=== PATIENT | male | born 1955 | race Caucasian/White ===

== ENCOUNTER 2016-12-24 10:43 | Observation (INO) | payer MEDICAID ==
[~2016-12-24] VITALS: Ht 180.3 cm; Wt 84.0 kg
[2016-12-24] VITALS (8 sets, daily range): BP systolic 132–186; BP diastolic 71–90; PULSE 84–110; RESP 18–20; TEMP 97.9; O2SAT 96–100
[~2016-12-24 10:43] MED LIST: BENZ1TAB PO; CLON.5 PO; CLON0.1T PO; DOXY1CAP91 PO; FURO1TAB62 PO; GLIP10TA6 PO; HYDR-3133 PO; HYDR-3516 PO; HYDR50TA94 PO; LANTUS2P SQ; LOSA50TA PO; PRED1SUS6 EACH EYE; PROT40TA PO; SITA50 PO; SUMA50TA2 PO; VARE1PAK5 PO; VENTAER INH; WARF-23 PO; WARF4TAB52 PO
--- NOTE | 2016-12-24 12:05 | PD ---
HPI Chief Complaint: Abdominal Pain Time Seen by Provider: 11:59 Travel History International Travel<30 days: No Contact w/Intl Traveler<30days: No Traveled to known affect area: No History of Present Illness HPI Patient is a 61-year-old male presenting to emergency for evaluation of abdominal pain. Patient states the pain is been ongoing for 4 days, it is localized in the left lower quadrant and suprapubic region. He states it's and aching all over and crampy. He denies any nausea or vomiting but reports diarrhea 3 days ago. He also reports a frontal headache which is ongoing for the same amount of time. Denies any fever, chills, nausea, vomiting. He states he's been tolerating oral intake. Patient denies any alcohol use, he does endorse tobacco use and occasional marijuana. His past medical history significant for type 2 diabetes, COPD, hypertension, coronary artery disease. PFSH Past Medical History Hx Anticoagulant Therapy: Yes (COUMADIN) Arthritis: Yes Asthma: No Autoimmune Disease: No Blood Disorders: No Bipolar Disorder: Yes Anxiety: Yes Depression: Yes Heart Rhythm Problems: No Cardiac Catheterization: Yes High Cholesterol: No Chemotherapy: No Chest Pain: Yes Congestive Heart Failure: No COPD: Yes Cerebrovascular Accident: Yes Coronary Artery Disease: Yes Diabetes: Yes Diminished Hearing: No Endocrine: Yes Gastrointestinal Disorders: Yes GERD: No Glaucoma: No Genitourinary: No Headaches: No Hepatitis: No Hiatal Hernia: No Hypertension: Yes Immune Disorder: No Implanted Vascular Access Dvce: Yes Kidney Stones: No Reproductive: No Immunizations Current: Yes Migraines: Yes Myocardial Infarction: No Pneumonia: Yes Radiation Therapy: No Renal Failure: No Schizophrenia: Yes Seizures: No Sickle Cell Disease: No Sleep Apnea: No Thyroid Disease: No Ulcer: Yes PNEUMOCCOCAL Vaccine (Year): 2 Past Surgical History Abdominal Surgery: Yes (UNKNOWN) AICD: No Appendectomy: No Arteriovenous Shunt: No Body Medical Devices: BULLET IN CHEST, AFUA IN NOSE Cardiac Surgery: Yes (femoral-popliteal bypass surgery) Cholecystectomy: No Coronary Artery Bypass Graft: No Ear Surgery: No Endocrine Surgery: No Eye Surgery: Yes (PT STATES "PERMANENT CONTACT LENSES") Genitourinary Surgery: No Gynecologic Surgery: No Hysterectomy: No Insulin Pump: No Joint Replacement: Yes (PINS IN RIGHT WRIST) Neurologic Surgery: No Oral Surgery: No Pacemaker: No Thoracic Surgery: No Social History Alcohol Use: No Tobacco Use: Yes (1 PPD) Substance Use: Yes (marijuana on a few occasions) Allergies-Medications (Allergen,Severity, Reaction): Coded Allergies: Aspirin (Verified Allergy, Severe, 09/27/16) Codeine (Verified Allergy, Severe, RASH, 09/27/16) Darvocet-N 100 (Verified Allergy, Severe, RASH, 09/27/16) Ibuprofen (Verified Allergy, Severe, RASH, 09/27/16) REACTION NOT GIVEN Penicillin (Verified Allergy, Severe, RASH, 09/27/16) REACTION NOT GIVEN *MDRO Multi-Drug Resistant Organism (Verified Allergy, Unknown, 09/27/16) MRSA 2011, 2013 MRSA PCR Screen negative 08/24/15 and 08/25/15. MRSA (toe-08/14/16) Reported Meds & Prescriptions Reported Meds & Active Scripts Active Reported Amlodipine (Amlodipine Besylate) 5 Mg Tab 5 Mg PO DAILY Hydroxyzine HCl 25 Mg Tab 25 Mg PO BID PRN Januvia (Sitagliptin Phosphate) 50 Mg Tab 50 Mg PO DAILY Clonidine (Clonidine HCl) 0.1 Mg Tab 0.1 Mg PO TID Glipizide 10 Mg Tab 10 Mg PO BIDAC Take 30 minutes before a meal Review of Systems Except as stated in HPI: all other systems reviewed are Neg General / Constitutional: No: Fever, Chills HENT: Positive: Headaches Cardiovascular: No: Chest Pain or Discomfort Respiratory: No: Shortness of Breath Gastrointestinal: Positive: Diarrhea, Abdominal Pain, Changes in Bowel Habits, No: Nausea, Vomiting Neurologic: No: Weakness, Dizziness, Focal Abnormalities Physical Exam Narrative GENERAL: Well-developed, well-nourished, alert male. Resting comfortably in no acute distress. SKIN: Warm and dry. HEAD: Atraumatic. Normocephalic. EYES: Pupils equal and round. No scleral icterus. No injection or drainage. ENT: No nasal bleeding or discharge. Mucous membranes pink and moist. NECK: Trachea midline. No JVD. CARDIOVASCULAR: Regular rate and rhythm. No murmur appreciated. RESPIRATORY: No accessory muscle use. Clear to auscultation. Breath sounds equal bilaterally. GASTROINTESTINAL: Abdomen soft, mildly tender in left lower quadrant, no rebound , no guarding, nondistended. Hepatic and splenic margins not palpable. Hyperactive bowel sounds noted. MUSCULOSKELETAL: No obvious deformities. No clubbing. No cyanosis. No edema. NEUROLOGICAL: Awake and alert. No obvious cranial nerve deficits. Motor grossly within normal limits. Normal speech. PSYCHIATRIC: Appropriate mood and affect; insight and judgment normal. Data Data Last Documented VS Vital Signs Date Time Temp Pulse Resp B/P Pulse Ox O2 Delivery O2 Flow Rate FiO2 12/24/16 14:00 94 18 186/88 97 12/24/16 10:46 97.9 Orders Complete Blood Count With Diff (12/24/16 11:58) Comprehensive Metabolic Panel (12/24/16 11:58) Lipase (12/24/16 11:58) Lactic Acid (12/24/16 11:58) Prothrombin Time / Inr (Pt) (12/24/16 11:58) Act Partial Throm Time (Ptt) (12/24/16 11:58) Urinalysis - C+S If Indicated (12/24/16 11:58) Abdomen, Kub Only (12/24/16 11:58) Ct Brain W/O Iv Contrast(Rout) (12/24/16 ) Troponin I (12/24/16 13:11) Chest, Single Ap (12/24/16 ) Lorazepam Inj (Ativan Inj) (12/24/16 13:32) Lorazepam Inj (Ativan Inj) (12/24/16 13:45) Sodium Chlor 0.9% 1000 Ml Inj (Ns 1000 M (12/24/16 13:45) Magnesium (Mg) (12/24/16 13:42) Resp Et Co2 Monitor (12/24/16 ) Ammonia (12/24/16 13:47) Thyroid Stimulating Hormone (12/24/16 13:47) Blood Culture (12/24/16 13:47) Admit Order (Ed Use Only) (12/24/16 14:54) Alcohol (Ethanol) (12/24/16 14:54) Labs Laboratory Tests Test 12/24/16 12/24/16 13:00 14:15 White Blood Count 9.1 TH/MM3 Red Blood Count 4.69 MIL/MM3 Hemoglobin 13.7 GM/DL Hematocrit 40.7 % Mean Corpuscular Volume 86.7 FL Mean Corpuscular Hemoglobin 29.2 PG Mean Corpuscular Hemoglobin 33.7 % Concent Red Cell Distribution Width 14.6 % Platelet Count 269 TH/MM3 Mean Platelet Volume 8.7 FL Neutrophils (%) (Auto) 76.7 % Lymphocytes (%) (Auto) 13.8 % Monocytes (%) (Auto) 6.2 % Eosinophils (%) (Auto) 2.1 % Basophils (%) (Auto) 1.2 % Neutrophils # (Auto) 7.0 TH/MM3 Lymphocytes # (Auto) 1.3 TH/MM3 Monocytes # (Auto) 0.6 TH/MM3 Eosinophils # (Auto) 0.2 TH/MM3 Basophils # (Auto) 0.1 TH/MM3 CBC Comment DIFF FINAL Differential Comment Prothrombin Time 14.8 SEC Prothromb Time International 1.3 RATIO Ratio Activated Partial 38.3 SEC Thromboplast Time Sodium Level 132 MEQ/L Potassium Level 4.5 MEQ/L Chloride Level 94 MEQ/L Carbon Dioxide Level 29.2 MEQ/L Anion Gap 9 MEQ/L Blood Urea Nitrogen 23 MG/DL Creatinine 1.64 MG/DL Estimat Glomerular Filtration 43 ML/MIN Rate Random Glucose 121 MG/DL Calcium Level 9.7 MG/DL Magnesium Level 2.2 MG/DL Total Bilirubin 0.6 MG/DL Aspartate Amino Transf 14 U/L (AST/SGOT) Alanine Aminotransferase 25 U/L (ALT/SGPT) Alkaline Phosphatase 122 U/L Troponin I LESS THAN 0.02 NG/ML Total Protein 9.0 GM/DL Albumin 4.2 GM/DL Lipase 252 U/L Thyroid Stimulating Hormone 0.453 uIU/ML 3rd Gen Lactic Acid Level 4.9 mmol/L Ammonia 32 MCMOL/L Ethyl Alcohol Level LESS THAN 3 MG/DL MDM Medical Decision Making Medical Screen Exam Complete: Yes Emergency Medical Condition: Yes Interpretation(s) Vital Signs Date Time Temp Pulse Resp B/P Pulse Ox O2 Delivery O2 Flow Rate FiO2 12/24/16 10:46 97.9 106 20 162/85 99 Differential Diagnosis Obstruction versus gastroenteritis versus diverticulitis versus urinary tract infection versus AAA Narrative Course Patient is a 61-year-old male presenting to emergency from for evaluation of abdominal pain medicine ongoing for 4 days. Additionally he reports a headache that is frontal in nature and pressure-like. Labs and imaging ordered and pending. Workup has been initiated in triage, care patient will be transferred to provider when a medical bed is available. Ksenia Ferguson Dec 24, 2016 12:05
--- NOTE | 2016-12-24 12:37 | RADRPT ---
EXAM DATE/TIME: 12/24/2016 12:32 [facility] COMPARISON: No previous studies available for comparison. INDICATIONS : Patient states he has had abdominal pain for four days. MEDICAL HISTORY : Cardiovascular disease. Deep venous thrombosis. Hypertension. Diabetes. SURGICAL HISTORY : None. ENCOUNTER: Initial ACUITY: 4 - 6 days PAIN SCORE: 10/10 LOCATION: Abdomen. FINDINGS: Supine view of the abdomen was performed. Copious amount of stool. The abdominal bowel gas pattern i s normal. No abnormal masses, calcifications, or organomegaly is seen. The osseous structures are u nremarkable. Stents are seen within the left common iliac and right external iliac. Scattered degener ative changes. CONCLUSION: Copious amount of stool. Caleb Patel MD on December 24, 2016 at 12:34 Board Certified Radiologist. This report was verified electronically.
[2016-12-24] MEDS ORDERED: AMLO5TAB2 PO (13:00)
[2016-12-24 13:15] LABS: BASOPHIL # 0.1 TH/MM3 (0-0.2); BASOPHIL % 1.2 % (0.0-2.0); EOSINOPHIL # 0.2 TH/MM3 (0-0.4); EOSINOPHIL % 2.1 % (0.0-4.0); HEMATOCRIT 40.7 % (39.0-51.0); HEMO FLAGS DIFF FINAL; LYMPH % 13.8 % (9.0-44.0); LYMPHOCYTE # 1.3 TH/MM3 (1.0-4.8); MEAN CELL VOLUME 86.7 FL (80.0-100.0); MEAN CORPUSCULAR HEMOGLOBIN 29.2 PG (27.0-34.0); MEAN CORPUSCULAR HGB CONC 33.7 % (32.0-36.0); MONO % 6.2 % (0.0-8.0); NEUT % 76.7 % (16.0-70.0); PLATELET COUNT 269 TH/MM3 (150-450); RED BLOOD COUNT 4.69 MIL/MM3 (4.50-5.90); RED CELL DISTRIBUTION WIDTH 14.6 % (11.6-17.2); WHITE BLOOD COUNT 9.1 TH/MM3 (4.0-11.0)
[2016-12-24 13:26] LABS: APTT (PATIENT) 38.3 SEC (24.3-30.1); INTERNATIONAL NORMALIZED RATIO 1.3 RATIO; PROTHROMBIN TIME - PATIENT 14.8 SEC (9.8-11.6)
[2016-12-24] MEDS ORDERED: LORazepam 2 MG/ML VIAL ONE (13:32)
[2016-12-24 13:37] LABS: ALT (GPT) 25 U/L (12-78); ANION GAP 9 MEQ/L (5-15); AST (GOT) 14 U/L (15-37); BICARBONATE 29.2 MEQ/L (21.0-32.0); BLOOD UREA NITROGEN 23 MG/DL (7-18); CHLORIDE 94 MEQ/L (98-107); GLOMERULAR FILTRATION RATE 43 ML/MIN (>89); POTASSIUM 4.5 MEQ/L (3.5-5.1); SODIUM (NA) 132 MEQ/L (136-145)
[2016-12-24 13:40] LABS: ALKALINE PHOSPHATASE 122 U/L (45-117); TOTAL BILIRUBIN ADULT 0.6 MG/DL (0.2-1.0)
[2016-12-24] MEDS ORDERED: LORazepam 2 MG/ML VIAL IV PUSH ONE (13:45)
[2016-12-24] MEDS ORDERED: SODIUM CHLOR 0.9% 1000 ML INJ 1,000 ML IV ONE (13:45)
--- NOTE | 2016-12-24 13:51 | RADRPT ---
EXAM DATE/TIME: 12/24/2016 13:20 [facility] COMPARISON: CHEST SINGLE AP, September 27, 2016, 20:11. INDICATIONS : Chest pain. MEDICAL HISTORY : Cardiovascular disease. Hypertension diabetes SURGICAL HISTORY : None. ENCOUNTER: Initial ACUITY: 1 day PAIN SCORE: Non-responsive. LOCATION: Bilateral chest FINDINGS: A single view of the chest demonstrates the lungs to be symmetrically aerated without evidence of mas s, infiltrate or effusion. Right costophrenic sulcus is excluded from the image. The cardiomediastin al contours are unremarkable. Osseous structures are intact. CONCLUSION: No acute disease. Cuauhtemoc Love MD on December 24, 2016 at 13:49 Board Certified Radiologist. This report was verified electronically.
--- NOTE | 2016-12-24 13:53 | PD ---
Physical Exam Narrative 61yo M with PMH of anxiety, depression, bipolar disorder, DM, HTN, PVD s/p bilateral fem-pop bypass, COPD presents to the ED with multiple complaints. Pt is complaining of left sided headache, left sided chest pain, and left sided abdominal pain for 4 days. Pt denies any fever, sob, n/v, or diarrhea. Pt is acting strange and following commands but keeps stating he feels confused. Pt noted to have lip smacking. GEN: 61yo M not in acute distress. CV: S1, S2. Lungs: CTA B/L, equal breath sounds. Abd: soft, mild epigastric and suprapubic ttp. No rebound tenderness or guarding. NEURO: No focal neurologic deficits. PSYCH: Preoccupied. Poor insight and judgment. After initial evaluation, pt was found to have a generalized tonic, clonic seizure and ativan 6mg IV was given. Lasted less than 1 minute. Continuous end tidal CO2 monitoring placed on patient. Pt given liter of NS IVF. I could not find any history of seizure for this patient. Pt has 4 medications on him although he has a large list in our medication reconciliation list. Pt had history of tobacco use. No signs of trauma on him. Differential diagnosis include ICH vs. benzodiazepine withdrawal vs. alcohol withdrawal vs. new onset seizure vs. electrolyte abnormality. Labs reviewed: No leukocytosis. Troponin negative. Magnesium 2.2. Ammonia 32. Lactic acid was drawn after the seizure so elevation is likely secondary to seizure. Pt was afebrile and did not have signs of infection. Xray abdomen showed copious amount of stool. CXR showed no acute disease. CT brain showed chronic ischemic changes. No acute intracranial abnormality. Pt reevaluated at bedside. Pt is arousable and will open eyes. Pt is still sleepy but moves extremities and mumbles. He is protecting his airway. Discussed with Dr. Sims and accepted to his service for new onset seizure. Pt was monitored throughout his stay in the ED with continuous end tidal CO2 and cardiac monitoring. Discussed case with neurologist Dr. Najera when he came to evaluate the patient. Data Data Last Documented VS Vital Signs Date Time Temp Pulse Resp B/P Pulse Ox O2 Delivery O2 Flow Rate FiO2 12/24/16 14:00 94 18 186/88 97 12/24/16 10:46 97.9 Orders Complete Blood Count With Diff (12/24/16 11:58) Comprehensive Metabolic Panel (12/24/16 11:58) Lipase (12/24/16 11:58) Lactic Acid (12/24/16 11:58) Prothrombin Time / Inr (Pt) (12/24/16 11:58) Act Partial Throm Time (Ptt) (12/24/16 11:58) Urinalysis - C+S If Indicated (12/24/16 11:58) Abdomen, Kub Only (12/24/16 11:58) Ct Brain W/O Iv Contrast(Rout) (12/24/16 ) Troponin I (12/24/16 13:11) Chest, Single Ap (12/24/16 ) Lorazepam Inj (Ativan Inj) (12/24/16 13:32) Lorazepam Inj (Ativan Inj) (12/24/16 13:45) Sodium Chlor 0.9% 1000 Ml Inj (Ns 1000 M (12/24/16 13:45) Magnesium (Mg) (12/24/16 13:42) Resp Et Co2 Monitor (12/24/16 ) Ammonia (12/24/16 13:47) Thyroid Stimulating Hormone (12/24/16 13:47) Blood Culture (12/24/16 13:47) Admit Order (Ed Use Only) (12/24/16 14:54) Alcohol (Ethanol) (12/24/16 14:54) Labs Laboratory Tests Test 12/24/16 12/24/16 13:00 14:15 White Blood Count 9.1 TH/MM3 Red Blood Count 4.69 MIL/MM3 Hemoglobin 13.7 GM/DL Hematocrit 40.7 % Mean Corpuscular Volume 86.7 FL Mean Corpuscular Hemoglobin 29.2 PG Mean Corpuscular Hemoglobin 33.7 % Concent Red Cell Distribution Width 14.6 % Platelet Count 269 TH/MM3 Mean Platelet Volume 8.7 FL Neutrophils (%) (Auto) 76.7 % Lymphocytes (%) (Auto) 13.8 % Monocytes (%) (Auto) 6.2 % Eosinophils (%) (Auto) 2.1 % Basophils (%) (Auto) 1.2 % Neutrophils # (Auto) 7.0 TH/MM3 Lymphocytes # (Auto) 1.3 TH/MM3 Monocytes # (Auto) 0.6 TH/MM3 Eosinophils # (Auto) 0.2 TH/MM3 Basophils # (Auto) 0.1 TH/MM3 CBC Comment DIFF FINAL Differential Comment Prothrombin Time 14.8 SEC Prothromb Time International 1.3 RATIO Ratio Activated Partial 38.3 SEC Thromboplast Time Sodium Level 132 MEQ/L Potassium Level 4.5 MEQ/L Chloride Level 94 MEQ/L Carbon Dioxide Level 29.2 MEQ/L Anion Gap 9 MEQ/L Blood Urea Nitrogen 23 MG/DL Creatinine 1.64 MG/DL Estimat Glomerular Filtration 43 ML/MIN Rate Random Glucose 121 MG/DL Calcium Level 9.7 MG/DL Magnesium Level 2.2 MG/DL Total Bilirubin 0.6 MG/DL Aspartate Amino Transf 14 U/L (AST/SGOT) Alanine Aminotransferase 25 U/L (ALT/SGPT) Alkaline Phosphatase 122 U/L Troponin I LESS THAN 0.02 NG/ML Total Protein 9.0 GM/DL Albumin 4.2 GM/DL Lipase 252 U/L Thyroid Stimulating Hormone 0.453 uIU/ML 3rd Gen Lactic Acid Level 4.9 mmol/L Ammonia 32 MCMOL/L Ethyl Alcohol Level LESS THAN 3 MG/DL MDM Supervised Visit with JUANA: Yes Critical Care Narrative Aggregate critical care was 40 minutes. Time to perform other separately billable procedures was note included in the critical care time. My time did not include minutes spent treating any other patients simultaneously or on activities that did not directly contribute to the patient's treatment. The services I provided to this patient were to treat and/or prevent clinically significant deterioration that could result in: cardiovascular collapse or . I provided critical care services requiring my management, as noted below: Chart data review, documentation time, medication orders and management, vital sign assessments/reviewing monitor data, ordering and reviewing lab tests, ordering and interpreting/reviewing x-rays and diagnostic studies, care o fhte patient and discussion of the the patient with the admitting physicians. Diagnosis Primary Impression: New onset seizure Admitting Information Admitting Physician Requests: Admit Holly Renner DO Dec 24, 2016 13:53
--- NOTE | 2016-12-24 14:38 | RADRPT ---
EXAM DATE/TIME: 12/24/2016 14:10 [facility] COMPARISON: CT BRAIN W/O CONTRAST, March 07, 2011, 12:17. EXTERNAL COMPARISON : INDICATIONS : Possible seizure RADIATION DOSE: 42.28 CTDIvol (mGy) MEDICAL HISTORY : Cerebrovascular disease. Cardiovascular disease Hypertension. SURGICAL HISTORY : None. ENCOUNTER: Initial ACUITY: 1 day PAIN SCALE: Non-responsive LOCATION: cranial TECHNIQUE: Multiple contiguous axial images were obtained of the head. Using automated exposure control and adj ustment of the mA and/or kV according to patient size, radiation dose was kept as low as reasonably a chievable to obtain optimal diagnostic quality images. FINDINGS: CEREBRUM: Scattered low attenuation throughout the white matter. Lacunar infarct right caudate head, old. The v entricles are normal for age. No evidence of midline shift, mass lesion, hemorrhage or acute infarct ion. No extra-axial fluid collections are seen. POSTERIOR FOSSA: The cerebellum and brainstem are intact. The 4th ventricle is midline. The cerebellopontine angle i s unremarkable. EXTRACRANIAL: The visualized portion of the orbits is intact. SKULL: The calvaria is intact. No evidence of skull fracture. CONCLUSION: Chronic ischemic changes. No acute intracranial abnormality. Caleb Patel MD on December 24, 2016 at 14:32 Board Certified Radiologist. This report was verified electronically.
[2016-12-24] MEDS ORDERED: GLUCAGON 1 MG/ML VIAL OTHER PRN (15:45)
[2016-12-24] MEDS ORDERED: DEXTROSE 50% IN WATER 50 ML VIAL(D50) IV PUSH PRN (15:45)
[2016-12-24] MEDS ORDERED: LORazepam 2 MG/ML VIAL IV PUSH PRN (15:45)
[2016-12-24] MEDS ORDERED: ENALAPRILAT 1.25 MG/ML VIAL IV PUSH PRN (15:45)
[2016-12-24] MEDS ORDERED: ONDANSETRON HCL 4 MG/2 ML VIAL IV PUSH PRN (15:45)
[2016-12-24] MEDS: INSULIN ASPART SUPPLEMENTAL SCALE SQ SCH ×2 (16:00→21:00)
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
[2016-12-24] MEDS: SODIUM CHLOR 0.9% 1000 ML INJ 1,000 ML IV SCH (16:20)
[2016-12-24 16:27] LABS: BLOOD, URINE NEG (NEG); GLUCOSE,URINE NEG (NEG); KETONE, URINE NEG (NEG); NITRITE,URINE NEG (NEG); SQUAMOUS EPITHELIAL CELL URINE 1 /hpf (0-5); URINE COLOR YELLOW (YELLW/STRAW)
[2016-12-24 16:28] LABS: COMMENT (UR) CULT NOT INDICATED; CULTURE IF INDICATED CULT NOT INDICATED
[2016-12-24 16:34] LABS: AMPHETAMINE, URINE NEG (NEG); BARBITURATES, URINE NEG (NEG); COCAINE, URINE POS (NEG)
[2016-12-24] MEDS: levETIRAcetam 500 MG TAB PO SCH (23:41)
[2016-12-25] VITALS (7 sets, daily range): BP systolic 130–161; BP diastolic 60–76; PULSE 78–97; RESP 16–21; TEMP 98.1–98.8; O2SAT 93–98
[2016-12-25] MEDS: SODIUM CHLOR 0.9% 1000 ML INJ 1,000 ML IV SCH ×2 (01:15→11:15)
[2016-12-25 05:51] LABS: BICARBONATE 29.7 MEQ/L (21.0-32.0); POTASSIUM 4.3 MEQ/L (3.5-5.1)
[2016-12-25] MEDS: INSULIN ASPART SUPPLEMENTAL SCALE SQ SCH ×4 (06:03→20:44)
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
[2016-12-25] MEDS: levETIRAcetam 500 MG TAB PO SCH ×2 (07:51→20:58)
--- NOTE | 2016-12-25 12:14 | HHI.PR ---
Subjective Remarks resting comfortably with no distress. awake and more alert today. denies pain. no nausea or vomiting. Objective Vitals Vital Signs Date Time Temp Pulse Resp B/P Pulse Ox O2 Delivery O2 Flow Rate FiO2 12/25/16 10:55 98.7 84 18 142/67 95 12/25/16 07:23 98.1 88 18 138/65 95 12/25/16 04:00 98.4 78 21 147/76 98 12/25/16 00:45 98.8 97 18 161/72 98 12/24/16 19:12 96 18 170/90 99 Room Air 12/24/16 16:00 94 18 144/71 96 12/24/16 15:00 94 18 132/71 96 12/24/16 14:00 94 18 186/88 97 12/24/16 13:40 100 12/24/16 13:00 110 18 148/71 97 I/O 12/24/16 12/24/16 12/24/16 12/25/16 12/25/16 12/25/16 07:00 15:00 23:00 07:00 15:00 23:00 Output Total 200 ml Balance -200 ml Output Urine Total 200 ml Result Diagram: 12/24/16 1300 12/25/16 0416 Imaging Last Impressions Abdomen X-Ray 12/24/16 1158 Signed Impressions: Service Date/Time: Saturday, December 24, 2016 12:32 - CONCLUSION: Copious amount of stool. Caleb Patel MD Head CT 12/24/16 0000 Signed Impressions: Service Date/Time: Saturday, December 24, 2016 14:10 - CONCLUSION: Chronic ischemic changes. No acute intracranial abnormality. Caleb Patel MD Chest X-Ray 12/24/16 0000 Signed Impressions: Service Date/Time: Saturday, December 24, 2016 13:20 - CONCLUSION: No acute disease. Cuauhtemoc Love MD Objective Remarks GENERAL: This is a well-nourished, well-developed patient, in no apparent distress. CARDIOVASCULAR: Regular rate and regular rhythm without murmurs, gallops, or rubs. RESPIRATORY: Clear to auscultation. Breath sounds equal bilaterally. No wheezes , rales, or rhonchi. GASTROINTESTINAL: Abdomen soft, non-tender, nondistended. Normal, active bowel sounds MUSCULOSKELETAL: Extremities without clubbing, cyanosis, or edema. NEURO: awake,alert, oriented to person, place. Procedures none Medications and IVs Current Medications Lorazepam (Ativan Inj) 6 mg STK-MED ONCE .ROUTE ; Start 12/24/16 at 13:32; Stop 12/24/16 at 13:33; Status DC Lorazepam 6 mg 6 mg ONCE ONCE IV PUSH Last administered on 12/24/16 14:35; Start 12/24/16 at 13:45; Stop 12/24/16 at 13:46; Status DC Sodium Chloride 1,000 ml @ 999 mls/hr BOLUS ONCE IV Last administered on 14:35; Start 12/24/16 at 13:45; Stop 12/24/16 at 14:45; Status DC Sodium Chloride (NS 1000 ml Inj) 1,000 ml @ 100 mls/hr Q10H IV Last administered on 12/24/16 16:20; Start 12/24/16 at 15:15 Ondansetron HCl (Zofran Inj) 4 mg Q8HR PRN IV PUSH NAUSEA; Start 12/24/16 at 15: 45 Enalaprilat (Vasotec Inj) 1.25 mg Q8H PRN IV PUSH SBP> OR = 180, DBP> OR = 100 ; Start 12/24/16 at 15:45 Lorazepam (Ativan Inj) 1 mg Q15M PRN IV PUSH SEIZURE; Start 12/24/16 at 15:45 Dextrose (D50w (Vial) Inj) 25 ml UNSCH PRN IV PUSH HYPOGLYCEMIA-SEE COMMENTS; Start 12/24/16 at 15:45 Glucagon (Glucagon Inj) 1 mg UNSCH PRN OTHER HYPOGLYCEMIA-SEE COMMENTS; Start 12/24/16 at 15:45 Insulin Aspart (NovoLOG SUPPLEMENTAL SCALE) 1 ACHS SLIDING SCALE SQ ; Start 12/24/16 at 16:00 Levetriacetam (Keppra) 500 mg Q12HR PO Last administered on 12/25/16 07:51; Start 12/24/16 at 23:15 A/P Assessment and Plan New-onset seizures -- Ativan when necessary - Neurochecks every 4 hours - Seizure precaution - Placed patient on Telemetry - CT of the head showed chronic ischemic changes. No acute intracranial abnormality. - EEG - Neurology consult input appreciated; started on Keppra -MRI brain pending. Hyponatremia -improved. CKD - Avoid nephrotoxins. - IVF NS 100ml/hr - Monitor BMP. Elevated lactic acid - resolved. Possible elevation secondary to seizure activity/ hypoxia. HTN HLD - resume home meds - Monitor BP trend COPD - no exacerbation noted. - DuoNeb's when necessary. - Chest x-ray showed no acute disease. DM 2 - start insulin sliding scale. Hold off on home meds for now. - Monitor Accu-Cheks. Monitor for hypoglycemia. - Last hemoglobin A1c 7.1 - 08/15/16 DVT prop SCDs Discharge Planning discharge in am if stable- pending MRI brain and EEG. Cullen Sims MD Dec 25, 2016 12:14
[2016-12-25] MEDS: cloNIDine HCL 0.1 MG TAB PO SCH ×2 (13:52→18:00)
--- NOTE | 2016-12-25 14:08 | RADRPT ---
EXAM DATE/TIME: 12/25/2016 13:15 [place] COMPARISON: CT BRAIN W/O CONTRAST, December 24, 2016, 14:10. INDICATIONS : Seizures. MEDICAL HISTORY : Seizures. Methicillin-resistant Staphylococcus aureus. SURGICAL HISTORY : Peripheral arterial bypass. ENCOUNTER: Initial ACUITY: 2 day PAIN SCORE: 0/10 LOCATION: head TECHNIQUE: Multiplanar, multisequence MRI of the brain was performed without contrast. FINDINGS: CEREBRUM: The ventricles are normal for age. No evidence of midline shift, mass lesion, hemorrhage or acute in farction. No extraaxial fluid collections are seen. The pituitary gland and suprasellar cistern are normal in configuration. WHITE MATTER: Moderately severe chronic flair signal abnormality seen in the white matter of both vertebral hemisph eres. POSTERIOR FOSSA: The cerebellum and brainstem are intact. The 4th ventricle is midline. The cerebellopontine angle is unremarkable. The cerebellar tonsils are normal in position. DIFFUSION IMAGING: No focal areas of restricted diffusion are seen. No evidence of acute infarction. EXTRACRANIAL: The visualized portions of the orbits and paranasal sinuses are unremarkable. CONCLUSION: Nonspecific chronic white matter changes. No acute intracranial abnormality demonstrated. Porfirio Harper MD on December 25, 2016 at 14:05 Board Certified Radiologist. This report was verified electronically.
[2016-12-25] MEDS ORDERED: SODIUM CHLOR 0.9% 1000 ML INJ 1,000 ML IV ONE (15:15)
--- NOTE | 2016-12-25 19:27 | MG ---
cc: APRIL THOMAS M.D. Sex: M DATE OF STUDY: 12/25/2016 REQUESTING PHYSICIAN: Dr. Sims DESCRIPTION: An EEG was obtained on this 61-year-old patient with history of depression, schizophrenia, migraines, being evaluated for possible seizures. The patient is awake and asleep. The EEG shows 10-12 per second low and mid amplitude alpha activity centrally and posteriorly. The background is reactive. There are low amplitude beta rhythms centrally and frontally. The patient drowses and there is some theta rhythms along with widespread beta activity. Eventually sleep spindles and K complexes evolve indicating sleep stage II. Photic stimulation showed some mild driving response bilaterally. INTERPRETATION Essentially normal awake and asleep EEG. April Thomas MD [facility] /6:48 PM /7:26 PM
[2016-12-26 03:47] VITALS: BP 132/71; PULSE 74; TEMP 97.7; O2SAT 91
[2016-12-26] MEDS: INSULIN ASPART SUPPLEMENTAL SCALE SQ SCH ×4 (05:31→21:20)
[2016-12-26 07:03] VITALS: BP 125/68; PULSE 80; RESP 16; TEMP 97.7; O2SAT 95
[2016-12-26] MEDS: levETIRAcetam 500 MG TAB PO SCH ×2 (08:19→21:20)
[2016-12-26] MEDS: cloNIDine HCL 0.1 MG TAB PO SCH ×3 (08:19→18:09)
[2016-12-26] MEDS: amLODIPine BESYLATE 5 MG TAB PO SCH (08:19)
--- NOTE | 2016-12-26 10:33 | HHI.PR ---
Subjective Remarks in no acute distress. sounds very confused. d/w the RN and other than confusion no other acute issues over night. Objective Vitals Vital Signs Date Time Temp Pulse Resp B/P Pulse Ox O2 Delivery O2 Flow Rate FiO2 12/26/16 07:03 97.7 80 16 125/68 95 12/26/16 03:47 97.7 74 132/71 91 12/25/16 22:56 80 20 144/62 93 12/25/16 19:07 87 146/60 95 12/25/16 15:00 98.8 85 16 130/70 98 12/25/16 10:55 98.7 84 18 142/67 95 I/O 12/25/16 12/25/16 12/25/16 12/26/16 12/26/16 12/26/16 07:00 15:00 23:00 07:00 15:00 23:00 Output Total 200 ml Balance -200 ml Output Urine Total 200 ml Result Diagram: 12/24/16 1300 12/25/16 0416 Imaging Last Impressions Brain MRI 12/25/16 0000 Signed Impressions: Service Date/Time: Sunday, December 25, 2016 13:15 - CONCLUSION: Nonspecific chronic white matter changes. No acute intracranial abnormality demonstrated. Porfirio Harper MD Abdomen X-Ray 12/24/16 1158 Signed Impressions: Service Date/Time: Saturday, December 24, 2016 12:32 - CONCLUSION: Copious amount of stool. Claeb Patel MD Head CT 12/24/16 0000 Signed Impressions: Service Date/Time: Saturday, December 24, 2016 14:10 - CONCLUSION: Chronic ischemic changes. No acute intracranial abnormality. Caleb Patel MD Chest X-Ray 12/24/16 0000 Signed Impressions: Service Date/Time: Saturday, December 24, 2016 13:20 - CONCLUSION: No acute disease. Cuauhtemoc Love MD Objective Remarks GENERAL: This is a well-nourished, well-developed patient, in no apparent distress. CARDIOVASCULAR: Regular rate and regular rhythm without murmurs, gallops, or rubs. RESPIRATORY: Clear to auscultation. Breath sounds equal bilaterally. No wheezes , rales, or rhonchi. GASTROINTESTINAL: Abdomen soft, non-tender, nondistended. Normal, active bowel sounds MUSCULOSKELETAL: Extremities without clubbing, cyanosis, or edema. NEURO: awake,alert, oriented to person, place. Procedures none Medications and IVs Current Medications Lorazepam (Ativan Inj) 6 mg STK-MED ONCE .ROUTE ; Start 12/24/16 at 13:32; Stop 12/24/16 at 13:33; Status DC Lorazepam 6 mg 6 mg ONCE ONCE IV PUSH Last administered on 12/24/16 14:35; Start 12/24/16 at 13:45; Stop 12/24/16 at 13:46; Status DC Sodium Chloride 1,000 ml @ 999 mls/hr BOLUS ONCE IV Last administered on 14:35; Start 12/24/16 at 13:45; Stop 12/24/16 at 14:45; Status DC Sodium Chloride (NS 1000 ml Inj) 1,000 ml @ 100 mls/hr Q10H IV Last administered on 12/25/16 11:15; Start 12/24/16 at 15:15; Stop 12/25/16 at 12:16; Status DC Ondansetron HCl (Zofran Inj) 4 mg Q8HR PRN IV PUSH NAUSEA; Start 12/24/16 at 15: 45 Enalaprilat (Vasotec Inj) 1.25 mg Q8H PRN IV PUSH SBP> OR = 180, DBP> OR = 100 ; Start 12/24/16 at 15:45 Lorazepam (Ativan Inj) 1 mg Q15M PRN IV PUSH SEIZURE Last administered on 08:19; Start 12/24/16 at 15:45 Dextrose (D50w (Vial) Inj) 25 ml UNSCH PRN IV PUSH HYPOGLYCEMIA-SEE COMMENTS; Start 12/24/16 at 15:45 Glucagon (Glucagon Inj) 1 mg UNSCH PRN OTHER HYPOGLYCEMIA-SEE COMMENTS; Start 12/24/16 at 15:45 Insulin Aspart (NovoLOG SUPPLEMENTAL SCALE) 1 ACHS SLIDING SCALE SQ Last administered on 12/25/16 16:44; Start 12/24/16 at 16:00 Levetriacetam (Keppra) 500 mg Q12HR PO Last administered on 12/26/16 08:19; Start 12/24/16 at 23:15 Amlodipine Besylate (Norvasc) 5 mg DAILY PO Last administered on 12/26/16 08:19 ; Start 12/26/16 at 09:00 Clonidine 0.1 mg 0.1 mg TID PO Last administered on 12/26/16 08:19; Start at 13:00 Sodium Chloride (NS 1000 ml Inj) 1,000 ml @ 60 mls/hr [id number] ONCE IV Last administered on 12/25/16 15:15; Start 12/25/16 at 15:15; Stop 12/26/16 at 07:54; Status DC A/P Assessment and Plan New-onset seizures - still confused -- Ativan when necessary - Neurochecks every 4 hours - Seizure precaution - CT of the head showed chronic ischemic changes. No acute intracranial abnormality. -MRI brain with no acute abnormality - EEG; normal - Neurology consult input appreciated; started on Kedemetriusra d/w ; will consult IR for LP. -will consult psych. Hyponatremia -improved. CKD - Avoid nephrotoxins. - Monitor BMP. Elevated lactic acid - resolved. Possible elevation secondary to seizure activity/ hypoxia- resolved. HTN HLD - resume home meds - Monitor BP trend COPD - no exacerbation noted. - DuoNeb's when necessary. - Chest x-ray showed no acute disease. DM 2 - start insulin sliding scale. Hold off on home meds for now. - Monitor Accu-Cheks. Monitor for hypoglycemia. - Last hemoglobin A1c 7.1 - 08/15/16 DVT prop SCDs Discharge Planning still confused- not safe for discharge. patient can not sign out. sister was called and given an update. case management will be consulted for dc planning. Cullen Sims MD Dec 26, 2016 10:33
[2016-12-26 11:10] VITALS: BP 140/76; PULSE 90; RESP 16; TEMP 97.4; O2SAT 96
--- NOTE | 2016-12-26 15:06 | PD.RAD ---
Post Procedure Progress Note Pre Procedure Diagnosis: (1) New onset seizure Post Procedure Diagnosis: (1) New onset seizure Procedure Date: Dec 26, 2016 Supervising Radiologist: Meño Chaudhry Proceduralist/Assist: RT Shilpi(R), RT Francesco(R) Anesthesia: Local Plan of Activity Patient to Unit: Nursing Unit Patient Condition: Fair See PACS Report for procedural detail/treatment Spinal Procedure Lumbar Puncture L2-L3 Fluid Removal (CCs): 10 Fluid Description: Meño Kingsley MD Dec 26, 2016 15:06
[2016-12-26 16:03] VITALS: BP 138/66; PULSE 79; RESP 16; TEMP 98.1; O2SAT 97
[2016-12-26 16:38] LABS: GROSS BLOOD TUBE #1 3+ (0); GROSS BLOOD TUBE #2 3+ (0); GROSS BLOOD TUBE #3 3+ (0); GROSS BLOOD TUBE #4 3+ (0); SUPERNATE COLOR TUBE #1 CLEAR (CLEAR); SUPERNATE COLOR TUBE #2 CLEAR (CLEAR); SUPERNATE COLOR TUBE #3 CLEAR (CLEAR); SUPERNATE COLOR TUBE #4 CLEAR (CLEAR); VOLUME TUBE # 1 2.2 ML; VOLUME TUBE # 3 2.2 ML; VOLUME TUBE # 4 3.5 ML
[2016-12-26 16:39] LABS: CSF EOSINOPHILS 2 %; CSF LYMPHOCYTES 29 %; CSF MONOCYTES 15 %; CSF NEUTROPHILS 53 %; WBC TUBE #4 8 /MM3 (0-10)
--- NOTE | 2016-12-26 17:36 | HHI.PR ---
Review/Management Diagnosis 1. Encephalopathy, resolving 2. New onset seizure. 3. Diabetes mellitus. 4. Hypertension. 5. Orofacial dyskinesia and limb dyskinesia/ chronic as per sister at the bed side during today's encounter. 6. Possible etiology of seizure is secondary to encephalitis/ encephalopathy, medication withdrawal or metabolic causes. MRI brain, EEG were unremarkable S/P LP, pending results Plan 1. Neuro checks q. 4 hours. 2. Keppra 500 mg twice daily. 3.seizure precautions. 4. Resume clonazepam at home dose. 5. DVT prophylaxis. 6. Seizure precautions. 7. If LP results are normal,may consider psychiatric consultation.anf follow up as outpatient Diagnosis/Plan: Subjective Subjective Comments Patient is seen with sister at bedside, she states that " he had these tics since he was a child", denies h/o of seizures, however, she states that she has had three seizures No reported seizure activity Patient is more awake, alert, was able to recognize another family member and speak coherently with s/p lumbar puncture to rule an encephalitic etiology/viral, despite no constitutional symptoms, or elevated WBC, but given the confusion, and seizure disorder, give patient benefit of the doubt of a possible viral encephalitis as an etiologic factor Active Medications Current Medications Medications (Trade) Dose Ordered Sig/Myrna Route Start Time Stop Time Status Last Admin (Zofran Inj) 4 mg Q8HR PRN IV PUSH 12/24/16 15:45 (Vasotec Inj) 1.25 mg Q8H PRN IV PUSH 12/24/16 15:45 (Ativan Inj) 1 mg Q15M PRN IV PUSH 12/24/16 15:45 12/26/16 08:19 (D50w (Vial) Inj) 25 ml UNSCH PRN IV PUSH 12/24/16 15:45 (Glucagon Inj) 1 mg UNSCH PRN OTHER 12/24/16 15:45 (Keppra) 500 mg Q12HR PO 12/24/16 23:15 12/26/16 08:19 (Norvasc) 5 mg DAILY PO 12/26/16 09:00 12/26/16 08:19 (Catapres) 0.1 mg TID PO 12/25/16 13:00 12/26/16 12:50 Allergies Allergies Coded Allergies Aspirin (Verified Allergy, Severe, 09/27/16) Codeine (Verified Allergy, Severe, RASH, 09/27/16) Darvocet-N 100 (Verified Allergy, Severe, RASH, 09/27/16) Ibuprofen (Verified Allergy, Severe, RASH, 09/27/16) Penicillin (Verified Allergy, Severe, RASH, 09/27/16) *MDRO Multi-Drug Resistant Organism (Verified Adverse Reaction, Unknown, ) Exam I&O / VS 12/25/16 12/25/16 12/26/16 15:00 23:00 07:00 Output Total 200 ml Balance -200 ml Output Urine Total 200 ml Vital Signs Date Time Temp Pulse Resp B/P Pulse Ox O2 Delivery O2 Flow Rate FiO2 12/26/16 16:03 98.1 79 16 138/66 97 12/26/16 11:10 97.4 90 16 140/76 96 12/26/16 07:03 97.7 80 16 125/68 95 12/26/16 03:47 97.7 74 132/71 91 12/25/16 22:56 80 20 144/62 93 12/25/16 19:07 87 146/60 95 Exam Comments GENERAL: The patient is awake, alert, more calm, during the encounter was speaking coherently with a family member abnormal movements throughout the body. Poor historian. HEENT: Atraumatic, normocephalic. Intact hearing and intact vision. NECK: Supple. No signs of meningeal irritation. No carotid bruit. CARDIOVASCULAR: Regular rate and rhythm. RESPIRATORY: Clear to auscultation. No wheezes. MUSCULOSKELETAL: Extremities without clubbing, cyanosis or edema. NEUROLOGICAL: Awake, alert, oriented to place, person, not time, stuttering of speech, No facial asymmetry. Intermittent orofacial dyskinetic movement and tongue involuntary movements as well as facial twitches. Dyskinetic movement of the upper and lower extremities bilateral. External ocular motility. Pupils are 2 mm, bilaterally reacting to light. No diplopia. No facial asymmetry. Upper and lower extremities unable to assess because he is physically restrained but he is moving all extremities without focal weakness but with dyskinetic/choreiform movements. Sensation is intact bilateral and symmetrical. Unable to assess accurately the cerebellar and reflexes. Objective Radiology Results Last 72 hours Impressions Lumbar Puncture Fluoroscopy 12/26/16 0000 Signed Impressions: Service Date/Time: December 14:42 - CONCLUSION: Uncomplicated fluoroscopically guided lumbar puncture. Meño Chaudhry MD Brain MRI 12/25/16 0000 Signed Impressions: Service Date/Time: Sunday, December 25, 2016 13:15 - CONCLUSION: Nonspecific chronic white matter changes. No acute intracranial abnormality demonstrated. Porfirio Harper MD Abdomen X-Ray 12/24/16 1158 Signed Impressions: Service Date/Time: Saturday, December 24, 2016 12:32 - CONCLUSION: Copious amount of stool. Caleb Patel MD Head CT 12/24/16 0000 Signed Impressions: Service Date/Time: Saturday, December 24, 2016 14:10 - CONCLUSION: Chronic ischemic changes. No acute intracranial abnormality. Caleb Patel MD Chest X-Ray 12/24/16 0000 Signed Impressions: Service Date/Time: Saturday, December 24, 2016 13:20 - CONCLUSION: No acute disease. Cuauhtemoc Love MD Micro and Labs Laboratory Tests Test 12/26/16 14:55 CSF Volume (Tube 1) 2.2 CSF Supernatant Color (tube 1) CLEAR CSF Gross Blood (Tube 1) 3+ CSF Volume (Tube 2) 2.0 CSF Supernatant Color (tube 2) CLEAR CSF Gross Blood (Tube 2) 3+ CSF Volume (Tube 3) 2.2 CSF Supernatant Color (tube 3) CLEAR CSF Gross Blood (Tube 3) 3+ CSF Volume (Tube 4) 3.5 CSF Supernatant Color (tube 4) CLEAR CSF Gross Blood (Tube 4) 3+ CSF WBC (Tube 4) 8 CSF RBC (Tube 4) 2169 CSF Neutrophils 53 CSF Lymphocytes 29 CSF Monocytes 15 CSF Eosinophils 2 CSF Histiocytes 1 CSF Glucose 101 CSF Total Protein 53.9 Date/Time Procedure Status Source Growth 12/26/16 14:55 Gram Stain - Final Resulted Cerebral Spinal Fluid Lumbar Puncture 12/26/16 14:55 CSF Culture Resulted Cerebral Spinal Fluid Lumbar Puncture Pending 12/24/16 14:05 Aerobic Blood Culture - Preliminary Resulted Blood Peripheral NO GROWTH IN 2 DAYS 12/24/16 14:05 Anaerobic Blood Culture - Preliminary Resulted Blood Peripheral NO GROWTH IN 2 DAYS Jamaal Najera MD Dec 26, 2016 17:36
--- NOTE | 2016-12-26 18:09 | RADRPT ---
EXAM DATE/TIME: 12/26/2016 14:42 [facility] COMPARISON: No previous studies available for comparison. INDICATIONS : Patient with altered mental status in need of lumbar puncture. MEDICAL HISTORY : COPD, Diabetes, HTN, CAD, PVD SURGICAL HISTORY : Right great toe and second toe amputation, Abdominal surgery ENCOUNTER: Initial ACUITY: 2 days PAIN SCORE: 0/10 LUMBAR PUNCTURE TIME: 1455 hours FLUORO TIME: 0.8 minutes IMAGE SERIES: 0 ACCESS LEVEL: L2-3 FLUID: 10 cc of clear, red CSF was collected and sent to the laboratory for analysis. PROCEDURE : 1. Fluoroscopic guided lumbar puncture. The risks, benefits and alternatives to the procedure were explained and verbal and written consent w as obtained. The site was prepped in sterile fashion. Full sterile technique was used, including ca p, mask, sterile gloves and gown and a large sterile sheet. Hand hygiene and 2% chlorhexidine and/or betadine/alcohol prep was utilized per protocol for cutaneous antisepsis. The skin and subcutaneous tissues were infiltrated with local anesthetic solution. With fluoroscopic guidance the lumbar thecal sac was punctured at the level above. The fluid describ ed above was removed without difficulty. The patient tolerated the procedure well and there were no complications. CONCLUSION: Uncomplicated fluoroscopically guided lumbar puncture. Meño Chaudhry MD on December 26, 2016 at 18:07 Board Certified Radiologist. This report was verified electronically.
[2016-12-26 19:54] VITALS: BP 158/70; PULSE 93; TEMP 97.9; O2SAT 95
[2016-12-26 23:23] VITALS: BP 128/83; PULSE 72; O2SAT 95
[2016-12-27 03:56] VITALS: BP 135/83; PULSE 70; TEMP 97.6; O2SAT 96
[2016-12-27] MEDS: INSULIN ASPART SUPPLEMENTAL SCALE SQ SCH ×4 (05:45→20:41)
--- NOTE | 2016-12-27 07:47 | HHI.PR ---
Subjective Remarks awake and much more alert today. no fever. denies pain. Objective Vitals Vital Signs Date Time Temp Pulse Resp B/P Pulse Ox O2 Delivery O2 Flow Rate FiO2 12/27/16 03:56 97.6 70 135/83 96 12/26/16 23:23 72 128/83 95 12/26/16 19:54 97.9 93 158/70 95 12/26/16 16:03 98.1 79 16 138/66 97 12/26/16 11:10 97.4 90 16 140/76 96 Result Diagram: 12/24/16 1300 12/25/16 0416 Imaging Last Impressions Lumbar Puncture Fluoroscopy 12/26/16 0000 Signed Impressions: Service Date/Time: December 14:42 - CONCLUSION: Uncomplicated fluoroscopically guided lumbar puncture. Meño Chaudhry MD Brain MRI 12/25/16 0000 Signed Impressions: Service Date/Time: Sunday, December 25, 2016 13:15 - CONCLUSION: Nonspecific chronic white matter changes. No acute intracranial abnormality demonstrated. Porfirio Harper MD Abdomen X-Ray 12/24/16 1158 Signed Impressions: Service Date/Time: Saturday, December 24, 2016 12:32 - CONCLUSION: Copious amount of stool. Caleb Patel MD Head CT 12/24/16 0000 Signed Impressions: Service Date/Time: Saturday, December 24, 2016 14:10 - CONCLUSION: Chronic ischemic changes. No acute intracranial abnormality. Caleb Patel MD Chest X-Ray 12/24/16 0000 Signed Impressions: Service Date/Time: Saturday, December 24, 2016 13:20 - CONCLUSION: No acute disease. Cuauhtemoc Love MD Objective Remarks GENERAL: This is a well-nourished, well-developed patient, in no apparent distress. CARDIOVASCULAR: Regular rate and regular rhythm without murmurs, gallops, or rubs. RESPIRATORY: Clear to auscultation. Breath sounds equal bilaterally. No wheezes , rales, or rhonchi. GASTROINTESTINAL: Abdomen soft, non-tender, nondistended. Normal, active bowel sounds MUSCULOSKELETAL: Extremities without clubbing, cyanosis, or edema. NEURO: awake,alert, oriented to person, place. Procedures LP Medications and IVs Current Medications Lorazepam (Ativan Inj) 6 mg STK-MED ONCE .ROUTE ; Start 12/24/16 at 13:32; Stop 12/24/16 at 13:33; Status DC Lorazepam 6 mg 6 mg ONCE ONCE IV PUSH Last administered on 12/24/16 14:35; Start 12/24/16 at 13:45; Stop 12/24/16 at 13:46; Status DC Sodium Chloride 1,000 ml @ 999 mls/hr BOLUS ONCE IV Last administered on 14:35; Start 12/24/16 at 13:45; Stop 12/24/16 at 14:45; Status DC Sodium Chloride (NS 1000 ml Inj) 1,000 ml @ 100 mls/hr Q10H IV Last administered on 12/25/16 11:15; Start 12/24/16 at 15:15; Stop 12/25/16 at 12:16; Status DC Ondansetron HCl (Zofran Inj) 4 mg Q8HR PRN IV PUSH NAUSEA; Start 12/24/16 at 15: 45 Enalaprilat (Vasotec Inj) 1.25 mg Q8H PRN IV PUSH SBP> OR = 180, DBP> OR = 100 ; Start 12/24/16 at 15:45 Lorazepam (Ativan Inj) 1 mg Q15M PRN IV PUSH SEIZURE Last administered on 08:19; Start 12/24/16 at 15:45 Dextrose (D50w (Vial) Inj) 25 ml UNSCH PRN IV PUSH HYPOGLYCEMIA-SEE COMMENTS; Start 12/24/16 at 15:45 Glucagon (Glucagon Inj) 1 mg UNSCH PRN OTHER HYPOGLYCEMIA-SEE COMMENTS; Start 12/24/16 at 15:45 Insulin Aspart (NovoLOG SUPPLEMENTAL SCALE) 1 ACHS SLIDING SCALE SQ Last administered on 12/26/16 21:20; Start 12/24/16 at 16:00 Levetriacetam (Keppra) 500 mg Q12HR PO Last administered on 12/26/16 21:20; Start 12/24/16 at 23:15 Amlodipine Besylate (Norvasc) 5 mg DAILY PO Last administered on 12/26/16 08:19 ; Start 12/26/16 at 09:00 Clonidine 0.1 mg 0.1 mg TID PO Last administered on 12/26/16 18:09; Start at 13:00 Sodium Chloride (NS 1000 ml Inj) 1,000 ml @ 60 mls/hr [id number] ONCE IV Last administered on 12/25/16 15:15; Start 12/25/16 at 15:15; Stop 12/26/16 at 07:54; Status DC A/P Assessment and Plan New-onset seizures - -- Ativan when necessary - Neurochecks every 4 hours - Seizure precaution - CT of the head showed chronic ischemic changes. No acute intracranial abnormality. -MRI brain with no acute abnormality - EEG; normal -LP done; will follow the fluid studies -neurology follow-up appreciated -consulted psych. Hyponatremia -improved. CKD - Avoid nephrotoxins. - Monitor BMP. Elevated lactic acid - resolved. Possible elevation secondary to seizure activity/ hypoxia- resolved. HTN HLD - resume home meds - Monitor BP trend COPD - no exacerbation noted. - DuoNeb's when necessary. - Chest x-ray showed no acute disease. DM 2 - start insulin sliding scale. Hold off on home meds for now. - Monitor Accu-Cheks. Monitor for hypoglycemia. - Last hemoglobin A1c 7.1 - 08/15/16 DVT prop SCDs Discharge Planning awaiting LP studies. pending psych evaluation. Cullen Sims MD Dec 27, 2016 07:47
[2016-12-27 08:00] VITALS: BP 147/79; PULSE 81; RESP 20; TEMP 97.7; O2SAT 95
[2016-12-27] MEDS: levETIRAcetam 500 MG TAB PO SCH ×2 (08:52→20:39)
[2016-12-27] MEDS: cloNIDine HCL 0.1 MG TAB PO SCH ×3 (08:52→16:38)
[2016-12-27] MEDS: amLODIPine BESYLATE 5 MG TAB PO SCH (08:52)
[2016-12-27 12:00] VITALS: BP 129/58; PULSE 67; RESP 20; TEMP 96.5; O2SAT 95
--- NOTE | 2016-12-27 12:52 | PD.CONS ---
Provisional Diagnosis Admission Date Dec 24, 2016 at 14:59 [place] I. Post ictal psychosis vs delirium due to underlying medical condition [place] II. Deferred [place] III. COPD, seizures [place] IV. History of substance use disorder [place] V. 55 History of Present Illness Service Psychiatry Consult Requested By Primary Care Physician YANIQUE Chun The patient is a 61-year-old man, domiciled alone in [place], single, unemployed, on disability, with self-reported psychiatric history of bipolar disorder, anxiety, previous hospitalizations, outpatient psychiatric care in [facility], on clonazepam 1 mg 3 times a day, no previous suicidal attempts, medical history of COPD, DM 2, HTN, CAD, PVD who initially came into the hospital with complaints of abdominal pain. As per report, patient pain is located in left lower quadrant, associated with nausea vomiting and diarrhea 3 days. Patient also reports frontal headache ongoing for the amount of time that he has to abdominal pain. He is evaluated in the ED, as per report the patient was confuse, acting strange but able to follow commands. Patient also was noted to have lip smacking. After he was initially evaluated , patient was found to have a generalized tonic clonic seizures lasted about 30- 40 seconds. He was given Ativan 6 mg IV. Placed on continuous end-tidal CO2 monitoring. after seizures were controlled, patient became confused, disoriented, was consulted to psychiatry. Patient was seen for psychiatric evaluation in the ER. Patient was found calm and cooperative, he says that he feels much better now, he was to be discharged "because I have a 24 years old girlfriend who is waiting for me". Patient denies depressive symptoms, denies anhedonia, he denies hopelessness, he denies helplessness, he denies suicidal or homicidal ideation, he denies visual and auditory hallucinations. Patient denies paranoia, delusions. No disorganized behavior, agitation or aggressive behavior present. Patient is fully oriented 3, no attention deficit observed, no fluctuation of consciousness, no gross cognitive impairment.. She reports daily use of cocaine and marijuana, denies alcohol. Review of Systems Constitutional: DENIES: Diaphoretic episodes, Fatigue, Fever, Weight gain, Weight loss, Chills, Dizziness, Change in appetite, Night Sweats Endocrine: DENIES: Heat/cold intolerance, Polydipsia, Polyuria, Polyphagia Ears, nose, mouth, throat: DENIES: Tinnitus, Hearing loss, Vertigo, Nasal discharge, Oral lesions, Throat pain, Hoarseness, Ear Pain, Running Nose, Epistaxis, Sinus Pain, Toothache, Odynophagia Respiratory: DENIES: Apneas, Cough, Snoring, Wheezing, Hemoptysis, Sputum production, Shortness of breath Cardiovascular: DENIES: Chest pain, Palpitations, Syncope, Dyspnea on Exertion , PND, Lower Extremity Edema, Orthopnea, Claudication Musculoskeletal: DENIES: Joint pain, Muscle aches, Stiffness, Joint Swelling, Back pain, Neck pain Integumentary: DENIES: Abnormal pigmentation, Nail changes, Pruritus, Rash Hematologic/lymphatic: DENIES: Bruising, Lymphadenopathy Immunologic/allergic: DENIES: Eczema, Urticaria Neurologic: DENIES: Abnormal gait, Headache, Localized weakness, Paresthesias, Seizures, Speech Problems, Tremor, Poor Balance Psychiatric: DENIES: Anxiety, Confusion, Mood changes, Depression, Hallucinations, Agitation, Suicidal Ideation, Homicidal Ideation, Delusions Past Family Social History Coded Allergies: Aspirin (Verified Allergy, Severe, 09/27/16) Codeine (Verified Allergy, Severe, RASH, 09/27/16) Darvocet-N 100 (Verified Allergy, Severe, RASH, 09/27/16) Ibuprofen (Verified Allergy, Severe, RASH, 09/27/16) REACTION NOT GIVEN Penicillin (Verified Allergy, Severe, RASH, 09/27/16) REACTION NOT GIVEN *MDRO Multi-Drug Resistant Organism (Verified Adverse Reaction, Unknown, ) MRSA - 2013; MRSA (toe) - 08/14/16 MRSA PCR Screens NEGATIVE 08/24/15, 08/25/15, 12/25/16 Reported Medications Amlodipine 5 Mg Tab5 Mg PO DAILY #30 TAB Ref 0 12/24/16 Hydroxyzine HCl 25 Mg Tab25 Mg PO BID PRN (SBP > OR = 100, HR > OR = 60) Ref 0 08/18/16 Sitagliptin (Januvia)50 Mg Tab50 Mg PO DAILY #30 TAB Ref 0 08/18/16 Clonidine 0.1 Mg Tab0.1 Mg PO TID #60 TAB Ref 0 08/18/16 Glipizide 10 Mg Tab10 Mg PO BIDAC #60 TAB Ref 0 Take 30 minutes before a meal 08/18/16 Discontinued Reported Medications Prednisolone Acetate Opth 1% Susp1 Drop EACH EYE Q2HR 08/18/16 Hydroxyzine HCl 50 Mg Tab50 Mg PO BID PRN (SBP > 160, DBP > 90) Ref 0 08/18/16 Warfarin 1 Mg Tab1 Mg PO DAILY #30 TAB Ref 0 08/18/16 Warfarin 5 Mg Tab5 Mg PO DAILY #30 TAB Ref 0 08/18/16 Insulin Glargine Inj (Lantus Inj)1,000 Unit/10 Ml Vial20 Units SQ HS Ref 0 08/18/16 Sumatriptan 50 Mg [id number] Mg PO DAILY PRN (HEADACHE) Ref 0 If a satisfactory response has not been obtained at 2 hours, a second dose may be administered 08/18/16 Losartan 50 Mg Tab50 Mg PO BID #30 TAB Ref 0 08/18/16 Benztropine 1 Mg Tab1 Mg PO BID #60 TAB Ref 0 08/18/16 Varenicline (Chantix Continuing Month Felipe)1 Mg Pak1 Mg PO BIDPC #1 PKT Ref 0 08/18/16 Furosemide (Lasix)20 Mg Tab20 Mg PO DAILY #30 TAB Ref 0 08/18/16 Albuterol 18 GM Inh (Ventolin Hfa 18 GM Inh)90 Mcg/Act Aer2 Puff INH Q6H #1 INHALER Ref 0 08/18/16 Pantoprazole (Protonix)40 Mg Tab40 Mg PO DAILY #30 TAB Ref 0 08/18/16 Clonazepam (Klonopin)0.5 Mg Tab0.5 Mg PO BID PRN (ANXIETY) #60 TAB Ref 0 08/18/16 Discontinued Scripts Hydrocodone-Acetaminophen 5-325 mg Tab1 Tab PO Q4H PRN (PAIN SCALE 3 TO 5) #20 TAB Prov:Mirta Cortes MD 08/18/16 Doxycycline (Monohydrate) (Doxycycline)100 Mg [id number] Mg PO BID #20 CAP Prov:Mirta Cortes MD 08/18/16 Current Medications Medications (Trade) Dose Ordered Sig/Myrna Route Start Time Stop Time Status Last Admin (Zofran Inj) 4 mg Q8HR PRN IV PUSH 12/24/16 15:45 (Vasotec Inj) 1.25 mg Q8H PRN IV PUSH 12/24/16 15:45 (Ativan Inj) 1 mg Q15M PRN IV PUSH 12/24/16 15:45 12/26/16 08:19 (D50w (Vial) Inj) 25 ml UNSCH PRN IV PUSH 12/24/16 15:45 (Glucagon Inj) 1 mg UNSCH PRN OTHER 12/24/16 15:45 (Keppra) 500 mg Q12HR PO 12/24/16 23:15 12/27/16 08:52 (Norvasc) 5 mg DAILY PO 12/26/16 09:00 12/27/16 08:52 (Catapres) 0.1 mg TID PO 12/25/16 13:00 12/27/16 08:52 Family History He denies Social History Patient was born and raised in [place], he is alone, he is unemployed, single, he has a girlfriend, he is supported by disability, his highest level of education is ninth grade Physical Exam Vital Signs Vital Signs Date Time Temp Pulse Resp B/P Pulse Ox O2 Delivery O2 Flow Rate FiO2 12/27/16 12:00 96.5 67 20 129/58 95 12/24/16 19:12 Room Air Mental Status Examination Appearance man, poor hygiene, street clothing, age appearing, he is calm and cooperative Speech: Unremarkable Orientation: x3 Memory: Unremarkable Thought Process: Logical Thought Content: Unremarkable Hallucination Type: None Suicidal Ideation: Yes Homicidal Ideation: No Previous Homicide Attempts: No Judgement: WNL Affect: Good Mood: Appropriate Motor Activity: Normal gait Assessment & Plan Problem List: (1) Delirium due to another medical condition Assessment & Plan: Today on psychiatric evaluation the patient does not present any acute symptomatology of depression, anxiety, yuki or perceptual disturbances. She denies suicidal and homicidal ideation, he denies visual and auditory hallucinations. No paranoia, delusions, agitation, aggressive behavior observed at this moment. Patient is fully oriented 3, no signs of confusion, attention deficit, fluctuation of consciousness up observed. Yesterday's confusion and psychotic behavior could be related to delirium or post ictal psychosis. There is not need of psychiatric intervention at this moment. He does not meet criteria for psychiatric admission. He can continue his outpatient psychiatric care in [facility]. No psychotropics recommended. Extensive support, motivation psycho education provided. Consult appreciated. ICD Code: F05 Assessment & Plan Estimated LOS: days Clinton Garcia MD Dec 27, 2016 12:52
[2016-12-27 16:00] VITALS: BP 123/72; PULSE 71; RESP 20; TEMP 97.9; O2SAT 94
[2016-12-27 20:00] VITALS: BP 118/65; PULSE 70; RESP 18; TEMP 96.8; O2SAT 95
[2016-12-27 23:35] VITALS: BP 147/65; PULSE 72; RESP 21; TEMP 98; O2SAT 98
[2016-12-28 04:15] VITALS: BP 146/86; PULSE 65; RESP 21; TEMP 97.7; O2SAT 98
[2016-12-28] MEDS: INSULIN ASPART SUPPLEMENTAL SCALE SQ SCH ×4 (06:24→20:14)
[2016-12-28 08:00] VITALS: BP 139/67; PULSE 76; RESP 20; TEMP 97.1; O2SAT 96
--- NOTE | 2016-12-28 08:53 | HHI.PR ---
Subjective Remarks resting comfortably with no distress. no fever. awake and alert and says that he's feeling better. Objective Vitals Vital Signs Date Time Temp Pulse Resp B/P Pulse Ox O2 Delivery O2 Flow Rate FiO2 12/28/16 08:00 97.1 76 20 139/67 96 12/28/16 04:15 97.7 65 21 146/86 98 12/27/16 23:35 98.0 72 21 147/65 98 12/27/16 20:00 96.8 70 18 118/65 95 12/27/16 16:00 97.9 71 20 123/72 94 12/27/16 12:00 96.5 67 20 129/58 95 I/O 12/27/16 12/27/16 12/27/16 12/28/16 12/28/16 12/28/16 07:00 15:00 23:00 07:00 15:00 23:00 Intake Total 320 ml 240 ml Output Total 650 ml Balance 320 ml -410 ml Intake Oral 320 ml 240 ml Output Urine Total 650 ml # Voids 3 # Bowel Movements 1 Result Diagram: 12/24/16 1300 12/25/16 0416 Imaging Last Impressions Lumbar Puncture Fluoroscopy 12/26/16 0000 Signed Impressions: Service Date/Time: December 14:42 - CONCLUSION: Uncomplicated fluoroscopically guided lumbar puncture. Meño Chaudhry MD Brain MRI 12/25/16 0000 Signed Impressions: Service Date/Time: Sunday, December 25, 2016 13:15 - CONCLUSION: Nonspecific chronic white matter changes. No acute intracranial abnormality demonstrated. Porfirio Harper MD Abdomen X-Ray 12/24/16 1158 Signed Impressions: Service Date/Time: Saturday, December 24, 2016 12:32 - CONCLUSION: Copious amount of stool. Caleb Patel MD Head CT 12/24/16 0000 Signed Impressions: Service Date/Time: Saturday, December 24, 2016 14:10 - CONCLUSION: Chronic ischemic changes. No acute intracranial abnormality. Caleb Patel MD Chest X-Ray 12/24/16 0000 Signed Impressions: Service Date/Time: Saturday, December 24, 2016 13:20 - CONCLUSION: No acute disease. Cuauhtemoc Love MD Objective Remarks GENERAL: This is a well-nourished, well-developed patient, in no apparent distress. CARDIOVASCULAR: Regular rate and regular rhythm without murmurs, gallops, or rubs. RESPIRATORY: Clear to auscultation. Breath sounds equal bilaterally. No wheezes , rales, or rhonchi. GASTROINTESTINAL: Abdomen soft, non-tender, nondistended. Normal, active bowel sounds MUSCULOSKELETAL: Extremities without clubbing, cyanosis, or edema. NEURO: awake,alert, oriented to person, place. Procedures LP Medications and IVs Current Medications Lorazepam (Ativan Inj) 6 mg STK-MED ONCE .ROUTE ; Start 12/24/16 at 13:32; Stop 12/24/16 at 13:33; Status DC Lorazepam 6 mg 6 mg ONCE ONCE IV PUSH Last administered on 12/24/16 14:35; Start 12/24/16 at 13:45; Stop 12/24/16 at 13:46; Status DC Sodium Chloride 1,000 ml @ 999 mls/hr BOLUS ONCE IV Last administered on 14:35; Start 12/24/16 at 13:45; Stop 12/24/16 at 14:45; Status DC Sodium Chloride (NS 1000 ml Inj) 1,000 ml @ 100 mls/hr Q10H IV Last administered on 12/25/16 11:15; Start 12/24/16 at 15:15; Stop 12/25/16 at 12:16; Status DC Ondansetron HCl (Zofran Inj) 4 mg Q8HR PRN IV PUSH NAUSEA; Start 12/24/16 at 15: 45 Enalaprilat (Vasotec Inj) 1.25 mg Q8H PRN IV PUSH SBP> OR = 180, DBP> OR = 100 ; Start 12/24/16 at 15:45 Lorazepam (Ativan Inj) 1 mg Q15M PRN IV PUSH SEIZURE Last administered on 08:19; Start 12/24/16 at 15:45 Dextrose (D50w (Vial) Inj) 25 ml UNSCH PRN IV PUSH HYPOGLYCEMIA-SEE COMMENTS; Start 12/24/16 at 15:45 Glucagon (Glucagon Inj) 1 mg UNSCH PRN OTHER HYPOGLYCEMIA-SEE COMMENTS; Start 12/24/16 at 15:45 Insulin Aspart (NovoLOG SUPPLEMENTAL SCALE) 1 ACHS SLIDING SCALE SQ Last administered on 12/27/16 20:41; Start 12/24/16 at 16:00 Levetriacetam (Keppra) 500 mg Q12HR PO Last administered on 12/27/16 20:39; Start 12/24/16 at 23:15 Amlodipine Besylate (Norvasc) 5 mg DAILY PO Last administered on 12/27/16 08: 52; Start 12/26/16 at 09:00 Clonidine 0.1 mg 0.1 mg TID PO Last administered on 12/27/16 16:38; Start 12/25 at 13:00 Sodium Chloride (NS 1000 ml Inj) 1,000 ml @ 60 mls/hr [id number] ONCE IV Last administered on 12/25/16 15:15; Start 12/25/16 at 15:15; Stop 12/26/16 at 07:54; Status DC Acetaminophen (Tylenol) 650 mg Q6H PRN PO headache; Start 12/28/16 at 00:45 A/P Assessment and Plan New-onset seizures - -- Ativan when necessary - Neurochecks every 4 hours - Seizure precaution - CT of the head showed chronic ischemic changes. No acute intracranial abnormality. -MRI brain with no acute abnormality - EEG; normal -LP done; will follow the fluid studies; culture negative- HSV PCR pending- -neurology follow-up appreciated -psych consult appreciated and cleared the patient for discharge. Hyponatremia -improved. CKD - Avoid nephrotoxins. - Monitor BMP. Elevated lactic acid - resolved. Possible elevation secondary to seizure activity/ hypoxia- resolved. HTN HLD - resumed home meds - Monitor BP trend COPD - no exacerbation noted. - DuoNeb's when necessary. - Chest x-ray showed no acute disease. DM 2 - start insulin sliding scale. Hold off on home meds for now. - Monitor Accu-Cheks. Monitor for hypoglycemia. - Last hemoglobin A1c 7.1 - 08/15/16 DVT prop SCDs Discharge Planning awaiting LP studies. Cullen Sims MD Dec 28, 2016 08:53
[2016-12-28] MEDS: levETIRAcetam 500 MG TAB PO SCH ×2 (09:12→20:12)
[2016-12-28] MEDS: amLODIPine BESYLATE 5 MG TAB PO SCH (09:12)
[2016-12-28] MEDS: cloNIDine HCL 0.1 MG TAB PO SCH ×3 (09:12→17:48)
[2016-12-28 10:36] LABS: HSV 1,PCR Negative (Negative)
[2016-12-28] MEDS: ACETAMINOPHEN 325 MG TAB PO PRN ×2 (11:26→17:48)
[2016-12-28 12:00] VITALS: BP 104/68; PULSE 78; RESP 18; TEMP 97; O2SAT 93
[2016-12-28 14:54] VITALS: BP 138/68
[2016-12-28 16:20] VITALS: BP 142/96; PULSE 72; RESP 20; TEMP 97.6; O2SAT 96
[2016-12-28 19:15] VITALS: BP 104/55; PULSE 87; RESP 21; TEMP 98.7; O2SAT 98
[2016-12-29] MEDS: ACETAMINOPHEN 325 MG TAB PO PRN ×4 (00:21→17:22)
[2016-12-29 00:30] VITALS: BP 129/69; PULSE 61; RESP 16; TEMP 96; O2SAT 96
[2016-12-29 04:30] VITALS: BP 117/65; PULSE 65; RESP 16; TEMP 98.2; O2SAT 96
[2016-12-29] MEDS: INSULIN ASPART SUPPLEMENTAL SCALE SQ SCH ×4 (06:01→21:00)
[2016-12-29] MEDS: amLODIPine BESYLATE 5 MG TAB PO SCH (07:49)
[2016-12-29] MEDS: levETIRAcetam 500 MG TAB PO SCH ×2 (07:49→21:31)
[2016-12-29] MEDS: cloNIDine HCL 0.1 MG TAB PO SCH ×3 (07:49→17:22)
[2016-12-29 08:00] VITALS: BP 145/68; PULSE 65; RESP 20; TEMP 97.2; O2SAT 95
--- NOTE | 2016-12-29 10:29 | HHI.PR ---
Subjective Remarks in no distress. denies pain. no fever. Objective Vitals Vital Signs Date Time Temp Pulse Resp B/P Pulse Ox O2 Delivery O2 Flow Rate FiO2 12/29/16 08:00 97.2 65 20 145/68 95 12/29/16 04:30 98.2 65 16 117/65 96 12/29/16 00:30 96.0 61 16 129/69 96 12/28/16 19:15 98.7 87 21 104/55 98 12/28/16 16:20 97.6 72 20 142/96 96 12/28/16 14:54 138/68 12/28/16 12:26 17 12/28/16 12:00 97.0 78 18 104/68 93 I/O 12/28/16 12/28/16 12/28/16 12/29/16 12/29/16 12/29/16 07:00 15:00 23:00 07:00 15:00 23:00 Intake Total 240 ml 960 ml 200 ml Output Total 650 ml 1200 ml Balance -410 ml -240 ml 200 ml Intake Oral 240 ml 960 ml 200 ml Output Urine Total 650 ml 1200 ml # Voids 1 Result Diagram: 12/25/16 0416 Imaging Last Impressions Lumbar Puncture Fluoroscopy 12/26/16 0000 Signed Impressions: Service Date/Time: December 14:42 - CONCLUSION: Uncomplicated fluoroscopically guided lumbar puncture. Meño Chaudhry MD Brain MRI 12/25/16 0000 Signed Impressions: Service Date/Time: Sunday, December 25, 2016 13:15 - CONCLUSION: Nonspecific chronic white matter changes. No acute intracranial abnormality demonstrated. Porfirio Harper MD Abdomen X-Ray 12/24/16 1158 Signed Impressions: Service Date/Time: Saturday, December 24, 2016 12:32 - CONCLUSION: Copious amount of stool. Caleb Patel MD Head CT 12/24/16 0000 Signed Impressions: Service Date/Time: Saturday, December 24, 2016 14:10 - CONCLUSION: Chronic ischemic changes. No acute intracranial abnormality. Caleb Patel MD Chest X-Ray 12/24/16 0000 Signed Impressions: Service Date/Time: Saturday, December 24, 2016 13:20 - CONCLUSION: No acute disease. Cuauhtemoc Love MD Objective Remarks GENERAL: This is a well-nourished, well-developed patient, in no apparent distress. CARDIOVASCULAR: Regular rate and regular rhythm without murmurs, gallops, or rubs. RESPIRATORY: Clear to auscultation. Breath sounds equal bilaterally. No wheezes , rales, or rhonchi. GASTROINTESTINAL: Abdomen soft, non-tender, nondistended. Normal, active bowel sounds MUSCULOSKELETAL: Extremities without clubbing, cyanosis, or edema. NEURO: awake,alert, oriented to person, place. Procedures LP Medications and IVs Current Medications Lorazepam (Ativan Inj) 6 mg STK-MED ONCE .ROUTE ; Start 12/24/16 at 13:32; Stop 12/24/16 at 13:33; Status DC Lorazepam 6 mg 6 mg ONCE ONCE IV PUSH Last administered on 12/24/16 14:35; Start 12/24/16 at 13:45; Stop 12/24/16 at 13:46; Status DC Sodium Chloride 1,000 ml @ 999 mls/hr BOLUS ONCE IV Last administered on 14:35; Start 12/24/16 at 13:45; Stop 12/24/16 at 14:45; Status DC Sodium Chloride (NS 1000 ml Inj) 1,000 ml @ 100 mls/hr Q10H IV Last administered on 12/25/16 11:15; Start 12/24/16 at 15:15; Stop 12/25/16 at 12:16; Status DC Ondansetron HCl (Zofran Inj) 4 mg Q8HR PRN IV PUSH NAUSEA; Start 12/24/16 at 15: 45 Enalaprilat (Vasotec Inj) 1.25 mg Q8H PRN IV PUSH SBP> OR = 180, DBP> OR = 100 ; Start 12/24/16 at 15:45 Lorazepam (Ativan Inj) 1 mg Q15M PRN IV PUSH SEIZURE Last administered on 08:19; Start 12/24/16 at 15:45 Dextrose (D50w (Vial) Inj) 25 ml UNSCH PRN IV PUSH HYPOGLYCEMIA-SEE COMMENTS; Start 12/24/16 at 15:45 Glucagon (Glucagon Inj) 1 mg UNSCH PRN OTHER HYPOGLYCEMIA-SEE COMMENTS; Start 12/24/16 at 15:45 Insulin Aspart (NovoLOG SUPPLEMENTAL SCALE) 1 ACHS SLIDING SCALE SQ Last administered on 12/29/16 06:01; Start 12/24/16 at 16:00 Levetriacetam (Keppra) 500 mg Q12HR PO Last administered on 12/29/16 07:49; Start 12/24/16 at 23:15 Amlodipine Besylate (Norvasc) 5 mg DAILY PO Last administered on 12/29/16 07: 49; Start 12/26/16 at 09:00 Clonidine 0.1 mg 0.1 mg TID PO Last administered on 12/29/16 07:49; Start 12/25 at 13:00 Sodium Chloride (NS 1000 ml Inj) 1,000 ml @ 60 mls/hr [id number] ONCE IV Last administered on 12/25/16 15:15; Start 12/25/16 at 15:15; Stop 12/26/16 at 07:54; Status DC Acetaminophen (Tylenol) 650 mg Q6H PRN PO headache Last administered on 06:00; Start 12/28/16 at 00:45 A/P Assessment and Plan New-onset seizures - -- Ativan when necessary - Neurochecks every 4 hours - Seizure precaution - CT of the head showed chronic ischemic changes. No acute intracranial abnormality. -MRI brain with no acute abnormality - EEG; normal -LP done; will follow the fluid studies; culture negative- HSV PCR negative. -neurology follow-up appreciated -psych consult appreciated and cleared the patient for discharge. Hyponatremia -improved. CKD - Avoid nephrotoxins. - Monitor BMP. Elevated lactic acid - resolved. Possible elevation secondary to seizure activity/ hypoxia- resolved. HTN HLD - resumed home meds - Monitor BP trend COPD - no exacerbation noted. - DuoNeb's when necessary. - Chest x-ray showed no acute disease. DM 2 - start insulin sliding scale. Hold off on home meds for now. - Monitor Accu-Cheks. Monitor for hypoglycemia. - Last hemoglobin A1c 7.1 - 08/15/16 DVT prop SCDs Discharge Planning dc home in am if stable- and cleared by neurology. Cullen Sims MD Dec 29, 2016 10:29
[2016-12-29] MEDS ORDERED: LEVE500 PO (10:30)
--- NOTE | 2016-12-29 10:31 | HHI.DCPOC ---
Discharge Care Plan Diagnosis: (1) New onset seizure Additional Problems altered mental status. Goals to Promote Your Health * To prevent worsening of your condition and complications * To maintain your health at the optimal level Directions to Meet Your Goals Take your medications as prescribed Follow your dietary instruction Follow activity as directed Keep your appointments as scheduled Take your immunizations and boosters as scheduled If your symptoms worsen call your PCP, if no PCP go to Urgent Care Center or Emergency Room Smoking is Dangerous to Your Health. Avoid second hand smoke Call the 24-hour hour crisis hotline for domestic abuse at Cullen Sims MD Dec 29, 2016 10:31
[2016-12-29 12:01] VITALS: BP 122/56; PULSE 60; RESP 20; TEMP 97.1; O2SAT 98
[2016-12-29 16:00] VITALS: BP 116/57; PULSE 65; RESP 20; TEMP 97.8; O2SAT 94
[2016-12-29 20:00] VITALS: BP 115/66; PULSE 65; RESP 18; TEMP 97.7; O2SAT 96
[2016-12-30 00:30] VITALS: BP 130/50; PULSE 68; RESP 17; TEMP 98.1; O2SAT 97
[2016-12-30 04:00] VITALS: BP 113/68; PULSE 69; RESP 18; TEMP 96.9; O2SAT 98
[2016-12-30] MEDS: INSULIN ASPART SUPPLEMENTAL SCALE SQ SCH ×2 (06:11→12:14)
[2016-12-30 08:27] VITALS: BP 134/73; PULSE 74; RESP 18; TEMP 97.4; O2SAT 98
[2016-12-30] MEDS: cloNIDine HCL 0.1 MG TAB PO SCH ×2 (10:01→13:00)
[2016-12-30] MEDS: levETIRAcetam 500 MG TAB PO SCH (10:01)
[2016-12-30] MEDS: amLODIPine BESYLATE 5 MG TAB PO SCH (10:01)
[2016-12-30] MEDS: ACETAMINOPHEN 325 MG TAB PO PRN (10:06)
[2016-12-30 12:05] VITALS: BP 122/60; PULSE 80; RESP 18; TEMP 97.6; O2SAT 99
--- NOTE | 2016-12-30 12:15 | HHI.PR ---
Subjective Remarks resting comfortably with no distress. no new complaints. Objective Vitals Vital Signs Date Time Temp Pulse Resp B/P Pulse Ox O2 Delivery O2 Flow Rate FiO2 12/30/16 12:05 97.6 80 18 122/60 99 12/30/16 08:27 97.4 74 18 134/73 98 12/30/16 04:00 96.9 69 18 113/68 98 12/30/16 00:30 98.1 68 17 130/50 97 12/29/16 20:00 97.7 65 18 115/66 96 12/29/16 18:22 15 12/29/16 16:00 97.8 65 20 116/57 94 I/O 12/29/16 12/29/16 12/29/16 12/30/16 12/30/16 12/30/16 07:00 15:00 23:00 07:00 15:00 23:00 Intake Total 200 ml 720 ml 600 ml 600 ml Output Total 750 ml Balance 200 ml -30 ml 600 ml 600 ml Intake Oral 200 ml 720 ml 600 ml 600 ml IV Total 0 ml Output Urine Total 750 ml # Voids 1 2 1 # Bowel Movements 0 Imaging Last Impressions Lumbar Puncture Fluoroscopy 12/26/16 0000 Signed Impressions: Service Date/Time: December 14:42 - CONCLUSION: Uncomplicated fluoroscopically guided lumbar puncture. Meño Chaudhry MD Brain MRI 12/25/16 0000 Signed Impressions: Service Date/Time: Sunday, December 25, 2016 13:15 - CONCLUSION: Nonspecific chronic white matter changes. No acute intracranial abnormality demonstrated. Porfirio Harper MD Abdomen X-Ray 12/24/16 1158 Signed Impressions: Service Date/Time: Saturday, December 24, 2016 12:32 - CONCLUSION: Copious amount of stool. Caleb Patel MD Head CT 12/24/16 0000 Signed Impressions: Service Date/Time: Saturday, December 24, 2016 14:10 - CONCLUSION: Chronic ischemic changes. No acute intracranial abnormality. Caleb Patel MD Chest X-Ray 12/24/16 0000 Signed Impressions: Service Date/Time: Saturday, December 24, 2016 13:20 - CONCLUSION: No acute disease. Cuauhtemoc Love MD Objective Remarks GENERAL: This is a well-nourished, well-developed patient, in no apparent distress. CARDIOVASCULAR: Regular rate and regular rhythm without murmurs, gallops, or rubs. RESPIRATORY: Clear to auscultation. Breath sounds equal bilaterally. No wheezes , rales, or rhonchi. GASTROINTESTINAL: Abdomen soft, non-tender, nondistended. Normal, active bowel sounds MUSCULOSKELETAL: Extremities without clubbing, cyanosis, or edema. NEURO: awake,alert, oriented to person, place. Procedures LP Medications and IVs Current Medications Lorazepam (Ativan Inj) 6 mg STK-MED ONCE .ROUTE ; Start 12/24/16 at 13:32; Stop 12/24/16 at 13:33; Status DC Lorazepam 6 mg 6 mg ONCE ONCE IV PUSH Last administered on 12/24/16 14:35; Start 12/24/16 at 13:45; Stop 12/24/16 at 13:46; Status DC Sodium Chloride 1,000 ml @ 999 mls/hr BOLUS ONCE IV Last administered on 14:35; Start 12/24/16 at 13:45; Stop 12/24/16 at 14:45; Status DC Sodium Chloride (NS 1000 ml Inj) 1,000 ml @ 100 mls/hr Q10H IV Last administered on 12/25/16 11:15; Start 12/24/16 at 15:15; Stop 12/25/16 at 12:16; Status DC Ondansetron HCl (Zofran Inj) 4 mg Q8HR PRN IV PUSH NAUSEA; Start 12/24/16 at 15: 45 Enalaprilat (Vasotec Inj) 1.25 mg Q8H PRN IV PUSH SBP> OR = 180, DBP> OR = 100 ; Start 12/24/16 at 15:45 Lorazepam (Ativan Inj) 1 mg Q15M PRN IV PUSH SEIZURE Last administered on 08:19; Start 12/24/16 at 15:45 Dextrose (D50w (Vial) Inj) 25 ml UNSCH PRN IV PUSH HYPOGLYCEMIA-SEE COMMENTS; Start 12/24/16 at 15:45 Glucagon (Glucagon Inj) 1 mg UNSCH PRN OTHER HYPOGLYCEMIA-SEE COMMENTS; Start 12/24/16 at 15:45 Insulin Aspart (NovoLOG SUPPLEMENTAL SCALE) 1 ACHS SLIDING SCALE SQ Last administered on 12/30/16 06:11; Start 12/24/16 at 16:00 Levetriacetam (Keppra) 500 mg Q12HR PO Last administered on 12/30/16 10:01; Start 12/24/16 at 23:15 Amlodipine Besylate (Norvasc) 5 mg DAILY PO Last administered on 12/30/16 10: 01; Start 12/26/16 at 09:00 Clonidine 0.1 mg 0.1 mg TID PO Last administered on 12/30/16 10:01; Start 12/25 at 13:00 Sodium Chloride (NS 1000 ml Inj) 1,000 ml @ 60 mls/hr [id number] ONCE IV Last administered on 12/25/16 15:15; Start 12/25/16 at 15:15; Stop 12/26/16 at 07:54; Status DC Acetaminophen (Tylenol) 650 mg Q6H PRN PO headache Last administered on 10:06; Start 12/28/16 at 00:45 A/P Assessment and Plan New-onset seizures - -started on Keppra - CT of the head showed chronic ischemic changes. No acute intracranial abnormality. -MRI brain with no acute abnormality - EEG; normal -LP done; culture negative- HSV PCR negative. -neurology follow-up appreciated -psych consult appreciated and cleared the patient for discharge. Hyponatremia -improved. CKD - Avoid nephrotoxins. - Monitor BMP. Elevated lactic acid - resolved. Possible elevation secondary to seizure activity/ hypoxia- resolved. HTN HLD - resumed home meds - Monitor BP trend COPD - no exacerbation noted. - DuoNeb's when necessary. - Chest x-ray showed no acute disease. DM 2 - start insulin sliding scale. Hold off on home meds for now. - Monitor Accu-Cheks. Monitor for hypoglycemia. - Last hemoglobin A1c 7.1 - 08/15/16 DVT prop SCDs Discharge Planning d/w today; cleared for discharge. dc home with f/u by pcp and neurology. see med list. no driving . d/w the patient. Cullen Sims MD Dec 30, 2016 12:15
--- NOTE | 2016-12-30 12:16 | HHI.DS ---
Discharge Summary Admission Date Dec 24, 2016 at 14:59 Discharge Date: Dec 30, 2016 Admitting Diagnosis New onset seizure (1) HTN (hypertension) ICD Code: I10 Diagnosis: Secondary (2) DM (diabetes mellitus) ICD Code: E11.9 Diagnosis: Secondary (3) New onset seizure ICD Code: R56.9 Diagnosis: Principal (4) COPD (chronic obstructive pulmonary disease) ICD Code: J44.9 Diagnosis: Secondary (5) Tobacco abuse ICD Code: Z72.0 Diagnosis: Secondary Procedures LP Brief History - From Admission Patient is a 61 year old male with primary medical history of COPD, DM 2, HTN, CAD, PVD who initially came into the hospital with complaints of abdominal pain. As per report, patient pain is located in left lower quadrant, associated with nausea vomiting and diarrhea 3 days. Patient also reports frontal headache ongoing for the amount of time that he has to abdominal pain. He is evaluated in the ED, as per report the patient was confuse, acting strange but able to follow commands. Patient also was noted to have lip smacking. After he was initially evaluated, patient was found to have a generalized tonic clonic seizures lasted about 30-40 seconds. He was given Ativan 6 mg IV. Placed on continuous end-tidal CO2 monitoring. On exam, patient is drowsy/lethargic secondary to Ativan. Arousable to tactile stimulus. Patient was drooling and coughing. Eyes opening but unable to follow command. Patient got stimulated and woke up confuse, speech is slightly slurred barely understandable. He was attempting to get out of the stretcher trying to stand up and pulling all the blankets out. Patient is unable to answer any questions or follow any commands. Labs reviewed: No leukocytosis. CMP showed low sodium 132, elevated BUN 23, creatinine 1.64, EGFR 43, random glucose 121, AST 14, alkaline phosphatase 122. Troponin negative. Magnesium 2.2. Ammonia 32. Lactic acid 4.9. Xray abdomen showed copious amount of stool. CXR showed no acute disease. CT brain showed chronic ischemic changes. No acute intracranial abnormality. Imaging Last Impressions Lumbar Puncture Fluoroscopy 12/26/16 0000 Signed Impressions: Service Date/Time: December 14:42 - CONCLUSION: Uncomplicated fluoroscopically guided lumbar puncture. Meño Chaudhry MD Brain MRI 12/25/16 0000 Signed Impressions: Service Date/Time: Sunday, December 25, 2016 13:15 - CONCLUSION: Nonspecific chronic white matter changes. No acute intracranial abnormality demonstrated. Porfirio Harper MD Abdomen X-Ray 12/24/16 1158 Signed Impressions: Service Date/Time: Saturday, December 24, 2016 12:32 - CONCLUSION: Copious amount of stool. Caleb Patel MD Head CT 12/24/16 0000 Signed Impressions: Service Date/Time: Saturday, December 24, 2016 14:10 - CONCLUSION: Chronic ischemic changes. No acute intracranial abnormality. Caleb Patel MD Chest X-Ray 12/24/16 0000 Signed Impressions: Service Date/Time: Saturday, December 24, 2016 13:20 - CONCLUSION: No acute disease. Cuauhtemoc Love MD PE at Discharge GENERAL: This is a well-nourished, well-developed patient, in no apparent distress. CARDIOVASCULAR: Regular rate and regular rhythm without murmurs, gallops, or rubs. RESPIRATORY: Clear to auscultation. Breath sounds equal bilaterally. No wheezes , rales, or rhonchi. GASTROINTESTINAL: Abdomen soft, non-tender, nondistended. Normal, active bowel sounds MUSCULOSKELETAL: Extremities without clubbing, cyanosis, or edema. NEURO: awake,alert, oriented to person, place. Hospital Course New-onset seizures - -started on Keppra - CT of the head showed chronic ischemic changes. No acute intracranial abnormality. -MRI brain with no acute abnormality - EEG; normal -LP done; culture negative- HSV PCR negative. -neurology follow-up appreciated -psych consult appreciated and cleared the patient for discharge. Hyponatremia -improved. CKD - Avoid nephrotoxins. - Monitor BMP. Elevated lactic acid - resolved. Possible elevation secondary to seizure activity/ hypoxia- resolved. HTN HLD - resumed home meds - Monitor BP trend COPD - no exacerbation noted. - DuoNeb's when necessary. - Chest x-ray showed no acute disease. DM 2 - start insulin sliding scale. Hold off on home meds for now. - Monitor Accu-Cheks. Monitor for hypoglycemia. - Last hemoglobin A1c 7.1 - 08/15/16 DVT prop SCDs Pt Condition on Discharge: Good Discharge Disposition: Discharge Home Discharge Time: <= 30 minutes Discharge Instructions DIET: Follow Instructions for: Heart Healthy Diet Activities you can perform: Regular-No Restrictions Activities to Avoid: Driving Follow up Referrals: Neurology PCP Follow-up Psychiatry Adult New Medications: Levetiracetam (Keppra) 500 Mg Tab 500 MG PO Q12HR seizure Days 30 Ref 0 TAB Continued Medications: Amlodipine (Amlodipine) 5 Mg Tab 5 MG PO DAILY Blood Pressure Management #30 Ref 0 TAB Clonidine (Clonidine) 0.1 Mg Tab 0.1 MG PO TID Blood Pressure Management #60 Ref 0 TAB Glipizide (Glipizide) 10 Mg Tab 10 MG PO BIDAC Take 30 minutes before a meal Blood Sugar Management #60 Ref 0 TAB Hydroxyzine HCl (Hydroxyzine HCl) 25 Mg Tab 25 MG PO BID PRN SBP > OR = 100, HR > OR = 60 Ref 0 TAB Sitagliptin (Januvia) 50 Mg Tab 50 MG PO DAILY Blood Sugar Management #30 Ref 0 TAB Cullen Sims MD Dec 30, 2016 12:16
== END 2016-12-30 14:42 | disposition home or self-care (01) ==
LOC: NEPE 10:43 → INTOOBSV 14:59 → NEDA 14:59 → NEDH 20:01 → NEPFCDU 22:44 → N05B 12-28 23:53
PROVIDERS: ADMIT Internal Medicine; ATTEND Internal Medicine
DX: R56.9 Unspecified convulsions (principal); J44.9 Chronic obstructive pulmonary disease, unspecified; E78.5 Hyperlipidemia, unspecified; I12.9 Hypertensive chronic kidney disease with stage 1 through stage 4 chronic kidney disease, or unspecified chronic kidney disease; N18.9 Chronic kidney disease, unspecified; N17.9 Acute kidney failure, unspecified; R74.0 Nonspecific elevation of levels of transaminase and lactic acid dehydrogenase [LDH]; I25.10 Atherosclerotic heart disease of native coronary artery without angina pectoris; E11.22 Type 2 diabetes mellitus with diabetic chronic kidney disease; E11.51 Type 2 diabetes mellitus with diabetic peripheral angiopathy without gangrene; F17.200 Nicotine dependence, unspecified, uncomplicated; E87.1 Hypo-osmolality and hyponatremia; M19.90 Unspecified osteoarthritis, unspecified site; F31.9 Bipolar disorder, unspecified; F41.9 Anxiety disorder, unspecified; Z86.73 Personal history of transient ischemic attack (TIA), and cerebral infarction without residual deficits; F20.9 Schizophrenia, unspecified; G43.909 Migraine, unspecified, not intractable, without status migrainosus; Z89.421 Acquired absence of other right toe(s); Z79.01 Long term (current) use of anticoagulants; Z79.4 Long term (current) use of insulin; Z88.6 Allergy status to analgesic agent; Z88.5 Allergy status to narcotic agent; Z88.8 Allergy status to other drugs, medicaments and biological substances
CPT/HCPCS: 62270; 70450; 70551; 71010; 74000; 77003; 80048; 80053; 80307; 81001; 82140; 82945; 82948; 83605; 83690; 83735; 84157; 84443; 84484; 85025; 85610; 85730; 87040; 87070; 87205; 87529; 87641; 89051; 95819; 96374; 99285; G0378; J1815; J2060; J7030

== ENCOUNTER 2017-03-23 01:00 | Emergency (ER) | payer MEDICAID ==
[~2017-03-23 01:00] MED LIST changes: +AMLO5TAB2 PO; -BENZ1TAB PO; -CLON.5 PO; -DOXY1CAP91 PO; -FURO1TAB62 PO; -HYDR-3516 PO; -HYDR50TA94 PO; -LANTUS2P SQ; +LEVE500 PO; -LOSA50TA PO; -PRED1SUS6 EACH EYE; -PROT40TA PO; -SUMA50TA2 PO; -VARE1PAK5 PO; -VENTAER INH; -WARF-23 PO; -WARF4TAB52 PO
[2017-03-23 01:05] VITALS: BP 186/78; PULSE 66; RESP 16; TEMP 98.5; O2SAT 99
--- NOTE | 2017-03-23 01:37 | RADRPT ---
EXAM DATE/TIME: 03/23/2017 01:29 [facility] COMPARISON: ABDOMEN KUB ONLY, December 24, 2016, 12:32. INDICATIONS : Abdominal pain, no BM x 1 week. MEDICAL HISTORY : Diabetes mellitus type II. Hypertension Seizures SURGICAL HISTORY : None. ENCOUNTER: Initial ACUITY: 4 - 6 days PAIN SCORE: 7/10 LOCATION: Bilateral Abdomen FINDINGS: The bowel gas is nonspecific. There are no signs of obstruction or free air for technique. No defini te calcified stones are identified for technique. Bilateral iliac stents are in place. CONCLUSION: Nonspecific abdomen. Herbie Wilks MD on March 23, 2017 at 1:35 Board Certified Radiologist. This report was verified electronically.
--- NOTE | 2017-03-23 02:07 | PD ---
HPI . Abdominal pain Chief Complaint: GI Complaint Time Seen by Provider: 01:03 Travel History International Travel<30 days: No Contact w/Intl Traveler<30days: No Traveled to known affect area: No History of Present Illness HPI Patient presents complaining with generalized abdominal pain. Onset was tonight. It is associated with lack of bowel movement for 6-7 days. He denies any associated nausea or vomiting. He denies any fever. He denies any urinary tract symptoms. He reports no relieving or exacerbating factors. PFSH Past Medical History Hx Anticoagulant Therapy: Yes (COUMADIN) Arthritis: Yes Asthma: No Autoimmune Disease: No Blood Disorders: No Bipolar Disorder: Yes Anxiety: Yes Depression: Yes Heart Rhythm Problems: No Cancer: Yes (skin cancer-face) Cardiac Catheterization: Yes Cardiovascular Problems: Yes High Cholesterol: No Chemotherapy: No Chest Pain: Yes Congestive Heart Failure: No COPD: Yes Cerebrovascular Accident: Yes Coronary Artery Disease: Yes Diabetes: Yes Patient Takes Glucophage: Yes (JANUVIA) Diminished Hearing: No Endocrine: Yes Gastrointestinal Disorders: Yes GERD: No Glaucoma: No Genitourinary: No Headaches: No Hepatitis: No Hiatal Hernia: No Hypertension: Yes Immune Disorder: No Implanted Vascular Access Dvce: Yes Kidney Stones: No Musculoskeletal: Yes Neurologic: Yes Psychiatric: Yes Reproductive: No Respiratory: Yes Integumentary: Yes Immunizations Current: Yes Migraines: Yes Myocardial Infarction: No Pneumonia: Yes Radiation Therapy: No Renal Failure: No Schizophrenia: Yes Seizures: No Sickle Cell Disease: No Sleep Apnea: No Thyroid Disease: No Ulcer: Yes PNEUMOCCOCAL Vaccine (Year): 2 Past Surgical History Abdominal Surgery: Yes (UNKNOWN) AICD: No Appendectomy: No Arteriovenous Shunt: No Body Medical Devices: BULLET IN CHEST, AFUA IN NOSE Cardiac Surgery: Yes (femoral-popliteal bypass surgery) Cholecystectomy: No Coronary Artery Bypass Graft: No Ear Surgery: No Endocrine Surgery: No Eye Surgery: Yes (PT STATES "PERMANENT CONTACT LENSES") Genitourinary Surgery: No Gynecologic Surgery: No Hysterectomy: No Insulin Pump: No Joint Replacement: Yes (PINS IN RIGHT WRIST) Neurologic Surgery: No Oral Surgery: No Pacemaker: No Thoracic Surgery: No Other Surgery: Yes (BLOOD VESSEL BYPASS BOTH LEGS) Family History Family Myocardial Infarction: Yes Social History Alcohol Use: No Tobacco Use: Yes (1 PPD) Substance Use: Yes Allergies-Medications (Allergen,Severity, Reaction): Coded Allergies: Aspirin (Verified Allergy, Severe, 03/23/17) Codeine (Verified Allergy, Severe, RASH, 03/23/17) Darvocet-N 100 (Verified Allergy, Severe, RASH, 03/23/17) Ibuprofen (Verified Allergy, Severe, RASH, 03/23/17) REACTION NOT GIVEN Penicillin (Verified Allergy, Severe, RASH, 03/23/17) REACTION NOT GIVEN *MDRO Multi-Drug Resistant Organism (Verified Adverse Reaction, Unknown, ) MRSA - 2013; MRSA (toe) - 08/14/16 MRSA PCR Screens NEGATIVE 08/24/15, 08/25/15, 12/25/16, 12/27/16 CLEARED PER INFECTION CONTROL PROTOCOL Reported Meds & Prescriptions Reported Meds & Active Scripts Active Keppra (Levetiracetam) 500 Mg Tab 500 Mg PO Q12HR 30 Days Reported Amlodipine (Amlodipine Besylate) 5 Mg Tab 5 Mg PO DAILY Hydroxyzine HCl 25 Mg Tab 25 Mg PO BID PRN Januvia (Sitagliptin Phosphate) 50 Mg Tab 50 Mg PO DAILY Clonidine (Clonidine HCl) 0.1 Mg Tab 0.1 Mg PO TID Glipizide 10 Mg Tab 10 Mg PO BIDAC Take 30 minutes before a meal Review of Systems Except as stated in HPI: all other systems reviewed are Neg General / Constitutional: No: Fever, Chills Gastrointestinal: Positive: Abdominal Pain, Constipation, No: Nausea, Vomiting , Diarrhea, Loss of Appetite Genitourinary: No: Urgency, Frequency, Dysuria Physical Exam Narrative GENERAL: The patient was actually sound sleep. He is in no acute distress. SKIN: Warm and dry. HEAD: Atraumatic. Normocephalic. EYES: Pupils equal and round. Extraocular movements are intact. ENT: No nasal bleeding or discharge. Mucous membranes pink and moist. NECK: Trachea midline. Neck is supple. CARDIOVASCULAR: Regular rate and rhythm. RESPIRATORY: No accessory muscle use. GASTROINTESTINAL: Abdomen soft, non-tender, nondistended. MUSCULOSKELETAL: No obvious deformities. No edema. NEUROLOGICAL: Easily awakened. No obvious cranial nerve deficits. Motor grossly within normal limits. Normal speech. PSYCHIATRIC: Appropriate mood and affect; insight and judgment normal. Data Data Last Documented VS Vital Signs Date Time Temp Pulse Resp B/P Pulse Ox O2 Delivery O2 Flow Rate FiO2 03/23/17 01:05 98.5 66 16 186/78 99 Orders Abdomen, Flat & Upright (03/23/17 01:03) MDM Medical Decision Making Medical Screen Exam Complete: Yes Emergency Medical Condition: Yes Differential Diagnosis Differential diagnosis of abdominal pain includes but is not limited to gastritis, pancreatitis, hepatitis, gastroenteritis, gallbladder disease, constipation, urinary retention, UTI, peptic ulcer disease, diverticulitis or appendicitis Narrative Course This patient presents complaining with abdominal pain associated with constipation. He is very comfortable. He has a benign abdominal exam. Flat and upright abdominal x-ray to my interpretation is full of stool. He will be treated with a bottle of magnesium citrate. Diagnosis Primary Impression: Abdominal pain Qualified Code: R10.84 - Generalized abdominal pain Additional Impression: Constipation Qualified Code: K59.00 - Constipation, unspecified constipation type Patient Instructions: Abdominal Pain (ED), Constipation (DC), General Instructions Disposition: 01 DISCHARGE HOME Condition: Stable Hayley Lora MD Mar 23, 2017 02:07
[2017-03-23] MEDS ORDERED: MAGNESIUM CITRATE SOLN 300 ML BTL PO ONE (02:15)
== END 2017-03-23 02:59 | disposition home or self-care (01) ==
LOC: NEPC 01:00
DX: R10.84 Generalized abdominal pain (principal); K59.00 Constipation, unspecified; J44.9 Chronic obstructive pulmonary disease, unspecified; E11.9 Type 2 diabetes mellitus without complications; I10 Essential (primary) hypertension; F17.210 Nicotine dependence, cigarettes, uncomplicated
CPT/HCPCS: 74020; 99283

== ENCOUNTER 2017-06-06 10:26 | Emergency (ER) | payer OTHER, MEDICAID ==
[~2017-06-06] VITALS: Ht 177.8 cm; Wt 83.5 kg
[2017-06-06 10:28] VITALS: BP 114/57; PULSE 80; RESP 15; TEMP 98.2; O2SAT 99
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
[2017-06-06] MEDS ORDERED: LANTUS2P (11:47)
[2017-06-06] MEDS ORDERED: SELE2.5%T TOPICAL (11:47)
[2017-06-06] MEDS ORDERED: CARA1TAB6 PO (11:47)
[2017-06-06] MEDS ORDERED: SOMA350T PO (11:47)
[2017-06-06] MEDS ORDERED: LISI40TA PO (11:47)
[2017-06-06] MEDS ORDERED: HYDR-3583 PO (11:47)
[2017-06-06] MEDS ORDERED: XARE20TA PO (11:47)
[2017-06-06] MEDS ORDERED: PANT40TA3 PO (11:47)
[2017-06-06] MEDS ORDERED: ALBUAER3 INH (11:47)
[2017-06-06] MEDS ORDERED: MELA1TAB18 PO (11:47)
[2017-06-06] MEDS ORDERED: TIZA4 PO (11:47)
[2017-06-06] MEDS ORDERED: VARE1 PO (11:47)
[2017-06-06] MEDS ORDERED: CLON1TAB PO (11:47)
[2017-06-06] MEDS ORDERED: SYMB160A INH (11:47)
[2017-06-06] MEDS ORDERED: HYDR-3133 PO (11:47)
[2017-06-06] MEDS ORDERED: SUMA100T2 PO (11:47)
[2017-06-06] MEDS ORDERED: FURO1TAB62 PO (11:47)
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
== END 2017-06-06 13:26 | disposition home or self-care (01) ==
LOC: NEPD 10:26
DX: M25.551 Pain in right hip (principal); R51 Headache; V43.52XA Car driver injured in collision with other type car in traffic accident, initial encounter; Y92.481 Parking lot as the place of occurrence of the external cause; I10 Essential (primary) hypertension; J44.9 Chronic obstructive pulmonary disease, unspecified; F17.290 Nicotine dependence, other tobacco product, uncomplicated; M19.90 Unspecified osteoarthritis, unspecified site
CPT/HCPCS: 70450; 72125; 73502; 99285

== ENCOUNTER 2017-07-05 18:00 | Observation (INO) | payer MEDICAID ==
[~2017-07-05 18:00] MED LIST changes: +ALBUAER3 INH; +CARA1TAB6 PO; +CLON1TAB PO; +FURO1TAB62 PO; +HYDR-3583 PO; +LANTUS2P; +LISI40TA PO; +MELA1TAB18 PO; +PANT40TA3 PO; +SELE2.5%T TOPICAL; +SOMA350T PO; +SUMA100T2 PO; +SYMB160A INH; +TIZA4 PO; +VARE1 PO; +XARE20TA PO
[2017-07-05] MEDS ORDERED: CLON1TAB PO (18:38)
[2017-07-05] MEDS ORDERED: ACET1TAB17 PO (18:38)
[2017-07-05] MEDS ORDERED: TOPA50TA7 PO (18:38)
[2017-07-05] MEDS ORDERED: SODIUM CHLOR 0.9% 1000 ML INJ 1,000 ML IV SCH (18:44)
[2017-07-05] MEDS ORDERED: ONDANSETRON HCL 4 MG/2 ML VIAL IVP ONE (18:45)
[2017-07-05] MEDS ORDERED: SODIUM CHLORIDE 0.9% FLUSH 10 ML FLUSH IV FLUSH PRN ×2 (18:45→22:15)
[2017-07-05 19:00] VITALS: BP 110/59; PULSE 86; RESP 22; O2SAT 97
--- NOTE | 2017-07-05 19:01 | PD ---
HPI Chief Complaint: GI Complaint Time Seen by Provider: 18:44 Travel History International Travel<30 days: No Contact w/Intl Traveler<30days: No Traveled to known affect area: No History of Present Illness HPI This is a 62-year-old gentleman with a history of peripheral vascular disease, who presents today with complaints of rectal bleeding since yesterday. States he's had diarrhea for the last 6 days. He reports that it is been watery in nature. He states that over the last 24 hours she's noted bright red blood from his rectum. He states it could've been from an irritated area from all the wiping that he is doing. He does report though that it was bright red. He states that he went to the bathroom around in the waiting room and noted there was no blood at this time. He denies any fevers, chills. He does report generalized abdominal pain. He reports it as constant. He denies any crampy discomfort. There are no other complaints at the time my examination. PFSH Past Medical History Hx Anticoagulant Therapy: Yes (COUMADIN) Arthritis: Yes Asthma: No Autoimmune Disease: No Blood Disorders: No Bipolar Disorder: Yes Anxiety: Yes Depression: Yes Heart Rhythm Problems: No Cancer: Yes (skin cancer-face) Cardiac Catheterization: Yes Cardiovascular Problems: Yes High Cholesterol: No Chemotherapy: No Chest Pain: Yes Congestive Heart Failure: No COPD: Yes Cerebrovascular Accident: Yes Coronary Artery Disease: Yes Diabetes: Yes Patient Takes Glucophage: No Diminished Hearing: No Endocrine: Yes Gastrointestinal Disorders: Yes GERD: No Glaucoma: No Genitourinary: No Headaches: No Hepatitis: No Hiatal Hernia: No Hypertension: Yes Immune Disorder: No Implanted Vascular Access Dvce: Yes Kidney Stones: No Musculoskeletal: Yes Neurologic: Yes Psychiatric: Yes Reproductive: No Respiratory: Yes (copd) Integumentary: Yes Immunizations Current: Yes Migraines: Yes Myocardial Infarction: No Pneumonia: Yes Radiation Therapy: No Renal Failure: No Schizophrenia: Yes Seizures: No Sickle Cell Disease: No Sleep Apnea: No Thyroid Disease: No Ulcer: Yes Tetanus Vaccination: > 5 Years Influenza Vaccination: Yes PNEUMOCCOCAL Vaccine (Year): 2 Past Surgical History Abdominal Surgery: Yes ( ) AICD: No Appendectomy: No Arteriovenous Shunt: No Body Medical Devices: BULLET IN CHEST, BE-BE IN NOSE Cardiac Surgery: Yes (femoral-popliteal bypass surgery) Cholecystectomy: No Coronary Artery Bypass Graft: No Ear Surgery: No Endocrine Surgery: No Eye Surgery: Yes (PT STATES "PERMANENT CONTACT LENSES") Genitourinary Surgery: No Gynecologic Surgery: No Hysterectomy: No Insulin Pump: No Joint Replacement: Yes (PINS IN RIGHT WRIST) Neurologic Surgery: No Oral Surgery: No Pacemaker: No Thoracic Surgery: No Other Surgery: Yes (BLOOD VESSEL BYPASS BOTH LEGS) Family History Family Myocardial Infarction: Yes Social History Alcohol Use: No Tobacco Use: Yes (1 PPD) Substance Use: Yes (marijuana) Allergies-Medications (Allergen,Severity, Reaction): Coded Allergies: acetaminophen (Unverified Allergy, Severe, RASH, 07/05/17) aspirin (Unverified Allergy, Severe, 07/05/17) codeine (Unverified Allergy, Severe, RASH, 07/05/17) ibuprofen (Unverified Allergy, Severe, RASH, 07/05/17) REACTION NOT GIVEN penicillin G (Unverified Allergy, Severe, RASH, 07/05/17) REACTION NOT GIVEN propoxyphene (Unverified Allergy, Severe, RASH, 07/05/17) *MDRO Multi-Drug Resistant Organism (Verified Adverse Reaction, Unknown, ) MRSA - 2013; MRSA (toe) - 08/14/16 MRSA PCR Screens NEGATIVE 08/24/15, 08/25/15, 12/25/16, 12/27/16 CLEARED PER INFECTION CONTROL PROTOCOL Reported Meds & Prescriptions Reported Meds & Active Scripts Active Reported Topamax (Topiramate) 50 Mg Tab 50 Mg PO DAILY Clonazepam 1 Mg Tab 1 Mg PO BID Prodrin (Ejyojgbhmtilf-Uojzbknh-Hlrdnnopmpekv) 65-20-325 Mg Tab 1 Tab PO DIRECTED PRN Soma (Carisoprodol) 350 Mg Tab 350 Mg PO QID PRN Lisinopril 40 Mg Tab 40 Mg PO DAILY Zanaflex (Tizanidine HCl) 4 Mg Tab 4 Mg PO Q12HR Melatonin 10 Mg Tab 10 Mg PO HS PRN Pantoprazole (Pantoprazole Sodium) 40 Mg Tab 40 Mg PO DAILY Carafate (Sucralfate) 1 Gm Tab 1 Gm PO TID On empty stomach Xarelto (Rivaroxaban) 20 Mg Tab 20 Mg PO DAILY Hydroxyzine HCl 25 Mg Tab 25 Mg PO BID Lantus Inj (Insulin Glargine) 100 Unit/Ml Inj 25 HS Chantix (Varenicline) 1 Mg Tab 1 Mg PO DAILY Proair Hfa 8.5 GM Inh (Albuterol Sulfate) 90 Mcg/Act Aer 2 Puff INH Q4-6H PRN 108 mcg/actuation Sumatriptan (Sumatriptan Succinate) 100 Mg Tab 100 Mg PO ONCE PRN If a satisfactory response has not been obtained at 2 hours, a second dose may be administered Selenium Sulfide Topical 2.5% (Selenium Sulfide) 2.5 % Lotn 1 Applic TOPICAL BID Symbicort Inh (Budesonide/Formoterol Fumarate) 160-4.5 Mcg/Act Aero 1 Puff INH Q12HR Hydrocodone-Acetaminophen 10-325 mg Tab 1 Tab PO Q4H PRN Lasix (Furosemide) 20 Mg Tab 20 Mg PO DAILY Amlodipine (Amlodipine Besylate) 5 Mg Tab 5 Mg PO DAILY Januvia (Sitagliptin Phosphate) 50 Mg Tab 50 Mg PO DAILY Clonidine (Clonidine HCl) 0.1 Mg Tab 0.1 Mg PO TID Glipizide 10 Mg Tab 10 Mg PO BIDAC Take 30 minutes before a meal Review of Systems Except as stated in HPI: all other systems reviewed are Neg General / Constitutional: No: Fever, Chills HENT: No: Headaches, Neck Stiffness, Neck Pain Cardiovascular: No: Chest Pain or Discomfort, Palpitations Respiratory: No: Cough, Shortness of Breath Gastrointestinal: Positive: Diarrhea, Abdominal Pain, Other (bright red blood per rectum earlier today.), No: Nausea, Vomiting Genitourinary: No: Frequency, Dysuria Musculoskeletal: Positive: Weakness (generalized lower extremity weakness from previous vascular injuries.), No: Pain Neurologic: Positive: Weakness (bilateral lower extremity weakness from previous vascular), No: Headache, Sensory Disturbance Physical Exam Narrative GENERAL: Developed well-nourished gentleman in no acute respiratory distress. SKIN: Focused skin assessment warm/dry. HEAD: Atraumatic. Normocephalic. EYES: No scleral icterus. No injection or drainage. ENT: No nasal bleeding or discharge. Mucous membranes pink and moist. NECK: Trachea midline. Supple. CARDIOVASCULAR: Regular rate and rhythm. No murmur appreciated. RESPIRATORY: No accessory muscle use. Clear to auscultation. Breath sounds equal bilaterally. GASTROINTESTINAL: Abdomen soft, non-tender, nondistended. Periumbilical tenderness to palpation. No rebound or guarding. MUSCULOSKELETAL: No clubbing. No cyanosis. No edema. NEUROLOGICAL: Awake and alert. No obvious cranial nerve deficits. Normal speech. RECTAL EXAM: No masses or tenderness, no obvious bleeding hemorrhoids. No stool in the vault. He did have mucus that tested heme positive. Data Data Orders Orders Complete Blood Count With Diff (07/05/17 18:44) Comprehensive Metabolic Panel (07/05/17 18:44) Lipase (07/05/17 18:44) Prothrombin Time / Inr (Pt) (07/05/17 18:44) Act Partial Throm Time (Ptt) (07/05/17 18:44) Urinalysis - C+S If Indicated (07/05/17 18:44) Ct Abd/Pel W Iv Contrast(Rout) (07/05/17 18:44) Iv Access Insert/Monitor (07/05/17 18:44) Ecg Monitoring (07/05/17 18:44) Oximetry (07/05/17 18:44) Ondansetron Inj (Zofran Inj) (07/05/17 18:45) Sodium Chlor 0.9% 1000 Ml Inj (Ns 1000 M (07/05/17 18:44) Sodium Chloride 0.9% Flush (Ns Flush) (07/05/17 18:45) Oral Contrast - Adult (07/05/17 18:59) MDM Medical Decision Making Medical Screen Exam Complete: Yes Emergency Medical Condition: Yes Differential Diagnosis Lower gastrointestinal hemorrhage versus ischemic bowel versus hemorrhoidal hemorrhage. Narrative Course This is a 62-year-old male with history of peripheral vascular disease and what sounds like vessel disease for his and intestinal area, and presents here with complaints of rectal bleeding. The patient also complains of abdominal pain. The patient is heme positive on digital rectal examination. He is on Xarelto. Labs and CT are pending at this time. He'll be signed out to Dr. Tamar Mancera , will follow up on the results and make appropriate disposition. There is likely that he'll probably need to be admitted to the hospital. Diagnosis Primary Impression: Rectal bleeding Additional Impression: History of vascular disease Cruzito Pimentel MD Jul 05, 2017 19:01
[2017-07-05] MEDS ORDERED: DIATRIZOATE MEGLUM/DIATRIZOATE SOD 9 ML CUP ONE (19:27)
[2017-07-05 19:35] LABS: AUTOMATED NEUTROPHIL # 8.3 TH/MM3 (1.8-7.7); BASOPHIL # 0.1 TH/MM3 (0-0.2); BASOPHIL % 0.6 % (0.0-2.0); EOSINOPHIL # 0.3 TH/MM3 (0-0.4); EOSINOPHIL % 2.3 % (0.0-4.0); HEMATOCRIT 39.3 % (39.0-51.0); HEMO FLAGS DIFF FINAL; LYMPH % 17.1 % (9.0-44.0); MEAN CORPUSCULAR HEMOGLOBIN 28.9 PG (27.0-34.0); MEAN CORPUSCULAR HGB CONC 32.8 % (32.0-36.0); MONO % 7.3 % (0.0-8.0); NEUT % 72.7 % (16.0-70.0); PLATELET COUNT 172 TH/MM3 (150-450); RED BLOOD COUNT 4.47 MIL/MM3 (4.50-5.90); RED CELL DISTRIBUTION WIDTH 15.4 % (11.6-17.2); WHITE BLOOD COUNT 11.4 TH/MM3 (4.0-11.0)
[2017-07-05 19:42] LABS: APTT (PATIENT) 36.6 SEC (24.3-30.1); INTERNATIONAL NORMALIZED RATIO 1.3 RATIO
[2017-07-05 19:59] LABS: ALT (GPT) 20 U/L (12-78)
[2017-07-05 20:02] LABS: ALKALINE PHOSPHATASE 141 U/L (45-117); TOTAL BILIRUBIN ADULT 0.4 MG/DL (0.2-1.0)
[2017-07-05 20:06] LABS: ANION GAP 10 MEQ/L (5-15); AST (GOT) 25 U/L (15-37); BICARBONATE 21.6 MEQ/L (21.0-32.0); BLOOD UREA NITROGEN 16 MG/DL (7-18); CHLORIDE 97 MEQ/L (98-107); GLOMERULAR FILTRATION RATE 31 ML/MIN (>89); SODIUM (NA) 129 MEQ/L (136-145)
[2017-07-05 20:14] LABS: POTASSIUM 4.4 MEQ/L (3.5-5.1)
--- NOTE | 2017-07-05 21:12 | RADRPT ---
EXAM DATE/TIME: 07/05/2017 20:56 [facility] COMPARISON: CT ABDOMEN & PELVIS W/O CONTRAST, November 19, 2014, 19:58. INDICATIONS : Abdominal pain and rectal bleeding. ORAL CONTRAST: Prescribed oral contrast ingested. RADIATION DOSE: 11.25 CTDIvol (mGy) MEDICAL HISTORY : Cardiovascular disease. Cerebrovascular disease. Chronic obstructive pulmonary disease.Diabetes, chelly izophrenia SURGICAL HISTORY : bypass in both legs ENCOUNTER: Initial ACUITY: 1 day PAIN SCALE: 5/10 LOCATION: abdomen TECHNIQUE: Volumetric scanning of the abdomen and pelvis was performed. Using automated exposure control and ad justment of the mA and/or kV according to patient size, radiation dose was kept as low as reasonably achievable to obtain optimal diagnostic quality images. DICOM format image data is available electro nically for review and comparison. FINDINGS: LOWER LUNGS: The visualized lower lungs are clear. LIVER: Homogeneous density without lesion. There is no dilation of the biliary tree. A 25 mm gallstone agai n noted. No inflammatory changes. No duct stone or ductal dilatation.. SPLEEN: Normal size without lesion. PANCREAS: Within normal limits. KIDNEYS: Normal in size and shape. There is no mass, stone, or hydronephrosis. ADRENAL GLANDS: Within normal limits. VASCULAR: No acute abnormality seen. Vascular stents with fem-fem and right aortofemoral bypasses are again not ed. BOWEL/MESENTERY: The stomach, small bowel, and colon demonstrate no acute abnormality. There is no free intraperitone al air or fluid. The appendix is well-visualized, normal. ABDOMINAL WALL: Within normal limits. RETROPERITONEUM: There is no lymphadenopathy. BLADDER: No wall thickening or mass. REPRODUCTIVE: Enlarged prostate. INGUINAL: There is no lymphadenopathy or hernia. MUSCULOSKELETAL: No acute bony abnormality demonstrated. CONCLUSION: No acute abnormality demonstrated. Cholelithiasis and vascular surgical changes are again noted. Porfirio Harper MD on July 05, 2017 at 21:06 Board Certified Radiologist. This report was verified electronically.
--- NOTE | 2017-07-05 22:08 | PD ---
Data Data Last Documented VS Vital Signs Date Time Temp Pulse Resp B/P (MAP) Pulse Ox O2 Delivery O2 Flow Rate FiO2 07/05/17 19:00 86 22 110/59 (76) 97 Room Air Orders Orders Complete Blood Count With Diff (07/05/17 18:44) Comprehensive Metabolic Panel (07/05/17 18:44) Lipase (07/05/17 18:44) Prothrombin Time / Inr (Pt) (07/05/17 18:44) Act Partial Throm Time (Ptt) (07/05/17 18:44) Urinalysis - C+S If Indicated (07/05/17 18:44) Iv Access Insert/Monitor (07/05/17 18:44) Ecg Monitoring (07/05/17 18:44) Oximetry (07/05/17 18:44) Ondansetron Inj (Zofran Inj) (07/05/17 18:45) Sodium Chlor 0.9% 1000 Ml Inj (Ns 1000 M (07/05/17 18:44) Sodium Chloride 0.9% Flush (Ns Flush) (07/05/17 18:45) Oral Contrast - Adult (07/05/17 18:59) Diatrizoate Liq ( Gastroview Liq) (07/05/17 19:27) Ct Abd/Pel W/O Iv Contrast (07/05/17 18:44) Admit Order (Ed Use Only) (07/05/17 22:02) Labs Laboratory Tests Test 07/05/17 18:50 White Blood Count 11.4 TH/MM3 Red Blood Count 4.47 MIL/MM3 Hemoglobin 12.9 GM/DL Hematocrit 39.3 % Mean Corpuscular Volume 88.0 FL Mean Corpuscular Hemoglobin 28.9 PG Mean Corpuscular Hemoglobin Concent 32.8 % Red Cell Distribution Width 15.4 % Platelet Count 172 TH/MM3 Mean Platelet Volume 9.7 FL Neutrophils (%) (Auto) 72.7 % Lymphocytes (%) (Auto) 17.1 % Monocytes (%) (Auto) 7.3 % Eosinophils (%) (Auto) 2.3 % Basophils (%) (Auto) 0.6 % Neutrophils # (Auto) 8.3 TH/MM3 Lymphocytes # (Auto) 2.0 TH/MM3 Monocytes # (Auto) 0.8 TH/MM3 Eosinophils # (Auto) 0.3 TH/MM3 Basophils # (Auto) 0.1 TH/MM3 CBC Comment DIFF FINAL Differential Comment Prothrombin Time 14.0 SEC Prothromb Time International Ratio 1.3 RATIO Activated Partial Thromboplast Time 36.6 SEC Blood Urea Nitrogen 16 MG/DL Creatinine 2.21 MG/DL Random Glucose 99 MG/DL Total Protein 7.7 GM/DL Albumin 4.0 GM/DL Calcium Level 9.8 MG/DL Alkaline Phosphatase 141 U/L Aspartate Amino Transf (AST/SGOT) 25 U/L Alanine Aminotransferase (ALT/SGPT) 20 U/L Total Bilirubin 0.4 MG/DL Sodium Level 129 MEQ/L Potassium Level 4.4 MEQ/L Chloride Level 97 MEQ/L Carbon Dioxide Level 21.6 MEQ/L Anion Gap 10 MEQ/L Estimat Glomerular Filtration Rate 31 ML/MIN Lipase 360 U/L MDM Supervised Visit with JUANA: No Narrative Course I took over the care of this patient from Dr. Pimentel. This is a patient who is on Xarelto who presents with rectal bleeding. He has mild anemia which is chronic for him. He has some mild renal insufficiency worse than prior. CT imaging is unremarkable. Patient will be placed in observation to see GI as he was Hemoccult positive and had no obvious external source of bleeding. Diagnosis Primary Impression: Rectal bleeding Additional Impression: History of vascular disease Tamar Fleming MD Jul 05, 2017 22:08
[2017-07-05] MEDS ORDERED: MAGNESIUM HYDROXIDE SUSP 30 ML CUP PO PRN (22:15)
[2017-07-05] MEDS ORDERED: BISACODYL 10 MG SUPP RECTAL PRN (22:15)
[2017-07-05] MEDS ORDERED: SENNOSIDES 8.6 MG TAB PO PRN (22:15)
[2017-07-05] MEDS ORDERED: ONDANSETRON HCL 4 MG/2 ML VIAL IVP PRN (22:15)
[2017-07-05] MEDS ORDERED: MORPHINE SULFATE 4 MG/ML INJ IV PUSH PRN (22:15)
[2017-07-05] MEDS ORDERED: ACETAMINOPHEN 325 MG TAB PO PRN (22:15)
[2017-07-05] MEDS ORDERED: LACTULOSE SYRUP 20 GM/30 ML CUP PO PRN (22:15)
[2017-07-05] MEDS ORDERED: CARISOPRODOL 350 MG TAB PO PRN (22:15)
[2017-07-05] MEDS ORDERED: traMADol HCL 50 MG TAB PO PRN (22:15)
--- NOTE | 2017-07-05 22:17 | HHI.HP ---
[facility] Service [facility] Primary Care Physician YANIQUE Chun Admission Diagnosis gi bleed Diagnoses: (1) Rectal bleed Diagnosis: Principal (2) COPD (chronic obstructive pulmonary disease) Diagnosis: Principal (3) HTN (hypertension) Diagnosis: Principal (4) OTTO (acute kidney injury) Diagnosis: Principal (5) DM (diabetes mellitus) Diagnosis: Principal (6) Tobacco abuse Diagnosis: Principal Travel History International Travel<30 Days: No Contact w/Intl Traveler <30 Da: No Traveled to Known Affected Are: No History of Present Illness This is a 62-year-old male with a PMH of Anxiety, Depression, Bipolar Disorder, HTN, COPD, CAD, h/o CVA, h/o DVT on Xarelto and Tobacco Abuse who presented to the ER w/ complaints of BRBPR starting this afternoon. Pt reports non-bloody diarrhea x6 days, no associated nausea/vomiting. Today noted bright red blood after wiping. Reports h/o similar symptoms in the past while on Coumadin and states he was switched to Xarelto. No further bleeding since his arrival in ER. BP 110/59, HR 86, O2 sat 97% on RA, Afebrile. WBC 11.4. Hemoglobin 12.9, previously 13.7 on 12/24/16. Creatinine 2.21, previously 1.51 12/25/16. INR 1.3. CT Abd/Pelvis w/ no acute abnormality. Review of Systems Except as stated in HPI: all other systems reviewed are Neg ROS: 14 point review of systems otherwise negative. Past Family Social History Past Medical History PMH: Anxiety, Depression, Bipolar Disorder, HTN, COPD, CAD, h/o CVA, h/o DVT on Xarelto and Tobacco Abuse Past Surgical History PAST SURGICAL HISTORY: Femoropopliteal Bypass, Eye Surgery, Abdominal Surgery Allergies: Coded Allergies: acetaminophen (Unverified Allergy, Severe, RASH, 07/05/17) aspirin (Unverified Allergy, Severe, 07/05/17) codeine (Unverified Allergy, Severe, RASH, 07/05/17) ibuprofen (Unverified Allergy, Severe, RASH, 07/05/17) REACTION NOT GIVEN penicillin G (Unverified Allergy, Severe, RASH, 07/05/17) REACTION NOT GIVEN propoxyphene (Unverified Allergy, Severe, RASH, 07/05/17) *MDRO Multi-Drug Resistant Organism (Verified Adverse Reaction, Unknown, ) MRSA - 2013; MRSA (toe) - 08/14/16 MRSA PCR Screens NEGATIVE 08/24/15, 08/25/15, 12/25/16, 12/27/16 CLEARED PER INFECTION CONTROL PROTOCOL Family History PAST FAMILY HISTORY: Reviewed. No h/o DM or CAD Social History PAST SOCIAL HISTORY: Negative for alcohol. Smokes 1ppd. +Marijuana. Physical Exam Vital Signs Vital Signs Date Time Temp Pulse Resp B/P (MAP) Pulse Ox O2 Delivery O2 Flow Rate FiO2 07/05/17 19:00 86 22 110/59 (76) 97 Room Air Physical Exam PE: GENERAL: Middle-aged male in no acute distress. HEENT: PERRLA, EOMI. No scleral icterus or conjunctival pallor. No lid lag or facial droop. CARDIOVASCULAR: Regular rate and rhythm. No obvious murmurs to auscultation. No chest tenderness to palpation. RESPIRATORY: No obvious rhonchi or wheezing. Clear to auscultation. Breath sounds equal bilaterally. GASTROINTESTINAL: Abdomen soft, non-tender, nondistended. BS normal. MUSCULOSKELETAL: Extremities without clubbing, cyanosis, or edema. No obvious deformities. NEUROLOGICAL: Awake, alert and oriented x4. No focal neurologic deficits. Moving both upper and lower extremities spontaneously. Laboratory Laboratory Tests Test 07/05/17 18:50 White Blood Count 11.4 Red Blood Count 4.47 Hemoglobin 12.9 Hematocrit 39.3 Mean Corpuscular Volume 88.0 Mean Corpuscular Hemoglobin 28.9 Mean Corpuscular Hemoglobin Concent 32.8 Red Cell Distribution Width 15.4 Platelet Count 172 Mean Platelet Volume 9.7 Neutrophils (%) (Auto) 72.7 Lymphocytes (%) (Auto) 17.1 Monocytes (%) (Auto) 7.3 Eosinophils (%) (Auto) 2.3 Basophils (%) (Auto) 0.6 Neutrophils # (Auto) 8.3 Lymphocytes # (Auto) 2.0 Monocytes # (Auto) 0.8 Eosinophils # (Auto) 0.3 Basophils # (Auto) 0.1 CBC Comment DIFF FINAL Differential Comment Prothrombin Time 14.0 Prothromb Time International Ratio 1.3 Activated Partial Thromboplast Time 36.6 Blood Urea Nitrogen 16 Creatinine 2.21 Random Glucose 99 Total Protein 7.7 Albumin 4.0 Calcium Level 9.8 Alkaline Phosphatase 141 Aspartate Amino Transf (AST/SGOT) 25 Alanine Aminotransferase (ALT/SGPT) 20 Total Bilirubin 0.4 Sodium Level 129 Potassium Level 4.4 Chloride Level 97 Carbon Dioxide Level 21.6 Anion Gap 10 Estimat Glomerular Filtration Rate 31 Lipase 360 Result Diagram: 07/05/17184907/05/171849 Caprini VTE Risk Assessment Caprini VTE Risk Assessment: Mod/High Risk (score >= 2) Caprini Risk Assessment Model Point Value = 1 Point Value = 2 Point Value = 3 Point Value = 5 Age 41-60 Minor surgery BMI > 25 kg/m2 Swollen legs Varicose veins or History of unexplained or recurrent spontaneous Oral contraceptives or hormone replacement Sepsis (< 1 month) Serious lung disease, including pneumonia (< 1 month) Abnormal pulmonary function Acute myocardial infarction Congestive heart failure (< 1 month) History of inflammatory bowel disease Medical patient at bed rest Age 61-74 Arthroscopic surgery Major open surgery (> 45 min) Laparoscopic surgery (> 45 min) Malignancy Confined to bed (> 72 hours) Immobilizing plaster cast Central venous access Age >= 75 History of VTE Family history of VTE Factor V Leiden Prothrombin [id number] Lupus anticoagulant Anticardiolipin antibodies Elevated serum homocysteine Heparin-induced thrombocytopenia Other congenital or acquired thrombophilia Stroke (< 1 month) Elective arthroplasty Hip, pelvis, or leg fracture Acute spinal cord injury (< 1 month) Prophylaxis Regimen Total Risk Factor Score Risk Level Prophylaxis Regimen 0-1 Low Early ambulation 2 Moderate Order ONE of the following: *Sequential Compression Device (SCD) *Heparin 5000 units SQ BID 3-4 Higher Order ONE of the following medications: *Heparin 5000 units SQ TID *Enoxaparin/Lovenox 40 mg SQ daily (WT < 150 kg, CrCl > 30 mL/min) *Enoxaparin/Lovenox 30 mg SQ daily (WT < 150 kg, CrCl > 10-29 mL/min) *Enoxaparin/Lovenox 30 mg SQ BID (WT < 150 kg, CrCl > 30 mL/min) AND/OR *Sequential Compression Device (SCD) 5 or more Highest Order ONE of the following medications: *Heparin 5000 units SQ TID (Preferred with Epidurals) *Enoxaparin/Lovenox 40 mg SQ daily (WT < 150 kg, CrCl > 30 mL/min) *Enoxaparin/Lovenox 30 mg SQ daily (WT < 150 kg, CrCl > 10-29 mL/min) *Enoxaparin/Lovenox 30 mg SQ BID (WT < 150 kg, CrCl > 30 mL/min) AND *Sequential Compression Device (SCD) Assessment and Plan Problem List: (1) Rectal bleeding ICD Code: K62.5 - Hemorrhage of anus and rectum Status: Acute (2) HTN (hypertension) ICD Code: I10 - Essential (primary) hypertension Status: Chronic (3) OTTO (acute kidney injury) ICD Code: N17.9 - Acute kidney failure, unspecified Status: Resolved (4) COPD (chronic obstructive pulmonary disease) ICD Code: J44.9 - Chronic obstructive pulmonary disease, unspecified Status: Chronic (5) DM (diabetes mellitus) ICD Code: E11.9 - Type 2 diabetes mellitus without complications Status: Chronic (6) Tobacco abuse ICD Code: Z72.0 - Tobacco use Status: Chronic Assessment and Plan A/P: 1. Rectal Bleeding: c/o acute onset of rectal bleeding starting today, currently on Xarelto for h/o DVT, similar symptoms while on Coumadin. Vitals stable. Hgb 12.9, previously 13.7 on 12/24/16. No further bleeding since arrival to ER. Will admit for Observation, monitor Hgb/Hct. GI Consult as needed if persistent rectal bleeding. 2. HTN: BP 110's while in ER, caution w/ antihypertensives in light of rectal bleeding. Monitor BP, resume home medications w/ parameters. 3. OTTO: Acute on Chronic. Creatinine 2.21, previously 1.54 on 12/25/16. IVF for hydration, repeat labs in a.m. 4. COPD: Chronic Respiratory Failure. Stable. Resume home MDI, DuoNeb prn 5. DM: Sliding scale w/ Accu-Cheks. Resume home medications 6. DVT Prophylaxis: On Xarelto, caution w/ rectal bleeding. 7. Social work for d/c planning as needed. 8. Case discussed w/ ER physician at length. Yue Gaffney MD Jul 05, 2017 22:17
[2017-07-05] MEDS ORDERED: MELATONIN 5 MG TAB PO PRN (22:30)
[2017-07-05 22:46] VITALS: BP 109/70; PULSE 66; RESP 22; O2SAT 96
[2017-07-06 00:17] VITALS: BP 97/56; PULSE 76; RESP 18; TEMP 98.7; O2SAT 98
[2017-07-06 08:04] VITALS: BP 119/57; PULSE 48; RESP 16; TEMP 98.5; O2SAT 93
[2017-07-06] MEDS: TOPIRAMATE 25 MG TAB PO SCH (08:47)
[2017-07-06] MEDS: BUDESONIDE-FORMOTEROL 160/4.5 MCG INHALER INH SCH ×2 (08:47→22:18)
[2017-07-06] MEDS: cloNIDine HCL 0.1 MG TAB PO SCH ×3 (08:47→17:55)
[2017-07-06] MEDS: clonazePAM 1 MG TAB PO SCH ×2 (08:47→22:19)
[2017-07-06] MEDS: DOCUSATE SODIUM 50 MG/SENNA 8.6 MG TAB PO SCH ×2 (08:47→22:19)
[2017-07-06] MEDS: SODIUM CHLORIDE 0.9% FLUSH 10 ML FLUSH IV FLUSH SCH ×2 (08:47→22:19)
[2017-07-06 09:25] LABS: BLOOD, URINE NEG (NEG); COMMENT (UR) CULT NOT INDICATED; CULTURE IF INDICATED CULT NOT INDICATED; GLUCOSE,URINE NEG (NEG); KETONE, URINE NEG (NEG); NITRITE,URINE NEG (NEG)
[2017-07-06 09:34] LABS: URINE COLOR LIGHT-YELLOW (YELLW/STRAW)
[2017-07-06] MEDS ORDERED: DEXTROSE 50% IN WATER 50 ML VIAL(D50) IV PRN (11:00)
[2017-07-06] MEDS ORDERED: ALBUTEROL SULFATE 90 MCG/ACT HFA 18 GM INHALER INH PRN (11:00)
[2017-07-06] MEDS ORDERED: GLUCAGON 1 MG/ML VIAL OTHER PRN (11:00)
[2017-07-06] MEDS: PANTOPRAZOLE SOD 40 MG DELAYED RELEASE TAB PO SCH (11:09)
--- NOTE | 2017-07-06 11:11 | HHI.PR ---
Subjective Remarks Follow-up for rectal bleeding. The patient states that he had been having GI symptoms for the past 3 days. He had been having lower abdominal discomfort and diarrhea after eating potato salad that was left out. This is improved and he has had no further diarrhea or abdominal pain since admission. After all the diarrhea, the patient started having bright red rectal bleeding yesterday, none overnight. His previous on Coumadin, but refused to take that anymore after bleeding on it, and has been on Xarelto for the past year. Agreeable for colonoscopy if needed. Objective Vitals Vital Signs Date Time Temp Pulse Resp B/P (MAP) Pulse Ox O2 Delivery O2 Flow Rate FiO2 07/06/17 08:04 98.5 48 16 119/57 (77) 93 07/06/17 00:17 98.7 76 18 97/56 (70) 98 07/05/17 23:14 07/05/17 22:46 66 22 109/70 (83) 96 Room Air 07/05/17 19:00 86 22 110/59 (76) 97 Room Air I/O 07/05/17 07/05/17 07/05/17 07/06/17 07/06/17 07/06/17 07:00 15:00 23:00 07:00 15:00 23:00 Intake Total 1000 ml 1080 ml 500 ml Output Total 600 ml 1000 ml Balance 1000 ml 480 ml -500 ml Intake Oral 230 ml 500 ml IV Total 1000 ml 850 ml Output Urine Total 600 ml 1000 ml # Voids 2 Result Diagram: 07/05/17184907/05/171849 Imaging Last Impressions Abdomen/Pelvis CT 07/05/17 184 Signed Impressions: Service Date/Time: Wednesday, July 05, 2017 20:56 - CONCLUSION: No acute abnormality demonstrated. Cholelithiasis and vascular surgical changes are again noted. Porfirio Harper MD Objective Remarks GENERAL: Well-developed well-nourished. In no acute distress. SKIN: Warm and dry. No lesions noted. HEENT: Normocephalic. Pupils equal and round. Mucous membranes pink and moist. CARDIOVASCULAR: Regular rate and rhythm. No murmur appreciated. RESPIRATORY: No accessory muscle use. Clear to auscultation. Breath sounds equal bilaterally. GASTROINTESTINAL: Abdomen soft, non-tender, nondistended. Bowel sounds x4. MUSCULOSKELETAL: No obvious deformities. No clubbing or cyanosis. Trace edema. NEUROLOGICAL: Awake and alert. No focal neurological deficits. Moves upper and lower extremities spontaneously. Normal speech. PSYCHIATRIC: Appropriate mood and affect; insight and judgment normal. A/P Problem List: (1) Rectal bleeding ICD Code: K62.5 - Hemorrhage of anus and rectum Status: Acute (2) HTN (hypertension) ICD Code: I10 - Essential (primary) hypertension Status: Chronic (3) OTTO (acute kidney injury) ICD Code: N17.9 - Acute kidney failure, unspecified Status: Acute (4) COPD (chronic obstructive pulmonary disease) ICD Code: J44.9 - Chronic obstructive pulmonary disease, unspecified Status: Chronic (5) DM (diabetes mellitus) ICD Code: E11.9 - Type 2 diabetes mellitus without complications Status: Chronic (6) Tobacco abuse ICD Code: Z72.0 - Tobacco use Status: Chronic Assessment and Plan 62-year-old male with a PMH of Anxiety, Depression, Bipolar Disorder, HTN, COPD , CAD, h/o CVA, h/o DVT on Xarelto and Tobacco Abuse who presented w/ complaints of BRBPR Rectal Bleeding/gastroenteritis: Symptoms of abdominal pain and diarrhea 3 days after eating potato salad. Rectal bleeding 1 prior to admission. Currently on Xarelto for h/o DVT, similar symptoms while on Coumadin. Reviewed: Hgb 12.9, previously 13.7 on 12/24/16. Colonoscopy 04/18/16 showed sigmoid ulcers and pathology showed ischemic colitis. -Hold Xarelto -Monitor H&H -Monitor for any further bleeding -Consult GI -Check stool studies if further diarrhea, although seems to have resolved -Clear liquids pending GI eval HTN: BP has been softer overnight. Continue clonidine. Hold lisinopril and amlodipine. Monitor. OTTO: Acute on Chronic. Creatinine 2.21, previously 1.54 on 12/25/16. IVF for hydration, repeat labs pending GERD: Continue PPI and Carafate DM: Sliding scale w/ Accu-Cheks. Continue home basal insulin at half dose for now. DVT Prophylaxis: Xarelto on hold with rectal bleeding. SCDs. Discharge Planning Follow up GI recommendations. Problem Qualifiers (1) HTN (hypertension): Qualified Codes: I10 - Essential (primary) hypertension Magdiel Lopez Jul 06, 2017 11:11
[2017-07-06 11:32] LABS: AUTOMATED NEUTROPHIL # 3.2 TH/MM3 (1.8-7.7); BASOPHIL # 0.1 TH/MM3 (0-0.2); BASOPHIL % 1.1 % (0.0-2.0); EOSINOPHIL # 0.3 TH/MM3 (0-0.4); EOSINOPHIL % 5.5 % (0.0-4.0); HEMATOCRIT 37.4 % (39.0-51.0); HEMO FLAGS DIFF FINAL; LYMPH % 25.8 % (9.0-44.0); LYMPHOCYTE # 1.4 TH/MM3 (1.0-4.8); MEAN CELL VOLUME 88.4 FL (80.0-100.0); MEAN CORPUSCULAR HEMOGLOBIN 28.6 PG (27.0-34.0); MEAN CORPUSCULAR HGB CONC 32.3 % (32.0-36.0); MONO % 9.7 % (0.0-8.0); NEUT % 57.9 % (16.0-70.0); PLATELET COUNT 108 TH/MM3 (150-450); RED BLOOD COUNT 4.23 MIL/MM3 (4.50-5.90); RED CELL DISTRIBUTION WIDTH 15.6 % (11.6-17.2); WHITE BLOOD COUNT 5.5 TH/MM3 (4.0-11.0)
[2017-07-06 11:52] VITALS: BP 120/78; PULSE 70; RESP 17; TEMP 98.8; O2SAT 95
[2017-07-06] MEDS ORDERED: PEG (High)/E-LYTE SOLN 4000 ML BTL PO ONE (12:00)
[2017-07-06] MEDS: INSULIN ASPART SUPPLEMENTAL SCALE SQ SCH ×3 (12:00→21:00)
[2017-07-06 12:05] LABS: ALKALINE PHOSPHATASE 123 U/L (45-117); ALT (GPT) 16 U/L (12-78); ANION GAP 7 MEQ/L (5-15); AST (GOT) 9 U/L (15-37); BLOOD UREA NITROGEN 13 MG/DL (7-18); CHLORIDE 104 MEQ/L (98-107); GLOMERULAR FILTRATION RATE 41 ML/MIN (>89); POTASSIUM 3.8 MEQ/L (3.5-5.1); SODIUM (NA) 139 MEQ/L (136-145); TOTAL BILIRUBIN ADULT 0.4 MG/DL (0.2-1.0)
[2017-07-06] MEDS: SUCRALFATE 1 GM TAB PO SCH ×2 (12:33→17:55)
--- NOTE | 2017-07-06 13:23 | PD.CONS ---
HPI History of Present Illness This is a 62 year old male who presented to the hospital with c/o of bright red blood from rectum x 1 day. Has not had any further episodes of this since arrival to the hospital. Patient reports diarrhea and intermittent lower abdominal discomfort for past few days, ever since he ate a potato salad that was left out of the refrigerator for an extended period of time. Currently he denies abdominal pain. No nausea and vomiting. Patient states he has had EGD and Colonoscopy in the past while at the hospital, but is unsure of the results. (Gena Sandy) PFSH Past Medical History Anxiety Depression Bipolar Disorder HTN COPD CAD CVA DVT on Xarelto Tobacco Abuse Past Surgical History Femoropopliteal Bypass Eye Surgery Abdominal Surgery (Gena Sandy) Coded Allergies: acetaminophen (Unverified Allergy, Severe, RASH, 07/05/17) aspirin (Unverified Allergy, Severe, 07/05/17) codeine (Unverified Allergy, Severe, RASH, 07/05/17) ibuprofen (Unverified Allergy, Severe, RASH, 07/05/17) REACTION NOT GIVEN penicillin G (Unverified Allergy, Severe, RASH, 07/05/17) REACTION NOT GIVEN propoxyphene (Unverified Allergy, Severe, RASH, 07/05/17) *MDRO Multi-Drug Resistant Organism (Verified Adverse Reaction, Unknown, ) MRSA - 2011, 2013; MRSA (toe) - 08/14/16 MRSA PCR Screens NEGATIVE 08/24/15, 08/25/15, 12/25/16, 12/27/16 CLEARED PER INFECTION CONTROL PROTOCOL Medications Current Medications Medications (Trade) Dose Ordered Sig/Myrna Route PRN Reason Start Time Stop Time Status Last Admin Dose Admin Sodium Chloride (NS Flush) 2 ml UNSCH PRN IV FLUSH FLUSH AFTER USING IV ACCESS 07/05/17 18:45 Sodium Chloride (NS Flush) 2 ml UNSCH PRN IV FLUSH FLUSH AFTER USING IV ACCESS 07/05/17 22:15 Sodium Chloride (NS Flush) 2 ml BID IV FLUSH 07/06/17 09:00 07/06/17 08:47 Ondansetron HCl (Zofran Inj) 4 mg Q6H PRN IVP NAUSEA OR VOMITING 07/05/17 22:15 Acetaminophen (Tylenol) 650 mg Q6H PRN PO FEVER/PAIN SCALE 1 TO 2 07/05/17 22:15 Morphine Sulfate (Morphine Inj) 2 mg Q3H PRN IV PUSH Pain 6-10 07/05/17 22:15 Tramadol HCl (Ultram) 50 mg Q4H PRN PO PAIN SCALE 3 TO 5 07/05/17 22:15 Senna/Docusate Sodium (Pippa-Colace) 1 tab BID PO 07/06/17 09:00 Magnesium Hydroxide (Milk Of Magnesia Liq) 30 ml Q12H PRN PO MILD - MODERATE CONSTIPATION 07/05/17 22:15 Sennosides (Senokot) 17.2 mg Q12H PRN PO MODERATE - SEVERE CONSTIPATION 07/05/17 22:15 Bisacodyl (Dulcolax Supp) 10 mg DAILY PRN RECTAL SEVERE CONSITIPATION 07/05/17 22:15 Lactulose (Lactulose Liq) 30 ml DAILY PRN PO SEVERE CONSITIPATION 07/05/17 22:15 Budesonide/ Formoterol Fumarate (Symbicort 160-4.5 Inh) 1 puff Q12HR INH 07/06/17 09:00 Carisoprodol (Soma) 350 mg QID PRN PO PAIN 07/05/17 22:15 Clonazepam (KlonoPIN) 1 mg BID PO 07/06/17 09:00 07/06/17 08:47 Clonidine (Catapres) 0.1 mg TID PO 07/06/17 09:00 07/06/17 12:33 Tizanidine HCl (Zanaflex) 4 mg Q12HR PO 07/06/17 09:00 07/06/17 08:46 Topiramate (Topamax) 50 mg DAILY PO 07/06/17 09:00 07/06/17 08:47 Melatonin (Melatonin) 10 mg HS PRN PO SLEEP 07/05/17 22:30 Dextrose (D50w (Vial) Inj) 50 ml UNSCH PRN IV HYPOGLYCEMIA-SEE COMMENTS 07/06/17 11:00 Glucagon (Glucagon Inj) 1 mg UNSCH PRN OTHER HYPOGLYCEMIA-SEE COMMENTS 07/06/17 11:00 Insulin Aspart (NovoLOG SUPPLEMENTAL SCALE) 1 ACHS SLIDING SCALE SQ 07/06/17 12:00 Albuterol Sulfate (Ventolin Hfa Inh) 2 puff Q4HR PRN INH SHORTNESS OF BREATH 07/06/17 11:00 Hydroxyzine HCl (Atarax) 25 mg BID PO 07/06/17 21:00 Pantoprazole Sodium (Protonix) 40 mg DAILY PO 07/06/17 11:00 07/06/17 11:09 Sucralfate (Carafate) 1 gm TID PO 07/06/17 13:00 07/06/17 12:33 Insulin Detemir (Levemir Inj) 10 units HS SQ 07/06/17 21:00 Family History Noncontributory Social History Tobacco, 1 PPD ETOH, denies Illicit Drugs, + Marijuana (Gena Sandy) Review of Systems Constitutional: DENIES: Diaphoretic episodes, Fatigue, Fever, Weight gain, Weight loss, Chills, Dizziness, Change in appetite, Night Sweats Endocrine: DENIES: Polydipsia, Polyuria Eyes: DENIES: Blurred vision, Photosensitivity, Double Vision Ears, nose, mouth, throat: DENIES: Hearing loss, Vertigo, Oral lesions, Throat pain, Hoarseness Respiratory: DENIES: Cough, Wheezing, Hemoptysis, Sputum production, Shortness of breath Cardiovascular: DENIES: Chest pain, Palpitations, Syncope, Lower Extremity Edema, Orthopnea, Claudication Gastrointestinal: COMPLAINS OF: Bloody stools, DENIES: Abdominal pain, Black stools, Constipation, Diarrhea, Nausea, Vomiting, Difficulty Swallowing, Anorexia, Odynophagia, Swelling of Abdomen, Heartburn, Hematemesis Genitourinary: DENIES: Urinary frequency, Urinary incontinence, Urgency, Hematuria, Dysuria, Nocturia Musculoskeletal: DENIES: Joint pain, Muscle aches, Stiffness, Joint Swelling, Back pain, Neck pain Integumentary: DENIES: Abnormal pigmentation, Nail changes, Pruritus, Rash, Jaundice Hematologic/lymphatic: DENIES: Bruising, Lymphadenopathy Immunologic/allergic: DENIES: Eczema, Urticaria Neurologic: DENIES: Abnormal gait, Headache, Localized weakness, Paresthesias Psychiatric: DENIES: Anxiety, Confusion, Mood changes, Depression, Agitation, Suicidal Ideation (Gena Sandy) GI Exam Vitals I&O Vital Signs Date Time Temp Pulse Resp B/P (MAP) Pulse Ox O2 Delivery O2 Flow Rate FiO2 07/06/17 11:52 98.8 70 17 120/78 (92) 95 07/06/17 08:04 98.5 48 16 119/57 (77) 93 07/06/17 00:17 98.7 76 18 97/56 (70) 98 07/05/17 23:14 07/05/17 22:46 66 22 109/70 (83) 96 Room Air 07/05/17 19:00 86 22 110/59 (76) 97 Room Air I/O 07/05/17 07/05/17 07/05/17 07/06/17 07/06/17 07/06/17 07:00 15:00 23:00 07:00 15:00 23:00 Intake Total 1000 ml 1080 ml 500 ml Output Total 600 ml 1000 ml Balance 1000 ml 480 ml -500 ml Intake Oral 230 ml 500 ml IV Total 1000 ml 850 ml Output Urine Total 600 ml 1000 ml # Voids 2 Imaging Last Impressions Abdomen/Pelvis CT 07/05/17 8564 Signed Impressions: Service Date/Time: Wednesday, July 05, 2017 20:56 - CONCLUSION: No acute abnormality demonstrated. Cholelithiasis and vascular surgical changes are again noted. Porfirio Harper MD Laboratory Test 07/05/17 18:50 07/06/17 08:51 07/06/17 09:34 White Blood Count 11.4 TH/MM3 5.5 TH/MM3 Red Blood Count 4.47 MIL/MM3 4.23 MIL/MM3 Hemoglobin 12.9 GM/DL 12.1 GM/DL Hematocrit 39.3 % 37.4 % Mean Corpuscular Volume 88.0 FL 88.4 FL Mean Corpuscular Hemoglobin 28.9 PG 28.6 PG Mean Corpuscular Hemoglobin Concent 32.8 % 32.3 % Red Cell Distribution Width 15.4 % 15.6 % Platelet Count 172 TH/MM3 108 TH/MM3 Mean Platelet Volume 9.7 FL 9.6 FL Neutrophils (%) (Auto) 72.7 % 57.9 % Lymphocytes (%) (Auto) 17.1 % 25.8 % Monocytes (%) (Auto) 7.3 % 9.7 % Eosinophils (%) (Auto) 2.3 % 5.5 % Basophils (%) (Auto) 0.6 % 1.1 % Neutrophils # (Auto) 8.3 TH/MM3 3.2 TH/MM3 Lymphocytes # (Auto) 2.0 TH/MM3 1.4 TH/MM3 Monocytes # (Auto) 0.8 TH/MM3 0.5 TH/MM3 Eosinophils # (Auto) 0.3 TH/MM3 0.3 TH/MM3 Basophils # (Auto) 0.1 TH/MM3 0.1 TH/MM3 CBC Comment DIFF FINAL DIFF FINAL Differential Comment Prothrombin Time 14.0 SEC Prothromb Time International Ratio 1.3 RATIO Activated Partial Thromboplast Time 36.6 SEC Blood Urea Nitrogen 16 MG/DL 13 MG/DL Creatinine 2.21 MG/DL 1.71 MG/DL Random Glucose 99 MG/DL 59 MG/DL Total Protein 7.7 GM/DL 6.3 GM/DL Albumin 4.0 GM/DL 3.3 GM/DL Calcium Level 9.8 MG/DL 9.1 MG/DL Alkaline Phosphatase 141 U/L 123 U/L Aspartate Amino Transf (AST/SGOT) 25 U/L 9 U/L Alanine Aminotransferase (ALT/SGPT) 20 U/L 16 U/L Total Bilirubin 0.4 MG/DL 0.4 MG/DL Sodium Level 129 MEQ/L 139 MEQ/L Potassium Level 4.4 MEQ/L 3.8 MEQ/L Chloride Level 97 MEQ/L 104 MEQ/L Carbon Dioxide Level 21.6 MEQ/L 28.0 MEQ/L Anion Gap 10 MEQ/L 7 MEQ/L Estimat Glomerular Filtration Rate 31 ML/MIN 41 ML/MIN Lipase 360 U/L Urine Color LIGHT-YELLOW Urine Turbidity CLEAR Urine pH 6.0 Urine Specific [place] 1.002 Urine Protein NEG mg/dL Urine Glucose (UA) NEG mg/dL Urine Ketones NEG mg/dL Urine Occult Blood NEG Urine Nitrite NEG Urine Bilirubin NEG Urine Urobilinogen LESS THAN 2.0 MG/DL Urine Leukocyte Esterase NEG Urine RBC LESS THAN 1 /hpf Urine WBC LESS THAN 1 /hpf Microscopic Urinalysis Comment CULT NOT INDICATED Physical Examination HEENT: PERRLA; normocephalic; atraumatic; no jaundice. NECK: Neck is supple CHEST: CTA CARDIAC: RRR with no murmur gallop or rubs. ABDOMEN: Soft, nondistended, nontender; no hepatosplenomegaly; bowel sounds are present EXTREMITIES: No clubbing, cyanosis, or edema. SKIN: Normal; no rash; no jaundice. WIRE COMMUNICATIONS ENGINEER: No focal deficits; alert and oriented x 3 (Gena Sandy) Assessment and Plan Plan ASSESSMENT: GIB, bright red blood per rectum x 1. Had abdominal pain and diarrhea x 3 days, improved. Last colonoscopy 03/2016--sigmoid ulcers with pathology showing ischemic colitis. HH 12.1/37.4. CT Abdomen/Pelvis 07/05/17--No acute abnormality noted. PLAN: - EGD/Colonoscopy Friday - Obtain consents - Bowel prep today - Clear liquids today - NPO after MN tonight - Hold Xarelto - Check stool studies if further diarrhea - Monitor labs - Supportive care - Further recommendations to follow based on results of above. Patient seen and examined by Dr. Bazan and myself and this note is written on his behalf. (Gena Sandy) Physician Comments Seen and examined with NUT GRADER< egd/colonoscopy tomorrow. (Michael Bazan MD) Gena Sandy Jul 06, 2017 13:23 Michael Bazan MD Jul 06, 2017 14:53
[2017-07-06 18:06] VITALS: BP 150/68; PULSE 58; RESP 20; TEMP 98; O2SAT 96
[2017-07-06 19:17] VITALS: BP 149/67; PULSE 53; RESP 18; TEMP 98.1; O2SAT 95
[2017-07-06 20:03] LABS: C. DIFF EPI 027 PRESUMPTIVE NEGATIVE (NEGATIVE)
[2017-07-06] MEDS ORDERED: INSULIN DETEMIR 100 UNITS/ML VIAL SQ SCH (21:00)
[2017-07-06] MEDS: hydrOXYzine HCL 25 MG TAB PO SCH (22:19)
[2017-07-06 23:16] VITALS: BP 137/74; PULSE 74; RESP 18; TEMP 98.4; O2SAT 97
[2017-07-07] MEDS: INSULIN ASPART SUPPLEMENTAL SCALE SQ SCH ×2 (08:00→12:00)
[2017-07-07 08:21] VITALS: BP 155/69; PULSE 50; RESP 19; TEMP 97.6; O2SAT 95
[2017-07-07] MEDS: DOCUSATE SODIUM 50 MG/SENNA 8.6 MG TAB PO SCH (08:32)
[2017-07-07] MEDS: BUDESONIDE-FORMOTEROL 160/4.5 MCG INHALER INH SCH (08:32)
[2017-07-07] MEDS: cloNIDine HCL 0.1 MG TAB PO SCH ×2 (08:33→13:32)
[2017-07-07] MEDS: SUCRALFATE 1 GM TAB PO SCH ×2 (08:33→13:32)
[2017-07-07] MEDS: TOPIRAMATE 25 MG TAB PO SCH (08:34)
[2017-07-07] MEDS: clonazePAM 1 MG TAB PO SCH (08:34)
[2017-07-07] MEDS: hydrOXYzine HCL 25 MG TAB PO SCH (08:34)
[2017-07-07] MEDS: PANTOPRAZOLE SOD 40 MG DELAYED RELEASE TAB PO SCH (08:35)
[2017-07-07] MEDS: SODIUM CHLORIDE 0.9% FLUSH 10 ML FLUSH IV FLUSH SCH (08:36)
[2017-07-07 09:05] LABS: AUTOMATED NEUTROPHIL # 2.7 TH/MM3 (1.8-7.7); BASOPHIL # 0.1 TH/MM3 (0-0.2); BASOPHIL % 1.2 % (0.0-2.0); EOSINOPHIL # 0.2 TH/MM3 (0-0.4); EOSINOPHIL % 4.7 % (0.0-4.0); HEMATOCRIT 39.3 % (39.0-51.0); HEMO FLAGS DIFF FINAL; LYMPH % 31.7 % (9.0-44.0); LYMPHOCYTE # 1.6 TH/MM3 (1.0-4.8); MEAN CORPUSCULAR HEMOGLOBIN 28.7 PG (27.0-34.0); MEAN CORPUSCULAR HGB CONC 32.6 % (32.0-36.0); MONO % 7.9 % (0.0-8.0); NEUT % 54.5 % (16.0-70.0); PLATELET COUNT 121 TH/MM3 (150-450); RED BLOOD COUNT 4.47 MIL/MM3 (4.50-5.90); RED CELL DISTRIBUTION WIDTH 15.6 % (11.6-17.2); WHITE BLOOD COUNT 4.9 TH/MM3 (4.0-11.0)
[2017-07-07] MEDS ORDERED: PROPOFOL 200 MG/20 ML AMP IV ONE (11:20)
--- NOTE | 2017-07-07 12:12 | PD.PROCEDR ---
GI Procedure REFERRING PHYSICIAN ALEX PROCEDURE PERFORMED EGD with biopsy followed by colonoscopy INDICATION FOR PROCEDURE GI bleed PROCEDURE: The procedure, risks and benefits were discussed with Mr. Gan and informed consent was obtained. Anesthesia sedated him with Diprivan. He was placed in the left lateral decubitus position. EGD: The Pentax videoscope was introduced through the oropharynx and advanced to the second portion of the duodenum under direct visualization. Retroflexion was performed in the stomach. FINDINGS: Esophagus this was unremarkable except for an irregular Z line and this was biopsied Stomach this appeared to be unremarkable with normal limits Duodenum there was some patchy erythema in the duodenal bulb of unclear significance this was biopsied otherwise the duodenum was unremarkable Colonoscopy: The Pentax videoscope was introduced through the rectum and advanced to cecum where the ileocecal valve and appendiceal orifice were identified. Retroflexion was performed in the rectum. Colonic prep was fair FINDINGS: Colonic withdrawal time greater than 6 minutes as the scope was slowly withdrawn colonic mucosa was carefully inspected this was noted to be unremarkable and within normal limits although way through so was retroflexion and rectal examination ESTIMATED BLOOD LOSS: None SPECIMENS REMOVED: Esophageal and duodenal COMPLICATIONS: None IMPRESSION: Irregular Z line Duodenal erythema/duodenitis Unremarkable colon PLAN: Await biopsies Advance diet Supportive care Boone Miguel MD Jul 07, 2017 11:53
--- NOTE | 2017-07-07 12:52 | HHI.PR ---
Subjective Remarks Follow-up for rectal bleeding. Patient is seen after colonoscopy today. The patient denies any further bleeding, diarrhea, or abdominal pain. He feels well and would like to go home. Objective Vitals Vital Signs Date Time Temp Pulse Resp B/P (MAP) Pulse Ox O2 Delivery O2 Flow Rate FiO2 07/07/17 11:45 98.0 54 18 136/53 (80) 97 07/07/17 08:21 97.6 50 19 155/69 (97) 95 07/06/17 23:16 98.4 74 18 137/74 (95) 97 07/06/17 19:17 98.1 53 18 149/67 (94) 95 07/06/17 18:06 98.0 58 20 150/68 (95) 96 I/O 07/06/17 07/06/17 07/06/17 07/07/17 07/07/17 07/07/17 07:00 15:00 23:00 07:00 15:00 23:00 Intake Total 1080 ml 500 ml Output Total 600 ml 1000 ml Balance 480 ml -500 ml Intake Oral 230 ml 500 ml IV Total 850 ml Output Urine Total 600 ml 1000 ml # Voids 2 Result Diagram: 07/07/17 0748 07/07/17 0748 Imaging Last Impressions Abdomen/Pelvis CT 07/05/17 1844 Signed Impressions: Service Date/Time: Wednesday, July 05, 2017 20:56 - CONCLUSION: No acute abnormality demonstrated. Cholelithiasis and vascular surgical changes are again noted. Porfirio Harper MD Objective Remarks GENERAL: Well-developed well-nourished. In no acute distress. SKIN: Warm and dry. No lesions noted. HEENT: Normocephalic. Pupils equal and round. Mucous membranes pink and moist. CARDIOVASCULAR: Regular rate and rhythm. No murmur appreciated. RESPIRATORY: No accessory muscle use. Clear to auscultation. Breath sounds equal bilaterally. GASTROINTESTINAL: Abdomen soft, non-tender, nondistended. Bowel sounds x4. MUSCULOSKELETAL: No obvious deformities. No clubbing or cyanosis. Trace edema. NEUROLOGICAL: Awake and alert. No focal neurological deficits. Moves upper and lower extremities spontaneously. Normal speech. PSYCHIATRIC: Appropriate mood and affect; insight and judgment normal. A/P Problem List: (1) Rectal bleeding ICD Code: K62.5 - Hemorrhage of anus and rectum Status: Resolved (2) HTN (hypertension) ICD Code: I10 - Essential (primary) hypertension Status: Chronic (3) OTTO (acute kidney injury) ICD Code: N17.9 - Acute kidney failure, unspecified Status: Resolved (4) COPD (chronic obstructive pulmonary disease) ICD Code: J44.9 - Chronic obstructive pulmonary disease, unspecified Status: Chronic (5) DM (diabetes mellitus) ICD Code: E11.9 - Type 2 diabetes mellitus without complications Status: Chronic (6) Tobacco abuse ICD Code: Z72.0 - Tobacco use Status: Chronic Assessment and Plan 62-year-old male with a PMH of Anxiety, Depression, Bipolar Disorder, HTN, COPD , CAD, h/o CVA, h/o DVT on Xarelto and Tobacco Abuse who presented w/ complaints of BRBPR Rectal Bleeding/gastroenteritis: Symptoms of abdominal pain and diarrhea 3 days after eating potato salad, resolved prior to admission. Rectal bleeding 1 prior to admission. Currently on Xarelto for h/o DVT. No further bleeding while admitted. Reviewed: Hgb 12.9, previously 13.7 on 12/24/16. EGD and colonoscopy 07/07/17 were essentially unremarkable. C. difficile negative. Hemoglobin 12.9 at admission, 12.8 today, stable. -Consulted GI, performed EGD and colonoscopy -Discussed with GI, okay to resume Xarelto -Advance diet as tolerated -Stool studies pending, follow-up with PCP and GI for further results HTN: BP was soft from dehydration, lisinopril and amlodipine held. Continue home BP meds as tolerated. OTTO: Acute on Chronic. Secondary to dehydration from diarrhea. Creatinine 2.21, previously 1.54 on 12/25/16. Given IVF and creatinine trended down to 1.55. GERD: Continue PPI and Carafate DM: Sliding scale w/ Accu-Cheks. Resume home basal insulin. DVT Prophylaxis: Xarelto on hold with rectal bleeding. SCDs. Discharge Planning Discharge planning after lunch if patient tolerating diet for outpatient follow- up with PCP and GI. Problem Qualifiers (1) HTN (hypertension): Qualified Codes: I10 - Essential (primary) hypertension Magdiel Lopez Jul 07, 2017 12:52
[2017-07-07] MEDS ORDERED: amLODIPine BESYLATE 5 MG TAB PO SCH (14:00)
[2017-07-07 14:05] VITALS: BP 208/86; PULSE 48; RESP 20; TEMP 98.1; O2SAT 98
[2017-07-07 14:11] VITALS: BP 170/64
[2017-07-07 15:05] VITALS: BP 152/64
== END 2017-07-07 16:57 | disposition home or self-care (01) ==
LOC: NEPC 18:00 → NEDA 22:03 → NEPFCDU 23:48
PROVIDERS: ADMIT Internal Medicine; ATTEND Internal Medicine
DX: K62.5 Hemorrhage of anus and rectum (principal); K29.80 Duodenitis without bleeding; R19.7 Diarrhea, unspecified; R10.84 Generalized abdominal pain; I73.9 Peripheral vascular disease, unspecified; I25.10 Atherosclerotic heart disease of native coronary artery without angina pectoris; E11.9 Type 2 diabetes mellitus without complications; J44.9 Chronic obstructive pulmonary disease, unspecified; I10 Essential (primary) hypertension; I82.509 Chronic embolism and thrombosis of unspecified deep veins of unspecified lower extremity; Z79.01 Long term (current) use of anticoagulants; D64.9 Anemia, unspecified; N28.9 Disorder of kidney and ureter, unspecified; Z86.73 Personal history of transient ischemic attack (TIA), and cerebral infarction without residual deficits; F17.200 Nicotine dependence, unspecified, uncomplicated
CPT/HCPCS: 00740; 43239; 45378; 74176; 80048; 80053; 81001; 82948; 83605; 83690; 85025; 85610; 85730; 87493; 87506; 88305; 96361; 96374; 99285; G0378; J2405; J7030; Q9963

== ENCOUNTER 2017-08-05 18:29 | Emergency (ER) | payer MEDICAID ==
[~2017-08-05] VITALS: Ht 177.8 cm; Wt 78.0 kg
[~2017-08-05 18:29] MED LIST changes: +ACET1TAB17 PO; -LEVE500 PO; +TOPA50TA7 PO
[2017-08-05 18:37] VITALS: BP 169/72; PULSE 85; RESP 22; TEMP 98.5
[2017-08-05 18:39] VITALS: RESP 28; O2SAT 93
--- NOTE | 2017-08-05 19:29 | RADRPT ---
EXAM DATE/TIME: 08/05/2017 19:13 [facility] COMPARISON: CHEST SINGLE AP, December 24, 2016, 13:20. INDICATIONS : Chest pain with abnormal bloodwork.. MEDICAL HISTORY : Cardiovascular disease. Cerebrovascular disease. Chronic obstructive pulmonary SURGICAL HISTORY : bypass in both legs ENCOUNTER: Initial ACUITY: 1 week PAIN SCORE: 0/10 LOCATION: Bilateral chest FINDINGS: The lungs are clear without infiltrate, nodule, or mass. There is no appreciable pleural effusion fo r technique. Heart and mediastinum are unremarkable. Degenerative changes and hypertrophic changes a re seen within the disc space and facets of the thoracic spine. CONCLUSION: No acute cardiopulmonary disease. Herbie Wilks MD on August 05, 2017 at 19:27 Board Certified Radiologist. This report was verified electronically.
[2017-08-05 20:51] VITALS: BP 150/68; PULSE 67; RESP 18; O2SAT 98
[2017-08-05 21:31] LABS: AUTOMATED NEUTROPHIL # 5.8 TH/MM3 (1.8-7.7); BASOPHIL # 0.1 TH/MM3 (0-0.2); EOSINOPHIL # 0.5 TH/MM3 (0-0.4); EOSINOPHIL % 5.6 % (0.0-4.0); HEMATOCRIT 37.4 % (39.0-51.0); HEMO FLAGS DIFF FINAL; LYMPH % 22.8 % (9.0-44.0); MEAN CELL VOLUME 86.4 FL (80.0-100.0); MEAN CORPUSCULAR HEMOGLOBIN 27.9 PG (27.0-34.0); MEAN CORPUSCULAR HGB CONC 32.2 % (32.0-36.0); MONO % 5.6 % (0.0-8.0); PLATELET COUNT 338 TH/MM3 (150-450); RED BLOOD COUNT 4.33 MIL/MM3 (4.50-5.90); RED CELL DISTRIBUTION WIDTH 15.2 % (11.6-17.2)
--- NOTE | 2017-08-05 21:49 | PD ---
HPI Chief Complaint: Medical Clearance Time Seen by Provider: 21:35 Travel History International Travel<30 days: No Contact w/Intl Traveler<30days: No Traveled to known affect area: No History of Present Illness HPI PATIENT COMPLAINTS OF CHEST PAIN TO LEFT CHEST, SHARP, WORSE WITH TOUCHING IT AND MOVING, ONGOING FOR 2 DAYS STRAIGHT, NONRAD, DENIES ANY ALLEVIATING FACTORS...DENIES ANY FEVER, COUGH, N/V/D/ABD PAIN WAS AT [facility] AND APPARENTLY LEFT AMA FROM THERE AND A LETTER WAS SENT HOME STATING TO RETURN. NIECE IS THE ONE PROVIDING MOST OF HISTORY AND IS THE ONE THAT IS CONCERNED FOR HIS SAFETY BECAUSE HE HAS VOICED TO HER HIS INTENT ON "BLOWING MY BRAINS" OR "WALKING IN FRONT A CAR" PFS Past Medical History Hx Anticoagulant Therapy: Yes Arthritis: Yes Asthma: No Autoimmune Disease: No Blood Disorders: No Bipolar Disorder: Yes Anxiety: Yes Depression: Yes Heart Rhythm Problems: No Cancer: Yes (skin cancer-face) Cardiac Catheterization: Yes Cardiovascular Problems: Yes High Cholesterol: No Chemotherapy: No Chest Pain: Yes Congestive Heart Failure: No COPD: Yes Cerebrovascular Accident: Yes Coronary Artery Disease: Yes Diabetes: Yes Patient Takes Glucophage: No Diminished Hearing: No Endocrine: Yes Gastrointestinal Disorders: Yes GERD: No Glaucoma: No Genitourinary: No Headaches: No Hepatitis: No Hiatal Hernia: No Hypertension: Yes Immune Disorder: No Implanted Vascular Access Dvce: Yes Kidney Stones: No Musculoskeletal: Yes Neurologic: Yes Psychiatric: Yes Reproductive: No Respiratory: Yes Integumentary: Yes Immunizations Current: Yes Migraines: Yes Myocardial Infarction: No Pneumonia: Yes Radiation Therapy: No Renal Failure: No Schizophrenia: Yes Seizures: No Sickle Cell Disease: No Sleep Apnea: No Thyroid Disease: No Ulcer: Yes Tetanus Vaccination: > 5 Years Influenza Vaccination: Yes PNEUMOCCOCAL Vaccine (Year): 2 Past Surgical History Abdominal Surgery: Yes ( ) AICD: No Appendectomy: No Arteriovenous Shunt: No Body Medical Devices: BULLET IN CHEST, BE-BE IN NOSE Cardiac Surgery: Yes (femoral-popliteal bypass surgery) Cholecystectomy: No Coronary Artery Bypass Graft: No Ear Surgery: No Endocrine Surgery: No Eye Surgery: Yes (PT STATES "PERMANENT CONTACT LENSES") Genitourinary Surgery: No Gynecologic Surgery: No Hysterectomy: No Insulin Pump: No Joint Replacement: Yes (PINS IN RIGHT WRIST) Neurologic Surgery: No Oral Surgery: No Pacemaker: No Thoracic Surgery: No Other Surgery: Yes (BLOOD VESSEL BYPASS BOTH LEGS) Family History Family Myocardial Infarction: Yes Social History Alcohol Use: No Tobacco Use: Yes (1 PPD) Substance Use: Yes (marijuana) Allergies-Medications (Allergen,Severity, Reaction): Coded Allergies: acetaminophen (Unverified Allergy, Severe, RASH, 07/05/17) aspirin (Unverified Allergy, Severe, 07/05/17) codeine (Unverified Allergy, Severe, RASH, 07/05/17) ibuprofen (Unverified Allergy, Severe, RASH, 07/05/17) REACTION NOT GIVEN penicillin G (Unverified Allergy, Severe, RASH, 07/05/17) REACTION NOT GIVEN propoxyphene (Unverified Allergy, Severe, RASH, 07/05/17) Reported Meds & Prescriptions Reported Meds & Active Scripts Active Reported Topamax (Topiramate) 50 Mg Tab 50 Mg PO DAILY Clonazepam 1 Mg Tab 1 Mg PO BID Prodrin (Vgpaowxvscxcc-Ijdgalli-Twylazpkftzhg) 65-20-325 Mg Tab 1 Tab PO DIRECTED PRN Soma (Carisoprodol) 350 Mg Tab 350 Mg PO QID PRN Lisinopril 40 Mg Tab 40 Mg PO DAILY Zanaflex (Tizanidine HCl) 4 Mg Tab 4 Mg PO Q12HR Melatonin 10 Mg Tab 10 Mg PO HS PRN Pantoprazole (Pantoprazole Sodium) 40 Mg Tab 40 Mg PO DAILY Carafate (Sucralfate) 1 Gm Tab 1 Gm PO TID On empty stomach Xarelto (Rivaroxaban) 20 Mg Tab 20 Mg PO DAILY Hydroxyzine HCl 25 Mg Tab 25 Mg PO BID Lantus Inj (Insulin Glargine) 100 Unit/Ml Inj 25 HS Chantix (Varenicline) 1 Mg Tab 1 Mg PO DAILY Proair Hfa 8.5 GM Inh (Albuterol Sulfate) 90 Mcg/Act Aer 2 Puff INH Q4-6H PRN 108 mcg/actuation Sumatriptan (Sumatriptan Succinate) 100 Mg Tab 100 Mg PO ONCE PRN If a satisfactory response has not been obtained at 2 hours, a second dose may be administered Selenium Sulfide Topical 2.5% (Selenium Sulfide) 2.5 % Lotn 1 Applic TOPICAL BID Symbicort Inh (Budesonide/Formoterol Fumarate) 160-4.5 Mcg/Act Aero 1 Puff INH Q12HR Hydrocodone-Acetaminophen 10-325 mg Tab 1 Tab PO Q4H PRN Lasix (Furosemide) 20 Mg Tab 20 Mg PO DAILY Amlodipine (Amlodipine Besylate) 5 Mg Tab 5 Mg PO DAILY Januvia (Sitagliptin Phosphate) 50 Mg Tab 50 Mg PO DAILY Clonidine (Clonidine HCl) 0.1 Mg Tab 0.1 Mg PO TID Glipizide 10 Mg Tab 10 Mg PO BIDAC Take 30 minutes before a meal Review of Systems Except as stated in HPI: all other systems reviewed are Neg General / Constitutional: No: Fever Eyes: No: Visual changes HENT: No: Headaches Cardiovascular: Positive: Chest Pain or Discomfort Respiratory: No: Shortness of Breath Gastrointestinal: No: Abdominal Pain Genitourinary: No: Dysuria Musculoskeletal: No: Pain Skin: No Rash Neurologic: No: Weakness Psychiatric: Positive: Suicidal Ideations Endocrine: No: Polydipsia Hematologic/Lymphatic: No: Easy Bruising Physical Exam Narrative GENERAL: SKIN: Warm and dry. HEAD: Atraumatic. Normocephalic. EYES: Pupils equal and round. No scleral icterus. No injection or drainage. ENT: No nasal bleeding or discharge. Mucous membranes pink and moist. NECK: Trachea midline. No JVD. CARDIOVASCULAR: Regular rate and rhythm. RESPIRATORY: No accessory muscle use. Clear to auscultation. Breath sounds equal bilaterally. REPRODUCIBLE CW PAIN ON PALPATION, NO CREPITUS, SMALL 2.5CM HEALING WOUND OVER NEAR MIDDLE THIRD OF LEFT CLAVICLE, RESOLVING CELLULITIS TO RLE (VERY MINIMAL RT ANKLE USED TO BE A LOT MORE EXTENSIVE PRIOR TO IV ABX FOR SEVERAL DAYS AT [facility]) GASTROINTESTINAL: Abdomen soft, non-tender, nondistended. MUSCULOSKELETAL: Extremities without clubbing, cyanosis, or edema. No obvious deformities. NEUROLOGICAL: Awake and alert. No obvious cranial nerve deficits. Motor grossly within normal limits. Five out of 5 muscle strength in the arms and legs. Normal speech. PSYCHIATRIC: Appropriate mood and affect; insight and judgment normal. Data Data Last Documented VS Vital Signs Date Time Temp Pulse Resp B/P (MAP) Pulse Ox O2 Delivery O2 Flow Rate FiO2 08/06/17 11:59 98.5 60 19 103/52 (69) 98 08/06/17 07:31 Room Air Orders Orders Electrocardiogram (08/05/17 18:43) Complete Blood Count With Diff (08/05/17 18:43) Basic Metabolic Panel (Bmp) (08/05/17 18:43) Ckmb (Isoenzyme) Profile (08/05/17 18:43) Troponin I (08/05/17 18:43) Iv Access Insert/Monitor (08/05/17 18:43) Ecg Monitoring (08/05/17 18:43) Oxygen Administration (08/05/17 18:43) Oximetry (08/05/17 18:43) Chest, Pa & Lat (08/05/17 18:43) CKMB (08/05/17 20:40) CKMB% (08/05/17 20:40) Psych Screen (08/05/17 23:27) Diet Regular Basic (08/06/17 Breakfast) Restraints Violent (08/06/17 09:01) Ed Discharge Order (08/06/17 11:11) Labs Laboratory Tests Test 08/05/17 20:40 White Blood Count 9.0 TH/MM3 Red Blood Count 4.33 MIL/MM3 Hemoglobin 12.1 GM/DL Hematocrit 37.4 % Mean Corpuscular Volume 86.4 FL Mean Corpuscular Hemoglobin 27.9 PG Mean Corpuscular Hemoglobin Concent 32.2 % Red Cell Distribution Width 15.2 % Platelet Count 338 TH/MM3 Mean Platelet Volume 9.7 FL Neutrophils (%) (Auto) 65.0 % Lymphocytes (%) (Auto) 22.8 % Monocytes (%) (Auto) 5.6 % Eosinophils (%) (Auto) 5.6 % Basophils (%) (Auto) 1.0 % Neutrophils # (Auto) 5.8 TH/MM3 Lymphocytes # (Auto) 2.0 TH/MM3 Monocytes # (Auto) 0.5 TH/MM3 Eosinophils # (Auto) 0.5 TH/MM3 Basophils # (Auto) 0.1 TH/MM3 CBC Comment DIFF FINAL Differential Comment Blood Urea Nitrogen 13 MG/DL Creatinine 1.78 MG/DL Random Glucose 197 MG/DL Calcium Level 9.3 MG/DL Sodium Level 135 MEQ/L Potassium Level 4.6 MEQ/L Chloride Level 102 MEQ/L Carbon Dioxide Level 28.0 MEQ/L Anion Gap 5 MEQ/L Estimat Glomerular Filtration Rate 39 ML/MIN Total Creatine Kinase 218 U/L Creatine Kinase MB 3.1 NG/ML Troponin I LESS THAN 0.02 NG/ML MDM Medical Decision Making Medical Screen Exam Complete: Yes Emergency Medical Condition: Yes Medical Record Reviewed: Yes Interpretation(s) NSR 66, NL INTERVALS, NO STEMI PATTERN Differential Diagnosis PTX V RIB V PNA V CHEST WALL CONTUSION V STEMI Narrative Course PATIENT HAD REPRODUCIBLE CHEST WALL PAIN ON PALPATION AND WITH INITIAL NEGATIVE TROPONIN AFTER 48HRS OF CONTINUOUS CHEST WALL PAIN, PATIENT IS ESSENTIALLY RULED OUT FOR NONSTEMI. CXR DID NOT SHOW ANY PNA/PTX/OR RIB INJURY EITHER. cp is consistent with resolving chest wall cellulitis with healing chronic wound. Diagnosis Primary Impression: SAINI ACT-MEDICALLY CLEARED Additional Impression: CHEST WALL PAIN Russell Garcia MD Aug 05, 2017 21:49
[2017-08-05 21:53] LABS: ANION GAP 5 MEQ/L (5-15); BLOOD UREA NITROGEN 13 MG/DL (7-18); CHLORIDE 102 MEQ/L (98-107); CREATINE KINASE 218 U/L (39-308); GLOMERULAR FILTRATION RATE 39 ML/MIN (>89); POTASSIUM 4.6 MEQ/L (3.5-5.1); SODIUM (NA) 135 MEQ/L (136-145)
[2017-08-05 22:06] LABS: CKMB 3.1 NG/ML (0.5-3.6)
[2017-08-06 07:31] VITALS: BP 103/52; PULSE 60; RESP 19; O2SAT 93
--- NOTE | 2017-08-06 11:10 | PD ---
Physical Exam Time Seen by Provider: 11:[address] Rodriguez has evaluated this patient, but Teran act, and cleared the patient for discharge. Data Data Last Documented VS Vital Signs Date Time Temp Pulse Resp B/P (MAP) Pulse Ox O2 Delivery O2 Flow Rate FiO2 08/06/17 07:31 60 19 103/52 (69) 93 Room Air 08/05/17 20:51 2.00 08/05/17 18:37 98.5 Orders Orders Electrocardiogram (08/05/17 18:43) Complete Blood Count With Diff (08/05/17 18:43) Basic Metabolic Panel (Bmp) (08/05/17 18:43) Ckmb (Isoenzyme) Profile (08/05/17 18:43) Troponin I (08/05/17 18:43) Iv Access Insert/Monitor (08/05/17 18:43) Ecg Monitoring (08/05/17 18:43) Oxygen Administration (08/05/17 18:43) Oximetry (08/05/17 18:43) Chest, Pa & Lat (08/05/17 18:43) CKMB (08/05/17 20:40) CKMB% (08/05/17 20:40) Psych Screen (08/05/17 23:27) Drug Screen, Random Urine (08/05/17 23:27) Diet Regular Basic (08/06/17 Breakfast) Restraints Violent (08/06/17 09:01) Labs Laboratory Tests Test 08/05/17 20:40 White Blood Count 9.0 TH/MM3 Red Blood Count 4.33 MIL/MM3 Hemoglobin 12.1 GM/DL Hematocrit 37.4 % Mean Corpuscular Volume 86.4 FL Mean Corpuscular Hemoglobin 27.9 PG Mean Corpuscular Hemoglobin Concent 32.2 % Red Cell Distribution Width 15.2 % Platelet Count 338 TH/MM3 Mean Platelet Volume 9.7 FL Neutrophils (%) (Auto) 65.0 % Lymphocytes (%) (Auto) 22.8 % Monocytes (%) (Auto) 5.6 % Eosinophils (%) (Auto) 5.6 % Basophils (%) (Auto) 1.0 % Neutrophils # (Auto) 5.8 TH/MM3 Lymphocytes # (Auto) 2.0 TH/MM3 Monocytes # (Auto) 0.5 TH/MM3 Eosinophils # (Auto) 0.5 TH/MM3 Basophils # (Auto) 0.1 TH/MM3 CBC Comment DIFF FINAL Differential Comment Blood Urea Nitrogen 13 MG/DL Creatinine 1.78 MG/DL Random Glucose 197 MG/DL Calcium Level 9.3 MG/DL Sodium Level 135 MEQ/L Potassium Level 4.6 MEQ/L Chloride Level 102 MEQ/L Carbon Dioxide Level 28.0 MEQ/L Anion Gap 5 MEQ/L Estimat Glomerular Filtration Rate 39 ML/MIN Total Creatine Kinase 218 U/L Creatine Kinase MB 3.1 NG/ML Troponin I LESS THAN 0.02 NG/ML MDM Supervised Visit with JUANA: No Narrative Course Dr. Rodriguez has evaluated this patient, but Jeffry pierce, and cleared the patient for discharge. Patient contracts safety. Denies suicidal or homicidal ideations. Patient will be provided community resource packet to [facility] for follow-up. Has friends and family for support. Patient is medically cleared for discharge. Diagnosis Primary Impression: JEFFRY PIERCE-MEDICALLY CLEARED Additional Impression: CHEST WALL PAIN Referrals: [facility] (Out patient) [facility] Primary Care Physician Psychiatrist Fariba PIERCE Behavioral Patient Instructions: Chest Wall Pain (ED), General Instructions Additional Instruction: Contract safety to your self and others Follow-up with psychiatry Follow-up with primary care provider Follow-up with Jesus Heredia Return to the emergency department immediately with worsening of symptoms Med/Other Pt SpecificInfo: No Meds Exist/No RX given Disposition: 01 DISCHARGE HOME Condition: Stable Beverley Peña Aug 06, 2017 11:10
[2017-08-06 11:59] VITALS: BP 103/52; TEMP 98.5
--- NOTE | 2017-08-06 12:18 | PD ---
History of Present Illness Chief Complaint: Medical Clearance Time Seen by Provider: 10:00 Travel History International Travel<30 Days: No Contact w/Intl Traveler<30days: No Known affected area: No Legal Status Legal Status: Teran Act History of Present Illness: Patient interviewed at bedside. He is calm, pleasant and cooperative. He retracts his earlier suicidal statements and admits he is the one who called the police on himself. He is now stating he has no suicidal or homicidal ideation, plan or intent. He has no psychotic symptoms and his cognition is intact. He is verbalizing a contract for safety and he is competent to do so. This physician read his history of schizoaffective disorder but the patient appears to be in remission from these symptoms. PFSH Past Medical History Hx Anticoagulant Therapy: Yes Arthritis: Yes Asthma: No Autoimmune Disease: No Blood Disorders: No Bipolar Disorder: Yes Anxiety: Yes Depression: Yes Heart Rhythm Problems: No Cancer: Yes (skin cancer-face) Cardiac Catheterization: Yes Cardiovascular Problems: Yes High Cholesterol: No Chemotherapy: No Chest Pain: Yes Congestive Heart Failure: No COPD: Yes Cerebrovascular Accident: Yes Coronary Artery Disease: Yes Diabetes: Yes Patient Takes Glucophage: No Diminished Hearing: No Endocrine: Yes Gastrointestinal Disorders: Yes GERD: No Glaucoma: No Genitourinary: No Headaches: No Hepatitis: No Hiatal Hernia: No Hypertension: Yes Immune Disorder: No Implanted Vascular Access Dvce: Yes Kidney Stones: No Musculoskeletal: Yes Neurologic: Yes Psychiatric: Yes Reproductive: No Respiratory: Yes Integumentary: Yes Immunizations Current: Yes Migraines: Yes Myocardial Infarction: No Pneumonia: Yes Radiation Therapy: No Renal Failure: No Schizophrenia: Yes Seizures: No Sickle Cell Disease: No Sleep Apnea: No Thyroid Disease: No Ulcer: Yes Tetanus Vaccination: > 5 Years Influenza Vaccination: Yes PNEUMOCCOCAL Vaccine (Year): 2 Past Surgical History Abdominal Surgery: Yes ( ) AICD: No Appendectomy: No Arteriovenous Shunt: No Body Medical Devices: BULLET IN CHEST, BE-BE IN NOSE Cardiac Surgery: Yes (femoral-popliteal bypass surgery) Cholecystectomy: No Coronary Artery Bypass Graft: No Ear Surgery: No Endocrine Surgery: No Eye Surgery: Yes (PT STATES "PERMANENT CONTACT LENSES") Genitourinary Surgery: No Gynecologic Surgery: No Hysterectomy: No Insulin Pump: No Joint Replacement: Yes (PINS IN RIGHT WRIST) Neurologic Surgery: No Oral Surgery: No Pacemaker: No Thoracic Surgery: No Other Surgery: Yes (BLOOD VESSEL BYPASS BOTH LEGS) Psychiatric History Psychiatric History Hx Psychiatric Treatment: SHIZOPHRENIA AND BIPOLAR. Patient is noted to have a history of schizoaffective disorder. History of Inpatient Treatment: Yes Guns or firearms in home: No Social History Hx Alcohol Use: No Hx Tobacco Use: Yes (1 PPD) Hx Substance Use: No (DENIES) Allergies-Medications (Allergen,Severity, Reaction): Coded Allergies: acetaminophen (Unverified Allergy, Severe, RASH, 07/05/17) aspirin (Unverified Allergy, Severe, 07/05/17) codeine (Unverified Allergy, Severe, RASH, 07/05/17) ibuprofen (Unverified Allergy, Severe, RASH, 07/05/17) REACTION NOT GIVEN penicillin G (Unverified Allergy, Severe, RASH, 07/05/17) REACTION NOT GIVEN propoxyphene (Unverified Allergy, Severe, RASH, 07/05/17) Reported Meds & Prescriptions Reported Meds & Active Scripts Active Reported Topamax (Topiramate) 50 Mg Tab 50 Mg PO DAILY Clonazepam 1 Mg Tab 1 Mg PO BID Prodrin (Qlqqdzaqkxlpc-Uxugeakl-Djktfphwzoqqe) 65-20-325 Mg Tab 1 Tab PO DIRECTED PRN Soma (Carisoprodol) 350 Mg Tab 350 Mg PO QID PRN Lisinopril 40 Mg Tab 40 Mg PO DAILY Zanaflex (Tizanidine HCl) 4 Mg Tab 4 Mg PO Q12HR Melatonin 10 Mg Tab 10 Mg PO HS PRN Pantoprazole (Pantoprazole Sodium) 40 Mg Tab 40 Mg PO DAILY Carafate (Sucralfate) 1 Gm Tab 1 Gm PO TID On empty stomach Xarelto (Rivaroxaban) 20 Mg Tab 20 Mg PO DAILY Hydroxyzine HCl 25 Mg Tab 25 Mg PO BID Lantus Inj (Insulin Glargine) 100 Unit/Ml Inj 25 HS Chantix (Varenicline) 1 Mg Tab 1 Mg PO DAILY Proair Hfa 8.5 GM Inh (Albuterol Sulfate) 90 Mcg/Act Aer 2 Puff INH Q4-6H PRN 108 mcg/actuation Sumatriptan (Sumatriptan Succinate) 100 Mg Tab 100 Mg PO ONCE PRN If a satisfactory response has not been obtained at 2 hours, a second dose may be administered Selenium Sulfide Topical 2.5% (Selenium Sulfide) 2.5 % Lotn 1 Applic TOPICAL BID Symbicort Inh (Budesonide/Formoterol Fumarate) 160-4.5 Mcg/Act Aero 1 Puff INH Q12HR Hydrocodone-Acetaminophen 10-325 mg Tab 1 Tab PO Q4H PRN Lasix (Furosemide) 20 Mg Tab 20 Mg PO DAILY Amlodipine (Amlodipine Besylate) 5 Mg Tab 5 Mg PO DAILY Januvia (Sitagliptin Phosphate) 50 Mg Tab 50 Mg PO DAILY Clonidine (Clonidine HCl) 0.1 Mg Tab 0.1 Mg PO TID Glipizide 10 Mg Tab 10 Mg PO BIDAC Take 30 minutes before a meal Review of Systems Except as stated in HPI: all other systems reviewed are Neg Mental Status Examination Appearance: Appropriate Consciousness: Alert Orientation: x4 Motor Activity: Normal gait Speech: Unremarkable Language: Adequate Fund of Knowledge: Adequate Attention and Concentration: Adequate Memory: Unremarkable Mood: Appropriate Affect: Blunt Thought Process & Associations: Intact Thought Content: Appropriate Hallucination Type: None Delusion Type: None Suicidal Ideation: No Suicidal Plan: No Suicidal Intention: No Homicidal Ideation: No Homicidal Plan: No Homicidal Intention: No Insight: Adequate Judgment: Adequate MDM Medical Decision Making Medical Record Reviewed: Yes Assessment/Plan Patient interviewed at bedside, medical record reviewed and case discussed with nurse Bird. Patient is no longer presenting as a danger to himself or others and he does not meet Teran act criteria or criteria for involuntary psychiatric hospitalization. He is verbally [place] for safety and would like to return home. He is willing to seek treatment on an outpatient basis. Orders Orders Electrocardiogram (08/05/17 18:43) Complete Blood Count With Diff (08/05/17 18:43) Basic Metabolic Panel (Bmp) (08/05/17 18:43) Ckmb (Isoenzyme) Profile (08/05/17 18:43) Troponin I (08/05/17 18:43) Iv Access Insert/Monitor (08/05/17 18:43) Ecg Monitoring (08/05/17 18:43) Oxygen Administration (08/05/17 18:43) Oximetry (08/05/17 18:43) Chest, Pa & Lat (08/05/17 18:43) CKMB (08/05/17 20:40) CKMB% (08/05/17 20:40) Psych Screen (08/05/17 23:27) Drug Screen, Random Urine (08/05/17 23:27) Diet Regular Basic (08/06/17 Breakfast) Restraints Violent (08/06/17 09:01) Ed Discharge Order (08/06/17 11:11) Results Vital Signs Date Time Temp Pulse Resp B/P (MAP) Pulse Ox O2 Delivery O2 Flow Rate FiO2 08/06/17 11:59 98.5 60 19 103/52 (69) 98 08/06/17 07:31 60 19 103/52 (69) 93 Room Air 08/05/17 20:51 67 18 150/68 (95) 98 Nasal Cannula 2.00 08/05/17 20:51 98 Nasal Cannula 2.00 08/05/17 20:51 67 19 08/05/17 20:51 18 98 Nasal Cannula 2.00 08/05/17 18:39 28 93 08/05/17 18:37 98.5 85 22 169/72 (104) Room Air Laboratory Tests Test 08/05/17 20:40 White Blood Count 9.0 Red Blood Count 4.33 Hemoglobin 12.1 Hematocrit 37.4 Mean Corpuscular Volume 86.4 Mean Corpuscular Hemoglobin 27.9 Mean Corpuscular Hemoglobin Concent 32.2 Red Cell Distribution Width 15.2 Platelet Count 338 Mean Platelet Volume 9.7 Neutrophils (%) (Auto) 65.0 Lymphocytes (%) (Auto) 22.8 Monocytes (%) (Auto) 5.6 Eosinophils (%) (Auto) 5.6 Basophils (%) (Auto) 1.0 Neutrophils # (Auto) 5.8 Lymphocytes # (Auto) 2.0 Monocytes # (Auto) 0.5 Eosinophils # (Auto) 0.5 Basophils # (Auto) 0.1 CBC Comment DIFF FINAL Differential Comment Blood Urea Nitrogen 13 Creatinine 1.78 Random Glucose 197 Calcium Level 9.3 Sodium Level 135 Potassium Level 4.6 Chloride Level 102 Carbon Dioxide Level 28.0 Anion Gap 5 Estimat Glomerular Filtration Rate 39 Total Creatine Kinase 218 Creatine Kinase MB 3.1 Troponin I LESS THAN 0.02 Diagnosis Primary Impression: Schizoaffective disorder, depressive type Referrals: [facility] (Out patient) [facility] Primary Care Physician Psychiatrist Fariba ROYAL Behavioral Departure Forms: Tests/Procedures Patient Instructions: General Instructions, Chest Wall Pain (ED) Additional Instructions: Contract safety to your self and others Follow-up with psychiatry Follow-up with primary care provider Follow-up with Jesus Guillermo/[facility] Return to the emergency department immediately with worsening of symptoms Disposition: 01 DISCHARGE HOME Condition: Stable Luis Alberto Rodriguez MD Aug 06, 2017 12:18
--- NOTE | 2017-08-06 14:04 | EKG ---
Date Performed: 08/05/2017 Time Performed: 18:47:31 PTAGE: 62 years EKG: Sinus rhythm NORMAL ECG PREVIOUS TRACING : 08/14/2016 22.10 DOCTOR: Pradeep Robles Interpretating Date/Time 08/06/2017 13:57:08
== END 2017-08-06 11:30 | disposition home or self-care (01) ==
LOC: NEPC 18:29 → NEPJ 08-06 11:30
DX: F25.1 Schizoaffective disorder, depressive type (principal); F17.200 Nicotine dependence, unspecified, uncomplicated; I10 Essential (primary) hypertension; I25.10 Atherosclerotic heart disease of native coronary artery without angina pectoris; E11.9 Type 2 diabetes mellitus without complications; Z79.4 Long term (current) use of insulin
CPT/HCPCS: 71020; 80048; 82550; 82552; 84484; 85025; 93005; 99285

== ENCOUNTER 2017-11-10 01:25 | Inpatient (IN) | payer MEDICAID ==
[2017-11-10 02:06] LABS: AUTOMATED NEUTROPHIL # 16.2 TH/MM3 (1.8-7.7); BASOPHIL # 0.1 TH/MM3 (0-0.2); BASOPHIL % 0.5 % (0.0-2.0); EOSINOPHIL # 0.3 TH/MM3 (0-0.4); EOSINOPHIL % 1.5 % (0.0-4.0); HEMATOCRIT 42.3 % (39.0-51.0); HEMO FLAGS DIFF FINAL; HEMOGLOBIN 13.6 GM/DL (13.0-17.0); LYMPH % 11.4 % (9.0-44.0); LYMPHOCYTE # 2.4 TH/MM3 (1.0-4.8); MEAN CORPUSCULAR HEMOGLOBIN 28.7 PG (27.0-34.0); MEAN CORPUSCULAR HGB CONC 32.2 % (32.0-36.0); MEAN PLATELET VOLUME 8.9 FL (7.0-11.0); MONO % 8.3 % (0.0-8.0); MONOCYTE # 1.7 TH/MM3 (0-0.9); NEUT % 78.3 % (16.0-70.0); PLATELET COUNT 238 TH/MM3 (150-450); RED BLOOD COUNT 4.75 MIL/MM3 (4.50-5.90); RED CELL DISTRIBUTION WIDTH 16.3 % (11.6-17.2); WHITE BLOOD COUNT 20.7 TH/MM3 (4.0-11.0)
[2017-11-10] MEDS: SODIUM CHLOR 0.9% 1000 ML INJ 1,000 ML IV ×4 (02:06→14:09)
[2017-11-10 02:13] LABS: AMPHETAMINE, URINE NEG (NEG); BARBITURATES, URINE NEG (NEG); BENZODIAZEPINE,URINE NEG (NEG); CANNABINOIDS, URINE NEG (NEG); COCAINE, URINE NEG (NEG)
[2017-11-10 02:19] LABS: APTT (PATIENT) 39.9 SEC (24.3-30.1); INTERNATIONAL NORMALIZED RATIO 1.4 RATIO; PROTHROMBIN TIME - PATIENT 14.3 SEC (9.8-11.6)
[2017-11-10 02:20] LABS: SALICYLATES LESS THAN 1.7 MG/DL (2.8-20.0)
[2017-11-10] MEDS: DEXT 5%-NACL 0.9% 500 ML INJ 500 ML IV (02:25)
[2017-11-10 02:26] LABS: LACTIC ACID SEPSIS PROTOCOL 3.1 mmol/L (0.4-2.0)
[2017-11-10 02:32] LABS: B-TYPE NATRIURETIC PEPTIDE 19 PG/ML (0-100)
[2017-11-10 02:33] LABS: ALBUMIN 3.8 GM/DL (3.4-5.0); ALT (GPT) 18 U/L (12-78); ANION GAP 11 MEQ/L (5-15); AST (GOT) 16 U/L (15-37); BICARBONATE 20.2 MEQ/L (21.0-32.0); BLOOD UREA NITROGEN 22 MG/DL (7-18); C-REACTIVE PROTEIN 0.45 MG/DL (0.00-0.30); CALCIUM 9.1 MG/DL (8.5-10.1); CHLORIDE 105 MEQ/L (98-107); CREATININE 2.65 MG/DL (0.60-1.30); GLOMERULAR FILTRATION RATE 25 ML/MIN (>89); GLUCOSE,RANDOM 74 MG/DL (74-106); LIPASE 224 U/L (73-393); MAGNESIUM 2.2 MG/DL (1.5-2.5); POTASSIUM 3.7 MEQ/L (3.5-5.1); SODIUM (NA) 136 MEQ/L (136-145)
[2017-11-10 02:35] LABS: ACETAMINOPHEN LESS THAN 2.0 MCG/ML (10.0-30.0); ALCOHOL LESS THAN 3 MG/DL (0-5); ALKALINE PHOSPHATASE 157 U/L (45-117); CREATINE KINASE 148 U/L (39-308); TOTAL BILIRUBIN ADULT 0.4 MG/DL (0.2-1.0); TOTAL PROTEIN 7.9 GM/DL (6.4-8.2); TROPONIN I LESS THAN 0.02 NG/ML (0.02-0.05)
[2017-11-10 02:47] LABS: CKMB 4.3 NG/ML (0.5-3.6)
[2017-11-10] MEDS: DIPHTH/TETANUS/ACEL PERTUSSIS (BOOSTER) 0.5 ML VIAL/PFS IM (03:01)
[2017-11-10] MEDS: LIDOCAINE 1%/EPINEPHrine 1:100,000 SOLN 20 ML VIAL INFIL (03:02)
[2017-11-10] MEDS: AZTREONAM INJ 2,000 MG in SODIUM CHLORIDE 0.9% INJ 100 ML IV (03:43)
[2017-11-10 03:58] LABS: LACTIC ACID GHOST NOT REPORTABLE
[2017-11-10] MEDS: VANCOMYCIN INJ 1,000 MG in SODIUM CHLOR 0.9% 250 ML INJ 250 ML IV (04:15)
[2017-11-10] MEDS ORDERED: SODIUM CHLORIDE 0.9% FLUSH 10 ML FLUSH IV FLUSH (04:30)
[2017-11-10] MEDS ORDERED: ONDANSETRON HCL 4 MG/2 ML VIAL IVP (04:30)
[2017-11-10] MEDS ORDERED: NALOXONE HCL 0.4 MG/ML AMP IV PUSH (04:30)
[2017-11-10] MEDS ORDERED: Vancomycin Consult Pharmacy 1 EA OTHER (04:30)
[2017-11-10] MEDS ORDERED: MAGNESIUM HYDROXIDE SUSP 30 ML CUP PO (04:30)
[2017-11-10] MEDS ORDERED: LACTULOSE SYRUP 20 GM/30 ML CUP PO (04:30)
[2017-11-10] MEDS ORDERED: SENNOSIDES 8.6 MG TAB PO (04:30)
[2017-11-10] MEDS ORDERED: BISACODYL 10 MG SUPP RECTAL (04:30)
[2017-11-10 04:49] LABS: LACTIC ACID SEPSIS REPEAT 0.8 mmol/L (0.4-2.0)
[2017-11-10] MEDS ORDERED: RESP: ALBUTEROL 2.5 MG/IPRATROPIUM 0.5 MG NEB (PRN) NEB (05:15)
[2017-11-10] MEDS ORDERED: GLUCAGON 1 MG/ML VIAL OTHER (05:15)
[2017-11-10] MEDS ORDERED: DEXTROSE 50% IN WATER 50 ML VIAL(D50) IV PUSH (05:15)
[2017-11-10] MEDS: metroNIDAZOLE 500 MG INJ 100 ML IV ×3 (05:16→20:27)
[2017-11-10 05:53] LABS: BACTERIA, URINE RARE /hpf; BILIRUBIN, URINE NEG (NEG); BLOOD, URINE NEG (NEG); COMMENT (UR) CULT NOT INDICATED; CULTURE IF INDICATED CULT NOT INDICATED; GLUCOSE,URINE TRACE mg/dL (NEG); HYALINE CAST, URINE 7 /lpf (RARE); KETONE, URINE NEG (NEG); MUCUS URINE FEW /lpf (OCC); NITRITE,URINE NEG (NEG); SQUAMOUS EPITHELIAL CELL URINE <1 /hpf (0-5); URINE COLOR LIGHT-YELLOW (YELLW/STRAW); URINE LEUKOCYTE ESTERASE NEG (NEG); WAXY CAST, URINE 4 /lpf
[2017-11-10 06:26] LABS: C. DIFF EPI 027 PRESUMPTIVE NEGATIVE (NEGATIVE); C. DIFF TOXIN PCR NEGATIVE (NEGATIVE)
[2017-11-10] MEDS: INSULIN ASPART SUPPLEMENTAL SCALE SQ ×4 (08:00→21:00)
[2017-11-10] MEDS: BUDESONIDE-FORMOTEROL 160/4.5 MCG INHALER INH ×2 (08:28→20:29)
[2017-11-10] MEDS: RIVAROXABAN 20 MG TAB PO (08:30)
[2017-11-10] MEDS: TOPIRAMATE 25 MG TAB PO (08:30)
[2017-11-10] MEDS: PANTOPRAZOLE SOD 40 MG DELAYED RELEASE TAB PO (08:30)
[2017-11-10] MEDS: SODIUM CHLORIDE 0.9% FLUSH 10 ML FLUSH IV FLUSH ×2 (08:31→20:28)
[2017-11-10] MEDS: AZTREONAM INJ 1,000 MG in SODIUM CHLORIDE 0.9% INJ 100 ML IV ×2 (12:05→21:31)
[2017-11-10] MEDS: VANCOMYCIN 1,500 MG/NS 500 ML IV (16:48)
[2017-11-11] MEDS: metroNIDAZOLE 500 MG INJ 100 ML IV ×3 (02:41→18:19)
[2017-11-11] MEDS: AZTREONAM INJ 1,000 MG in SODIUM CHLORIDE 0.9% INJ 100 ML IV ×3 (04:23→22:12)
[2017-11-11] MEDS: SODIUM CHLOR 0.9% 1000 ML INJ 1,000 ML IV ×3 (06:03→22:13)
[2017-11-11] MEDS: INSULIN ASPART SUPPLEMENTAL SCALE SQ ×4 (07:57→22:30)
[2017-11-11] MEDS: SODIUM CHLORIDE 0.9% FLUSH 10 ML FLUSH IV FLUSH ×2 (07:58→22:18)
[2017-11-11] MEDS: PANTOPRAZOLE SOD 40 MG DELAYED RELEASE TAB PO (08:08)
[2017-11-11] MEDS: TOPIRAMATE 25 MG TAB PO (08:08)
[2017-11-11] MEDS: BUDESONIDE-FORMOTEROL 160/4.5 MCG INHALER INH ×2 (08:08→22:13)
[2017-11-11] MEDS: RIVAROXABAN 20 MG TAB PO (08:09)
[2017-11-11 08:31] LABS: BASOPHIL # 0.1 TH/MM3 (0-0.2); BASOPHIL % 0.8 % (0.0-2.0); EOSINOPHIL # 0.1 TH/MM3 (0-0.4); EOSINOPHIL % 1.1 % (0.0-4.0); HEMATOCRIT 37.8 % (39.0-51.0); HEMO FLAGS DIFF FINAL; HEMOGLOBIN 12.7 GM/DL (13.0-17.0); LYMPH % 12.3 % (9.0-44.0); LYMPHOCYTE # 1.1 TH/MM3 (1.0-4.8); MEAN CELL VOLUME 88.5 FL (80.0-100.0); MEAN CORPUSCULAR HEMOGLOBIN 29.6 PG (27.0-34.0); MEAN CORPUSCULAR HGB CONC 33.5 % (32.0-36.0); MEAN PLATELET VOLUME 9.6 FL (7.0-11.0); MONO % 9.2 % (0.0-8.0); MONOCYTE # 0.8 TH/MM3 (0-0.9); NEUT % 76.6 % (16.0-70.0); PLATELET COUNT 144 TH/MM3 (150-450); RED BLOOD COUNT 4.28 MIL/MM3 (4.50-5.90); RED CELL DISTRIBUTION WIDTH 15.7 % (11.6-17.2); WHITE BLOOD COUNT 9.2 TH/MM3 (4.0-11.0)
[2017-11-11 08:58] LABS: ALBUMIN 2.8 GM/DL (3.4-5.0); ALKALINE PHOSPHATASE 127 U/L (45-117); ALT (GPT) 12 U/L (12-78); ANION GAP 7 MEQ/L (5-15); AST (GOT) 10 U/L (15-37); BICARBONATE 21.7 MEQ/L (21.0-32.0); BLOOD UREA NITROGEN 12 MG/DL (7-18); CALCIUM 8.5 MG/DL (8.5-10.1); CHLORIDE 111 MEQ/L (98-107); CREATININE 1.39 MG/DL (0.60-1.30); GLOMERULAR FILTRATION RATE 52 ML/MIN (>89); GLUCOSE,RANDOM 86 MG/DL (74-106); POTASSIUM 3.5 MEQ/L (3.5-5.1); SODIUM (NA) 140 MEQ/L (136-145); TOTAL BILIRUBIN ADULT 0.3 MG/DL (0.2-1.0); TOTAL PROTEIN 6.2 GM/DL (6.4-8.2)
[2017-11-11] MEDS: VANCOMYCIN INJ 1,500 MG in SODIUM CHLORID 0.9% 500 ML INJ 500 ML IV (14:22)
[2017-11-12] MEDS: metroNIDAZOLE 500 MG INJ 100 ML IV ×2 (04:00→13:03)
[2017-11-12] MEDS: AZTREONAM INJ 1,000 MG in SODIUM CHLORIDE 0.9% INJ 100 ML IV ×2 (06:14→14:46)
[2017-11-12] MEDS: SODIUM CHLOR 0.9% 1000 ML INJ 1,000 ML IV (06:15)
[2017-11-12] MEDS: INSULIN ASPART SUPPLEMENTAL SCALE SQ ×2 (08:00→12:00)
[2017-11-12] MEDS: BUDESONIDE-FORMOTEROL 160/4.5 MCG INHALER INH (09:00)
[2017-11-12] MEDS: SODIUM CHLORIDE 0.9% FLUSH 10 ML FLUSH IV FLUSH (09:00)
[2017-11-12 09:33] LABS: CREATININE 1.19 MG/DL (0.60-1.30); GLOMERULAR FILTRATION RATE 62 ML/MIN (>89)
[2017-11-12] MEDS: TOPIRAMATE 25 MG TAB PO (09:36)
[2017-11-12] MEDS: PANTOPRAZOLE SOD 40 MG DELAYED RELEASE TAB PO (09:36)
[2017-11-12] MEDS: RIVAROXABAN 20 MG TAB PO (09:36)
[2017-11-12] MEDS ORDERED: ENALAPRILAT 1.25 MG/ML VIAL IV PUSH (11:30)
[2017-11-12] MEDS ORDERED: cloNIDine HCL 0.1 MG TAB PO (13:00)
[2017-11-12] MEDS: cloNIDine HCL 0.1 MG TAB PO ×2 (13:00→13:07)
[2017-11-12] MEDS: amLODIPine BESYLATE 5 MG TAB PO (13:07)
[2017-11-12] MEDS: LISINOPRIL 20 MG TAB PO (13:07)
[2017-11-13] MEDS ORDERED: LISINOPRIL 20 MG TAB PO (09:00)
[2017-11-13] MEDS ORDERED: amLODIPine BESYLATE 5 MG TAB PO (09:00)
[2017-11-13] MEDS ORDERED: PHARMACY ORDERED LAB (13:45)
== END 2017-11-12 16:02 | disposition home or self-care (01) | DRG 872 ==
LOC: NEPC 01:25 → NEDA 04:13 → N07A 05:51
PROC: 0HQ1XZZ Repair Face Skin, External Approach (ICD-10-PCS; principal; 2017-11-10)
DX: A41.9 Sepsis, unspecified organism (principal); N17.9 Acute kidney failure, unspecified; S01.81XA Laceration without foreign body of other part of head, initial encounter; E86.1 Hypovolemia; K52.9 Noninfective gastroenteritis and colitis, unspecified; E86.0 Dehydration; E11.9 Type 2 diabetes mellitus without complications; Z79.4 Long term (current) use of insulin; J44.9 Chronic obstructive pulmonary disease, unspecified; F31.9 Bipolar disorder, unspecified; F20.9 Schizophrenia, unspecified; Z86.718 Personal history of other venous thrombosis and embolism; G43.909 Migraine, unspecified, not intractable, without status migrainosus; I10 Essential (primary) hypertension; R55 Syncope and collapse; Z86.73 Personal history of transient ischemic attack (TIA), and cerebral infarction without residual deficits; I25.10 Atherosclerotic heart disease of native coronary artery without angina pectoris; Z85.828 Personal history of other malignant neoplasm of skin; F17.210 Nicotine dependence, cigarettes, uncomplicated
CPT/HCPCS: 12013; 70450; 71045; 72125; 74176; 80053; 80202; 80307; 81001; 82550; 82552; 82565; 82948; 83605; 83690; 83735; 83880; 84484; 85025; 85610; 85730; 86140; 87040; 87102; 87106; 87205; 87328; 87329; 87493; 87506; 90471; 90715; 93005; 96365; 96366; 96368; 96375; 97162-GP; 99291-25

== ENCOUNTER 2017-12-09 07:52 | Emergency (ER) | payer MEDICAID ==
[~2017-12-09] VITALS: Ht 177.8 cm; Wt 70.5 kg
[~2017-12-09 07:52] MED LIST changes: -FURO1TAB62 PO; -HYDR-3133 PO; +LACTTAB8 PO; -MELA1TAB18 PO; +METR1TAB76 PO; -SOMA350T PO; -VARE1 PO
[2017-12-09 07:54] VITALS: BP 179/79; PULSE 104; RESP 20; TEMP 98.2; O2SAT 100
--- NOTE | 2017-12-09 08:48 | PD ---
HPI Chief Complaint: Fall Time Seen by Provider: 08:38 Travel History International Travel<30 days: No Contact w/Intl Traveler<30days: No Traveled to known affect area: No History of Present Illness HPI 62-year-old male presents emergency Department with complaint of right shoulder pain since November 10, 2017 after falling from his wheelchair. Denies paresthesias, loss of sensation, decreased strength to the affected shoulder. Reports being unable to lift his hand completely above his head. Denies fever, vomiting. Pain radiates from the shoulder down to the biceps area. Has been taking hydrocodone for symptom management. Rates pain 10/10. Described as throbbing. Worse with movement. Better at rest. He has primary care provider. Allergies to Tylenol, aspirin, codeine, ibuprofen, penicillin, propoxyphene. Has no medical complaints. No other modifying factors or associated signs and symptoms. PFSH Past Medical History Hx Anticoagulant Therapy: Yes Arthritis: Yes Asthma: No Autoimmune Disease: No Blood Disorders: No Bipolar Disorder: Yes Anxiety: Yes Depression: Yes Heart Rhythm Problems: No Cancer: Yes (skin cancer-face) Cardiac Catheterization: Yes Cardiovascular Problems: Yes High Cholesterol: No Chemotherapy: No Chest Pain: Yes Congestive Heart Failure: No COPD: Yes Cerebrovascular Accident: Yes Coronary Artery Disease: Yes Diabetes: Yes Diminished Hearing: No Endocrine: Yes Gastrointestinal Disorders: Yes GERD: No Glaucoma: No Genitourinary: No Headaches: No Hepatitis: No Hiatal Hernia: No Hypertension: Yes Immune Disorder: No Implanted Vascular Access Dvce: Yes Kidney Stones: No Musculoskeletal: Yes Neurologic: Yes Psychiatric: Yes Reproductive: No Respiratory: Yes Integumentary: Yes Immunizations Current: Yes Migraines: Yes Myocardial Infarction: No Pneumonia: Yes Radiation Therapy: No Renal Failure: No Schizophrenia: Yes Seizures: No Sickle Cell Disease: No Sleep Apnea: No Thyroid Disease: No Ulcer: Yes PNEUMOCCOCAL Vaccine (Year): 2 Past Surgical History Abdominal Surgery: Yes ( ) AICD: No Appendectomy: No Arteriovenous Shunt: No Body Medical Devices: BULLET IN CHEST, BE-BE IN NOSE Cardiac Surgery: Yes (femoral-popliteal bypass surgery) Cholecystectomy: No Coronary Artery Bypass Graft: No Ear Surgery: No Endocrine Surgery: No Eye Surgery: Yes (PT STATES "PERMANENT CONTACT LENSES") Genitourinary Surgery: No Gynecologic Surgery: No Hysterectomy: No Insulin Pump: No Joint Replacement: Yes (PINS IN RIGHT WRIST) Neurologic Surgery: No Oral Surgery: No Pacemaker: No Thoracic Surgery: No Other Surgery: Yes (BLOOD VESSEL BYPASS BOTH LEGS) Social History Alcohol Use: No Tobacco Use: Yes (1 PPD) Substance Use: Yes (MARIJUANA) Allergies-Medications (Allergen,Severity, Reaction): Coded Allergies: acetaminophen (Unverified Allergy, Severe, RASH, 12/09/17) aspirin (Unverified Allergy, Severe, 12/09/17) codeine (Unverified Allergy, Severe, RASH, 12/09/17) ibuprofen (Unverified Allergy, Severe, RASH, 12/09/17) REACTION NOT GIVEN penicillin G (Unverified Allergy, Severe, RASH, 12/09/17) REACTION NOT GIVEN propoxyphene (Unverified Allergy, Severe, RASH, 12/09/17) Reported Meds & Prescriptions Reported Meds & Active Scripts Active Lactobacillus Acidophilus 1 Billion Cell Tab 1 Tab PO TIDAC Metronidazole 500 Mg Tab 500 Mg PO TID Reported Topamax (Topiramate) 50 Mg Tab 50 Mg PO DAILY Clonazepam 1 Mg Tab 1 Mg PO BID Prodrin (Jcsmtlkapyxgd-Kbxcjzqc-Rzvmlogyxhulp) 65-20-325 Mg Tab 1 Tab PO DIRECTED PRN Lisinopril 40 Mg Tab 40 Mg PO DAILY Zanaflex (Tizanidine HCl) 4 Mg Tab 4 Mg PO Q12HR Pantoprazole (Pantoprazole Sodium) 40 Mg Tab 40 Mg PO DAILY Carafate (Sucralfate) 1 Gm Tab 1 Gm PO TID On empty stomach Xarelto (Rivaroxaban) 20 Mg Tab 20 Mg PO DAILY Lantus Inj (Insulin Glargine) 100 Unit/Ml Inj 25 HS Proair Hfa 8.5 GM Inh (Albuterol Sulfate) 90 Mcg/Act Aer 2 Puff INH Q4-6H PRN 108 mcg/actuation Sumatriptan (Sumatriptan Succinate) 100 Mg Tab 100 Mg PO ONCE PRN If a satisfactory response has not been obtained at 2 hours, a second dose may be administered Selenium Sulfide Topical 2.5% (Selenium Sulfide) 2.5 % Lotn 1 Applic TOPICAL BID Symbicort Inh (Budesonide/Formoterol Fumarate) 160-4.5 Mcg/Act Aero 1 Puff INH Q12HR Hydrocodone-Acetaminophen 10-325 mg Tab 1 Tab PO Q4H PRN Amlodipine (Amlodipine Besylate) 5 Mg Tab 5 Mg PO DAILY Januvia (Sitagliptin Phosphate) 50 Mg Tab 50 Mg PO DAILY Clonidine (Clonidine HCl) 0.1 Mg Tab 0.1 Mg PO TID Glipizide 10 Mg Tab 10 Mg PO BIDAC Take 30 minutes before a meal Review of Systems Except as stated in HPI: all other systems reviewed are Neg Physical Exam Narrative GENERAL: Well-nourished, well-developed male patient, in no acute distress SKIN: Warm and dry. HEAD: Atraumatic. Normocephalic. EYES: Pupils equal and round. No scleral icterus. No injection or drainage. ENT: Mucosa pink and moist. Airway patent. NECK: Supple. Trachea midline. CARDIOVASCULAR: Regular rate. RESPIRATORY: No accessory muscle use. MUSCULOSKELETAL: No obvious deformities. No clubbing. No cyanosis. No edema. Right shoulder with full range of motion; greater than 45 abduction; able to abduct greater than 90 degrees; right shoulder with no obvious deformities; shoulders equal; joint stable; without erythema, edema, ecchymosis. 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 Right upper extremity supple and non- tense. 2+ radial pulse and sensory intact. NEUROLOGICAL: Awake and alert. Oriented 3. No obvious cranial nerve deficits. Motor grossly within normal limits. Normal speech. PSYCHIATRIC: Appropriate mood and affect; insight and judgment normal. Data Data Last Documented VS Vital Signs Date Time Temp Pulse Resp B/P (MAP) Pulse Ox O2 Delivery O2 Flow Rate FiO2 12/09/17 07:54 98.2 104 20 179/79 (112) 100 Room Air Orders Orders Shoulder, Complete (>2vws) (12/09/17 08:41) [facility] Medical Decision Making Medical Screen Exam Complete: Yes Emergency Medical Condition: Yes Medical Record Reviewed: Yes Differential Diagnosis Shoulder strain, shoulder injury, less likely fracture, dislocation, joint separation Narrative Course 62-year-old male with right shoulder injury from November 10, 2017 after falling from his wheelchair. Right shoulder x-ray ordered. 0941: Right shoulder x-ray concludes: Last 24 hours Impressions Shoulder X-Ray 12/09/17 0841 Signed Impressions: Service Date/Time: Saturday, December 09, 2017 08:57 - CONCLUSION: 1. No evidence of acute fracture or dislocation. 2. There are healed right rib fractures. 3. Metallic radiopaque density seen on the frontal views, but not seen on the lateral view, of uncertain position and location. Adonis Billy MD Patient provided a copy of the x-ray report. Instructed the patient to follow up with orthopedics. Instructed patient to follow up with primary care provider. Patient verbalizes understanding and agreement with treatment plan. Patient is medically cleared and stable for discharge. Discussed reasons to return to the emergency department. Patient agrees with treatment plan. The patients vital signs are stable and the patient is stable for outpatient follow- up and treatment. Patient discharged home, stable and in no acute distress. Diagnosis Primary Impression: Right shoulder injury Qualified Codes: S49.91XA - Unspecified injury of right shoulder and upper arm , initial encounter Referrals: Orthopaedic Surgeon Primary Care Physician Patient Instructions: General Instructions, Shoulder Pain (ED) Additional Instructions: Tylenol or ibuprofen as needed and as directed to reduce pain and inflammation Rest, ice, and compress extremity to decrease pain and inflammation Avoid aggravating activity; increase activity as tolerated Follow-up with primary care provider Follow-up with orthopedics as needed Return to the emergency department immediately with worsening symptoms Med/Other Pt SpecificInfo: No Change to Meds, No Meds Exist/No RX given Disposition: 01 DISCHARGE HOME Condition: Stable Beverley Peña Dec 09, 2017 08:48
--- NOTE | 2017-12-09 09:30 | RADRPT ---
EXAM DATE/TIME: 12/09/2017 08:57 [facility] COMPARISON: No previous studies available for comparison. INDICATIONS : Right shoulder pain from fall from 1 month ago. MEDICAL HISTORY : None. SURGICAL HISTORY : None. ENCOUNTER: Initial ACUITY: 1 month PAIN SCORE: 6/10 LOCATION: Right shoulder. FINDINGS: There is normal range of motion between internal and external rotation. The proximal humerus and gle noid are intact. Mild degenerative changes in the a.c. joint. Healed fractures of the posterior rig ht 3rd through 5th ribs. No evidence of dislocation. On the 3 frontal views, there is a metallic op acity projected lateral to the body of the scapula which cannot be identified on the transscapular Y- view and is of uncertain location. CONCLUSION: 1. No evidence of acute fracture or dislocation. 2. There are healed right rib fractures. 3. Metallic radiopaque density seen on the frontal views, but not seen on the lateral view, of uncert ain position and location. Adonis Billy MD on December 09, 2017 at 9:25 Board Certified Radiologist. This report was verified electronically.
== END 2017-12-09 09:56 | disposition home or self-care (01) ==
LOC: NEPD 07:52
DX: S49.91XA Unspecified injury of right shoulder and upper arm, initial encounter (principal); F17.200 Nicotine dependence, unspecified, uncomplicated; F12.90 Cannabis use, unspecified, uncomplicated; E11.9 Type 2 diabetes mellitus without complications; I10 Essential (primary) hypertension; I25.10 Atherosclerotic heart disease of native coronary artery without angina pectoris; J44.9 Chronic obstructive pulmonary disease, unspecified; W05.0XXA Fall from non-moving wheelchair, initial encounter; Z79.4 Long term (current) use of insulin
CPT/HCPCS: 73030; 99283

== ENCOUNTER 2018-01-03 23:46 | Emergency (ER) | payer MEDICAID ==
[~2018-01-03] VITALS: Ht 165.1 cm; Wt 75.0 kg
[2018-01-04 00:36] VITALS: BP 114/54; PULSE 77; RESP 16; TEMP 98; O2SAT 96
== END 2018-01-04 02:36 | disposition left against medical advice (07) ==
LOC: NETRI 23:46
DX: S59.919A Unspecified injury of unspecified forearm, initial encounter (principal); S09.90XA Unspecified injury of head, initial encounter; W19.XXXA Unspecified fall, initial encounter; Z53.21 Procedure and treatment not carried out due to patient leaving prior to being seen by health care provider
CPT/HCPCS: 99281

== ENCOUNTER 2018-01-12 04:21 | Emergency (ER) | payer MEDICAID ==
[2018-01-12 04:26] VITALS: BP 119/69; PULSE 67; RESP 18; TEMP 98.1; O2SAT 100
[2018-01-12] MEDS ORDERED: FURO20TA PO (05:11)
[2018-01-12] MEDS ORDERED: HYDR-3133 PO (05:11)
[2018-01-12] MEDS ORDERED: LIPI80TA PO (05:11)
[2018-01-12] MEDS ORDERED: TRAM50 PO (05:11)
[2018-01-12 05:12] VITALS: BP 159/67; PULSE 70; RESP 20; O2SAT 99
--- NOTE | 2018-01-12 05:26 | PD ---
HPI Chief Complaint: Injury Time Seen by Provider: 05:06 Travel History International Travel<30 days: No Contact w/Intl Traveler<30days: No Traveled to known affect area: No History of Present Illness HPI 62-year-old white male presents to emergency Department with complaints of congestion, cough, difficulty breathing through his nose, and problems urinating. He states that he is had these problems now for nearly 2 months. He also goes on the states that he's been having pain in his right shoulder. He was seen in the ER several times for similar type complaint. PFSH Past Medical History Hx Anticoagulant Therapy: Yes Arthritis: Yes Asthma: No Autoimmune Disease: No Blood Disorders: No Bipolar Disorder: Yes Anxiety: Yes Depression: Yes Heart Rhythm Problems: No Cancer: Yes (skin cancer-face) Cardiac Catheterization: Yes Cardiovascular Problems: Yes High Cholesterol: No Chemotherapy: No Chest Pain: Yes Congestive Heart Failure: No COPD: Yes Cerebrovascular Accident: Yes Coronary Artery Disease: Yes Diabetes: Yes Patient Takes Glucophage: No Diminished Hearing: No Endocrine: Yes Gastrointestinal Disorders: Yes GERD: No Glaucoma: No Genitourinary: No Headaches: No Hepatitis: No Hiatal Hernia: No Heparin Induced Thrombocytopen: No Hypertension: Yes Immune Disorder: No Implanted Vascular Access Dvce: Yes Kidney Stones: No Musculoskeletal: Yes Neurologic: Yes Psychiatric: Yes Reproductive: No Respiratory: Yes Integumentary: Yes Immunizations Current: Yes Migraines: Yes Myocardial Infarction: No Pneumonia: Yes Radiation Therapy: No Renal Failure: No Schizophrenia: Yes Seizures: No Sickle Cell Disease: No Sleep Apnea: No Thyroid Disease: No Ulcer: Yes PNEUMOCCOCAL Vaccine (Year): 2 Past Surgical History Abdominal Surgery: Yes ( ) AICD: No Appendectomy: No Arteriovenous Shunt: No Body Medical Devices: BULLET IN CHEST, BE-BE IN NOSE Cardiac Surgery: Yes (femoral-popliteal bypass surgery) Cholecystectomy: No Coronary Artery Bypass Graft: No Ear Surgery: No Endocrine Surgery: No Eye Surgery: Yes (PT STATES "PERMANENT CONTACT LENSES") Genitourinary Surgery: No Gynecologic Surgery: No Hysterectomy: No Insulin Pump: No Joint Replacement: Yes (PINS IN RIGHT WRIST) Neurologic Surgery: No Oral Surgery: No Pacemaker: No Thoracic Surgery: No Other Surgery: Yes (BLOOD VESSEL BYPASS BOTH LEGS) Family History Family Myocardial Infarction: Yes Social History Alcohol Use: Yes (OCC) Tobacco Use: Yes (1 PPD) Substance Use: Yes (MARIJUANA) Allergies-Medications (Allergen,Severity, Reaction): Coded Allergies: acetaminophen (Unverified Allergy, Severe, RASH, 01/04/18) aspirin (Unverified Allergy, Severe, 01/04/18) codeine (Unverified Allergy, Severe, RASH, 01/04/18) ibuprofen (Unverified Allergy, Severe, RASH, 01/04/18) REACTION NOT GIVEN penicillin G (Unverified Allergy, Severe, RASH, 01/04/18) REACTION NOT GIVEN propoxyphene (Unverified Allergy, Severe, RASH, 01/04/18) Reported Meds & Prescriptions Reported Meds & Active Scripts Active Lactobacillus Acidophilus 1 Billion Cell Tab 1 Tab PO TIDAC Reported Ultram (Tramadol HCl) 50 Mg Tab 50 Mg PO Q4H PRN Hydroxyzine HCl 25 Mg Tab 25 Mg PO TID Furosemide 20 Mg Tab 20 Mg PO DAILY Lipitor (Atorvastatin Calcium) 80 Mg Tab 80 Mg PO HS Topamax (Topiramate) 50 Mg Tab 50 Mg PO DAILY Clonazepam 1 Mg Tab 1 Mg PO BID Prodrin (Fjumgjcmsfezn-Wmqohqpr-Mjsluvuksnrym) 65-20-325 Mg Tab 1 Tab PO DIRECTED PRN Lisinopril 40 Mg Tab 40 Mg PO DAILY Zanaflex (Tizanidine HCl) 4 Mg Tab 4 Mg PO Q12HR Pantoprazole (Pantoprazole Sodium) 40 Mg Tab 40 Mg PO DAILY Carafate (Sucralfate) 1 Gm Tab 1 Gm PO TID On empty stomach Xarelto (Rivaroxaban) 20 Mg Tab 20 Mg PO DAILY Lantus Inj (Insulin Glargine) 100 Unit/Ml Inj 25 HS Proair Hfa 8.5 GM Inh (Albuterol Sulfate) 90 Mcg/Act Aer 2 Puff INH Q4-6H PRN 108 mcg/actuation Sumatriptan (Sumatriptan Succinate) 100 Mg Tab 100 Mg PO ONCE PRN If a satisfactory response has not been obtained at 2 hours, a second dose may be administered Symbicort Inh (Budesonide/Formoterol Fumarate) 160-4.5 Mcg/Act Aero 1 Puff INH Q12HR Hydrocodone-Acetaminophen 10-325 mg Tab 1 Tab PO Q4H PRN Amlodipine (Amlodipine Besylate) 5 Mg Tab 5 Mg PO DAILY Januvia (Sitagliptin Phosphate) 50 Mg Tab 50 Mg PO DAILY Clonidine (Clonidine HCl) 0.1 Mg Tab 0.1 Mg PO TID Glipizide 10 Mg Tab 10 Mg PO BIDAC Take 30 minutes before a meal Review of Systems General / Constitutional: No: Fever Eyes: No: Blurred Vision, Photophobia HENT: Positive: Congestion, No: Sore Throat Cardiovascular: No: Chest Pain or Discomfort, Palpitations Respiratory: Positive: Cough, Shortness of Breath Gastrointestinal: No: Nausea, Vomiting Genitourinary: Positive: Hesitancy, Dribbling, No: Frequency, Dysuria Musculoskeletal: Positive: Arthralgias, Limited ROM Physical Exam Narrative GENERAL: Well-developed, well-nourished in no acute distress. Nontoxic appearing. HEAD: Normocephalic, atraumatic. EYES: Pupils equal round and reactive. Extraocular motions intact. No scleral icterus. No injection or drainage. ENT: TMs clear without erythema. The external auditory canals clear. Nose: clear . Posterior pharynx is pink and moist. No tonsillar edema or exudate. Uvula midline. Airway patent. NECK: Trachea midline.Supple, nontender, moves head freely. No central bony tenderness or spasm. CARDIOVASCULAR: Regular rate and rhythm without murmurs, gallops, or rubs. RESPIRATORY: Clear to auscultation. Breath sounds equal bilaterally. Few fine expiratory wheeze. GASTROINTESTINAL: Abdomen soft, non-tender, nondistended. No hepato-splenomegaly , or palpable masses. No guarding. EXTREMITIES: No clubbing, cyanosis, or edema . Complaints of pain in the right glenohumeral joint and right acromioclavicular joint. He has slight decreased range of motion. There is no erythema or warmth. Neurovascular intact. BACK: Nontender without deformity or crepitance. No flank tenderness. Data Data Last Documented VS Vital Signs Date Time Temp Pulse Resp B/P (MAP) Pulse Ox O2 Delivery O2 Flow Rate FiO2 01/12/18 05:12 70 20 159/67 (97) 99 Room Air 01/12/18 04:26 98.1 [facility] Medical Decision Making Medical Screen Exam Complete: Yes Emergency Medical Condition: No Medical Record Reviewed: Yes Differential Diagnosis MDM: High Differential diagnoses: Pneumonia, bronchitis, URI, asthma, RAD, sprain, strain , shoulder contusion Narrative Course A medical screening exam was performed: At the time of evaluation the presenting medical condition was determined not to be of an emergent nature. The patient was given the option of receiving additional care, but declined. Patient was given options for additional community resources from which to obtain care. The Patient Has Been advised to seek medical attention for their presenting complaint. The patient has been advised to return to the ER at any time if an emergent condition develops. Diagnosis Primary Impression: Encounter for medical screening examination Condition: Stable Kristopher Garcia Jan 12, 2018 05:26
== END 2018-01-12 06:15 | disposition left against medical advice (07) ==
LOC: NEPD 04:21
DX: R05 Cough (principal)
CPT/HCPCS: 99281

== ENCOUNTER 2018-04-11 05:16 | Inpatient (IN) | payer MEDICAID ==
[2018-04-11] VITALS (8 sets, daily range): BP systolic 107–143; BP diastolic 57–80; PULSE 63–115; RESP 17–24; TEMP 97.9–98.4; O2SAT 90–100
[~2018-04-11] VITALS: Ht 177.8 cm; Wt 78.3 kg
[~2018-04-11 05:16] MED LIST changes: +FURO20TA PO; +HYDR-3133 PO; +LIPI80TA PO; -METR1TAB76 PO; -SELE2.5%T TOPICAL; +TRAM50 PO
[2018-04-11] MEDS ORDERED: SODIUM CHLORIDE 0.9% FLUSH 10 ML FLUSH IVF PRN (05:30)
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
[2018-04-11 06:10] LABS: AUTOMATED NEUTROPHIL # 9.9 TH/MM3 (1.8-7.7); BASOPHIL # 0.1 TH/MM3 (0-0.2); BASOPHIL % 0.7 % (0.0-2.0); EOSINOPHIL # 0.1 TH/MM3 (0-0.4); HEMATOCRIT 31.6 % (39.0-51.0); HEMOGLOBIN 10.3 GM/DL (13.0-17.0); LYMPHOCYTE # 0.7 TH/MM3 (1.0-4.8); MEAN CELL VOLUME 86.6 FL (80.0-100.0); MEAN CORPUSCULAR HEMOGLOBIN 28.4 PG (27.0-34.0); MEAN CORPUSCULAR HGB CONC 32.7 % (32.0-36.0); MEAN PLATELET VOLUME 9.8 FL (7.0-11.0); MONO % 6.4 % (0.0-8.0); MONOCYTE # 0.7 TH/MM3 (0-0.9); NEUT % 85.9 % (16.0-70.0); PLATELET COUNT 159 TH/MM3 (150-450); RED BLOOD COUNT 3.64 MIL/MM3 (4.50-5.90); RED CELL DISTRIBUTION WIDTH 15.9 % (11.6-17.2); WHITE BLOOD COUNT 11.5 TH/MM3 (4.0-11.0)
[2018-04-11 06:16] LABS: INTERNATIONAL NORMALIZED RATIO 1.2 RATIO; PROTHROMBIN TIME - PATIENT 12.6 SEC (9.8-11.6)
--- NOTE | 2018-04-11 06:24 | RADRPT ---
EXAM DATE: 04/11/2018 6:04 AM EDT AGE/SEX: 63 years / Male INDICATIONS: Shortness of breath. CLINICAL DATA: This is the patient's initial encounter. Patient reports that signs and symptoms have been present for 1 day and indicates a pain score of 0/10. MEDICAL/SURGICAL HISTORY: Diabetes. Emphysema. Chronic obstructive pulmonary disease. Hypert ension. . Abdominal surgery COMPARISON: [facility] [place], CHEST SINGLE AP, 11/10/2017. . FINDINGS: A single AP view of the chest demonstrates cardiomegaly with slight interstitial prominence. No evide nce of mass, infiltrate or effusion. The cardiomediastinal contours are unremarkable. Osseous struc tures are intact. CONCLUSION: Cardiomegaly and slight interstitial prominence. Electronically signed by: Caleb Patel MD 04/11/2018 6:22 AM EDT
[2018-04-11 06:26] LABS: ALT (GPT) 26 U/L (12-78)
[2018-04-11 06:30] LABS: ALKALINE PHOSPHATASE 133 U/L (45-117); TOTAL BILIRUBIN ADULT 0.5 MG/DL (0.2-1.0); TOTAL PROTEIN 7.4 GM/DL (6.4-8.2); TROPONIN I LESS THAN 0.02 NG/ML (0.02-0.05)
[2018-04-11] MEDS ORDERED: FUROSEMIDE 40 MG/4 ML VIAL IV PUSH ONE ×2 (06:30→18:00)
[2018-04-11 06:41] LABS: ALBUMIN 3.2 GM/DL (3.4-5.0); AST (GOT) 20 U/L (15-37); BICARBONATE 25.8 MEQ/L (21.0-32.0); BLOOD UREA NITROGEN 7 MG/DL (7-18); CALCIUM 8.4 MG/DL (8.5-10.1); CHLORIDE 97 MEQ/L (98-107); CREATININE 1.23 MG/DL (0.60-1.30); GLOMERULAR FILTRATION RATE 60 ML/MIN (>89); GLUCOSE,RANDOM 129 MG/DL (74-106); MAGNESIUM 1.7 MG/DL (1.5-2.5); SODIUM (NA) 135 MEQ/L (136-145)
[2018-04-11] MEDS ORDERED: IOHEXOL 350 MG/ML 10 ML VIAL (for RAD DIAG) IVCONTRAST ONE (07:10)
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
--- NOTE | 2018-04-11 08:23 | PD ---
Data Data Last Documented VS Vital Signs Date Time Temp Pulse Resp B/P (MAP) Pulse Ox O2 Delivery O2 Flow Rate FiO2 04/11/18 07:05 94 18 143/80 (101) 97 Room Air 04/11/18 05:40 97.9 2.00 Orders Orders Electrocardiogram (04/11/18 05:20) B-Type Natriuretic Peptide (04/11/18 05:20) Ckmb (Isoenzyme) Profile (04/11/18 05:20) Complete Blood Count With Diff (04/11/18 05:20) Comprehensive Metabolic Panel (04/11/18 05:20) Magnesium (Mg) (04/11/18 05:20) Prothrombin Time / Inr (Pt) (04/11/18 05:20) Act Partial Throm Time (Ptt) (04/11/18 05:20) Troponin I (04/11/18 05:20) Lipase (04/11/18 05:20) Chest, Single Ap (04/11/18 05:20) Ecg Monitoring (04/11/18 05:20) Bilateral Bp Monitoring (04/11/18 05:20) Iv Access Insert/Monitor (04/11/18 05:20) Oximetry (04/11/18 05:20) Sodium Chloride 0.9% Flush (Ns Flush) (04/11/18 05:30) D-Dimer (04/11/18 05:21) Drug Screen, Random Urine (04/11/18 05:31) CKMB (04/11/18 05:30) CKMB% (04/11/18 05:30) Furosemide Inj (Lasix Inj) (04/11/18 06:30) Ct Pulmonary Angiogram (04/11/18 ) Iohexol 350 Inj (Omnipaque 350 Inj) (04/11/18 07:10) Labs Laboratory Tests Test 04/11/18 05:30 04/11/18 06:50 White Blood Count 11.5 TH/MM3 Red Blood Count 3.64 MIL/MM3 Hemoglobin 10.3 GM/DL Hematocrit 31.6 % Mean Corpuscular Volume 86.6 FL Mean Corpuscular Hemoglobin 28.4 PG Mean Corpuscular Hemoglobin Concent 32.7 % Red Cell Distribution Width 15.9 % Platelet Count 159 TH/MM3 Mean Platelet Volume 9.8 FL Neutrophils (%) (Auto) 85.9 % Lymphocytes (%) (Auto) 6.0 % Monocytes (%) (Auto) 6.4 % Eosinophils (%) (Auto) 1.0 % Basophils (%) (Auto) 0.7 % Neutrophils # (Auto) 9.9 TH/MM3 Lymphocytes # (Auto) 0.7 TH/MM3 Monocytes # (Auto) 0.7 TH/MM3 Eosinophils # (Auto) 0.1 TH/MM3 Basophils # (Auto) 0.1 TH/MM3 CBC Comment DIFF FINAL Differential Comment Prothrombin Time 12.6 SEC Prothromb Time International Ratio 1.2 RATIO Activated Partial Thromboplast Time 35.3 SEC D-Dimer Quantitative (PE/DVT) 1.61 MG/L FEU Blood Urea Nitrogen 7 MG/DL Creatinine 1.23 MG/DL Random Glucose 129 MG/DL Total Protein 7.4 GM/DL Albumin 3.2 GM/DL Calcium Level 8.4 MG/DL Magnesium Level 1.7 MG/DL Alkaline Phosphatase 133 U/L Aspartate Amino Transf (AST/SGOT) 20 U/L Alanine Aminotransferase (ALT/SGPT) 26 U/L Total Bilirubin 0.5 MG/DL Sodium Level 135 MEQ/L Potassium Level 3.8 MEQ/L Chloride Level 97 MEQ/L Carbon Dioxide Level 25.8 MEQ/L Anion Gap 12 MEQ/L Estimat Glomerular Filtration Rate 60 ML/MIN Total Creatine Kinase 167 U/L Creatine Kinase MB 4.0 NG/ML Troponin I LESS THAN 0.02 NG/ML B-Type Natriuretic Peptide 407 PG/ML Lipase 125 U/L Urine Opiates Screen NEG Urine Barbiturates Screen NEG Urine Amphetamines Screen NEG Urine Benzodiazepines Screen NEG Urine Cocaine Screen POS Urine Cannabinoids Screen NEG [facility] Supervised Visit with JUANA: No Narrative Course Patient care assumed from Dr. Pack at 0700. Patient chief complaint to me at this time is right leg pain and swelling. He states he is on xarelto started by Dr. Jerez for blood clot prevention of the RLE. He states he was never told he had clot of his RLE. No history of Afib. He initially presented with SOB and chest pain. States SOB is near gone. But CP still present. Initial EKG shows new onset Afib with rate fairly well controlled to 108. Patient troponin negative. CT PE negative. I agree that he will need further workup of his symptoms under obs status given new onset afib. Will discuss with [facility]. I have also added on DVT study of RLE. Diagnosis Primary Impression: New onset atrial fibrillation Additional Impression: Chest pain Qualified Codes: R07.9 - Chest pain, unspecified Rickie Ji MD Apr 11, 2018 08:23
--- NOTE | 2018-04-11 09:54 | HHI.HP ---
[facility] Service [facility] Primary Care Physician YANIQUE Chun Admission Diagnosis New onset afib, Chest pain Diagnoses: Travel History International Travel<30 Days: No Contact w/Intl Traveler <30 Da: No Traveled to Known Affected Are: No History of Present Illness 63 year old male with history of IDDM, HTN, HLD, PAD, and ?DVT presenting with six weeks of RLE pain. He is somewhat of a poor historian. Patient endorses pain in his RLE with exertion and at a rest as well. Pain is worse with ambulation and eases when he rests but is always present. He is unsure if he has had a blood clot but states "they took two veins out of my right leg and put it into my left." He cannot tell me why he is on Xarelto but states he is compliant. He also endorses intermittent chest tightness associated with exertion for the past six days. Pain radiates into his jaw and is relieved with rest. He apparently has some cardiac stents. 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 He also endorses exertional dyspnea for the past several months but states recently he has had increased cough, SOB, chills, wheezing, and yellow sputum production. He denies any swelling in his legs. He is a diabetic and states he takes his insulin regularly. He cannot tell me his last A1c. In the ER he was found to be in atrial fibrillation with RVR with no prior diagnosis of this and the patient is unaware of a past history of this. He denies dizziness, palpitations, or syncope. He admits to smoking crack when it's "given to him" and reports his last use was two days ago. Review of Systems Constitutional: COMPLAINS OF: Chills, DENIES: Fatigue, Fever, Weight gain, Dizziness Eyes: DENIES: Blurred vision, Diplopia Ears, nose, mouth, throat: DENIES: Running Nose Respiratory: COMPLAINS OF: Cough, Wheezing, Sputum production, Shortness of breath, DENIES: Hemoptysis Cardiovascular: COMPLAINS OF: Chest pain, Dyspnea on Exertion, Claudication, DENIES: Palpitations, Syncope, Lower Extremity Edema Gastrointestinal: COMPLAINS OF: Abdominal pain, DENIES: Black stools, Bloody stools, Constipation, Diarrhea, Nausea, Vomiting Musculoskeletal: DENIES: Joint pain Integumentary: DENIES: Rash Neurologic: COMPLAINS OF: Headache Psychiatric: DENIES: Confusion Past Family Social History Past Medical History Hypertension Insulin-dependent diabetes Peripheral arterial disease COPD CAD Depression Anxiety Tobacco abuse GERD ?History of DVT Past Surgical History Femoral popliteal bypass Exploratory laparotomy L toes amputation Reported Medications Lactobacillus Acidophilus 1 Billion Cell Tab 1 Tab PO TIDAC Ultram (Tramadol HCl) 50 Mg Tab 50 Mg PO Q4H PRN Hydroxyzine HCl 25 Mg Tab 25 Mg PO TID Furosemide 20 Mg Tab 20 Mg PO DAILY Lipitor (Atorvastatin Calcium) 80 Mg Tab 80 Mg PO HS Topamax (Topiramate) 50 Mg Tab 50 Mg PO DAILY Clonazepam 1 Mg Tab 1 Mg PO BID Prodrin (Obldfnmfiscgd-Fkxeqxsl-Ywncbubhmupwx) 65-20-325 Mg Tab 1 Tab PO DIRECTED PRN Lisinopril 40 Mg Tab 40 Mg PO DAILY Zanaflex (Tizanidine HCl) 4 Mg Tab 4 Mg PO Q12HR Pantoprazole (Pantoprazole Sodium) 40 Mg Tab 40 Mg PO DAILY Carafate (Sucralfate) 1 Gm Tab 1 Gm PO TID Xarelto (Rivaroxaban) 20 Mg Tab 20 Mg PO DAILY Lantus Inj (Insulin Glargine) 100 Unit/Ml Inj 25 HS Proair Hfa 8.5 GM Inh (Albuterol Sulfate) 90 Mcg/Act Aer 2 Puff INH Q4-6H PRN Sumatriptan (Sumatriptan Succinate) 100 Mg Tab 100 Mg PO ONCE PRN Symbicort Inh (Budesonide/Formoterol Fumarate) 160-4.5 Mcg/Act Aero 1 Puff INH Q12HR Hydrocodone-Acetaminophen 10-325 mg Tab 1 Tab PO Q4H PRN Amlodipine (Amlodipine Besylate) 5 Mg Tab 5 Mg PO DAILY Januvia (Sitagliptin Phosphate) 50 Mg Tab 50 Mg PO DAILY Clonidine (Clonidine HCl) 0.1 Mg Tab 0.1 Mg PO TID Glipizide 10 Mg Tab 10 Mg PO BIDAC Allergies: Coded Allergies: acetaminophen (Unverified Allergy, Severe, RASH, 01/04/18) aspirin (Unverified Allergy, Severe, 01/04/18) codeine (Unverified Allergy, Severe, RASH, 01/04/18) ibuprofen (Unverified Allergy, Severe, RASH, 01/04/18) REACTION NOT GIVEN penicillin G (Unverified Allergy, Severe, RASH, 01/04/18) REACTION NOT GIVEN propoxyphene (Unverified Allergy, Severe, RASH, 01/04/18) Family History Father from emphysema Mother from "old age" Social History Lives with his niece Denies EtOH Tobacco: 2 PPD x >20 years Illicit drugs: Smokes crack cocaine, occasional marijuana, denies history of IVDU Physical Exam Vital Signs Vital Signs Date Time Temp Pulse Resp B/P (MAP) Pulse Ox O2 Delivery O2 Flow Rate FiO2 04/11/18 07:05 94 18 143/80 (101) 97 Room Air 04/11/18 05:40 97.9 110 24 112/57 (75) 96 Nasal Cannula 2.00 111/64 (80) Physical Exam GENERAL: Slightly disheveled elderly male laying in bed in no acute distress. SKIN: Warm and dry. No rashes, ecchymoses or lesions. HEENT: Atraumatic. Normocephalic. No temporal or scalp tenderness. Pupils equal round and reactive. Extraocular motions intact. No scleral icterus. No injection or drainage. Nose without bleeding, purulent drainage or septal hematoma. Throat without erythema, tonsillar hypertrophy or exudate. Uvula midline. Airway patent. NECK: Trachea midline. No JVD or lymphadenopathy. Supple, nontender, no meningeal signs. No appreciable bruits. CARDIOVASCULAR: Irregular rate and rhythm. No appreciable murmurs. RESPIRATORY: Diffuse crackles, worse at the bases with scattered wheezing. Able to speak in complete sentences and does not appear to be in respiratory distress. Nasal cannula in place. GASTROINTESTINAL: Ex-lap scar. Abdomen soft, non-tender, nondistended. No hepatosplenomegaly or palpable masses. No guarding. MUSCULOSKELETAL: Calves are supple without tenderness, palpable cords, warmth, or erythema. No significant edema. There are scars from prior bypass procedure. Partial left foot amputation. Right foot is significantly cooler and paler than left. Not able to palpate distal pulses. NEUROLOGICAL: Awake and alert. Motor and sensory grossly within normal limits. Mumbled speech. PSYCHIATRIC: Not responding to internal stimuli. Laboratory Laboratory Tests Test 04/11/18 05:30 04/11/18 06:50 White Blood Count 11.5 Red Blood Count 3.64 Hemoglobin 10.3 Hematocrit 31.6 Mean Corpuscular Volume 86.6 Mean Corpuscular Hemoglobin 28.4 Mean Corpuscular Hemoglobin Concent 32.7 Red Cell Distribution Width 15.9 Platelet Count 159 Mean Platelet Volume 9.8 Neutrophils (%) (Auto) 85.9 Lymphocytes (%) (Auto) 6.0 Monocytes (%) (Auto) 6.4 Eosinophils (%) (Auto) 1.0 Basophils (%) (Auto) 0.7 Neutrophils # (Auto) 9.9 Lymphocytes # (Auto) 0.7 Monocytes # (Auto) 0.7 Eosinophils # (Auto) 0.1 Basophils # (Auto) 0.1 CBC Comment DIFF FINAL Differential Comment Prothrombin Time 12.6 Prothromb Time International Ratio 1.2 Activated Partial Thromboplast Time 35.3 D-Dimer Quantitative (PE/DVT) 1.61 Blood Urea Nitrogen 7 Creatinine 1.23 Random Glucose 129 Total Protein 7.4 Albumin 3.2 Calcium Level 8.4 Magnesium Level 1.7 Alkaline Phosphatase 133 Aspartate Amino Transf (AST/SGOT) 20 Alanine Aminotransferase (ALT/SGPT) 26 Total Bilirubin 0.5 Sodium Level 135 Potassium Level 3.8 Chloride Level 97 Carbon Dioxide Level 25.8 Anion Gap 12 Estimat Glomerular Filtration Rate 60 Total Creatine Kinase 167 Creatine Kinase MB 4.0 Troponin I LESS THAN 0.02 B-Type Natriuretic Peptide 407 Lipase 125 Urine Opiates Screen NEG Urine Barbiturates Screen NEG Urine Amphetamines Screen NEG Urine Benzodiazepines Screen NEG Urine Cocaine Screen POS Urine Cannabinoids Screen NEG Result Diagram: 04/11/18 0530 04/11/18 0530 Imaging Lower Extremity Ultrasound 04/11/18 0823 Signed Impressions: CONCLUSION: 1. The study is negative for lower extremity deep venous thrombosis. Chest X-Ray 04/11/18 0520 Signed Impressions: CONCLUSION: Cardiomegaly and slight interstitial prominence. CT Angiography 04/11/18 0000 Signed Impressions: CONCLUSION: 1. No evidence for pulmonary motion. 2. Bibasilar atelectasis. 3. Subcentimeter pulmonary nodules. Caprini VTE Risk Assessment Caprini VTE Risk Assessment: Mod/High Risk (score >= 2) Caprini Risk Assessment Model Point Value = 1 Point Value = 2 Point Value = 3 Point Value = 5 Age 41-60 Minor surgery BMI > 25 kg/m2 Swollen legs Varicose veins or History of unexplained or recurrent spontaneous Oral contraceptives or hormone replacement Sepsis (< 1 month) Serious lung disease, including pneumonia (< 1 month) Abnormal pulmonary function Acute myocardial infarction Congestive heart failure (< 1 month) History of inflammatory bowel disease Medical patient at bed rest Age 61-74 Arthroscopic surgery Major open surgery (> 45 min) Laparoscopic surgery (> 45 min) Malignancy Confined to bed (> 72 hours) Immobilizing plaster cast Central venous access Age >= 75 History of VTE Family history of VTE Factor V Leiden Prothrombin [id number] Lupus anticoagulant Anticardiolipin antibodies Elevated serum homocysteine Heparin-induced thrombocytopenia Other congenital or acquired thrombophilia Stroke (< 1 month) Elective arthroplasty Hip, pelvis, or leg fracture Acute spinal cord injury (< 1 month) Prophylaxis Regimen Total Risk Factor Score Risk Level Prophylaxis Regimen 0-1 Low Early ambulation 2 Moderate Order ONE of the following: *Sequential Compression Device (SCD) *Heparin 5000 units SQ BID 3-4 Higher Order ONE of the following medications: *Heparin 5000 units SQ TID *Enoxaparin/Lovenox 40 mg SQ daily (WT < 150 kg, CrCl > 30 mL/min) *Enoxaparin/Lovenox 30 mg SQ daily (WT < 150 kg, CrCl > 10-29 mL/min) *Enoxaparin/Lovenox 30 mg SQ BID (WT < 150 kg, CrCl > 30 mL/min) AND/OR *Sequential Compression Device (SCD) 5 or more Highest Order ONE of the following medications: *Heparin 5000 units SQ TID (Preferred with Epidurals) *Enoxaparin/Lovenox 40 mg SQ daily (WT < 150 kg, CrCl > 30 mL/min) *Enoxaparin/Lovenox 30 mg SQ daily (WT < 150 kg, CrCl > 10-29 mL/min) *Enoxaparin/Lovenox 30 mg SQ BID (WT < 150 kg, CrCl > 30 mL/min) AND *Sequential Compression Device (SCD) Assessment and Plan Problem List: (1) Chest pain ICD Code: R07.9 - Chest pain, unspecified Status: Acute (2) New onset atrial fibrillation ICD Code: I48.91 - Unspecified atrial fibrillation Status: Acute (3) CHF exacerbation ICD Code: I50.9 - Heart failure, unspecified Status: Acute (4) COPD exacerbation ICD Code: J44.1 - Chronic obstructive pulmonary disease with (acute) exacerbation Status: Acute (5) Claudication ICD Code: I73.9 - Peripheral vascular disease, unspecified Status: Chronic (6) Hypertension ICD Code: I10 - Essential (primary) hypertension Status: Chronic (7) DM (diabetes mellitus) ICD Code: E11.9 - Type 2 diabetes mellitus without complications Status: Chronic (8) Peripheral vascular disease ICD Code: I73.9 - Peripheral vascular disease, unspecified Status: Chronic Assessment and Plan 63 year old male with history of IDDM, HTN, HLD, PAD, CAD, and ?DVT presenting with six weeks of RLE pain and chest pain. In the ER, he was found to be in atrial fibrillation with RVR, signs of congestive heart failure on imaging, and a COPD exacerbation. 1. New onset atrial fibrillation with RVR - EKG read and reviewed by me personally demonstrating AFIB with RVR - CHADSVASc2 score of 6 - Resume home Xarelto - Check 2D echo - Cardiology consulted - Telemetry - Rate has been in 90s, will defer to cardiology for rate-control given hesitation of a beta trey in the setting of possible cocaine-induced chest pain as well as CCBs in the setting of acute CHF exacerbation 2. CHF exacerbation - CXR with cardiology and interstitial prominence, BNP elevated at 407 - Received a dose of IV Lasix in the ER - Continue Lasix IV 20 mg BID with potassium supplementation - Check 2D echo 3. COPD exacerbation - Patient with increased sputum production, cough, and dyspnea and mildly elevated white count - Solumedrol 60 mg IV x 1 - Prednisone 40 mg daily starting tomorrow - Levaquin PO - Bronchodilators - Supplemental O2 to maintain sats 90-92% 4. Chest pain - Could be multifactorial given atrial fibrillation, CHF exacerbation, and COPD exacerbation - First troponin negative in the ED - Continue with ACS rule out - D-Dimer elevated, CTA negative for PE - CXR with evidence of CHF - Cardiology consulted 5. Claudication/peripheral arterial disease - Patient with symptoms of both claudication and rest pain of RLE - RLE U/S negative for DVT - Obtain CTA run-off - Consider vascular consult based on results - Supposedly allergic to ASA - Continue statin - Pt absolutely needs to stop smoking 6. Diabetes mellitus - SSI per protocol - Convert home Lantus to Levemir and lower dose since appetite down - Monitor accuchecks - Check A1c 7. Hypertension - Resume home meds - Hydralazine PRN 8. Tobacco abuse - Counseled on cessation DVT prophylaxis: On home Xarelto Code Status FULL Discussed Condition With Patient and Dr. Ji Problem Qualifiers (1) Chest pain: Qualified Codes: R07.9 - Chest pain, unspecified Brandy Elkins MD Apr 11, 2018 09:54
[2018-04-11] MEDS ORDERED: BISACODYL 10 MG SUPP RECTAL PRN (10:30)
[2018-04-11] MEDS ORDERED: NALOXONE HCL 0.4 MG/ML AMP IV PUSH PRN (10:30)
[2018-04-11] MEDS ORDERED: SODIUM CHLORIDE 0.9% FLUSH 10 ML FLUSH IV FLUSH PRN (10:30)
[2018-04-11] MEDS ORDERED: SENNOSIDES 8.6 MG TAB PO PRN (10:30)
[2018-04-11] MEDS ORDERED: ACETAMINOPHEN 325 MG TAB PO PRN (10:30)
[2018-04-11] MEDS ORDERED: MAGNESIUM HYDROXIDE SUSP 30 ML CUP PO PRN (10:30)
[2018-04-11] MEDS ORDERED: LACTULOSE SYRUP 20 GM/30 ML CUP PO PRN (10:30)
--- NOTE | 2018-04-11 10:45 | RADRPT ---
EXAM DATE: 04/11/2018 10:40 AM EDT AGE/SEX: 63 years / Male INDICATIONS: Right lower extremity pain. CLINICAL DATA: This is the patient's initial encounter. Patient reports that signs and symptoms have been present for 3 weeks and indicates a pain score of 10/10. MEDICAL/SURGICAL HISTORY: . Hypertension. Hyperlipidemia. Type II diabetes. Smoker. COPD. Emphysema. Atrial fibrillation. . Bilateral femoral-popliteal bypass surgery. Toe amputation. COMPARISON: No prior exams available for comparison. No external comparison. TECHNIQUE: Venous ultrasound of both lower extremities was performed from the inguinal ligament to t he proximal calf. Real-time, color Doppler and spectral tracing, compression and augmentation techni ques were used. FINDINGS: Views of the right lower extremity deep veins demonstrates no thrombus. Right common femor al vein, superficial femoral vein, popliteal vein, peroneal vein and posterior tibial veins are paten t. Greater saphenous vein not seen due to removal from previous bypass. CONCLUSION: 1. The study is negative for lower extremity deep venous thrombosis. Electronically signed by: Caleb Patel MD 04/11/2018 10:44 AM EDT
[2018-04-11] MEDS ORDERED: SODIUM CHLOR 0.9% 1000 ML INJ 1,000 ML IV SCH (11:00)
[2018-04-11] MEDS ORDERED: GLUCAGON 1 MG/ML VIAL OTHER PRN (11:15)
[2018-04-11] MEDS ORDERED: RESP: ALBUTEROL 2.5 MG/3 ML NEB (PRN) INH (11:15)
[2018-04-11] MEDS ORDERED: DEXTROSE 50% IN WATER 50 ML VIAL(D50) IV PUSH PRN (11:15)
[2018-04-11] MEDS ORDERED: methylPREDNISolone SOD SUCC 125 MG/2 ML VIAL IV PUSH SCH (11:30)
[2018-04-11] MEDS ORDERED: hydrALAZINE HCL 25 MG TAB PO PRN (11:45)
[2018-04-11] MEDS ORDERED: ONDANSETRON ODT 4 MG TAB PO PRN (11:45)
[2018-04-11] MEDS: INSULIN ASPART SUPPLEMENTAL SCALE SQ SCH ×3 (12:00→21:00)
[2018-04-11] MEDS: RESP: ALBUTEROL 2.5 MG/IPRATROPIUM 0.5 MG NEB (SCH) INH ×4 (12:21→23:25)
[2018-04-11] MEDS ORDERED: hydrOXYzine HCL 25 MG TAB PO SCH (13:00)
[2018-04-11] MEDS: cloNIDine HCL 0.1 MG TAB PO SCH ×2 (13:00→16:43)
[2018-04-11] MEDS: SUCRALFATE 1 GM TAB PO SCH ×2 (13:39→16:43)
[2018-04-11] MEDS: LEVOFLOXACIN 750 MG TAB PO SCH (13:39)
--- NOTE | 2018-04-11 15:43 | MB ---
cc: Rogelio Young MD DATE: 04/11/2018 REASON FOR CONSULTATION: Newly discovered atrial fibrillation. HISTORY OF PRESENT ILLNESS: The patient is a pleasant 63-year-old gentleman who presented with bilateral leg pain. As part of the initial workup, he was found to have a tox screen positive for cocaine and was found to be in a mildly rapid atrial fibrillation. He denied any knowledge about this, but he was on Xarelto. The patient notes chronic shortness of breath, though he does smoke cigarettes and, again, also smoked cocaine yesterday. He denies chest pain, palpitations, lightheadedness, dizziness. PAST MEDICAL HISTORY: Diabetes, PAD, hypertension, hyperlipidemia, tobacco abuse (counseled at length to quit), cocaine abuse. CURRENT MEDICATIONS: Amlodipine 5 mg daily, Xarelto 20 mg daily, lisinopril 40 mg daily, Topamax. ALLERGIES: MULTIPLE. PLEASE SEE THE CHART. PHYSICAL EXAMINATION: VITAL SIGNS: Afebrile, pulse , respiratory rate 18, BP 122/60, saturating 100 on room air. GENERAL: A pleasant gentleman who appears older than his stated age, in no distress. NECK: No JVD. LUNGS: Wheezes in all colvin. CARDIOVASCULAR: Hard to appreciate heart sounds due to his wheezing and COPD. ABDOMEN: Benign. EXTREMITIES: Partial foot amputation. No edema. LABORATORY AND DIAGNOSTIC DATA: Sodium 135, potassium 3.8, chloride 97, bicarbonate 25.8, BUN 7, creatinine 1.23, glucose 129. Cardiac enzymes are negative x 2. BNP is mildly elevated at 407. White count 11.5, hematocrit 31.6, platelets 159. Chest x-ray showed slight interstitial prominence. Lower extremity ultrasound was negative for DVT. EKG showed atrial fibrillation at a rate about [address] changes. IMPRESSION: 1. Atrial fibrillation. The patient is reasonably rate controlled currently. I will change his amlodipine to diltiazem for additional rate control. His Xarelto will be continued. An echocardiogram is pending. 2. Congestive heart failure. The patient may have had mild CHF, but appears fairly well compensated now. He was written for both saline and Lasix. At this point, I will stop both after 1 more dose of Lasix this evening. 3. Chest pain. The patient denied any chest pain to me, but his H and P shows he initially did endorse some chest pain. We will have him undergo a nuclear stress test tomorrow. Thank you, again, for the opportunity to participate in this patient's care. MD ELIZABETH Rader/RONAK , 03:25 PM , 03:40 PM
[2018-04-11] MEDS: DILTIAZEM HCL 60 MG TAB PO SCH (16:43)
[2018-04-11] MEDS: ACETAMINOPHEN/HYDROcodone 325 MG/5 MG TAB PO PRN (16:44)
[2018-04-11] MEDS ORDERED: FUROSEMIDE 20 MG/2 ML VIAL IV PUSH SCH (18:00)
[2018-04-11 18:57] LABS: MAGNESIUM 1.4 MG/DL (1.5-2.5)
[2018-04-11 19:07] LABS: TROPONIN I LESS THAN 0.02 NG/ML (0.02-0.05)
[2018-04-11] MEDS: DOCUSATE SODIUM 50 MG/SENNA 8.6 MG TAB PO SCH (21:00)
[2018-04-11] MEDS: BUDESONIDE-FORMOTEROL 160/4.5 MCG INHALER INH SCH (21:00)
[2018-04-11] MEDS: clonazePAM 1 MG TAB PO SCH (21:57)
[2018-04-11] MEDS: POTASSIUM CHLORIDE 20 MEQ CONTROLLED RELEASE TAB PO SCH (21:57)
[2018-04-11] MEDS: ATORVASTATIN 80 MG TAB PO SCH (21:58)
[2018-04-11] MEDS: SODIUM CHLORIDE 0.9% FLUSH 10 ML FLUSH IV FLUSH SCH (21:58)
[2018-04-11] MEDS: INSULIN DETEMIR 100 UNITS/ML VIAL SQ SCH (21:59)
[2018-04-12] VITALS (12 sets, daily range): BP systolic 90–137; BP diastolic 50–87; PULSE 60–111; RESP 17–19; TEMP 97.2–98.7; O2SAT 90–97
[2018-04-12] MEDS: DILTIAZEM HCL 60 MG TAB PO SCH ×4 (00:06→18:00)
[2018-04-12] MEDS: ACETAMINOPHEN/HYDROcodone 325 MG/5 MG TAB PO PRN ×3 (00:11→19:10)
[2018-04-12] MEDS: RESP: ALBUTEROL 2.5 MG/IPRATROPIUM 0.5 MG NEB (SCH) INH ×6 (04:24→23:43)
[2018-04-12] MEDS: INSULIN ASPART SUPPLEMENTAL SCALE SQ SCH ×4 (08:00→20:55)
[2018-04-12] MEDS: TOPIRAMATE 25 MG TAB PO SCH (08:12)
[2018-04-12] MEDS: clonazePAM 1 MG TAB PO SCH ×2 (08:12→20:54)
[2018-04-12] MEDS: predniSONE 20 MG TAB PO SCH (08:13)
[2018-04-12] MEDS: PANTOPRAZOLE SOD 40 MG DELAYED RELEASE TAB PO SCH (08:13)
[2018-04-12] MEDS ORDERED: DEXTROSE 50% IN WATER 50 ML SYRINGE ONE (08:31)
[2018-04-12 08:33] LABS: BASOPHIL % 0.8 % (0.0-2.0); EOSINOPHIL # 0.2 TH/MM3 (0-0.4); EOSINOPHIL % 3.1 % (0.0-4.0); HEMOGLOBIN 8.4 GM/DL (13.0-17.0); LYMPH % 23.5 % (9.0-44.0); LYMPHOCYTE # 1.5 TH/MM3 (1.0-4.8); MEAN CELL VOLUME 86.8 FL (80.0-100.0); MEAN CORPUSCULAR HEMOGLOBIN 28.1 PG (27.0-34.0); MEAN CORPUSCULAR HGB CONC 32.4 % (32.0-36.0); MEAN PLATELET VOLUME 8.1 FL (7.0-11.0); MONO % 10.6 % (0.0-8.0); MONOCYTE # 0.7 TH/MM3 (0-0.9); PLATELET COUNT 107 TH/MM3 (150-450); RED CELL DISTRIBUTION WIDTH 15.5 % (11.6-17.2); WHITE BLOOD COUNT 6.5 TH/MM3 (4.0-11.0)
[2018-04-12] MEDS: BUDESONIDE-FORMOTEROL 160/4.5 MCG INHALER INH SCH ×2 (08:44→20:53)
[2018-04-12] MEDS: SODIUM CHLORIDE 0.9% FLUSH 10 ML FLUSH IV FLUSH SCH ×2 (08:44→20:56)
[2018-04-12] MEDS: cloNIDine HCL 0.1 MG TAB PO SCH ×3 (09:00→18:00)
[2018-04-12] MEDS ORDERED: amLODIPine BESYLATE 5 MG TAB PO SCH (09:00)
[2018-04-12] MEDS: POTASSIUM CHLORIDE 20 MEQ CONTROLLED RELEASE TAB PO SCH ×2 (09:00→20:54)
[2018-04-12] MEDS: DOCUSATE SODIUM 50 MG/SENNA 8.6 MG TAB PO SCH ×2 (09:00→20:54)
[2018-04-12] MEDS ORDERED: FUROSEMIDE 40 MG/4 ML VIAL IV PUSH SCH (09:00)
[2018-04-12] MEDS ORDERED: LISINOPRIL 20 MG TAB PO SCH (09:00)
[2018-04-12] MEDS: SUCRALFATE 1 GM TAB PO SCH ×3 (09:00→18:00)
[2018-04-12 09:03] LABS: CALCIUM 8.4 MG/DL (8.5-10.1); CREATININE 1.23 MG/DL (0.60-1.30)
--- NOTE | 2018-04-12 09:26 | HHI.PR ---
Subjective Remarks In nad. Says she feels better. No chest pain overnight. No cough fever or chills. Some sob but improved. Satting well on room air. No n/v/d/c. Objective Vitals Vital Signs Date Time Temp Pulse Resp B/P (MAP) Pulse Ox O2 Delivery O2 Flow Rate FiO2 04/12/18 09:09 90 Nasal Cannula 2.00 04/12/18 04:00 98.7 60 17 92/50 (64) 95 04/12/18 03:55 60 04/12/18 02:28 19 04/12/18 00:04 77 04/12/18 00:00 98.5 77 19 137/65 (89) 96 04/12/18 00:00 Nasal Cannula 2.00 04/11/18 23:25 90 21 04/11/18 21:00 Nasal Cannula 2.00 04/11/18 20:00 98.4 84 17 107/66 (80) 95 04/11/18 20:00 79 04/11/18 19:45 Nasal Cannula 2.00 04/11/18 16:00 98.0 98 20 139/71 (93) 92 04/11/18 15:00 115 04/11/18 13:40 63 18 122/60 (80) 100 Room Air 04/11/18 12:15 95 Nasal Cannula 2.00 I/O 04/11/18 04/11/18 04/11/18 04/12/18 04/12/18 04/12/18 07:00 15:00 23:00 07:00 15:00 23:00 Intake Total 240 ml Balance 240 ml Intake Oral 240 ml # Voids 1 Result Diagram: 04/12/18 0757 04/12/18 0707 Imaging Last Impressions Lower Extremity Ultrasound 04/11/18 0823 Signed Impressions: CONCLUSION: 1. The study is negative for lower extremity deep venous thrombosis. Chest X-Ray 04/11/18 0520 Signed Impressions: CONCLUSION: Cardiomegaly and slight interstitial prominence. CT Angiography 04/11/18 0000 Signed Impressions: CONCLUSION: 1. No evidence for pulmonary motion. 2. Bibasilar atelectasis. 3. Subcentimeter pulmonary nodules. Objective Remarks GENERAL: Slightly disheveled elderly male laying in bed in no acute distress. CARDIOVASCULAR: Irregular rate and rhythm. No appreciable murmurs. RESPIRATORY: Diffuse bibasilar crackles, mild scattered wheezing. Nasal cannula in place. GASTROINTESTINAL: Ex-lap scar. Abdomen soft, non-tender, nondistended. No guarding. MUSCULOSKELETAL: Scars from prior bypass. Partial left foot amputation. Right foot is significantly cooler and paler than left. Not able to palpate distal pulses. No significant edema. NEUROLOGICAL: Awake and alert. Motor and sensory grossly within normal limits. Mumbled speech. PSYCHIATRIC: Not responding to internal stimuli. A/P Problem List: (1) Chest pain ICD Code: R07.9 - Chest pain, unspecified Status: Acute (2) New onset atrial fibrillation ICD Code: I48.91 - Unspecified atrial fibrillation Status: Acute (3) CHF exacerbation ICD Code: I50.9 - Heart failure, unspecified Status: Acute (4) COPD exacerbation ICD Code: J44.1 - Chronic obstructive pulmonary disease with (acute) exacerbation Status: Acute (5) Claudication ICD Code: I73.9 - Peripheral vascular disease, unspecified Status: Chronic (6) Hypertension ICD Code: I10 - Essential (primary) hypertension Status: Chronic (7) DM (diabetes mellitus) ICD Code: E11.9 - Type 2 diabetes mellitus without complications Status: Chronic (8) Peripheral vascular disease ICD Code: I73.9 - Peripheral vascular disease, unspecified Status: Chronic Assessment and Plan 63 year old male with history of IDDM, HTN, HLD, PAD, CAD, and ?DVT presenting with six weeks of RLE pain and chest pain. In the ER, he was found to be in atrial fibrillation with RVR, signs of congestive heart failure on imaging, and a COPD exacerbation. New onset atrial fibrillation with RVR EKG read and reviewed by me personally demonstrating AFIB with RVR CHADSVASc2 score of 6 Resume home Xarelto 2D echo pending Cardiology consulted Telemetry Rate has been in 90s, will defer to cardiology for rate-control given hesitation of a beta trey in the setting of possible cocaine-induced chest pain as well as CCBs in the setting of acute CHF exacerbation DC amlodipine start cardizem CHF exacerbation CXR with cardiology and interstitial prominence, BNP elevated at 407 Received a dose of IV Lasix in the ER DC Lasix IV 20 mg BID with potassium supplementation 2D echo pending COPD exacerbation Patient with increased sputum production, cough, and dyspnea and mildly elevated white count Solumedrol 60 mg IV x 1 Prednisone 40 mg daily Levaquin PO Duonebs Supplemental O2 to maintain sats 90-92% Chest pain Could be multifactorial given atrial fibrillation, CHF exacerbation, and COPD exacerbation First troponin negative in the ED Continue with ACS rule out D-Dimer elevated, CTA negative for PE CXR with evidence of CHF Cardiology consulted Plan for stress test today Claudication/peripheral arterial disease Patient with symptoms of both claudication and rest pain of RLE RLE U/S negative for DVT Obtain CTA run-off Consider vascular consult based on results Supposedly allergic to ASA Continue statin Smoking cessation, counselled. Diabetes mellitus 2 SSI per protocol Convert home Lantus to Levemir and lower dose since appetite down Monitor accuchecks Check A1c Hypertension Resume home meds Hydralazine PRN Tobacco abuse - Counseled on cessation DVT prophylaxis: On home Xarelto Code Status FULL Discussed Condition With Patient, nurse Problem Qualifiers (1) Chest pain: Qualified Codes: R07.9 - Chest pain, unspecified Kylie Bower MD Apr 12, 2018 09:26
[2018-04-12] MEDS ORDERED: IOHEXOL 350 MG/ML 10 ML VIAL (for RAD DIAG) IVCONTRAST ONE (09:46)
--- NOTE | 2018-04-12 10:27 | PD.CARD.PN ---
Subjective Subjective Remarks No complaints, he says he feels much better, rate controlled afib on tele. Objective Medications Current Medications Medications (Trade) Dose Ordered Sig/Myrna Route Start Time Stop Time Status Last Admin Sodium Chloride 1,000 ml @ 100 mls/hr Q10H IV 04/11/18 11:00 (NS Flush) 2 ml UNSCH PRN IV FLUSH 04/11/18 10:30 (NS Flush) 2 ml BID IV FLUSH 04/11/18 21:00 04/12/18 08:44 (Tylenol) 650 mg Q4H PRN PO 04/11/18 10:30 (Zofran Odt) 4 mg Q6H PRN PO 04/11/18 11:45 (Narcan Inj) 0.4 mg UNSCH PRN IV PUSH 04/11/18 10:30 (Pippa-Colace) 1 tab BID PO 04/11/18 21:00 (Milk Of Magnesia Liq) 30 ml Q12H PRN PO 04/11/18 10:30 (Senokot) 17.2 mg Q12H PRN PO 04/11/18 10:30 (Dulcolax Supp) 10 mg DAILY PRN RECTAL 04/11/18 10:30 (Lactulose Liq) 30 ml DAILY PRN PO 04/11/18 10:30 (Duoneb Neb) 1 ampule Q4HR NEB INH 04/11/18 12:00 04/12/18 09:07 (Albuterol Neb) 2.5 mg Q2HR NEB PRN INH 04/11/18 11:15 (Deltasone) 40 mg DAILY PO 04/12/18 09:00 04/12/18 08:13 (Levaquin) 750 mg Q24H PO 04/11/18 12:00 04/11/18 13:39 (Lipitor) 80 mg HS PO 04/11/18 21:00 04/11/18 21:58 (Symbicort 160-4.5 Mcg Inh) 1 puff Q12HR INH 04/11/18 21:00 04/12/18 08:44 (KlonoPIN) 1 mg BID PO 04/11/18 21:00 04/12/18 08:12 (Catapres) 0.1 mg TID PO 04/11/18 13:00 04/11/18 16:43 (Protonix) 40 mg DAILY PO 04/12/18 09:00 04/12/18 08:13 (Xarelto) 20 mg DAILY PO 04/12/18 09:00 (Carafate) 1 gm TID PO 04/11/18 13:00 04/11/18 16:43 (Zanaflex) 4 mg Q12HR PO 04/11/18 21:00 04/11/18 21:57 (Topamax) 50 mg DAILY PO 04/12/18 09:00 04/12/18 08:12 (Prinivil) 40 mg DAILY PO 04/12/18 09:00 ([place] 5-325 Mg) 1 tab Q6H PRN PO 04/11/18 11:15 04/11/18 16:44 ([place] 5-325 Mg) 2 tab Q6H PRN PO 04/11/18 11:15 04/12/18 06:03 (KCl) 20 meq Q12HR PO 04/11/18 21:00 04/11/18 21:57 (D50w (Vial) Inj) 50 ml UNSCH PRN IV PUSH 04/11/18 11:15 (Glucagon Inj) 1 mg UNSCH PRN OTHER 04/11/18 11:15 (NovoLOG SUPPLEMENTAL SCALE) 1 ACHS SLIDING SCALE SQ 04/11/18 12:00 04/11/18 21:00 (Levemir Inj) 10 units HS SQ 04/11/18 21:00 04/11/18 21:59 (Apresoline) 25 mg Q8HR PRN PO 04/11/18 11:45 (Cardizem) 60 mg Q6HR PO 04/11/18 18:00 04/12/18 00:06 Vital Signs / I&O Vital Signs Date Time Temp Pulse Resp B/P (MAP) Pulse Ox O2 Delivery O2 Flow Rate FiO2 04/12/18 09:09 90 Nasal Cannula 2.00 04/12/18 08:00 97.8 80 18 90/54 (66) 95 04/12/18 04:00 98.7 60 17 92/50 (64) 95 04/12/18 03:55 60 04/12/18 02:28 19 04/12/18 00:04 77 04/12/18 00:00 98.5 77 19 137/65 (89) 96 04/12/18 00:00 Nasal Cannula 2.00 04/11/18 23:25 90 21 04/11/18 21:00 Nasal Cannula 2.00 04/11/18 20:00 98.4 84 17 107/66 (80) 95 04/11/18 20:00 79 04/11/18 19:45 Nasal Cannula 2.00 04/11/18 16:00 98.0 98 20 139/71 (93) 92 04/11/18 15:00 115 04/11/18 13:40 63 18 122/60 (80) 100 Room Air 04/11/18 12:15 95 Nasal Cannula 2.00 I/O 04/11/18 04/11/18 04/11/18 04/12/18 04/12/18 04/12/18 07:00 15:00 23:00 07:00 15:00 23:00 Intake Total 240 ml Balance 240 ml Intake Oral 240 ml # Voids 1 Physical Exam GENERAL: This is a well-nourished, well-developed patient, in no apparent distress. CARDIOVASCULAR: Regular rate and irregular rhythm without murmurs, gallops, or rubs. RESPIRATORY: Clear to auscultation. Breath sounds equal bilaterally. No wheezes , rales, or rhonchi. GASTROINTESTINAL: Abdomen soft, non-tender, nondistended. Normal, active bowel sounds MUSCULOSKELETAL: Extremities without clubbing, cyanosis, or edema. NEURO: Alert & Oriented x4 to person, place, time, situation. Moves all ext x4 Laboratory Laboratory Tests Test 04/11/18 12:05 04/11/18 18:17 04/12/18 07:07 04/12/18 07:57 Troponin I LESS THAN 0.02 NG/ML LESS THAN 0.02 NG/ML Magnesium Level 1.4 MG/DL Free Thyroxine 1.10 NG/DL Thyroid Stimulating Hormone 3rd Gen 0.347 uIU/ML Blood Urea Nitrogen 12 MG/DL Creatinine 1.23 MG/DL Random Glucose 44 MG/DL Calcium Level 8.4 MG/DL Sodium Level 137 MEQ/L Potassium Level 4.2 MEQ/L Chloride Level 98 MEQ/L Carbon Dioxide Level 32.0 MEQ/L Anion Gap 7 MEQ/L Estimat Glomerular Filtration Rate 60 ML/MIN White Blood Count 6.5 TH/MM3 Red Blood Count 3.00 MIL/MM3 Hemoglobin 8.4 GM/DL Hematocrit 26.0 % Mean Corpuscular Volume 86.8 FL Mean Corpuscular Hemoglobin 28.1 PG Mean Corpuscular Hemoglobin Concent 32.4 % Red Cell Distribution Width 15.5 % Platelet Count 107 TH/MM3 Mean Platelet Volume 8.1 FL Neutrophils (%) (Auto) 62.0 % Lymphocytes (%) (Auto) 23.5 % Monocytes (%) (Auto) 10.6 % Eosinophils (%) (Auto) 3.1 % Basophils (%) (Auto) 0.8 % Neutrophils # (Auto) 4.0 TH/MM3 Lymphocytes # (Auto) 1.5 TH/MM3 Monocytes # (Auto) 0.7 TH/MM3 Eosinophils # (Auto) 0.2 TH/MM3 Basophils # (Auto) 0.0 TH/MM3 CBC Comment DIFF FINAL Differential Comment Imaging Last Impressions Lower Extremity Ultrasound 04/11/18 0823 Signed Impressions: CONCLUSION: 1. The study is negative for lower extremity deep venous thrombosis. Chest X-Ray 04/11/18 0520 Signed Impressions: CONCLUSION: Cardiomegaly and slight interstitial prominence. CT Angiography 04/11/18 0000 Signed Impressions: CONCLUSION: 1. No evidence for pulmonary motion. 2. Bibasilar atelectasis. 3. Subcentimeter pulmonary nodules. Assessment and Plan Problem List: (1) Atypical chest pain ICD Codes: R07.89 - Other chest pain Plan: for nuc stress today, none further (2) New onset atrial fibrillation ICD Codes: I48.91 - Unspecified atrial fibrillation Status: Acute Plan: on xarelto, good rates w/ diltiazem; stopped lisinopril due to low bp's so he has room for rate control meds.; Could change to long acting dilt prior to d/c (3) CHF exacerbation ICD Codes: I50.9 - Heart failure, unspecified Status: Acute Plan: compensated, echo today. Assessment and Plan If no major findings on echo or nuc stress could likely d/c home today Rogelio Young MD Apr 12, 2018 10:27
[2018-04-12] MEDS ORDERED: REGADENOSON INJ 0.4 MG/5 ML SYR ONE (12:42)
--- NOTE | 2018-04-12 13:01 | RADRPT ---
EXAM DATE: 04/12/2018 10:30 AM EDT AGE/SEX: 63 years / Male INDICATIONS: Bilateral leg pain and swelling. CLINICAL DATA: This is the patient's initial encounter. Patient reports that signs and symptoms have been present for 2 days and indicates a pain score of 4/10. MEDICAL/SURGICAL HISTORY: Diabetes. Stroke. Hypertension. . femoral/popliteal bypass surgery, mul tiple left foot toe amputations RADIATION DOSE: 2.14 CTDI (mGy) COMPARISON: [facility], CTA RUNOFF W 3D RECON, 08/14/2016. . TECHNIQUE: Volumetric scanning was performed using a multi-row detector CT scanner during bolus infu priyanka of 99 ml Omnipaque 350 (iohexol) nonionic water-soluble contrast as a single exam dose. The d humera was post processed with a variety of visualization algorithms including full volume maximum inten sity projection, multi-planar sliding thin slab reformation, curved planar reformation, and surface r endering techniques. Using automated exposure control and adjustment of the mA and/or kV according t o patient size, radiation dose was kept as low as reasonably achievable to obtain optimal diagnostic quality images. DICOM format image data is available electronically for review and comparison. FINDINGS: Abdominal aorta: The celiac and SMA origins are widely patent. There are single renal arteries bilate rally. The renal arteries are widely patent the infrarenal aorta is diseased. Pelvic circulation: The patient is post aortofemoral bypass on the right. The bypass is widely patent . There is complete occlusion of the iliac circulation on the left. Within the groin the examination demonstrates a widely patent right femoral to left femoral bypass graft. Right leg: The anastomosis of the bypass graft and the common femoral is widely patent. There is at l east moderate stenosis in the origin of the profunda. The profunda femoral is patent. The superficial femoral is diminutive in size and occludes in its mid aspect. There is eventual reconstitution of th e popliteal. Distally, all the origin of the anterior tibial is heavily diseased with short segment o cclusion. The posterior tibial peroneal are patent but diminutive in caliber. Left leg: The left common femoral is patent. The profunda femoral is patent. The superficial femoral is occluded. There is a patent femoral to popliteal bypass graft. Distally, there is two-vessel runof f via the posterior tibial and the peroneal. The distal runoff in the left leg is not visible on the reconstructed images. It is visible on the delayed axial source images which were obtained. CT source data: There are small bilateral effusions. There are advanced COPD changes within the pulmo nary parenchyma. The heart is enlarged. The solid organs of the abdomen are grossly intact. There is no retroperitoneal lymphadenopathy. There is a large gallstone present within the gallbladder. Presen t within the CONCLUSION: 1. The patient is post right aorto femoral bypass and right-left femoral-femoral bypass. These graft s are widely patent. 2. Right leg: The origin of the profunda femoral demonstrates at least moderate stenosis. The superf icial femoral is severely diseased and occludes in its mid segment. Distally, the popliteal is patent . The origin of the anterior tibial is heavily diseased. The posterior tibial and peroneal are small in caliber but patent.. The occlusion within the SFA is new compared to the previous study of 016. 3. Left leg: The femoral to popliteal bypass graft is patent. Distally, there is two-vessel runoff o n the delayed images. Electronically signed by: Aung Guardado MD 04/12/2018 12:59 PM EDT
--- NOTE | 2018-04-12 13:34 | EKG ---
Date Performed: 04/11/2018 Time Performed: 19:31:15 PTAGE: 63 years EKG: ATRIAL FIBRILLATION NONSPECIFIC T-WAVE ABNORMALITY ABNORMAL RHYTHM ECG Since PREVIOUS TRACING , no significant change noted PREVIOUS TRACIN04/11/2018 14.38 DOCTOR: Eb Chase Interpretating Date/Time 04/12/2018 13:34:25
--- NOTE | 2018-04-12 13:35 | EKG ---
Date Performed: 04/11/2018 Time Performed: 14:38:57 PTAGE: 63 years EKG: ATRIAL FIBRILLATION NONSPECIFIC T-WAVE ABNORMALITY ABNORMAL ECG Since PREVIOUS TRACING , no significant change noted PREVIOUS TRACIN04/11/2018 05.26 DOCTOR: Eb Chase Interpretating Date/Time 04/12/2018 13:34:35
--- NOTE | 2018-04-12 13:51 | RADRPT ---
EXAM DATE: 04/12/2018 1:45 PM EDT AGE/SEX: 63 years / Male INDICATIONS:Atrial Fibrillation. . Chest pressure. CLINICAL DATA: This is the patient's initial encounter. Patient reports that signs and symptoms have been present for 1 day and indicates a pain score of 0/10. MEDICAL/SURGICAL HISTORY: Hypertension. Carcinoma, squamous cell. Coronary artery stent. COMPARISON: No prior exams available for comparison. DOSE: 8.1 mCi Tc 99m Myoview at rest 26.4 mCi [id number] at stress 0.4 mg Lexiscan STRESS SYMPTOMS: None. EJECTION FRACTION: 63 % TECHNIQUE: The patient underwent pharmacologic stress with infusion of prescribed dose. Continuous ECG tracing was monitored during stress. Gated SPECT imaging was performed after stress and conventi onal SPECT imaging was performed at rest. The examination was performed on a SPECT/CT scanner, both attenuation and non-corrected datasets were reviewed. FINDINGS: Distribution: The maximum perfused segment at stress is in the lateral wall. Perfusion Study: The pattern of perfusion at stress is within normal limits. Gated Study: There are intact wall motion and wall thickening without hypokinetic or dyskinetic segm ents. The ejection fraction is calculated at 63%. RISK CATEGORY: Low (<1% Annual Motality Rate) CONCLUSION: 1. No reversible perfusion defects to suggest ischemia. 2. Normal ejection fraction 63%. Electronically signed by: Caleb Patel MD 04/12/2018 1:50 PM EDT
--- NOTE | 2018-04-12 14:45 | EKG ---
Date Performed: 04/11/2018 Time Performed: 05:26:58 PTAGE: 63 years EKG: ATRIAL FIBRILLATION WITH RAPID VENTRICULAR RESPONSE NONSPECIFIC T-WAVE ABNORMALITY ABNORMAL RHYTHM ECG Compared to PREVIOUS TRACING , atrial fibrillation has replaced Sinus rhythm . PREVIOUS TRACIN11/10/2017 01.46 DOCTOR: Eb Chase Interpretating Date/Time 04/12/2018 14:45:00
[2018-04-12] MEDS: LEVOFLOXACIN 750 MG TAB PO SCH (15:04)
[2018-04-12] MEDS: RIVAROXABAN 20 MG TAB PO SCH (15:05)
[2018-04-12] MEDS: ATORVASTATIN 80 MG TAB PO SCH (20:54)
[2018-04-12] MEDS: INSULIN DETEMIR 100 UNITS/ML VIAL SQ SCH (20:55)
[2018-04-13] VITALS (14 sets, daily range): BP systolic 98–134; BP diastolic 49–82; PULSE 51–108; RESP 16–22; TEMP 97.5–98.8; O2SAT 90–98
[2018-04-13] MEDS: DILTIAZEM HCL 60 MG TAB PO SCH ×2 (00:14→05:31)
[2018-04-13] MEDS: ACETAMINOPHEN/HYDROcodone 325 MG/5 MG TAB PO PRN ×2 (03:38→12:34)
[2018-04-13] MEDS: RESP: ALBUTEROL 2.5 MG/IPRATROPIUM 0.5 MG NEB (SCH) INH ×5 (04:01→20:17)
[2018-04-13] MEDS: INSULIN ASPART SUPPLEMENTAL SCALE SQ SCH ×4 (08:00→21:00)
[2018-04-13] MEDS: TOPIRAMATE 25 MG TAB PO SCH (08:34)
[2018-04-13] MEDS: SUCRALFATE 1 GM TAB PO SCH ×3 (08:35→17:45)
[2018-04-13] MEDS: predniSONE 20 MG TAB PO SCH (08:35)
[2018-04-13] MEDS: DOCUSATE SODIUM 50 MG/SENNA 8.6 MG TAB PO SCH ×2 (08:36→22:25)
[2018-04-13] MEDS: PANTOPRAZOLE SOD 40 MG DELAYED RELEASE TAB PO SCH (08:36)
[2018-04-13] MEDS: clonazePAM 1 MG TAB PO SCH ×2 (08:36→22:25)
[2018-04-13] MEDS: cloNIDine HCL 0.1 MG TAB PO SCH ×3 (08:36→17:45)
[2018-04-13] MEDS: POTASSIUM CHLORIDE 20 MEQ CONTROLLED RELEASE TAB PO SCH ×2 (08:36→22:25)
[2018-04-13] MEDS: RIVAROXABAN 20 MG TAB PO SCH (08:37)
[2018-04-13] MEDS: BUDESONIDE-FORMOTEROL 160/4.5 MCG INHALER INH SCH ×2 (08:38→22:26)
[2018-04-13] MEDS: SODIUM CHLORIDE 0.9% FLUSH 10 ML FLUSH IV FLUSH SCH ×2 (08:39→22:26)
--- NOTE | 2018-04-13 09:38 | PD.CARD.PN ---
Subjective Subjective Remarks No complaints, he says he feels much better, rate controlled afib on tele. Objective Medications Current Medications Medications (Trade) Dose Ordered Sig/Myrna Route Start Time Stop Time Status Last Admin (NS Flush) 2 ml UNSCH PRN IV FLUSH 04/11/18 10:30 (NS Flush) 2 ml BID IV FLUSH 04/11/18 21:00 04/13/18 08:39 (Tylenol) 650 mg Q4H PRN PO 04/11/18 10:30 (Zofran Odt) 4 mg Q6H PRN PO 04/11/18 11:45 (Narcan Inj) 0.4 mg UNSCH PRN IV PUSH 04/11/18 10:30 (Pippa-Colace) 1 tab BID PO 04/11/18 21:00 04/13/18 08:36 (Milk Of Magnesia Liq) 30 ml Q12H PRN PO 04/11/18 10:30 (Senokot) 17.2 mg Q12H PRN PO 04/11/18 10:30 (Dulcolax Supp) 10 mg DAILY PRN RECTAL 04/11/18 10:30 (Lactulose Liq) 30 ml DAILY PRN PO 04/11/18 10:30 (Duoneb Neb) 1 ampule Q4HR NEB INH 04/11/18 12:00 04/13/18 09:07 (Albuterol Neb) 2.5 mg Q2HR NEB PRN INH 04/11/18 11:15 (Deltasone) 40 mg DAILY PO 04/12/18 09:00 04/13/18 08:35 (Levaquin) 750 mg Q24H PO 04/11/18 12:00 04/12/18 15:04 (Lipitor) 80 mg HS PO 04/11/18 21:00 04/12/18 20:54 (Symbicort 160-4.5 Mcg Inh) 1 puff Q12HR INH 04/11/18 21:00 04/13/18 08:38 (KlonoPIN) 1 mg BID PO 04/11/18 21:00 04/13/18 08:36 (Catapres) 0.1 mg TID PO 04/11/18 13:00 04/13/18 08:36 (Protonix) 40 mg DAILY PO 04/12/18 09:00 04/13/18 08:36 (Xarelto) 20 mg DAILY PO 04/12/18 09:00 04/13/18 08:37 (Carafate) 1 gm TID PO 04/11/18 13:00 04/13/18 08:35 (Zanaflex) 4 mg Q12HR PO 04/11/18 21:00 04/13/18 08:34 (Topamax) 50 mg DAILY PO 04/12/18 09:00 04/13/18 08:34 ([place] 5-325 Mg) 1 tab Q6H PRN PO 04/11/18 11:15 04/11/18 16:44 ([place] 5-325 Mg) 2 tab Q6H PRN PO 04/11/18 11:15 04/13/18 03:38 (KCl) 20 meq Q12HR PO 04/11/18 21:00 04/13/18 08:36 (D50w (Vial) Inj) 50 ml UNSCH PRN IV PUSH 04/11/18 11:15 04/12/18 08:44 (Glucagon Inj) 1 mg UNSCH PRN OTHER 04/11/18 11:15 (NovoLOG SUPPLEMENTAL SCALE) 1 ACHS SLIDING SCALE SQ 04/11/18 12:00 04/13/18 08:00 (Apresoline) 25 mg Q8HR PRN PO 04/11/18 11:45 (Cardizem) 60 mg Q6HR PO 04/11/18 18:00 04/13/18 05:31 (Levemir Inj) 25 units HS SQ 04/13/18 21:00 Vital Signs / I&O Vital Signs Date Time Temp Pulse Resp B/P (MAP) Pulse Ox O2 Delivery O2 Flow Rate FiO2 04/13/18 09:09 90 21 04/13/18 08:01 97.9 82 18 134/69 (90) 97 04/13/18 05:29 98 130/56 (80) 04/13/18 04:53 18 04/13/18 04:03 62 04/13/18 04:00 Room Air 04/13/18 04:00 98.8 108 16 98/82 (87) 95 04/13/18 00:00 Room Air 04/13/18 00:00 97.7 105 19 126/55 (78) 93 04/12/18 23:54 111 04/12/18 21:55 Room Air 04/12/18 20:00 98.2 94 18 96/75 (82) 95 04/12/18 19:47 105 04/12/18 19:43 93 21 04/12/18 16:00 97.2 108 18 108/87 (94) 97 04/12/18 12:00 97.2 102 18 105/71 (82) 96 I/O 04/12/18 04/12/18 04/12/18 04/13/18 04/13/18 04/13/18 07:00 15:00 23:00 07:00 15:00 23:00 Intake Total 480 ml 240 ml Output Total 1220 ml 500 ml 1950 ml Balance -1220 ml -20 ml -1710 ml Intake Oral 480 ml 240 ml Output Urine Total 1220 ml 500 ml 1950 ml # Bowel Movements 1 0 Physical Exam GENERAL: This is a well-nourished, well-developed patient, in no apparent distress. CARDIOVASCULAR: Regular rate and irregular rhythm without murmurs, gallops, or rubs. RESPIRATORY: Clear to auscultation. Breath sounds equal bilaterally. No wheezes , rales, or rhonchi. GASTROINTESTINAL: Abdomen soft, non-tender, nondistended. Normal, active bowel sounds MUSCULOSKELETAL: Extremities without clubbing, cyanosis, or edema. NEURO: Alert & Oriented x4 to person, place, time, situation. Moves all ext x4 Laboratory Laboratory Tests Test 04/12/18 20:03 Random Glucose 404 MG/DL Imaging Last Impressions Aorta w/Runoff CTA 04/12/18 0700 Signed Impressions: CONCLUSION: 1. The patient is post right aorto femoral bypass and right-left femoral-femor al bypass. These grafts are widely patent. 2. Right leg: The origin of the profunda femoral demonstrates at least moderat e stenosis. The superficial femoral is severely diseased and occludes in its mi d segment. Distally, the popliteal is patent. The origin of the anterior tibial is heavily diseased. The posterior tibial and peroneal are small in caliber bu t patent.. The occlusion within the SFA is new compared to the previous study o f 08/14/2016. 3. Left leg: The femoral to popliteal bypass graft is patent. Distally, there is two-vessel runoff on the delayed images. Myocardial Perfusion Scan Nuc Med 04/12/18 0000 Signed Impressions: CONCLUSION: 1. No reversible perfusion defects to suggest ischemia. 2. Normal ejection fraction 63%. Lower Extremity Ultrasound 04/11/18 0823 Signed Impressions: CONCLUSION: 1. The study is negative for lower extremity deep venous thrombosis. Chest X-Ray 04/11/18 0520 Signed Impressions: CONCLUSION: Cardiomegaly and slight interstitial prominence. CT Angiography 04/11/18 0000 Signed Impressions: CONCLUSION: 1. No evidence for pulmonary motion. 2. Bibasilar atelectasis. 3. Subcentimeter pulmonary nodules. Assessment and Plan Problem List: (1) Atypical chest pain ICD Codes: R07.89 - Other chest pain Plan: s/p nonischemic nuc stress (2) New onset atrial fibrillation ICD Codes: I48.91 - Unspecified atrial fibrillation Status: Acute Plan: on xarelto, good rates w/ diltiazem; stopped lisinopril due to low bp's so he has room for rate control meds.; Could change to long acting dilt prior to d/c (3) CHF exacerbation ICD Codes: I50.9 - Heart failure, unspecified Status: Acute Plan: compensated Assessment and Plan Stable from cardiac standpoint; will sign off, please call with questions. Rogelio Young MD Apr 13, 2018 09:38
--- NOTE | 2018-04-13 10:49 | HHI.PR ---
Subjective Remarks Follow-up A. fib and claudication. States he is okay. Patient has limited ambulation and develops right lower extremity claudication. Uses wheelchair. Vascular surgeon is Dr. Jerez. Objective Vitals Vital Signs Date Time Temp Pulse Resp B/P (MAP) Pulse Ox O2 Delivery O2 Flow Rate FiO2 04/13/18 09:09 90 21 04/13/18 08:01 97.9 82 18 134/69 (90) 97 04/13/18 05:29 98 130/56 (80) 04/13/18 04:53 18 04/13/18 04:03 62 04/13/18 04:00 Room Air 04/13/18 04:00 98.8 108 16 98/82 (87) 95 04/13/18 00:00 Room Air 04/13/18 00:00 97.7 105 19 126/55 (78) 93 04/12/18 23:54 111 04/12/18 21:55 Room Air 04/12/18 20:00 98.2 94 18 96/75 (82) 95 04/12/18 19:47 105 04/12/18 19:43 93 21 04/12/18 16:00 97.2 108 18 108/87 (94) 97 04/12/18 12:00 97.2 102 18 105/71 (82) 96 I/O 04/12/18 04/12/18 04/12/18 04/13/18 04/13/18 04/13/18 07:00 15:00 23:00 07:00 15:00 23:00 Intake Total 480 ml 240 ml Output Total 1220 ml 500 ml 1950 ml Balance -1220 ml -20 ml -1710 ml Intake Oral 480 ml 240 ml Output Urine Total 1220 ml 500 ml 1950 ml # Bowel Movements 1 0 Result Diagram: 04/12/18 0757 04/12/182002 Imaging Last Impressions Aorta w/Runoff CTA 04/12/18 07 Signed Impressions: CONCLUSION: 1. The patient is post right aorto femoral bypass and right-left femoral-femor al bypass. These grafts are widely patent. 2. Right leg: The origin of the profunda femoral demonstrates at least moderat e stenosis. The superficial femoral is severely diseased and occludes in its mi d segment. Distally, the popliteal is patent. The origin of the anterior tibial is heavily diseased. The posterior tibial and peroneal are small in caliber bu t patent.. The occlusion within the SFA is new compared to the previous study o f 08/14/2016. 3. Left leg: The femoral to popliteal bypass graft is patent. Distally, there is two-vessel runoff on the delayed images. Myocardial Perfusion Scan Nuc Med 04/12/18 0000 Signed Impressions: CONCLUSION: 1. No reversible perfusion defects to suggest ischemia. 2. Normal ejection fraction 63%. Lower Extremity Ultrasound 04/11/18 0823 Signed Impressions: CONCLUSION: 1. The study is negative for lower extremity deep venous thrombosis. Chest X-Ray 04/11/18 0520 Signed Impressions: CONCLUSION: Cardiomegaly and slight interstitial prominence. CT Angiography 04/11/18 0000 Signed Impressions: CONCLUSION: 1. No evidence for pulmonary motion. 2. Bibasilar atelectasis. 3. Subcentimeter pulmonary nodules. Objective Remarks GENERAL: Slightly disheveled elderly male laying in bed in no acute distress. CARDIOVASCULAR: Irregular rate and rhythm. No appreciable murmurs. RESPIRATORY: Decreased breath sounds nasal cannula in place. GASTROINTESTINAL: Ex-lap scar. Abdomen soft, non-tender, nondistended. No guarding. MUSCULOSKELETAL: Scars from prior bypass. Partial left foot amputation. Palpable distal pulses. No significant edema. NEUROLOGICAL: Awake and alert. Motor and sensory grossly within normal limits. Mumbled speech. Procedures none A/P Problem List: (1) Chest pain ICD Code: R07.9 - Chest pain, unspecified Status: Acute (2) New onset atrial fibrillation ICD Code: I48.91 - Unspecified atrial fibrillation Status: Acute (3) CHF exacerbation ICD Code: I50.9 - Heart failure, unspecified Status: Acute (4) COPD exacerbation ICD Code: J44.1 - Chronic obstructive pulmonary disease with (acute) exacerbation Status: Acute (5) Claudication ICD Code: I73.9 - Peripheral vascular disease, unspecified Status: Chronic (6) Hypertension ICD Code: I10 - Essential (primary) hypertension Status: Chronic (7) DM (diabetes mellitus) ICD Code: E11.9 - Type 2 diabetes mellitus without complications Status: Chronic (8) Peripheral vascular disease ICD Code: I73.9 - Peripheral vascular disease, unspecified Status: Chronic Assessment and Plan 63 year old male with history of IDDM, HTN, HLD, PAD, CAD, and ?DVT presenting with six weeks of RLE pain and chest pain. In the ER, he was found to be in atrial fibrillation with RVR, signs of congestive heart failure on imaging, and a COPD exacerbation. New onset atrial fibrillation with RVR EKG read and reviewed by me personally demonstrating AFIB with RVR CHADSVASc2 score of 6 Resume home Xarelto 2D echo pending Cardiology consulted Telemetry Controlled ventricular response will switch to long-acting Cardizem CHF exacerbation CXR with cardiology and interstitial prominence, BNP elevated at 407 Received a dose of IV Lasix in the ER DC Lasix IV 20 mg BID with potassium supplementation, patient compensated at this time 2D echo pending COPD exacerbation Patient with increased sputum production, cough, and dyspnea and mildly elevated white count Solumedrol 60 mg IV x 1 Improving decrease prednisone Levaquin PO Duonebs Supplemental O2 to maintain sats 90-92% Chest pain Could be multifactorial given atrial fibrillation, CHF exacerbation, and COPD exacerbation First troponin negative in the ED Continue with ACS rule out D-Dimer elevated, CTA negative for PE CXR with evidence of CHF Cardiology consulted Negative nuclear stress test Claudication/peripheral arterial disease Patient with symptoms of both claudication and rest pain of RLE RLE U/S negative for DVT CTA run-off with new right SFA occlusion occlusion consult patient's vascular surgeon Dr. Jerez Supposedly allergic to ASA Continue statin Smoking cessation, counselled. Diabetes mellitus 2 SSI per protocol Convert home Lantus to Levemir, continue to hold p.o. medications Monitor accuchecks A1c 7. Hyperglycemia secondary to steroids. Hypertension Resume home meds Hydralazine PRN Tobacco abuse - Counseled on cessation DVT prophylaxis: On home Xarelto Discharge Planning Discharge when cleared by vascular surgery pending labs, walk test and echocardiogram Problem Qualifiers (1) Chest pain: Qualified Codes: R07.9 - Chest pain, unspecified Cecilio Myers MD Apr 13, 2018 10:49
--- NOTE | 2018-04-13 11:32 | ECHRPT ---
Indication: CHF/AT FIB CONCLUSIONS Normal left ventricular size. Mild concentric left ventricular hypertrophy. The left ventricular systolic function is normal with an estimated ejection fraction of 55%. The left atrial size is upper limits of normal. The right atrial size is mildly dilated. A patent foramen ovale is present with a [id number] shunt demonstrated by color flow Doppler interrogation. Mild mitral valve regurgitation. There is mild to moderate tricuspid valve regurgitation. The estimated pulmonary arterial pressure is 39 mmHg. Trace pericardial effusion. BP: / HR: Rhythm: Sinus, PVCs MEASUREMENTS (Male / Female) Normal Values Technical Quality:Fair 2D ECHO LV Diastolic Diameter PLAX 5.1 cm 4.2 - 5.9 / 3.9 - 5.3 cm LV Systolic Diameter PLAX 3.9 cm IVS Diastolic Thickness 1.0 cm 0.6 - 1.0 / 0.6 - 0.9 cm LVPW Diastolic Thickness 1.0 cm 0.6 - 1.0 / 0.6 - 0.9 cm LV Relative Wall Thickness 0.4 RV Internal Dim ED PLAX 2.8 cm LVOT Diameter 2.0 cm Aortic Root Diameter 3.5 cm LA Systolic Diameter LX 4.0 cm 3.0 - 4.0 / 2.7 - 3.8 cm M-MODE AV Cusp Separation MM 1.8 cm DOPPLER AV Peak Velocity 148.0 cm/s AV Peak Gradient 8.8 mmHg AV Mean Gradient 4.0 mmHg AV Velocity Time Integral 31.5 cm LVOT Peak Velocity 110.0 cm/s LVOT Peak Gradient 4.8 mmHg LVOT Velocity Time Integral 22.3 cm AV Area Cont Eq vti 2.2 cm AV Area Cont Eq pk 2.3 cm Mitral E Point Velocity 121.0 cm/s Mitral A Point Velocity 95.0 cm/s Mitral E to A Ratio 1.3 LV E' Lateral Velocity 9.8 cm/s Mitral E to LV E' Lateral Ratio 12.4 LV E' Septal Velocity 9.9 cm/s Mitral E to LV E' Septal Ratio 12.2 TR Peak Velocity 267.0 cm/s TR Peak Gradient 28.5 mmHg Right Atrial Pressure 10.0 mmHg Pulmonary Artery Systolic Pressu 38.5 mmHg Right Ventricular Systolic Press 38.5 mmHg PV Peak Velocity 87.2 cm/s PV Peak Gradient 3.0 mmHg FINDINGS LEFT VENTRICLE Normal left ventricular size. Mild concentric left ventricular hypertrophy. The left ventricular systolic function is normal with an estimated ejection fraction of 55%. RIGHT VENTRICLE Normal right ventricular size and systolic function. LEFT ATRIUM The left atrial size is upper limits of normal. RIGHT ATRIUM The right atrial size is mildly dilated. ATRIAL SEPTUM A patent foramen ovale is present with a [id number]-mp-[id number] shunt demonstrated by color flow Doppler interrogation. AORTA The aortic root and proximal ascending aorta are normal in size on limited imaging. MITRAL VALVE Mild mitral valve regurgitation. AORTIC VALVE Trileaflet aortic valve. No aortic valve stenosis or regurgitation. TRICUSPID VALVE There is mild to moderate tricuspid valve regurgitation. The estimated pulmonary arterial pressure is 38.5 mmHg. PULMONARY VALVE No pulmonary valve regurgitation or stenosis. VESSELS The inferior vena cava is normal in size. PERICARDIUM Trace pericardial effusion. Marcos Sevilla MD, FACC (Electronically Signed) Final Date:13 April 2018 11:29
[2018-04-13] MEDS: LEVOFLOXACIN 750 MG TAB PO SCH (12:30)
[2018-04-13] MEDS: DILTIAZEM-CD 240 MG CAP ER PO SCH (12:30)
[2018-04-13 14:01] LABS: AUTOMATED NEUTROPHIL # 5.7 TH/MM3 (1.8-7.7); BASOPHIL % 0.1 % (0.0-2.0); EOSINOPHIL % 0.3 % (0.0-4.0); HEMATOCRIT 29.5 % (39.0-51.0); HEMOGLOBIN 9.6 GM/DL (13.0-17.0); LYMPH % 5.2 % (9.0-44.0); LYMPHOCYTE # 0.3 TH/MM3 (1.0-4.8); MEAN CELL VOLUME 88.2 FL (80.0-100.0); MEAN CORPUSCULAR HEMOGLOBIN 28.7 PG (27.0-34.0); MEAN CORPUSCULAR HGB CONC 32.5 % (32.0-36.0); MEAN PLATELET VOLUME 8.7 FL (7.0-11.0); MONO % 1.7 % (0.0-8.0); MONOCYTE # 0.1 TH/MM3 (0-0.9); NEUT % 92.7 % (16.0-70.0); PLATELET COUNT 202 TH/MM3 (150-450); RED BLOOD COUNT 3.35 MIL/MM3 (4.50-5.90); RED CELL DISTRIBUTION WIDTH 15.6 % (11.6-17.2); WHITE BLOOD COUNT 6.1 TH/MM3 (4.0-11.0)
[2018-04-13 15:24] LABS: BICARBONATE 26.3 MEQ/L (21.0-32.0); CALCIUM 9.6 MG/DL (8.5-10.1); CREATININE 1.5 MG/DL (0.60-1.30); MAGNESIUM 2.2 MG/DL (1.5-2.5)
[2018-04-13] MEDS: SODIUM CHLOR 0.9% 1000 ML INJ 1,000 ML IV SCH (17:45)
[2018-04-13] MEDS ORDERED: INSULIN DETEMIR 100 UNITS/ML VIAL SQ SCH (21:00)
[2018-04-13] MEDS: ATORVASTATIN 80 MG TAB PO SCH (22:25)
[2018-04-14] VITALS (7 sets, daily range): BP systolic 109–119; BP diastolic 52–63; PULSE 62–80; RESP 18–22; TEMP 97.6–98.3; O2SAT 93–98
[2018-04-14] MEDS: RESP: ALBUTEROL 2.5 MG/IPRATROPIUM 0.5 MG NEB (SCH) INH ×5 (00:33→15:37)
[2018-04-14] MEDS: INSULIN ASPART SUPPLEMENTAL SCALE SQ SCH ×3 (08:00→18:55)
[2018-04-14] MEDS: SODIUM CHLORIDE 0.9% FLUSH 10 ML FLUSH IV FLUSH SCH (09:00)
[2018-04-14] MEDS ORDERED: predniSONE 20 MG TAB PO SCH (09:00)
[2018-04-14] MEDS: TOPIRAMATE 25 MG TAB PO SCH (09:00)
[2018-04-14] MEDS: SUCRALFATE 1 GM TAB PO SCH ×3 (09:17→18:59)
[2018-04-14] MEDS: DILTIAZEM-CD 240 MG CAP ER PO SCH (09:17)
[2018-04-14] MEDS: PANTOPRAZOLE SOD 40 MG DELAYED RELEASE TAB PO SCH (09:17)
[2018-04-14] MEDS: clonazePAM 1 MG TAB PO SCH (09:17)
[2018-04-14] MEDS: RIVAROXABAN 20 MG TAB PO SCH (09:17)
[2018-04-14] MEDS: cloNIDine HCL 0.1 MG TAB PO SCH ×3 (09:17→18:59)
[2018-04-14] MEDS: DOCUSATE SODIUM 50 MG/SENNA 8.6 MG TAB PO SCH (09:18)
[2018-04-14] MEDS: POTASSIUM CHLORIDE 20 MEQ CONTROLLED RELEASE TAB PO SCH (09:18)
[2018-04-14] MEDS: BUDESONIDE-FORMOTEROL 160/4.5 MCG INHALER INH SCH (09:24)
--- NOTE | 2018-04-14 09:41 | HHI.PR ---
Subjective Remarks Follow-up PAD. Patient states he does not have any claudication at this time ambulated a few steps today. At home he is barely ambulatory using wheelchair most of the time. States he will wait for the vascular surgeon until the end of the day and would like to go home and see the physician outpatient. Discussed with sister Objective Vitals Vital Signs Date Time Temp Pulse Resp B/P (MAP) Pulse Ox O2 Delivery O2 Flow Rate FiO2 04/14/18 08:33 98 21 04/14/18 08:00 98.0 67 18 117/63 (81) 94 04/14/18 05:06 98.3 80 22 112/59 (76) 93 04/14/18 03:56 73 04/14/18 00:01 62 04/13/18 23:53 98.4 61 20 107/53 (71) 93 04/13/18 21:47 98.6 51 22 116/49 (71) 98 04/13/18 20:21 94 Nasal Cannula 04/13/18 20:14 53 04/13/18 20:00 Room Air 04/13/18 18:54 66 126/56 (79) 04/13/18 16:00 97.6 61 20 106/58 (74) 92 04/13/18 12:01 97.5 71 18 109/69 (82) 94 04/13/18 12:00 73 I/O 04/13/18 04/13/18 04/13/18 04/14/18 04/14/18 04/14/18 07:00 15:00 23:00 07:00 15:00 23:00 Intake Total 240 ml 600 ml 720 ml Output Total 1950 ml 1000 ml 2880 ml Balance -1710 ml -400 ml -2160 ml Intake Oral 240 ml 600 ml 720 ml Output Urine Total 1950 ml 1000 ml 2880 ml # Voids 4 # Bowel Movements 0 1 0 Result Diagram: 04/13/18 1335 04/13/18 1335 Imaging Last Impressions Aorta w/Runoff CTA 04/12/18 0700 Signed Impressions: CONCLUSION: 1. The patient is post right aorto femoral bypass and right-left femoral-femor al bypass. These grafts are widely patent. 2. Right leg: The origin of the profunda femoral demonstrates at least moderat e stenosis. The superficial femoral is severely diseased and occludes in its mi d segment. Distally, the popliteal is patent. The origin of the anterior tibial is heavily diseased. The posterior tibial and peroneal are small in caliber bu t patent.. The occlusion within the SFA is new compared to the previous study o f 08/14/2016. 3. Left leg: The femoral to popliteal bypass graft is patent. Distally, there is two-vessel runoff on the delayed images. Myocardial Perfusion Scan Nuc Med 04/12/18 0000 Signed Impressions: CONCLUSION: 1. No reversible perfusion defects to suggest ischemia. 2. Normal ejection fraction 63%. Lower Extremity Ultrasound 04/11/18 0823 Signed Impressions: CONCLUSION: 1. The study is negative for lower extremity deep venous thrombosis. Chest X-Ray 04/11/18 0520 Signed Impressions: CONCLUSION: Cardiomegaly and slight interstitial prominence. CT Angiography 04/11/18 0000 Signed Impressions: CONCLUSION: 1. No evidence for pulmonary motion. 2. Bibasilar atelectasis. 3. Subcentimeter pulmonary nodules. Objective Remarks GENERAL: Slightly disheveled elderly male laying in bed in no acute distress. CARDIOVASCULAR: Irregular rate and rhythm. No appreciable murmurs. RESPIRATORY: Decreased breath sounds nasal cannula in place. GASTROINTESTINAL: Ex-lap scar. Abdomen soft, non-tender, nondistended. No guarding. MUSCULOSKELETAL: Scars from prior bypass. Partial left foot amputation. Palpable distal pulses. No significant edema. NEUROLOGICAL: Awake and alert. Motor and sensory grossly within normal limits. Mumbled speech. Procedures none A/P Problem List: (1) Chest pain ICD Code: R07.9 - Chest pain, unspecified Status: Acute (2) New onset atrial fibrillation ICD Code: I48.91 - Unspecified atrial fibrillation Status: Acute (3) CHF exacerbation ICD Code: I50.9 - Heart failure, unspecified Status: Acute (4) COPD exacerbation ICD Code: J44.1 - Chronic obstructive pulmonary disease with (acute) exacerbation Status: Acute (5) Claudication ICD Code: I73.9 - Peripheral vascular disease, unspecified Status: Chronic (6) Hypertension ICD Code: I10 - Essential (primary) hypertension Status: Chronic (7) DM (diabetes mellitus) ICD Code: E11.9 - Type 2 diabetes mellitus without complications Status: Chronic (8) Peripheral vascular disease ICD Code: I73.9 - Peripheral vascular disease, unspecified Status: Chronic Assessment and Plan 63 year old male with history of IDDM, HTN, HLD, PAD, CAD, and ?DVT presenting with six weeks of RLE pain and chest pain. In the ER, he was found to be in atrial fibrillation with RVR, signs of congestive heart failure on imaging, and a COPD exacerbation. New onset atrial fibrillation with RVR EKG read and reviewed by me personally demonstrating AFIB with RVR CHADSVASc2 score of 6 Resume home Xarelto 2D echo with PFO. Discussed with cardiology, outpatient follow-up Telemetry Controlled ventricular response will switch to long-acting Cardizem CHF exacerbation CXR with cardiology and interstitial prominence, BNP elevated at 407 Received a dose of IV Lasix in the ER DC Lasix IV 20 mg BID with potassium supplementation, patient compensated at this time 2D echo preserved ejection fraction COPD exacerbation Patient with increased sputum production, cough, and dyspnea and mildly elevated white count Solumedrol 60 mg IV x 1 Improving wean and discontinue prednisone Levaquin PO Duonebs Supplemental O2 to maintain sats 90-92%, passed walk test Chest pain Could be multifactorial given atrial fibrillation, CHF exacerbation, and COPD exacerbation First troponin negative in the ED Continue with ACS rule out D-Dimer elevated, CTA negative for PE CXR with evidence of CHF Cardiology consulted Negative nuclear stress test Claudication/peripheral arterial disease Patient with symptoms of both claudication and rest pain of RLE RLE U/S negative for DVT CTA run-off with new right SFA occlusion occlusion consulted vascular surgery who will see patient today Supposedly allergic to ASA Continue statin Smoking cessation, counselled. Diabetes mellitus 2 SSI per protocol Convert home Lantus to Levemir, continue to hold p.o. medications Monitor accuchecks A1c 7. Hyperglycemia secondary to steroids. Hypertension Resume home meds Hydralazine PRN Tobacco abuse - Counseled on cessation Cocaine abuse. Also counseled Acute kidney injury status post CVA. Stable on gentle IV hydration. Repeat BMP DVT prophylaxis: On home Xarelto Discharge Planning Discharge when cleared by vascular surgery Problem Qualifiers (1) Chest pain: Qualified Codes: R07.9 - Chest pain, unspecified Cecilio Myers MD Apr 14, 2018 09:41
[2018-04-14 10:42] LABS: BICARBONATE 26.8 MEQ/L (21.0-32.0); CALCIUM 9.4 MG/DL (8.5-10.1); CREATININE 1.53 MG/DL (0.60-1.30)
[2018-04-14] MEDS: SODIUM CHLOR 0.9% 1000 ML INJ 1,000 ML IV SCH (11:10)
[2018-04-14] MEDS: LEVOFLOXACIN 750 MG TAB PO SCH (13:23)
[2018-04-14] MEDS ORDERED: DILT240C44 PO (17:13)
[2018-04-14] MEDS ORDERED: LEVA750T9 PO (17:13)
--- NOTE | 2018-04-14 17:13 | HHI.DCPOC ---
Discharge Care Plan Diagnosis: (1) Peripheral vascular disease Your Health Problems Are: Anxiety Difficulty with ADL Exercise Tolerance Goals to Promote Your Health * To prevent worsening of your condition and complications * To maintain your health at the optimal level Directions to Meet Your Goals Take your medications as prescribed Follow your dietary instruction Follow activity as directed Keep your appointments as scheduled Take your immunizations and boosters as scheduled If your symptoms worsen call your PCP, if no PCP go to Urgent Care Center or Emergency Room Smoking is Dangerous to Your Health. Avoid second hand smoke Call the 24-hour hour crisis hotline for domestic abuse at Cecilio Myers MD Apr 14, 2018 17:13
--- NOTE | 2018-04-14 17:16 | HHI.DS ---
Discharge Summary Admission Date Apr 11, 2018 at 10:30 Discharge Date: Apr 14, 2018 Admitting Diagnosis New onset afib, Chest pain (1) Chest pain ICD Code: R07.9 - Chest pain, unspecified Diagnosis: Principal Status: Acute (2) New onset atrial fibrillation ICD Code: I48.91 - Unspecified atrial fibrillation Diagnosis: Principal Status: Acute (3) CHF exacerbation ICD Code: I50.9 - Heart failure, unspecified Diagnosis: Principal Status: Acute (4) COPD exacerbation ICD Code: J44.1 - Chronic obstructive pulmonary disease with (acute) exacerbation Diagnosis: Principal Status: Acute (5) Claudication ICD Code: I73.9 - Peripheral vascular disease, unspecified Diagnosis: Principal Status: Chronic (6) Hypertension ICD Code: I10 - Essential (primary) hypertension Diagnosis: Principal Status: Chronic (7) DM (diabetes mellitus) ICD Code: E11.9 - Type 2 diabetes mellitus without complications Diagnosis: Principal Status: Chronic (8) Peripheral vascular disease ICD Code: I73.9 - Peripheral vascular disease, unspecified Diagnosis: Principal Status: Chronic Procedures none Brief History - From Admission 63 year old male with history of IDDM, HTN, HLD, PAD, and ?DVT presenting with six weeks of RLE pain. He is somewhat of a poor historian. Patient endorses pain in his RLE with exertion and at a rest as well. Pain is worse with ambulation and eases when he rests but is always present. He is unsure if he has had a blood clot but states "they took two veins out of my right leg and put it into my left." He cannot tell me why he is on Xarelto but states he is compliant. He also endorses intermittent chest tightness associated with exertion for the past six days. Pain radiates into his jaw and is relieved with rest. He apparently has some cardiac stents. 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 He also endorses exertional dyspnea for the past several months but states recently he has had increased cough, SOB, chills, wheezing, and yellow sputum production. He denies any swelling in his legs. He is a diabetic and states he takes his insulin regularly. He cannot tell me his last A1c. In the ER he was found to be in atrial fibrillation with RVR with no prior diagnosis of this and the patient is unaware of a past history of this. He denies dizziness, palpitations, or syncope. He admits to smoking crack when it's "given to him" and reports his last use was two days ago. CBC/BMP: 04/13/18 1335 04/14/18 0705 Significant Findings Laboratory Tests Test 04/11/18 18:17 04/12/18 07:07 04/12/18 07:57 04/12/18 20:03 Hemoglobin A1c 7.0 % (4.3-6.0) Magnesium Level 1.4 MG/DL (1.5-2.5) Troponin I LESS THAN 0.02 NG/ML Thyroid Stimulating Hormone 3rd Gen 0.347 uIU/ML (0.358-3.740) Random Glucose 44 MG/DL (74-106) 404 MG/DL (74-106) Calcium Level 8.4 MG/DL (8.5-10.1) Estimat Glomerular Filtration Rate 60 ML/MIN (>89) Red Blood Count 3.00 MIL/MM3 (4.50-5.90) Hemoglobin 8.4 GM/DL (13.0-17.0) Hematocrit 26.0 % (39.0-51.0) Platelet Count 107 TH/MM3 (150-450) Monocytes (%) (Auto) 10.6 % (0.0-8.0) Test 04/13/18 13:35 04/14/18 07:05 Red Blood Count 3.35 MIL/MM3 (4.50-5.90) Hemoglobin 9.6 GM/DL (13.0-17.0) Hematocrit 29.5 % (39.0-51.0) Neutrophils (%) (Auto) 92.7 % (16.0-70.0) Lymphocytes (%) (Auto) 5.2 % (9.0-44.0) Lymphocytes # (Auto) 0.3 TH/MM3 (1.0-4.8) Creatinine 1.50 MG/DL (0.60-1.30) 1.53 MG/DL (0.60-1.30) Random Glucose 314 MG/DL (74-106) 196 MG/DL (74-106) Sodium Level 135 MEQ/L (136-145) Estimat Glomerular Filtration Rate 48 ML/MIN (>89) 47 ML/MIN (>89) Blood Urea Nitrogen 25 MG/DL (7-18) Imaging Last Impressions Aorta w/Runoff CTA 04/12/18 0700 Signed Impressions: CONCLUSION: 1. The patient is post right aorto femoral bypass and right-left femoral-femor al bypass. These grafts are widely patent. 2. Right leg: The origin of the profunda femoral demonstrates at least moderat e stenosis. The superficial femoral is severely diseased and occludes in its mi d segment. Distally, the popliteal is patent. The origin of the anterior tibial is heavily diseased. The posterior tibial and peroneal are small in caliber bu t patent.. The occlusion within the SFA is new compared to the previous study o f 08/14/2016. 3. Left leg: The femoral to popliteal bypass graft is patent. Distally, there is two-vessel runoff on the delayed images. Myocardial Perfusion Scan Nuc Med 04/12/18 0000 Signed Impressions: CONCLUSION: 1. No reversible perfusion defects to suggest ischemia. 2. Normal ejection fraction 63%. Lower Extremity Ultrasound 04/11/18 0823 Signed Impressions: CONCLUSION: 1. The study is negative for lower extremity deep venous thrombosis. Chest X-Ray 04/11/18 0520 Signed Impressions: CONCLUSION: Cardiomegaly and slight interstitial prominence. CT Angiography 04/11/18 0000 Signed Impressions: CONCLUSION: 1. No evidence for pulmonary motion. 2. Bibasilar atelectasis. 3. Subcentimeter pulmonary nodules. PE at Discharge GENERAL: Slightly disheveled elderly male laying in bed in no acute distress. CARDIOVASCULAR: Irregular rate and rhythm. No appreciable murmurs. RESPIRATORY: Decreased breath sounds nasal cannula in place. GASTROINTESTINAL: Ex-lap scar. Abdomen soft, non-tender, nondistended. No guarding. MUSCULOSKELETAL: Scars from prior bypass. Partial left foot amputation. Palpable distal pulses. No significant edema. NEUROLOGICAL: Awake and alert. Motor and sensory grossly within normal limits. Mumbled speech. Hospital Course 63 year old male with history of IDDM, HTN, HLD, PAD, CAD, and ?DVT presenting with six weeks of RLE pain and chest pain. In the ER, he was found to be in atrial fibrillation with RVR, signs of congestive heart failure on imaging, and a COPD exacerbation. New onset atrial fibrillation with RVR EKG read and reviewed by me personally demonstrating AFIB with RVR CHADSVASc2 score of 6 Resume home Xarelto 2D echo with PFO. Discussed with cardiology, outpatient follow-up Telemetry Controlled ventricular response will switch to long-acting Cardizem CHF exacerbation CXR with cardiology and interstitial prominence, BNP elevated at 407 Received a dose of IV Lasix in the ER DC Lasix IV 20 mg BID with potassium supplementation, patient compensated at this time 2D echo preserved ejection fraction COPD exacerbation Patient with increased sputum production, cough, and dyspnea and mildly elevated white count Solumedrol 60 mg IV x 1 Improving wean and discontinue prednisone Levaquin PO Duonebs Supplemental O2 to maintain sats 90-92%, passed walk test Chest pain Could be multifactorial given atrial fibrillation, CHF exacerbation, and COPD exacerbation First troponin negative in the ED Continue with ACS rule out D-Dimer elevated, CTA negative for PE CXR with evidence of CHF Cardiology consulted Negative nuclear stress test Claudication/peripheral arterial disease Patient with symptoms of both claudication and rest pain of RLE RLE U/S negative for DVT CTA run-off with new right SFA occlusion occlusion consulted vascular surgery who will see patient today Supposedly allergic to ASA Continue statin Smoking cessation, counselled. Diabetes mellitus 2 SSI per protocol Convert home Lantus to Levemir, continue to hold p.o. medications Monitor accuchecks A1c 7. Hyperglycemia secondary to steroids. Hypertension Resume home meds Hydralazine PRN Tobacco abuse - Counseled on cessation Cocaine abuse. Also counseled Acute kidney injury status post CVA. Stable on gentle IV hydration. Repeat BMP DVT prophylaxis: On home Xarelto Pt Condition on Discharge: Stable Discharge Disposition: Discharge Home Discharge Time: > 30 minutes Discharge Instructions DIET: Follow Instructions for: Heart Healthy Diet, Diabetic Diet Activities you can perform: Regular-No Restrictions Activities to Avoid: Driving Follow up Referrals: Cardiology - 1 Week PCP Follow-up - 1 Week Vascular Surgery - 1 Week New Orders: BASIC METABOLIC PROF - 04/16/18 New Medications: Diltiazem CD 24 HR (Diltiazem CD 24 HR) 240 Mg Caper 240 MG PO DAILY for Regulate Heart Beat, #30 CAP Levofloxacin (Levaquin) 750 Mg Tablet 750 MG PO Q24H for Infection, #1 TAB Continued Medications: Albuterol 8.5 GM Inh (Proair Hfa 8.5 GM Inh) 90 Mcg/Act Aer 2 PUFF INH Q4-6H PRN for SHORTNESS OF BREATH, INHALER 0 Refills 108 mcg/actuation Atorvastatin (Lipitor) 80 Mg Tab 80 MG PO HS for Cholesterol Management, #30 TAB 0 Refills Budesonide-Formoterol Inh (Symbicort Inh) 160-4.5 Mcg/Act Aero 1 PUFF INH Q12HR, INHALER 0 Refills Clonazepam (Clonazepam) 1 Mg Tab 1 MG PO BID, TAB 0 Refills Clonidine (Clonidine) 0.1 Mg Tab 0.1 MG PO TID for Blood Pressure Management, #60 TAB 0 Refills Glipizide (Glipizide) 10 Mg Tab 10 MG PO BIDAC for Blood Sugar Management, #60 TAB 0 Refills Take 30 minutes before a meal Hydrocodone-Acetaminophen (Hydrocodone-Acetaminophen) 10-325 mg Tab 1 TAB PO Q4H PRN for PAIN, TAB 0 Refills Hydroxyzine HCl (Hydroxyzine HCl) 25 Mg Tab 25 MG PO TID, TAB 0 Refills Insulin Glargine Inj (Lantus Inj) 100 Unit/Ml Inj 25 HS Rxjwvgkraduck-Czsfmvts-Behskjsvqfdyw (Prodrin) 65-20-325 Mg Tab 1 TAB PO DIRECTED PRN for MIGRAINE HEADACHE, TAB 0 Refills Lactobacillus Acidophilus (Lactobacillus Acidophilus) 1 Billion Cell Tab 1 TAB PO TIDAC for Nutritional Supplement, #30 TAB 0 Refills Pantoprazole (Pantoprazole) 40 Mg Tab 40 MG PO DAILY for Reflux, TAB 0 Refills Rivaroxaban (Xarelto) 20 Mg Tab 20 MG PO DAILY for Blood Clot Prevention, TAB 0 Refills Sitagliptin (Januvia) 50 Mg Tab 50 MG PO DAILY for Blood Sugar Management, #30 TAB 0 Refills Sucralfate (Carafate) 1 Gm Tab 1 GM PO TID for Ulcer Prevention, TAB 0 Refills On empty stomach Sumatriptan (Sumatriptan) 100 Mg Tab 100 MG PO ONCE PRN for MIGRAINE HEADACHE, TAB 0 Refills If a satisfactory response has not been obtained at 2 hours, a second dose may be administered Tizanidine (Zanaflex) 4 Mg Tab 4 MG PO Q12HR for Muscle Spasm, TAB 0 Refills Topiramate (Topamax) 50 Mg Tab 50 MG PO DAILY for Control Seizures, TAB 0 Refills Tramadol (Ultram) 50 Mg Tab 50 MG PO Q4H PRN for PAIN, TAB 0 Refills Cecilio Myers MD Apr 14, 2018 17:15
== END 2018-04-14 19:35 | disposition home or self-care (01) | DRG 309 ==
LOC: NEPE 05:16 → NEDA 09:53 → OBSVTOIN 10:30 → N04A 15:14 → N04B 04-13 13:52
PROVIDERS: ADMIT Internal Medicine; ATTEND Internal Medicine
DX: I48.91 Unspecified atrial fibrillation (principal); J44.1 Chronic obstructive pulmonary disease with (acute) exacerbation; I11.0 Hypertensive heart disease with heart failure; I50.9 Heart failure, unspecified; E11.51 Type 2 diabetes mellitus with diabetic peripheral angiopathy without gangrene; M19.90 Unspecified osteoarthritis, unspecified site; F41.9 Anxiety disorder, unspecified; I25.10 Atherosclerotic heart disease of native coronary artery without angina pectoris; K21.9 Gastro-esophageal reflux disease without esophagitis; E78.5 Hyperlipidemia, unspecified; M79.605 Pain in left leg; M79.604 Pain in right leg; F31.9 Bipolar disorder, unspecified; F20.9 Schizophrenia, unspecified; F12.90 Cannabis use, unspecified, uncomplicated; F17.210 Nicotine dependence, cigarettes, uncomplicated; Z95.5 Presence of coronary angioplasty implant and graft; Z85.828 Personal history of other malignant neoplasm of skin; Z86.73 Personal history of transient ischemic attack (TIA), and cerebral infarction without residual deficits; Z79.4 Long term (current) use of insulin; Z89.422 Acquired absence of other left toe(s); Z82.5 Family history of asthma and other chronic lower respiratory diseases; Z88.6 Allergy status to analgesic agent; I70.201 Unspecified atherosclerosis of native arteries of extremities, right leg; Z79.01 Long term (current) use of anticoagulants; E11.65 Type 2 diabetes mellitus with hyperglycemia; T38.0X5A Adverse effect of glucocorticoids and synthetic analogues, initial encounter; F14.10 Cocaine abuse, uncomplicated; M79.89 Other specified soft tissue disorders
CPT/HCPCS: 71045; 71275; 75635; 78452; 80048; 80053; 80307; 82550; 82552; 82947; 82948; 83036; 83690; 83735; 83880; 84439; 84443; 84484; 85025; 85379; 85610; 85730; 93005; 93017; 93306; 93971; 94618; 94640; 94664; 94667; 96374; A9502; J1815; J1940; J2785; J7030; J7512; Q9967

== ENCOUNTER 2018-05-15 21:35 | Inpatient (IN) ==
[2018-05-15] MEDS ORDERED: Sod Chloride 0.9% Inj 1,000 ML IV.SIG ONE ×2 (21:54→21:57)
[2018-05-15] MEDS ORDERED: Pantoprazole Inj 80 MG in Sodium Chlor 0.9% Inj 100 ML IV.CONT SCH (22:00)
--- NOTE | 2018-05-15 22:07 | ED ---
HPI General Chief Complaint: Abdominal Pain Stated Complaint: Abd pain Time Seen by Provider: 05/15/18 21:54 History of Present Illness HPI narrative: 63-year-old male presents to the emergency department by EMS transport for evaluation of generalized weakness and copious diarrhea with generalized abdominal pain. Patient states symptoms began this morning after smoking some type of least joint around 9 AM. Patient states he has had greater than 20 episodes of brown watery diarrhea. Patient's had associated nausea without vomiting. Patient's had no fever but has experienced chills. Patient does not report any chest pain or shortness of breath. Patient does have history of CAD atrial fibrillation diabetes peripheral vascular disease and has undergone bilateral aortobifem bypass grafting but no history of aortic aneurysm. Patient states that he has not had any hematemesis or coffee-ground emesis. Patient's had no melanotic diarrhea or hematochezia. Patient had decreased urine output. Patient does not report any dizziness or lightheadedness or near syncope. Patient is nonambulatory secondary to chronic lower extremity weakness. Patient is currently taking Xarelto for diagnosis of atrial fibrillation as well as DVT. Patient was previously under the care of Dr. Jerez for his peripheral vascular disease. Patient is not currently being followed by a vascular surgeon. Patient also has history of diabetes. Patient denies history of substance abuse alcohol use but admits to tobacco use. Patient rates discomfort as moderate. Related Data Home Medications Medication Instructions Recorded Confirmed amlodipine 5 mg PO DAILY 05/15/18 05/15/18 atorvastatin 80 mg PO DAILY 05/15/18 05/15/18 clonazepam 0.5 mg PO BID 05/15/18 05/15/18 clonidine HCl 0.1 mg PO TID 05/15/18 05/15/18 diltiazem HCl [Cardizem CD] 240 mg PO DAILY 05/15/18 05/15/18 glipizide 10 mg PO BID 05/15/18 05/15/18 hydrocodone-acetaminophen 2 tab PO Q6H PRN 05/15/18 05/15/18 lisinopril 40 mg PO DAILY 05/15/18 05/15/18 rivaroxaban [Xarelto] 20 mg PO DAILY 05/15/18 05/15/18 sitagliptin [Januvia] 50 mg PO DAILY 05/15/18 05/15/18 sumatriptan succinate 100 mg PO Q2-4H PRN 05/15/18 05/15/18 topiramate [Topamax] 50 mg PO DAILY 05/15/18 05/15/18 Allergies Allergy/AdvReac Type Severity Reaction Status Date / Time acetaminophen Allergy Severe RASH Verified 05/15/18 23:06 aspirin Allergy Severe Anemia Verified 05/15/18 23:06 codeine Allergy Severe RASH Verified 05/15/18 23:06 ibuprofen Allergy Severe RASH Verified 05/15/18 23:06 penicillin G Allergy Severe RASH Verified 05/15/18 23:06 propoxyphene Allergy Severe RASH Verified 05/15/18 23:06 Review of Systems Except as stated in HPI: all other systems reviewed are negative [facility] Medical History Medical History Amputated great toe (Acute) Bipolar 1 disorder (Acute) Schizo-affective schizophrenia (Acute) Emphysema, unspecified (Acute) COPD (chronic obstructive pulmonary disease) (Acute) Social History Social History Substance History: Active Abuse Second Hand Smoke Exposure: Yes Smoking Status: Current every day smoker Tobacco Type: Cigarettes How Often Do You Have a Drink Containing Alcohol: 2 to 4 times a month Recent Travel in [facility] within the Last 8 Weeks: No Recent Out of Country Travel within the Last 8 Weeks: No Substance Abuse Detail Marijuana: Substance Use Status: Active Route Used Substance Abuse: Inhalation Reason for Use: Calm Down Immunization History Tetanus Immunization: <5 Years Hx Influenza Vaccine This Season: Yes Exam Narrative Exam Narrative: GENERAL: Well-nourished, well-developed patient. No acute distress no respiratory distress however is noted to be hypotensive. SKIN: Focused skin assessment warm/dry. HEAD: Normocephalic. EYES: No scleral icterus. No injection or drainage. NECK: Supple, trachea midline. No JVD or lymphadenopathy. CARDIOVASCULAR: Regular rate and rhythm without murmurs, gallops, or rubs. RESPIRATORY: Breath sounds equal bilaterally. No accessory muscle use. GASTROINTESTINAL: Abdomen soft, non-tender, nondistended. Midline incision is well-healed nontender to direct palpation no guarding or rebound. MUSCULOSKELETAL: No cyanosis, or edema. Fecal incontinence over the right lower extremity watery brown stool. BACK: Nontender without obvious deformity. No CVA tenderness. Course Initial Documented Vital Signs Temperature 97.6 F 05/15/18 21:43 Pulse Rate 74 05/15/18 21:43 Respiratory Rate 20 05/15/18 21:43 Blood Pressure 100/60 05/15/18 21:43 Pulse Oximetry 96 05/15/18 21:43 Last Documented Vital Signs Temperature 97.6 F 05/15/18 21:52 Pulse Rate 76 05/15/18 21:52 Respiratory Rate 20 05/15/18 21:52 Blood Pressure 81/49 L 05/15/18 21:52 Pulse Oximetry 98 05/15/18 21:52 Medical Decision Making MDM Narrative Medical decision making narrative: 63-year-old male presents with abdominal pain hypotension currently on Xarelto for atrial fibrillation and DVT with watery brown stools complaint of abdominal pain with soft nontender nondistended abdomen; patient placed on cardiac tech with continuous pulse oximetry IV access obtained 2 specimens collected and sent for resulting patient given bolus of normal saline 2 L as well as Protonix bolus and infusion for briskly Hemoccult positive watery brown stool. Patient is currently not on antibiotic. Patient is afebrile without tachycardia or tachypnea. At 2300 total white cell count is 13,300 hemoglobin hematocrit and platelets count are stable chemistries are remarkable for hyponatremia of 127 normal range bicarb of 21.5 with anion gap of 13 worsening renal function with BUN of 37 and creatinine of 2.[address] abdomen pelvis with IV contrast canceled and CT abdomen pelvis noncontrast ordered patient's glucose 61 patient will be given half amp of D50 and maintenance IV fluids with D5 normal saline chest x-ray reveals no acute abnormality per reading radiologist coagulation studies are prolonged lactic acid is also elevated at 2.1 lipase is unremarkable at 334 and troponin I is less than 0.02; CT abdomen pelvis pending and EKG pending; blood pressure after IV fluid hydration is 109/57. Patient is concerning for sirs/ sepsis criteria based on white count of 13,300, acute on chronic renal insufficiency, elevated lactic acid and acute diarrheal illness; patient administered flagyl 500mg ivpb; repeat lactic acid ordered. Differential Diagnosis Differential Diagnosis: Polysubstance ingestion, gastroenteritis, ischemic colitis, partial bowel obstruction, pseudomembranous colitis Medical Records Medical records reviewed: Yes I reviewed the patient's medical records. Lab Data Lab results reviewed: Yes I reviewed the patient's lab results. Result diagrams: 05/15/18 22:10 05/15/18 22:10 Lab Results 05/15/18 05/15/18 05/15/18 Range/Units 22:10 22:10 22:10 WBC 13.3 H (4.0-11.0) th/mm3 RBC 4.65 (4.50-5.90) mil/mm3 Hgb 13.0 (13.0-17.0) gm/dL Hct 39.3 (39.0-51.0) % MCV 84.6 (80.0-100.0) fL MCH 27.9 (27.0-34.0) pg MCHC 33.0 (32.0-36.0) % RDW 16.1 (11.6-17.2) % Plt Count 211 (150-450) th/mm3 MPV 9.5 (7.0-11.0) fL Neut % (Auto) 78.2 H (16.0-70.0) % Lymph % (Auto) 12.0 (9.0-44.0) % Wood % (Auto) 8.2 H (0.0-8.0) % Eos % (Auto) 1.0 (0.0-4.0) % Baso % (Auto) 0.6 (0.0-2.0) % Neut # (Auto) 10.4 H (1.8-7.7) th/mm3 Lymph # (Auto) 1.6 (1.0-4.8) th/mm3 Wood # (Auto) 1.1 H (0.0-0.9) th/mm3 Eos # (Auto) 0.1 (0.0-0.4) th/mm3 Baso # (Auto) 0.1 (0.0-0.2) th/mm3 WBC Differential . Differential Comment Auto diff final PT 12.7 H (9.8-11.6) sec INR 1.3 Ratio APTT 43.1 H (24.3-30.1) sec Sodium 127 L (136-145) meq/L Potassium 3.9 (3.5-5.1) meq/L Chloride 93 L (98-107) meq/L Carbon Dioxide 21.5 (21.0-32.0) meq/L Anion Gap 13 (5-15) meq/L BUN 37 H (7-18) mg/dL Creatinine 2.68 H (0.60-1.30) mg/dL Estimated GFR 24 L (>89) mL/min Random Glucose 61 L (74-106) mg/dL Lactic Acid (0.4-2.0) mmol/L Calcium 9.3 (8.5-10.1) mg/dL Magnesium 1.8 (1.5-2.5) mg/dL Total Bilirubin 0.5 (0.2-1.0) mg/dL AST 14 L (15-37) U/L ALT 19 (12-78) U/L Alkaline Phosphatase 129 H (45-117) U/L Troponin I Less than 0.02 L (0.02-0.05) ng/mL Total Protein 8.5 H (6.4-8.2) g/dL Albumin 3.8 (3.4-5.0) g/dL Lipase 334 (73-393) U/L Blood Type Antibody Screen 05/15/18 05/15/18 Range/Units 22:10 22:10 WBC (4.0-11.0) th/mm3 RBC (4.50-5.90) mil/mm3 Hgb (13.0-17.0) gm/dL Hct (39.0-51.0) % MCV (80.0-100.0) fL MCH (27.0-34.0) pg MCHC (32.0-36.0) % RDW (11.6-17.2) % Plt Count (150-450) th/mm3 MPV (7.0-11.0) fL Neut % (Auto) (16.0-70.0) % Lymph % (Auto) (9.0-44.0) % Wood % (Auto) (0.0-8.0) % Eos % (Auto) (0.0-4.0) % Baso % (Auto) (0.0-2.0) % Neut # (Auto) (1.8-7.7) th/mm3 Lymph # (Auto) (1.0-4.8) th/mm3 Wood # (Auto) (0.0-0.9) th/mm3 Eos # (Auto) (0.0-0.4) th/mm3 Baso # (Auto) (0.0-0.2) th/mm3 WBC Differential Differential Comment PT (9.8-11.6) sec INR Ratio APTT (24.3-30.1) sec Sodium (136-145) meq/L Potassium (3.5-5.1) meq/L Chloride (98-107) meq/L Carbon Dioxide (21.0-32.0) meq/L Anion Gap (5-15) meq/L BUN (7-18) mg/dL Creatinine (0.60-1.30) mg/dL Estimated GFR (>89) mL/min Random Glucose (74-106) mg/dL Lactic Acid 2.1 H (0.4-2.0) mmol/L Calcium (8.5-10.1) mg/dL Magnesium (1.5-2.5) mg/dL Total Bilirubin (0.2-1.0) mg/dL AST (15-37) U/L ALT (12-78) U/L Alkaline Phosphatase (45-117) U/L Troponin I (0.02-0.05) ng/mL Total Protein (6.4-8.2) g/dL Albumin (3.4-5.0) g/dL Lipase (73-393) U/L Blood Type O Positive Antibody Screen Negative Imaging Data Radiologist's impression: Chest X-Ray 05/15/18 21:54 CONCLUSION: No acute cardiopulmonary process. Abdomen/Pelvis CT 05/15/18 23:00 CONCLUSION: 1. Fluid-filled nondistended loops of small bowel and colon without gross bowel wall thickening or mesenteric stranding. Findings likely reflect enteritis although evaluation is very limited due to lack of IV and oral contrast. 2. Postsurgical features of aortobifemoral bypass graft and femoral to femoral bypass graft. 3. Cholelithiasis. ECG Data EKG Prior to Arrival: No Attestation: I personally reviewed and interpreted this ECG as follows: Prior ECG tracings: not available for review Interpretation: EKG: Normal sinus rhythm rate 78 first-degree AV block age- indeterminate QS septally no acute ST elevation or injury Discharge Plan Discharge Disposition Patient Disposition: 30 Still Patient Discharge Condition Condition: Stable Discharge Details Diagnosis: Near syncope, Enteritis, Acute diarrhea, Gastrointestinal bleed, Renal insufficiency, SIRS (systemic inflammatory response syndrome) Physicians Team ED Provider: Rosa Enriquez Primary Care Provider: Cecy Merchant Rxs /Orders / Referrals /Forms Prescriptions: No Action atorvastatin 80 mg Tablet 80 mg PO DAILY RF: 0 clonidine HCl 0.1 mg Tablet 0.1 mg PO TID RF: 0 sumatriptan succinate 100 mg Tablet 100 mg PO Q2-4H PRN (Reason: Migraine Headache) RF: 0 diltiazem HCl [Cardizem CD] 240 mg Capsule,Extended Release 24hr 240 mg PO DAILY RF: 0 glipizide 10 mg Tablet 10 mg PO BID RF: 0 amlodipine 5 mg Tablet 5 mg PO DAILY RF: 0 hydrocodone-acetaminophen 10-325 mg Tablet 2 tab PO Q6H PRN (Reason: Acute Pain) RF: 0 lisinopril 40 mg Tablet 40 mg PO DAILY RF: 0 topiramate [Topamax] 50 mg Tablet 50 mg PO DAILY RF: 0 rivaroxaban [Xarelto] 20 mg Tablet 20 mg PO DAILY RF: 0 clonazepam 0.5 mg Tablet 0.5 mg PO BID RF: 0 sitagliptin [Januvia] 50 mg Tablet 50 mg PO DAILY RF: 0 Discharge Interventions Interventions: Vital Signs Last Done: 05/15/18 21:52 Status ED Status: With Doctor
[2018-05-15 22:27] LABS: Baso # (Auto) 0.1 th/mm3 (0.0-0.2); Baso % (Auto) 0.6 % (0.0-2.0); Eos # (Auto) 0.1 th/mm3 (0.0-0.4); Hematocrit 39.3 % (39.0-51.0); Lymph # (Auto) 1.6 th/mm3 (1.0-4.8); Mean Corpuscular Hemoglobin 27.9 pg (27.0-34.0); Mean Corpuscular Volume 84.6 fL (80.0-100.0); Mean Platelet Volume 9.5 fL (7.0-11.0); Mono # (Auto) 1.1 th/mm3 (0.0-0.9); Mono % (Auto) 8.2 % (0.0-8.0); Neut # (Auto) 10.4 th/mm3 (1.8-7.7); Neut % (Auto) 78.2 % (16.0-70.0); Platelet Count 211 th/mm3 (150-450); Red Blood Count 4.65 mil/mm3 (4.50-5.90); Red Cell Distribution Width 16.1 % (11.6-17.2); White Blood Count 13.3 th/mm3 (4.0-11.0)
[2018-05-15 22:41] LABS: Alanine Aminotransferase 19 U/L (12-78); Albumin 3.8 g/dL (3.4-5.0); Anion Gap 13 meq/L (5-15); Aspartate Aminotransferase 14 U/L (15-37); Blood Urea Nitrogen 37 mg/dL (7-18); Calcium 9.3 mg/dL (8.5-10.1); Carbon Dioxide 21.5 meq/L (21.0-32.0); Chloride 93 meq/L (98-107); Glomerular Filtration Rate 24 mL/min (>89); Glucose,Random 61 mg/dL (74-106); Lipase 334 U/L (73-393); Magnesium 1.8 mg/dL (1.5-2.5); Potassium 3.9 meq/L (3.5-5.1); Sodium 127 meq/L (136-145)
[2018-05-15 22:46] LABS: Alkaline Phosphatase 129 U/L (45-117); Total Protein 8.5 g/dL (6.4-8.2)
--- NOTE | 2018-05-15 22:47 | XR ---
EXAM DATE: 05/15/2018 10:44 PM EDT AGE/SEX: 63 years / Male INDICATIONS: Shortness of breath. CLINICAL DATA: This is the patient's initial encounter. Patient reports that signs and symptoms have been present for 1 day and indicates a pain score of 0/10. MEDICAL/SURGICAL HISTORY: . Hypertension. Carcinoma, squamous cell. . Coronary artery stent. COMPARISON: [facility] – [place], [place], CHEST SINGLE AP, 04/11/2018. . FINDINGS: A single AP view of the chest demonstrates the lungs to be symmetrically aerated without evidence of mass, infiltrate or effusion. The cardiomediastinal contours are unremarkable. Old healed right uppe r rib fractures are seen. CONCLUSION: No acute cardiopulmonary process. Electronically signed by: Porfirio Ochoa MD 05/15/2018 10:45 PM EDT
[2018-05-15 22:50] LABS: Activated Partial Thrombo Time 43.1 sec (24.3-30.1); INR 1.3 Ratio; Prothrombin Time 12.7 sec (9.8-11.6)
[2018-05-15] MEDS ORDERED: Dextrose 5%/NaCl 0.9% Inj 1,000 ML IV.CONT SCH (23:15)
--- NOTE | 2018-05-15 23:28 | CT ---
EXAM DATE: 05/15/2018 11:18 PM EDT AGE/SEX: 63 years / Male INDICATIONS: Lower abdominal pain and diarrhea. CLINICAL DATA: This is the patient's initial encounter. Patient reports that signs and symptoms have been present for 1 day and indicates a pain score of 4/10. MEDICAL/SURGICAL HISTORY: Chronic obstructive pulmonary disease. Emphysema. Diabetes. White ry Artery Disease. None. RADIATION DOSE: 6.57 CTDI (mGy) COMPARISON: [facility], CTA RUNOFF W 3D RECON, 04/12/2018. . TECHNIQUE: Multiple contiguous axial images were obtained through the abdomen. Images were obtained using multiple row detector helical technique. Using automated exposure control and adjustment of the mA and/or kV according to patient size, radiation dose was kept as low as reasonably achievable to o btain optimal diagnostic quality images. DICOM format image data is available electronically for rev iew and comparison. FINDINGS: LOWER LUNGS: The visualized lower lungs are clear. LIVER: Uniform in density without significant intrahepatic ductal dilatation or volume loss. Gallbla dder appears contracted with probable gallstones. SPLEEN: Homogeneous density without enlargement. PANCREAS: Unremarkable without mass or calcification. KIDNEYS: Kidneys demonstrate symmetrical enhancement and are symmetrical in size without evidence fo r radiopaque renal calculi or hydronephrosis. ADRENAL GLANDS: Unremarkable. AORTA: Postsurgical features of aortobifemoral bypass graft with femoral to femoral bypass graft. BOWEL/MESENTERY: Fluid-filled loops of small bowel and colon which do not appear dilated. No gross b owel wall thickening or mesenteric stranding. No free fluid or drainable fluid collections. The cecum and sigmoid colon have a normal configuration. ABDOMINAL WALL: Intact. RETROPERITONEUM: No evidence of adenopathy in the retrocrural, para-aortic, or deep pelvic regions. BLADDER: Contours are smooth. REPRODUCTIVE: No abnormal masses or calcifications seen. BONY STRUCTURES: Unremarkable. CONCLUSION: 1. Fluid-filled nondistended loops of small bowel and colon without gross bowel wall thickening or m esenteric stranding. Findings likely reflect enteritis although evaluation is very limited due to lac k of IV and oral contrast. 2. Postsurgical features of aortobifemoral bypass graft and femoral to femoral bypass graft. 3. Cholelithiasis. Electronically signed by: Fahad Saunders MD 05/15/2018 11:27 PM EDT
[2018-05-15] MEDS ORDERED: Sodium Chlor 0.9% Inj 500 ML IV.SIG ONE (23:55)
[2018-05-15] MEDS ORDERED: Aztreonam Inj 2 GM in Sodium Chloride 0.9% Inj 100 ML IV.SIG ONE (23:57)
[2018-05-16] MEDS ORDERED: Dextrose 50% in Water 50 ML Vial IV.PUSH PRN (00:33)
[2018-05-16] MEDS ORDERED: Temazepam 15 MG Capsule PO PRN (00:34)
[2018-05-16] MEDS ORDERED: Bisacodyl 10 MG Supp RECTAL PRN (00:34)
--- NOTE | 2018-05-16 00:40 | P.HPIM ---
History of Present Illness Primary Care Physician: Cecy Merchant History of Present Illness: This is a 63-year-old Homeless male with a PMH of A-fib on Xarelto, PVD, HTN, DM , Bipolar Disorder and COPD who presented to the ER with complaints of diarrhea starting earlier this morning in addition to abdominal pain. States symptoms started after he smoked a friend's cigarette which was "laced with something". Shortly after reports large amounts of watery brown diarrhea. Also notes associated abdominal pain, generalized, cramping, 8/10, non-radiating, associated w/ nausea/vomiting. Denies fever or chills. On arrival, BP 100/60, HR 74, O2 sat 96% on RA, Afebrile. While in the ER, had episode of transient hypotension with BP 81/49, HR 76. WBC 13.3. INR 1.3. Na 127. Creatinine 2.68 , previously 1.53 on 04/14/18. On exam, pt w/ copious amounts of watery stool, briskly positive for blood. CT Abd/Pelvis w/ evidence of enteritis. S/p Azactam/Flagyl, and on Protonix gtt. - Diagnosis (1) SIRS (systemic inflammatory response syndrome) (2) Enteritis (3) Hyponatremia (4) OTTO (acute kidney injury) (5) DM (diabetes mellitus) (6) GI bleed (7) A-fib Inpatient Certification: I certify that the inpatient services were ordered in accordance with Medicare regulations governing the order. This includes certification that hospital inpatient services are reasonable and necessary and in the case of services not specified as inpatient-only under 42 CFR 419.22(n), that they are appropriately provided as inpatient services in accordance to with the 2-midnight benchmark under 43 CFR 412.3(e) Estimated Total Length of Stay (Days): 2 Plans for Post Hospital Care: Not yet determined Review of Systems All other systems reviewed negative except as stated in HPI [facility] - History History Provided By: Patient - Medical History Medical History: Medical History (Last Reviewed 05/15/18 @ 22:09 by Rosa Enriquez MD) Amputated great toe (Acute) Bipolar 1 disorder (Acute) Schizo-affective schizophrenia (Acute) Emphysema, unspecified (Acute) COPD (chronic obstructive pulmonary disease) (Acute) - Tobacco History Second Hand Smoke Exposure: Yes Tobacco Use In Past 30 Days: Yes Smoking Status: Current every day smoker Tobacco Type: Cigarettes - Alcohol History How Often Do You Have a Drink Containing Alcohol: 2 to 4 times a month - Substance Use History Substance History: Active Abuse - Substance Use Type Marijuana Status: Active Route Used: Inhalation Reason for Use: Calm Down - Travel History Recent Travel in the [place] Within the Last 8 Weeks: No Recent Travel Out of the Country Within the Last 8 Weeks: No - Immunization History Tetanus Immunization: <5 Years Hx Influenza Vaccine This Season: Yes Medications and Allergies Active Medications: Active Medications Al Hydroxide/Mg Hydroxide (Milk Of Magnesia Liq) 30 ml PO Q12H PRN PRN Reason: Mild Constipation Bisacodyl (Dulcolax Supp) 10 mg RECTAL DAILY PRN PRN Reason: SEVERE CONSITIPATION Dextrose (D50w Vial) 50 ml IV.PUSH UNSCH PRN PRN Reason: PER HYPOGLYCEMIA PROTOCOL Glucagon (Glucagon Inj) 1 mg OTHER PRN PRN PRN Reason: for Hypoglycemia Protocol Pantoprazole Sodium 80 mg/ (Sodium Chloride) 100 mls @ 10 mls/hr IV.CONT CONT LISA Last Admin: 05/15/18 23:58 Dose: 10 mls/hr Dextrose/Sodium Chloride (D5w/Normal Saline Inj) 1,000 mls @ 125 mls/hr IV.CONT .Q8H LISA Last Admin: 05/15/18 23:32 Dose: 125 mls/hr Ciprofloxacin/Dextrose (Cipro 400 Mg/200 Ml Inj) 400 mg in 200 mls @ 200 mls/ hr IV.SIG Q12H LISA Metronidazole/Sodium Chloride (Flagyl 500 Mg Inj) 100 mls @ 100 mls/hr IV.SIG Q8H LISA Sodium Chloride (Ns Inj) 1,000 mls @ 100 mls/hr IV.CONT .Q10H LISA Insulin Aspart (Novolog Insulin Correctional Sugar Inj) 0 unit SQ ACHS LISA; Protocol Lactulose (Lactulose Liq) 30 ml PO DAILY PRN PRN Reason: SEVERE CONSITIPATION Non-Formulary Medication (Topiramate [Topamax]) 50 mg PO DAILY LISA Ondansetron HCl (Zofran Inj) 4 mg IV.PUSH Q6H PRN PRN Reason: NAUSEA OR VOMITING Senna/Docusate Sodium (Pippa-Colace) 1 tab PO BID [facility] Sennosides (Senokot) 17.2 mg PO Q12H PRN PRN Reason: Moderate Constipation Sodium Chloride (Ns Flush) 2 ml IV.FLUSH PRN PRN PRN Reason: FLUSH AFTER USING IV ACCESS Temazepam (Restoril) 15 mg PO HS PRN PRN Reason: INSOMNIA Allergies Allergy/AdvReac Type Severity Reaction Status Date / Time acetaminophen Allergy Severe RASH Verified 05/15/18 23:06 aspirin Allergy Severe Anemia Verified 05/15/18 23:06 codeine Allergy Severe RASH Verified 05/15/18 23:06 ibuprofen Allergy Severe RASH Verified 05/15/18 23:06 penicillin G Allergy Severe RASH Verified 05/15/18 23:06 propoxyphene Allergy Severe RASH Verified 05/15/18 23:06 Home Medications Medication Instructions Recorded Confirmed Type amlodipine 5 mg PO DAILY 05/15/18 05/15/18 History atorvastatin 80 mg PO DAILY 05/15/18 05/15/18 History clonazepam 0.5 mg PO BID 05/15/18 05/15/18 History clonidine HCl 0.1 mg PO TID 05/15/18 05/15/18 History diltiazem HCl [Cardizem CD] 240 mg PO DAILY 05/15/18 05/15/18 History glipizide 10 mg PO BID 05/15/18 05/15/18 History hydrocodone-acetaminophen 2 tab PO Q6H PRN 05/15/18 05/15/18 History lisinopril 40 mg PO DAILY 05/15/18 05/15/18 History rivaroxaban [Xarelto] 20 mg PO DAILY 05/15/18 05/15/18 History sitagliptin [Januvia] 50 mg PO DAILY 05/15/18 05/15/18 History sumatriptan succinate 100 mg PO Q2-4H PRN 05/15/18 05/15/18 History topiramate [Topamax] 50 mg PO DAILY 05/15/18 05/15/18 History Exam Vital signs: Vital Signs 05/15/18 21:43 05/15/18 21:52 Temperature 97.6 F 97.6 F Pulse Rate 74 76 Respiratory Rate 20 20 Blood Pressure 100/60 81/49 L Pulse Oximetry 96 98 Intake & Output 05/15/18 05/15/18 05/16/18 06:59 18:59 06:59 Weight 160 kg Narrative: PE: GENERAL: Very pleasant middle-aged white male in no acute distress. HEENT: PERRLA, EOMI. No scleral icterus or conjunctival pallor. No lid lag or facial droop. CARDIOVASCULAR: Regular rate and rhythm. No obvious murmurs to auscultation. No chest tenderness to palpation. RESPIRATORY: No obvious rhonchi or wheezing. Clear to auscultation. Breath sounds equal bilaterally. GASTROINTESTINAL: Abdomen soft, mild generalized tenderness palpation, nondistended. BS normal. MUSCULOSKELETAL: Extremities without clubbing, cyanosis, or edema. No obvious deformities. NEUROLOGICAL: Awake, alert and oriented x4. No focal neurologic deficits. Moving both upper and lower extremities spontaneously. Results - Labs CBC & Chem 7: 05/15/18 22:10 05/15/18 22:10 Labs: Short CBC 05/15/18 Range/Units 22:10 WBC 13.3 H (4.0-11.0) th/mm3 Hgb 13.0 (13.0-17.0) gm/dL Hct 39.3 (39.0-51.0) % Plt Count 211 (150-450) th/mm3 BMP 05/15/18 22:10 Sodium 127 L Potassium 3.9 Chloride 93 L Carbon Dioxide 21.5 BUN 37 H Creatinine 2.68 H Calcium 9.3 Cardiac Enzymes 05/15/18 Range/Units 22:10 Troponin I Less than 0.02 L (0.02-0.05) ng/mL Liver Function 05/15/18 Range/Units 22:10 Total Bilirubin 0.5 (0.2-1.0) mg/dL AST 14 L (15-37) U/L ALT 19 (12-78) U/L Alkaline Phosphatase 129 H (45-117) U/L Albumin 3.8 (3.4-5.0) g/dL - Imaging Impressions Chest X-Ray 05/15/18 21:54 CONCLUSION: No acute cardiopulmonary process. Abdomen/Pelvis CT 05/15/18 23:00 CONCLUSION: 1. Fluid-filled nondistended loops of small bowel and colon without gross bowel wall thickening or mesenteric stranding. Findings likely reflect enteritis although evaluation is very limited due to lack of IV and oral contrast. 2. Postsurgical features of aortobifemoral bypass graft and femoral to femoral bypass graft. 3. Cholelithiasis. Caprini VTE Risk Assessment Caprini VTE Risk Assessment: No/Low Risk (score <= 1) Caprini Risk Assessment Model: Point Value = 1 Point Value = 2 Point Value = 3 Point Value = 5 Age 41-60 Minor surgery BMI > 25 kg/m2 Swollen legs Varicose veins or History of unexplained or recurrent spontaneous Oral contraceptives or hormone replacement Sepsis (< 1 month) Serious lung disease, including pneumonia (< 1 month) Abnormal pulmonary function Acute myocardial infarction Congestive heart failure (< 1 month) History of inflammatory bowel disease Medical patient at bed rest Age 61-74 Arthroscopic surgery Major open surgery (> 45 min) Laparoscopic surgery (> 45 min) Malignancy Confined to bed (> 72 hours) Immobilizing plaster cast Central venous access Age >= 75 History of VTE Family history of VTE Factor V Leiden Prothrombin [id number] Lupus anticoagulant Anticardiolipin antibodies Elevated serum homocysteine Heparin-induced thrombocytopenia Other congenital or acquired thrombophilia Stroke (< 1 month) Elective arthroplasty Hip, pelvis, or leg fracture Acute spinal cord injury (< 1 month) Prophylaxis Regimen: Total Risk Factor Score Risk Level Prophylaxis Regimen 0-1 Low Early ambulation 2 Moderate Order ONE of the following: *Sequential Compression Device (SCD) *Heparin 5000 units SQ BID 3-4 Higher Order ONE of the following medications: *Heparin 5000 units SQ TID *Enoxaparin/Lovenox 40 mg SQ daily (WT < 150 kg, CrCl > 30 mL/min) *Enoxaparin/Lovenox 30 mg SQ daily (WT < 150 kg, CrCl > 10-29 mL/min) *Enoxaparin/Lovenox 30 mg SQ BID (WT < 150 kg, CrCl > 30 mL/min) AND/OR *Sequential Compression Device (SCD) 5 or more Highest Order ONE of the following medications: *Heparin 5000 units SQ TID (Preferred with Epidurals) *Enoxaparin/Lovenox 40 mg SQ daily (WT < 150 kg, CrCl > 30 mL/min) *Enoxaparin/Lovenox 30 mg SQ daily (WT < 150 kg, CrCl > 10-29 mL/min) *Enoxaparin/Lovenox 30 mg SQ BID (WT < 150 kg, CrCl > 30 mL/min) AND *Sequential Compression Device (SCD) Assessment and Plan - Assessment (1) SIRS (systemic inflammatory response syndrome) Code(s): R65.10 - Systemic inflammatory response syndrome (SIRS) of non- infectious origin without acute organ dysfunction Status: Acute (2) Enteritis Code(s): K52.9 - Noninfective gastroenteritis and colitis, unspecified Status : Acute (3) Hyponatremia Code(s): E87.1 - Hypo-osmolality and hyponatremia Status: Acute (4) OTTO (acute kidney injury) Code(s): N17.9 - Acute kidney failure, unspecified Status: Acute (5) DM (diabetes mellitus) Code(s): E11.9 - Type 2 diabetes mellitus without complications Status: Acute (6) GI bleed Code(s): K92.2 - Gastrointestinal hemorrhage, unspecified Status: Acute (7) A-fib Code(s): I48.91 - Unspecified atrial fibrillation Status: Acute - Plan A/P: 1. SIRS: WBC 13, Lactic Acid 2.1, transient hypotension, Source-Enteritis. S/ p Blood Cultures. Continue w/ IV Abx, follow up cultures, IVF. 2. Enteritis: c/o acute onset of watery brown diarrhea after smoking a cigarette "laced with something". CT Abd/Pelvis w/ enteritis, images reviewed. Continue IV Cipro/Flagyl, Check stool for C Diff, IVF for hydration. Analgesics/antiemetics as needed. 3. GI Bleed: noted to have briskly Hemoccult positive on exam, likely due to enteritis, however concern for GI Bleed as patient on Xarelto for A-fib. Currently on Protonix gtt, will continue. Consult GI for further evaluation as needed. 4. OTTO: Creatinine 2.68, previously 1.53 on 04/14/18, IVF for hydration. Check U/a and Urine Drug Screen, repeat labs in am. 5. Hyponatremia: Na 127, likely due to dehydration, IVF, repeat labs in am. 6. A-fib: on Xarelto, will hold in light of GI Bleed. 7. DM: Sliding scale w/ Accu-Cheks. Hold Glipizide. 8. DVT Prophylaxis: Hold anticoagulation 9. Social work for d/c planning as needed 10. Case discussed w/ ER physician at length, labs/records/imaging reviewed by me.
[2018-05-16] MEDS ORDERED: Sod Chloride 0.9% Inj 1,000 ML IV.CONT SCH (00:45)
[2018-05-16 00:54] LABS: Bilirubin,Urine Negative (Negative); Clarity,Urine Clear (Clear); Color,Urine Straw (Yellw/Straw); Glucose,Urine (UA) 50 mg/dL (Negative); Leukocyte Esterase,Urine Negative (Negative); Nitrite,Urine Negative (Negative); Specific Gravity,Urine 1.003 (1.002-1.035); Squamous Epithelial Cell,Urine <1 /hpf (0-5)
[2018-05-16 00:58] LABS: Amphetamine Screen,Urine Neg (Neg); Barbiturate Screen,Urine Neg (Neg); Cannabinoid Screen,Urine Neg (Neg); Cocaine Screen,Urine Pos (Neg); Opiate Screen,Urine Neg (Neg)
--- NOTE | 2018-05-16 05:25 | P.PN ---
Subjective Interval history: F/U enteritis. Improved abdominal pain and diarrhea but mildly hypotensive. Discussed with nursing, hydration with fluid boluses. Patient made aware urine drug screen positive for cocaine. Will inform his prescribing physician for narcotics Physical Exam Vital signs: Vital Signs 05/15/18 21:43 05/15/18 21:52 05/16/18 01:12 Temperature 97.6 F 97.6 F Pulse Rate 74 76 67 Respiratory Rate 20 20 20 Blood Pressure 100/60 81/49 L 100/55 L Pulse Oximetry 96 98 05/16/18 01:30 05/16/18 03:04 Temperature 97.9 F Pulse Rate 64 63 Respiratory Rate 18 Blood Pressure 103/48 L Pulse Oximetry 98 Intake & Output 05/15/18 05/15/18 05/16/18 06:59 18:59 06:59 Output Total 900 / 900 Balance -900 / -900 Weight 80.4 kg Output: Urine 900 / 900 Other: Date of Last Bowel Movement 05/16/18 Weight On Admission 80.4 kg Narrative: GENERAL: Very pleasant middle-aged white male in no acute distress. CARDIOVASCULAR: Regular rate and rhythm. No obvious murmurs to auscultation. No chest tenderness to palpation. RESPIRATORY: No obvious rhonchi or wheezing. Clear to auscultation. Breath sounds equal bilaterally. GASTROINTESTINAL: Abdomen soft, nontender to palpation, nondistended. BS normal. MUSCULOSKELETAL: Extremities without clubbing, cyanosis, or edema. No obvious deformities. NEUROLOGICAL: Awake, alert and oriented x4. No focal neurologic deficits. Moving both upper and lower extremities spontaneously. Results - Labs CBC & Chem 7: 05/15/18 22:10 05/15/18 22:10 Laboratory Results - last 24 hr 05/15/18 05/15/18 05/15/18 22:10 22:10 22:10 WBC 13.3 H RBC 4.65 Hgb 13.0 Hct 39.3 MCV 84.6 MCH 27.9 MCHC 33.0 RDW 16.1 Plt Count 211 MPV 9.5 Neut % (Auto) 78.2 H Lymph % (Auto) 12.0 [place] % (Auto) 8.2 H Eos % (Auto) 1.0 Baso % (Auto) 0.6 Neut # (Auto) 10.4 H Lymph # (Auto) 1.6 [place] # (Auto) 1.1 H Eos # (Auto) 0.1 Baso # (Auto) 0.1 WBC Differential . Differential Comment Auto diff final PT 12.7 H INR 1.3 APTT 43.1 H Sodium 127 L Potassium 3.9 Chloride 93 L Carbon Dioxide 21.5 Anion Gap 13 BUN 37 H Creatinine 2.68 H Estimated GFR 24 L Random Glucose 61 L Lactic Acid Calcium 9.3 Magnesium 1.8 Total Bilirubin 0.5 AST 14 L ALT 19 Alkaline Phosphatase 129 H Troponin I Less than 0.02 L Total Protein 8.5 H Albumin 3.8 Lipase 334 Urine Color Urine Clarity Urine pH Ur Specific [place] Urine Protein Urine Glucose (UA) Urine Ketones Urine Occult Blood Urine Nitrate Urine Bilirubin Urine Urobilinogen Ur Leukocyte Esterase Urine RBC Urine WBC Ur Squamous Epith Cells Micro UA Comment Urine Culture Comments Stl C.difficile Tox PCR St C. diff Tox Epid 027 Urine Opiates Screen Ur Barbiturates Screen Ur Amphetamines Screen U Benzodiazepines Scrn Urine Cocaine Screen U Cannabinoids Screen Blood Type Antibody Screen 05/15/18 05/15/18 05/16/18 22:10 22:10 00:30 WBC RBC Hgb Hct MCV MCH MCHC RDW Plt Count MPV Neut % (Auto) Lymph % (Auto) [place] % (Auto) Eos % (Auto) Baso % (Auto) Neut # (Auto) Lymph # (Auto) [place] # (Auto) Eos # (Auto) Baso # (Auto) WBC Differential Differential Comment PT INR APTT Sodium Potassium Chloride Carbon Dioxide Anion Gap BUN Creatinine Estimated GFR Random Glucose Lactic Acid 2.1 H Calcium Magnesium Total Bilirubin AST ALT Alkaline Phosphatase Troponin I Total Protein Albumin Lipase Urine Color Urine Clarity Urine pH Ur Specific [place] Urine Protein Urine Glucose (UA) Urine Ketones Urine Occult Blood Urine Nitrate Urine Bilirubin Urine Urobilinogen Ur Leukocyte Esterase Urine RBC Urine WBC Ur Squamous Epith Cells Micro UA Comment Urine Culture Comments Stl C.difficile Tox PCR St C. diff Tox Epid 027 Urine Opiates Screen Neg Ur Barbiturates Screen Neg Ur Amphetamines Screen Neg U Benzodiazepines Scrn Neg Urine Cocaine Screen Pos H U Cannabinoids Screen Neg Blood Type O Positive Antibody Screen Negative 05/16/18 05/16/18 05/16/18 00:30 00:40 00:45 WBC RBC Hgb Hct MCV MCH MCHC RDW Plt Count MPV Neut % (Auto) Lymph % (Auto) [place] % (Auto) Eos % (Auto) Baso % (Auto) Neut # (Auto) Lymph # (Auto) [place] # (Auto) Eos # (Auto) Baso # (Auto) WBC Differential Differential Comment PT INR APTT Sodium Potassium Chloride Carbon Dioxide Anion Gap BUN Creatinine Estimated GFR Random Glucose Lactic Acid 0.7 Calcium Magnesium Total Bilirubin AST ALT Alkaline Phosphatase Troponin I Total Protein Albumin Lipase Urine Color Straw Urine Clarity Clear Urine pH 6.0 Ur Specific [place] 1.003 Urine Protein Negative Urine Glucose (UA) 50 Urine Ketones Negative Urine Occult Blood Negative Urine Nitrate Negative Urine Bilirubin Negative Urine Urobilinogen Less than 2 Ur Leukocyte Esterase Negative Urine RBC 1 Urine WBC 1 Ur Squamous Epith Cells <1 Micro UA Comment Culture not ind Urine Culture Comments Culture not ind Stl C.difficile Tox PCR Negative St C. diff Tox Epid 027 Negative Urine Opiates Screen Ur Barbiturates Screen Ur Amphetamines Screen U Benzodiazepines Scrn Urine Cocaine Screen U Cannabinoids Screen Blood Type Antibody Screen - Imaging Impressions Chest X-Ray 05/15/18 21:54 CONCLUSION: No acute cardiopulmonary process. Abdomen/Pelvis CT 05/15/18 23:00 CONCLUSION: 1. Fluid-filled nondistended loops of small bowel and colon without gross bowel wall thickening or mesenteric stranding. Findings likely reflect enteritis although evaluation is very limited due to lack of IV and oral contrast. 2. Postsurgical features of aortobifemoral bypass graft and femoral to femoral bypass graft. 3. Cholelithiasis. Assessment and Plan - Assessment (1) SIRS (systemic inflammatory response syndrome) Code(s): R65.10 - Systemic inflammatory response syndrome (SIRS) of non- infectious origin without acute organ dysfunction Status: Acute (2) Enteritis Code(s): K52.9 - Noninfective gastroenteritis and colitis, unspecified Status : Acute (3) Hyponatremia Code(s): E87.1 - Hypo-osmolality and hyponatremia Status: Acute (4) OTTO (acute kidney injury) Code(s): N17.9 - Acute kidney failure, unspecified Status: Acute (5) DM (diabetes mellitus) Code(s): E11.9 - Type 2 diabetes mellitus without complications Status: Acute (6) GI bleed Code(s): K92.2 - Gastrointestinal hemorrhage, unspecified Status: Acute (7) A-fib Code(s): I48.91 - Unspecified atrial fibrillation Status: Acute - Plan 1. Sepsis suspect: WBC 13, Lactic Acid 2.1, transient hypotension, Source- Enteritis. S/p Blood Cultures. Continue w/ IV Abx, follow up cultures, IVF. 2. Enteritis: c/o acute onset of watery brown diarrhea after smoking a cigarette "laced with something". CT Abd/Pelvis w/ enteritis, images reviewed. C. difficile negative continue IV Cipro/Flagyl, IVF for hydration. Analgesics /antiemetics as needed. 3. GI Bleed: noted to have briskly Hemoccult positive on exam, likely due to enteritis, however concern for GI Bleed as patient on Xarelto for A-fib. Currently on Protonix IV. Consult GI for further evaluation 4. OTTO: Creatinine 2.68, previously 1.53 on 04/14/18, IVF for hydration. Unremarkable, repeat labs in am. 5. Hyponatremia: Na 127, likely due to dehydration, IVF, repeat labs in am. 6. A-fib: on Xarelto, will hold in light of GI Bleed. 7. DM: Sliding scale w/ Accu-Cheks. Hold Glipizide. 8. Hypoglycemia. Hypoglycemia protocol. Change to D5 NS. Continue to monitor. 9. +cocaine. Counselled. Will update prescribing MDs of narcs and benzo DVT Prophylaxis: Hold anticoagulation
[2018-05-16] MEDS ORDERED: Senna/Docusate Sodium 8.6/50 MG Tablet PO SCH (09:00)
[2018-05-16] MEDS: Dextrose 5%/NaCl 0.9% Inj 1,000 ML IV.CONT SCH ×2 (09:06→20:56)
[2018-05-16] MEDS: Topiramate 25 MG Tablet PO SCH (09:07)
[2018-05-16] MEDS: Insulin NovoLOG Aspart Correctional Sugar Inj SQ SCH ×4 (09:53→21:00)
[2018-05-16] MEDS: clonazePAM 0.5 MG Tablet PO SCH ×2 (10:03→22:03)
[2018-05-16] MEDS ORDERED: Sodium Chlor 0.9% Inj 500 ML IV.SIG ONE (10:33)
[2018-05-16] MEDS: Ciprofloxacin 400 MG/200 ML 400 MG/200 ML PIGGYBACK IV.SIG SCH ×2 (10:47→20:57)
[2018-05-16] MEDS: Pantoprazole Inj 40 MG Vial IV.PUSH SCH ×2 (10:52→22:04)
--- NOTE | 2018-05-16 14:53 | P.CONGI ---
History of Present Illness Consult date: 05/16/18 Consult reason: Diarrhea Chief complaint: diarrheal illness/enteritis, SIRS, ARF, History of Present Illness: This is a 63-year-old Homeless male with a PMH of A-fib on Xarelto, PVD, HTN, DM , Bipolar Disorder and COPD who presented to the ER with complaints of diarrhea and severe diffused abdominal pain. Symptoms started after he smoked a friend' s cigarette which was "laced with something". Shortly after reports large amounts of watery explosive brown diarrhea with associated severe diffused abdominal pain. Denies nausea, vomiting, melena, hematochezia, fever or chills. Denies previous hx of this. States last colonoscopy was 2 yrs ago. He was to have heme (+) stools. CT Abd/Pelvis w/ evidence of enteritis. <Cora Galeano - Last Filed: 05/16/18 14:37> Review of Systems All other systems reviewed negative except as stated in HPI <Cora Galeano - Last Filed: 05/16/18 14:37> PMFSH - History History Provided By: Patient - Medical History Medical History: Medical History (Last Reviewed 05/16/18 @ 06:47 by Lashell Tinsley) Amputated great toe (Acute) Bipolar 1 disorder (Acute) Schizo-affective schizophrenia (Acute) Emphysema, unspecified (Acute) COPD (chronic obstructive pulmonary disease) (Acute) - Tobacco History Second Hand Smoke Exposure: Yes Tobacco Use In Past 30 Days: Yes Smoking Status: Current every day smoker Tobacco Type: Cigarettes - Alcohol History How Often Do You Have a Drink Containing Alcohol: 2 to 4 times a month - Substance Use History Substance History: Active Abuse - Substance Use Type Marijuana Type: COCAINE/MARIJUANA Status: Active Route Used: Inhalation Reason for Use: Calm Down - Travel History Recent Travel in the [place] Within the Last 8 Weeks: No Recent Travel Out of the Country Within the Last 8 Weeks: No - Immunization History Tetanus Immunization: <5 Years Hx Influenza Vaccine This Season: Yes <Cora Galeano - Last Filed: 05/16/18 14:37> - Medical History Medical History: Medical History (Last Reviewed 05/16/18 @ 06:47 by Lashell Tinsley) Amputated great toe (Acute) Bipolar 1 disorder (Acute) Schizo-affective schizophrenia (Acute) Emphysema, unspecified (Acute) COPD (chronic obstructive pulmonary disease) (Acute) <Telma Hurley - Last Filed: 05/17/18 16:14> Medications and Allergies Active Medications: Active Medications Hydrocodone Bitart/Acetaminophen (Foley 10/325) 1 tab PO Q6H PRN PRN Reason: Acute Pain Al Hydroxide/Mg Hydroxide (Milk Of Magnesia Liq) 30 ml PO Q12H PRN PRN Reason: Mild Constipation Bisacodyl (Dulcolax Supp) 10 mg RECTAL DAILY PRN PRN Reason: SEVERE CONSITIPATION Clonazepam (Klonopin) 0.5 mg PO BID [facility] Last Admin: 05/16/18 10:03 Dose: Not Given Dextrose (D50w Vial) 50 ml IV.PUSH UNSCH PRN PRN Reason: PER HYPOGLYCEMIA PROTOCOL Glucagon (Glucagon Inj) 1 mg OTHER PRN PRN PRN Reason: for Hypoglycemia Protocol Ciprofloxacin/Dextrose (Cipro 400 Mg/200 Ml Inj) 400 mg in 200 mls @ 200 mls/ hr IV.SIG Q12H [facility] Last Admin: 05/16/18 10:47 Dose: 200 mls/hr Metronidazole/Sodium Chloride (Flagyl 500 Mg Inj) 100 mls @ 100 mls/hr IV.SIG Q8H [facility] Last Infusion: 05/16/18 10:29 Dose: 100 mls/hr Dextrose/Sodium Chloride (D5w/Normal Saline Inj) 1,000 mls @ 100 mls/hr IV.CONT .Q10H [facility] Last Admin: 05/16/18 09:06 Dose: 100 mls/hr Insulin Aspart (Novolog Insulin Correctional Sugar Inj) 0 unit SQ ACHS [facility]; Protocol Last Admin: 05/16/18 12:47 Dose: Not Given Lactulose (Lactulose Liq) 30 ml PO DAILY PRN PRN Reason: SEVERE CONSITIPATION Ondansetron HCl (Zofran Odt) 4 mg PO Q6H PRN PRN Reason: NAUSEA OR VOMITING Pantoprazole Sodium (Protonix Inj) 40 mg IV.PUSH Q12H [facility] Last Admin: 05/16/18 10:52 Dose: 40 mg Sennosides (Senokot) 17.2 mg PO Q12H PRN PRN Reason: Moderate Constipation Sodium Chloride (Ns Flush) 2 ml IV.FLUSH PRN PRN PRN Reason: FLUSH AFTER USING IV ACCESS Topiramate (Topamax) 50 mg PO DAILY [facility] Last Admin: 05/16/18 09:07 Dose: 50 mg <Cora Galeano - Last Filed: 05/16/18 14:37> Active Medications: Active Medications Hydrocodone Bitart/Acetaminophen (Foley 10/325) 1 tab PO Q6H PRN PRN Reason: Acute Pain Al Hydroxide/Mg Hydroxide (Milk Of Magnesia Liq) 30 ml PO Q12H PRN PRN Reason: Mild Constipation Amlodipine Besylate (Norvasc) 5 mg PO DAILY [facility] Atorvastatin Calcium (Lipitor) 80 mg PO DAILY [facility] Bisacodyl (Dulcolax Supp) 10 mg RECTAL DAILY PRN PRN Reason: SEVERE CONSITIPATION Clonazepam (Klonopin) 0.5 mg PO BID [facility] Last Admin: 05/17/18 08:37 Dose: 0.5 mg Dextrose (D50w Vial) 50 ml IV.PUSH UNSCH PRN PRN Reason: PER HYPOGLYCEMIA PROTOCOL Diltiazem HCl (Cardizem Cd 24hr) 240 mg PO DAILY [facility] Glucagon (Glucagon Inj) 1 mg OTHER PRN PRN PRN Reason: for Hypoglycemia Protocol Ciprofloxacin/Dextrose (Cipro 400 Mg/200 Ml Inj) 400 mg in 200 mls @ 200 mls/ hr IV.SIG Q12H [facility] Last Admin: 05/17/18 08:38 Dose: 200 mls/hr Metronidazole/Sodium Chloride (Flagyl 500 Mg Inj) 100 mls @ 100 mls/hr IV.SIG Q8H [facility] Last Admin: 05/17/18 08:38 Dose: 100 mls/hr Dextrose/Sodium Chloride (D5w/Normal Saline Inj) 1,000 mls @ 100 mls/hr IV.CONT .Q10H [facility] Last Admin: 05/17/18 08:39 Dose: 100 mls/hr Insulin Aspart (Novolog Insulin Correctional Sugar Inj) 0 unit SQ ACHS [facility]; Protocol Last Admin: 05/17/18 08:33 Dose: Not Given Lactulose (Lactulose Liq) 30 ml PO DAILY PRN PRN Reason: SEVERE CONSITIPATION Miscellaneous Information (Misc Nursing Information) 1 each OTHER UNSCH PRN PRN Reason: SEE LABEL COMMENTS Stop: 05/18/18 14:33 Ondansetron HCl (Zofran Odt) 4 mg PO Q6H PRN PRN Reason: NAUSEA OR VOMITING Pantoprazole Sodium (Protonix) 40 mg PO DAILY [facility] Rivaroxaban (Xarelto) 20 mg PO DAILY [facility] Sennosides (Senokot) 17.2 mg PO Q12H PRN PRN Reason: Moderate Constipation Sodium Chloride (Ns Flush) 2 ml IV.FLUSH PRN PRN PRN Reason: FLUSH AFTER USING IV ACCESS Last Admin: 05/16/18 22:06 Dose: 2 ml Topiramate (Topamax) 50 mg PO DAILY [facility] Last Admin: 05/16/18 09:07 Dose: 50 mg <Hemaidan,Ammar - Last Filed: 05/17/18 16:14> Allergies Allergy/AdvReac Type Severity Reaction Status Date / Time acetaminophen Allergy Severe RASH Verified 05/15/18 23:06 aspirin Allergy Severe Anemia Verified 05/15/18 23:06 codeine Allergy Severe RASH Verified 05/15/18 23:06 ibuprofen Allergy Severe RASH Verified 05/15/18 23:06 penicillin G Allergy Severe RASH Verified 05/15/18 23:06 propoxyphene Allergy Severe RASH Verified 05/15/18 23:06 Home Medications Medication Instructions Recorded Confirmed Type amlodipine 5 mg PO DAILY 05/15/18 05/15/18 History atorvastatin 80 mg PO DAILY 05/15/18 05/15/18 History clonazepam 0.5 mg PO BID 05/15/18 05/15/18 History clonidine HCl 0.1 mg PO TID 05/15/18 05/15/18 History diltiazem HCl [Cardizem CD] 240 mg PO DAILY 05/15/18 05/15/18 History glipizide 10 mg PO BID 05/15/18 05/15/18 History hydrocodone-acetaminophen 2 tab PO Q6H PRN 05/15/18 05/15/18 History lisinopril 40 mg PO DAILY 05/15/18 05/15/18 History rivaroxaban [Xarelto] 20 mg PO DAILY 05/15/18 05/15/18 History sitagliptin [Januvia] 50 mg PO DAILY 05/15/18 05/15/18 History sumatriptan succinate 100 mg PO Q2-4H PRN 05/15/18 05/15/18 History topiramate [Topamax] 50 mg PO DAILY 05/15/18 05/15/18 History Exam Vital signs: Vital Signs 05/15/18 21:43 05/15/18 21:52 05/16/18 01:12 Temperature 97.6 F 97.6 F Pulse Rate 74 76 67 Respiratory Rate 20 20 20 Blood Pressure 100/60 81/49 L 100/55 L Pulse Oximetry 96 98 05/16/18 01:30 05/16/18 03:04 05/16/18 08:00 Temperature 97.9 F 98.0 F Pulse Rate 64 63 62 Respiratory Rate 18 18 Blood Pressure 103/48 L 87/49 L Pulse Oximetry 98 94 L 05/16/18 12:00 Temperature 98.6 F Pulse Rate 57 L Respiratory Rate 18 Blood Pressure 93/43 L Pulse Oximetry 96 Intake & Output 05/15/18 05/16/18 05/16/18 18:59 06:59 18:59 Intake Total 757 / 757 0 / 0 Output Total 1800 / 1800 1000 / 1000 Balance -1043 / -1043 -1000 / -1000 Weight 80.4 kg Intake: IV 757 / 757 0 / 0 NS Inj 1,000 ML @ 100 mls/hr IV 757 / 757 .CONT .Q10H [facility] Rx#:[id number] Flagyl 500 MG Inj 100 ML @ 100 0 / 0 mls/hr IV.SIG Q8H [facility] Rx#: [id number] Oral 0 / 0 Output: Urine 1800 / 1800 1000 / 1000 Other: Date of Last Bowel Movement 05/16/18 # Bowel Movements 0 Weight On Admission 80.4 kg - Constitutional no acute distress - Routine HEENT Exam Head: Present: normocephalic - Routine Neck Exam Present: supple - Routine Respiratory Exam Present: CTA bilaterally - Routine Cardiovascular Exam Present: RRR - Routine Abdominal Exam Present: soft, normoactive bowel sounds, tenderness. Absent: distended - Routine Extremities Exam Absent: cyanosis, clubbing - Routine Skin Exam Present: intact, dry. Absent: jaundice - Routine Neurological Exam Present: alert, oriented X3 <AmbryanSaqibla - Last Filed: 05/16/18 14:37> Vital signs: Vital Signs 05/16/18 20:00 05/16/18 20:26 05/16/18 23:43 Temperature 97.9 F Pulse Rate 75 70 82 Respiratory Rate 16 Blood Pressure 161/64 H Pulse Oximetry 97 05/17/18 00:00 05/17/18 03:47 05/17/18 04:00 Temperature 97.4 F L 98 F Pulse Rate 74 65 76 Respiratory Rate 18 20 Blood Pressure 148/70 H 140/65 Pulse Oximetry 96 99 05/17/18 09:00 05/17/18 14:05 05/17/18 14:15 Temperature 98.3 F Pulse Rate 82 84 84 Respiratory Rate 16 16 Blood Pressure 132/69 148/71 H Pulse Oximetry 96 96 05/17/18 14:25 Temperature Pulse Rate 80 Respiratory Rate 16 Blood Pressure 157/77 H Pulse Oximetry 96 Intake & Output 05/16/18 05/17/18 05/17/18 18:59 06:59 18:59 Intake Total 100 / 100 2500 / 2500 Output Total 1000 / 1000 1200 / 1200 Balance -900 / -900 2500 / 2500 -1200 / -1200 Weight 77.9 kg Intake: IV 100 / 100 2500 / 2500 D5W/Normal Saline Inj 1,000 ML 2000 / 2000 @ 100 mls/hr IV.CONT .Q10H [facility] Rx#:[id number] Cipro 400 MG/200 ML Inj 400 mg 400 / 400 In 200 ml @ 200 mls/hr IV.SIG Q12H [facility] Rx#:[id number] Flagyl 500 MG Inj 100 ML @ 100 100 / 100 100 / 100 mls/hr IV.SIG Q8H [facility] Rx#: [id number] Output: Urine 1000 / 1000 1200 / 1200 Other: # Voids 10 Date of Last Bowel Movement 05/17/18 # Bowel Movements 7 <AlfredcharlieAmcaro - Last Filed: 05/17/18 16:14> Results - Labs CBC & Chem 7: 05/15/18 22:10 05/15/18 22:10 Labs: Laboratory Results - last 24 hr 05/15/18 05/15/18 05/15/18 22:10 22:10 22:10 WBC 13.3 H RBC 4.65 Hgb 13.0 Hct 39.3 MCV 84.6 MCH 27.9 MCHC 33.0 RDW 16.1 Plt Count 211 MPV 9.5 Neut % (Auto) 78.2 H Lymph % (Auto) 12.0 [place] % (Auto) 8.2 H Eos % (Auto) 1.0 Baso % (Auto) 0.6 Neut # (Auto) 10.4 H Lymph # (Auto) 1.6 [place] # (Auto) 1.1 H Eos # (Auto) 0.1 Baso # (Auto) 0.1 WBC Differential . Differential Comment Auto diff final PT 12.7 H INR 1.3 APTT 43.1 H Sodium 127 L Potassium 3.9 Chloride 93 L Carbon Dioxide 21.5 Anion Gap 13 BUN 37 H Creatinine 2.68 H Estimated GFR 24 L POC Glucose Random Glucose 61 L Lactic Acid Calcium 9.3 Magnesium 1.8 Total Bilirubin 0.5 AST 14 L ALT 19 Alkaline Phosphatase 129 H Troponin I Less than 0.02 L Total Protein 8.5 H Albumin 3.8 Lipase 334 Urine Color Urine Clarity Urine pH Ur Specific [place] Urine Protein Urine Glucose (UA) Urine Ketones Urine Occult Blood Urine Nitrate Urine Bilirubin Urine Urobilinogen Ur Leukocyte Esterase Urine RBC Urine WBC Ur Squamous Epith Cells Micro UA Comment Urine Culture Comments Stl C.difficile Tox PCR St C. diff Tox Epid 027 Urine Opiates Screen Ur Barbiturates Screen Ur Amphetamines Screen U Benzodiazepines Scrn Urine Cocaine Screen U Cannabinoids Screen Blood Type Antibody Screen 05/15/18 05/15/18 05/16/18 22:10 22:10 00:30 WBC RBC Hgb Hct MCV MCH MCHC RDW Plt Count MPV Neut % (Auto) Lymph % (Auto) [place] % (Auto) Eos % (Auto) Baso % (Auto) Neut # (Auto) Lymph # (Auto) [place] # (Auto) Eos # (Auto) Baso # (Auto) WBC Differential Differential Comment PT INR APTT Sodium Potassium Chloride Carbon Dioxide Anion Gap BUN Creatinine Estimated GFR POC Glucose Random Glucose Lactic Acid 2.1 H Calcium Magnesium Total Bilirubin AST ALT Alkaline Phosphatase Troponin I Total Protein Albumin Lipase Urine Color Urine Clarity Urine pH Ur Specific [place] Urine Protein Urine Glucose (UA) Urine Ketones Urine Occult Blood Urine Nitrate Urine Bilirubin Urine Urobilinogen Ur Leukocyte Esterase Urine RBC Urine WBC Ur Squamous Epith Cells Micro UA Comment Urine Culture Comments Stl C.difficile Tox PCR St C. diff Tox Epid 027 Urine Opiates Screen Neg Ur Barbiturates Screen Neg Ur Amphetamines Screen Neg U Benzodiazepines Scrn Neg Urine Cocaine Screen Pos H U Cannabinoids Screen Neg Blood Type O Positive Antibody Screen Negative 05/16/18 05/16/18 05/16/18 00:30 00:40 00:45 WBC RBC Hgb Hct MCV MCH MCHC RDW Plt Count MPV Neut % (Auto) Lymph % (Auto) [place] % (Auto) Eos % (Auto) Baso % (Auto) Neut # (Auto) Lymph # (Auto) [place] # (Auto) Eos # (Auto) Baso # (Auto) WBC Differential Differential Comment PT INR APTT Sodium Potassium Chloride Carbon Dioxide Anion Gap BUN Creatinine Estimated GFR POC Glucose Random Glucose Lactic Acid 0.7 Calcium Magnesium Total Bilirubin AST ALT Alkaline Phosphatase Troponin I Total Protein Albumin Lipase Urine Color Straw Urine Clarity Clear Urine pH 6.0 Ur Specific [place] 1.003 Urine Protein Negative Urine Glucose (UA) 50 Urine Ketones Negative Urine Occult Blood Negative Urine Nitrate Negative Urine Bilirubin Negative Urine Urobilinogen Less than 2 Ur Leukocyte Esterase Negative Urine RBC 1 Urine WBC 1 Ur Squamous Epith Cells <1 Micro UA Comment Culture not ind Urine Culture Comments Culture not ind Stl C.difficile Tox PCR Negative St C. diff Tox Epid 027 Negative Urine Opiates Screen Ur Barbiturates Screen Ur Amphetamines Screen U Benzodiazepines Scrn Urine Cocaine Screen U Cannabinoids Screen Blood Type Antibody Screen 05/16/18 05/16/18 05/16/18 07:44 09:18 12:36 WBC RBC Hgb Hct MCV MCH MCHC RDW Plt Count MPV Neut % (Auto) Lymph % (Auto) [place] % (Auto) Eos % (Auto) Baso % (Auto) Neut # (Auto) Lymph # (Auto) [place] # (Auto) Eos # (Auto) Baso # (Auto) WBC Differential Differential Comment PT INR APTT Sodium Potassium Chloride Carbon Dioxide Anion Gap BUN Creatinine Estimated GFR POC Glucose 61 L 117 H 104 Random Glucose Lactic Acid Calcium Magnesium Total Bilirubin AST ALT Alkaline Phosphatase Troponin I Total Protein Albumin Lipase Urine Color Urine Clarity Urine pH Ur Specific [place] Urine Protein Urine Glucose (UA) Urine Ketones Urine Occult Blood Urine Nitrate Urine Bilirubin Urine Urobilinogen Ur Leukocyte Esterase Urine RBC Urine WBC Ur Squamous Epith Cells Micro UA Comment Urine Culture Comments Stl C.difficile Tox PCR St C. diff Tox Epid 027 Urine Opiates Screen Ur Barbiturates Screen Ur Amphetamines Screen U Benzodiazepines Scrn Urine Cocaine Screen U Cannabinoids Screen Blood Type Antibody Screen - Imaging Impressions Chest X-Ray 05/15/18 21:54 CONCLUSION: No acute cardiopulmonary process. Abdomen/Pelvis CT 05/15/18 23:00 CONCLUSION: 1. Fluid-filled nondistended loops of small bowel and colon without gross bowel wall thickening or mesenteric stranding. Findings likely reflect enteritis although evaluation is very limited due to lack of IV and oral contrast. 2. Postsurgical features of aortobifemoral bypass graft and femoral to femoral bypass graft. 3. Cholelithiasis. <Cora Galeano - Last Filed: 05/16/18 14:37> - Labs CBC & Chem 7: 05/17/18 08:55 05/17/18 08:35 Labs: Laboratory Results - last 24 hr 05/16/18 05/16/18 05/17/18 16:42 20:59 03:06 WBC RBC Hgb Hct MCV MCH MCHC RDW Plt Count MPV Neut % (Auto) Lymph % (Auto) [place] % (Auto) Eos % (Auto) Baso % (Auto) Neut # (Auto) Lymph # (Auto) [place] # (Auto) Eos # (Auto) Baso # (Auto) WBC Differential Differential Comment Sodium Potassium Chloride Carbon Dioxide Anion Gap BUN Creatinine Estimated GFR POC Glucose 89 186 H 77 Random Glucose Calcium Total Bilirubin AST ALT Alkaline Phosphatase Total Protein Albumin 05/17/18 05/17/18 05/17/18 07:51 08:35 08:55 WBC 4.4 RBC 4.07 L Hgb 11.3 L Hct 35.3 L MCV 86.6 MCH 27.7 MCHC 32.0 RDW 16.4 Plt Count 117 L D MPV 9.4 Neut % (Auto) 61.3 Lymph % (Auto) 23.8 [place] % (Auto) 10.5 H Eos % (Auto) 3.3 Baso % (Auto) 1.1 Neut # (Auto) 2.7 Lymph # (Auto) 1.0 [place] # (Auto) 0.5 Eos # (Auto) 0.1 Baso # (Auto) 0.1 WBC Differential . Differential Comment Auto diff final Sodium 144 D Potassium 3.8 Chloride 114 H D Carbon Dioxide 22.7 Anion Gap 7 BUN 10 Creatinine 1.34 H Estimated GFR 54 L POC Glucose 91 Random Glucose 90 Calcium 8.6 Total Bilirubin 0.3 AST 11 L ALT 15 Alkaline Phosphatase 105 Total Protein 6.7 D Albumin 2.8 L D 05/17/18 12:52 WBC RBC Hgb Hct MCV MCH MCHC RDW Plt Count MPV Neut % (Auto) Lymph % (Auto) [place] % (Auto) Eos % (Auto) Baso % (Auto) Neut # (Auto) Lymph # (Auto) [place] # (Auto) Eos # (Auto) Baso # (Auto) WBC Differential Differential Comment Sodium Potassium Chloride Carbon Dioxide Anion Gap BUN Creatinine Estimated GFR POC Glucose 76 Random Glucose Calcium Total Bilirubin AST ALT Alkaline Phosphatase Total Protein Albumin <Telma Hurley - Last Filed: 05/17/18 16:14> Assessment and Plan - Plan - Enteritis- presented to the ER with complaints of diarrhea and severe diffused abdominal pain. Symptoms started after he smoked a friend's cigarette which was "laced with something". Shortly after reports large amounts of watery explosive brown diarrhea with associated severe diffused abdominal pain. Denies nausea, vomiting, melena, hematochezia, fever or chills. Denies previous hx of this. States last colonoscopy was 2 yrs ago. He was to have heme (+) stools. Abdomen/Pelvis CT 05/15/18 23:00 CONCLUSION: 1. Fluid-filled nondistended loops of small bowel and colon without gross bowel wall thickening or mesenteric stranding. Findings likely reflect enteritis although evaluation is very limited due to lack of IV and oral contrast. 2. Postsurgical features of aortobifemoral bypass graft and femoral to femoral bypass graft. 3. Cholelithiasis. - Leukocytosis- likely secondary to above, on cipro and Flagyl -PMH of A-fib on Xarelto, PVD, HTN, DM, Bipolar Disorder and COPD per attending Plan: - Clears - Golytely today - EGD/colonoscopy in the am - NPO mn - Cont. Cipro and Flagyl - Await stools studies - Cont. to hold Xarelto - Pt seen and examined by Dr. Hurley and myself and this note is written on his behalf. <Cora Galeano - Last Filed: 05/16/18 14:37> - Plan Agree with above note and plan, plan for endoscopy and colonoscopy, continue antibiotic <Telma Hurley - Last Filed: 05/17/18 16:14>
[2018-05-16] MEDS ORDERED: PEG 3350/E-Lyte Soln 4000 ML Bottle PO ONE (16:00)
--- NOTE | 2018-05-16 17:24 | ECG ---
Date Performed: 05/15/2018 Time Performed: 23:42:31 PTAGE: 63 years EKG: Sinus rhythm WITH FIRST DEGREE AV BLOCK CONSIDER ANTEROSEPTAL MYOCARDIAL INFARCTION, AGE INDETERMINATE ABNORMAL E CG NO PREVIOUS TRACING DOCTOR: Ford Stokes Interpretating Date/Time 05/16/2018 17:23:04
[2018-05-17] MEDS: Insulin NovoLOG Aspart Correctional Sugar Inj SQ SCH ×3 (08:33→18:23)
[2018-05-17] MEDS: clonazePAM 0.5 MG Tablet PO SCH (08:37)
[2018-05-17] MEDS: Ciprofloxacin 400 MG/200 ML 400 MG/200 ML PIGGYBACK IV.SIG SCH (08:38)
[2018-05-17] MEDS: Dextrose 5%/NaCl 0.9% Inj 1,000 ML IV.CONT SCH ×2 (08:39→16:54)
[2018-05-17 09:33] LABS: Baso # (Auto) 0.1 th/mm3 (0.0-0.2); Baso % (Auto) 1.1 % (0.0-2.0); Eos # (Auto) 0.1 th/mm3 (0.0-0.4); Eos % (Auto) 3.3 % (0.0-4.0); Hematocrit 35.3 % (39.0-51.0); Hemoglobin 11.3 gm/dL (13.0-17.0); Lymph % (Auto) 23.8 % (9.0-44.0); Mean Corpuscular Hemoglobin 27.7 pg (27.0-34.0); Mean Corpuscular Volume 86.6 fL (80.0-100.0); Mean Platelet Volume 9.4 fL (7.0-11.0); Mono # (Auto) 0.5 th/mm3 (0.0-0.9); Mono % (Auto) 10.5 % (0.0-8.0); Neut # (Auto) 2.7 th/mm3 (1.8-7.7); Neut % (Auto) 61.3 % (16.0-70.0); Platelet Count 117 th/mm3 (150-450); Red Blood Count 4.07 mil/mm3 (4.50-5.90); Red Cell Distribution Width 16.4 % (11.6-17.2); White Blood Count 4.4 th/mm3 (4.0-11.0)
[2018-05-17 10:07] LABS: Alanine Aminotransferase 15 U/L (12-78); Albumin 2.8 g/dL (3.4-5.0); Alkaline Phosphatase 105 U/L (45-117); Anion Gap 7 meq/L (5-15); Aspartate Aminotransferase 11 U/L (15-37); Blood Urea Nitrogen 10 mg/dL (7-18); Calcium 8.6 mg/dL (8.5-10.1); Carbon Dioxide 22.7 meq/L (21.0-32.0); Chloride 114 meq/L (98-107); Glomerular Filtration Rate 54 mL/min (>89); Glucose,Random 90 mg/dL (74-106); Potassium 3.8 meq/L (3.5-5.1); Sodium 144 meq/L (136-145); Total Protein 6.7 g/dL (6.4-8.2)
[2018-05-17] MEDS ORDERED: Lidocaine PF 1% Inj 5 ML Syringe INFILTRATN ONE (12:00)
[2018-05-17] MEDS: Pantoprazole Inj 40 MG Vial IV.PUSH SCH (12:41)
--- NOTE | 2018-05-17 13:31 | P.PNIM ---
Subjective Interval history: Pt seen and examined for f/u of enteritis. He is seen following EGD/ colonoscopy. He repots his abdominal pain is completely resolved. Denies N/V. Feels hungry and wants to eat. Physical Exam Vital signs: Vital Signs 05/16/18 16:00 05/16/18 20:00 05/16/18 20:26 Temperature 98.7 F 97.9 F Pulse Rate 65 75 70 Respiratory Rate 18 16 Blood Pressure 117/62 161/64 H Pulse Oximetry 99 97 05/16/18 23:43 05/17/18 00:00 05/17/18 03:47 Temperature 97.4 F L Pulse Rate 82 74 65 Respiratory Rate 18 Blood Pressure 148/70 H Pulse Oximetry 96 05/17/18 04:00 05/17/18 09:00 Temperature 98 F Pulse Rate 76 82 Respiratory Rate 20 Blood Pressure 140/65 Pulse Oximetry 99 Intake & Output 05/16/18 05/17/18 05/17/18 18:59 06:59 18:59 Intake Total 100 / 100 2500 / 2500 Output Total 1000 / 1000 1200 / 1200 Balance -900 / -900 2500 / 2500 -1200 / -1200 Weight 77.9 kg Intake: IV 100 / 100 2500 / 2500 D5W/Normal Saline Inj 1,000 ML 2000 / 2000 @ 100 mls/hr IV.CONT .Q10H LISA Rx#:[id number] Cipro 400 MG/200 ML Inj 400 mg 400 / 400 In 200 ml @ 200 mls/hr IV.SIG Q12H LISA Rx#:[id number] Flagyl 500 MG Inj 100 ML @ 100 100 / 100 100 / 100 mls/hr IV.SIG Q8H LISA Rx#: [id number] Output: Urine 1000 / 1000 1200 / 1200 Other: # Voids 10 Date of Last Bowel Movement 05/17/18 # Bowel Movements 7 Narrative: GENERAL: WN, WD male resting in bed in NAD. SKIN: Warm and dry. HEENT: AT/NC. Pupils equal and round. MMM. HEART: RRR no m/r/g. LUNGS: CTAB without wheezes or crackles. ABDOMEN: +BS, soft, NT, ND. EXTREMITIES: No LE edema. 2+ pedal pulses. NEURO: Awake and alert. Nonfocal. PSYCH: Appropriate mood and affect. Results - Labs CBC & Chem 7: 05/17/18 08:55 05/17/18 08:35 Laboratory Results - last 24 hr 05/16/18 05/16/18 05/17/18 16:42 20:59 03:06 WBC RBC Hgb Hct MCV MCH MCHC RDW Plt Count MPV Neut % (Auto) Lymph % (Auto) Mcdowell % (Auto) Eos % (Auto) Baso % (Auto) Neut # (Auto) Lymph # (Auto) Mcdowell # (Auto) Eos # (Auto) Baso # (Auto) WBC Differential Differential Comment Sodium Potassium Chloride Carbon Dioxide Anion Gap BUN Creatinine Estimated GFR POC Glucose 89 186 H 77 Random Glucose Calcium Total Bilirubin AST ALT Alkaline Phosphatase Total Protein Albumin 05/17/18 05/17/18 05/17/18 07:51 08:35 08:55 WBC 4.4 RBC 4.07 L Hgb 11.3 L Hct 35.3 L MCV 86.6 MCH 27.7 MCHC 32.0 RDW 16.4 Plt Count 117 L D MPV 9.4 Neut % (Auto) 61.3 Lymph % (Auto) 23.8 Mcdowell % (Auto) 10.5 H Eos % (Auto) 3.3 Baso % (Auto) 1.1 Neut # (Auto) 2.7 Lymph # (Auto) 1.0 Mcdowell # (Auto) 0.5 Eos # (Auto) 0.1 Baso # (Auto) 0.1 WBC Differential . Differential Comment Auto diff final Sodium 144 D Potassium 3.8 Chloride 114 H D Carbon Dioxide 22.7 Anion Gap 7 BUN 10 Creatinine 1.34 H Estimated GFR 54 L POC Glucose 91 Random Glucose 90 Calcium 8.6 Total Bilirubin 0.3 AST 11 L ALT 15 Alkaline Phosphatase 105 Total Protein 6.7 D Albumin 2.8 L D 05/17/18 12:52 WBC RBC Hgb Hct MCV MCH MCHC RDW Plt Count MPV Neut % (Auto) Lymph % (Auto) Mcdowell % (Auto) Eos % (Auto) Baso % (Auto) Neut # (Auto) Lymph # (Auto) Mcdowell # (Auto) Eos # (Auto) Baso # (Auto) WBC Differential Differential Comment Sodium Potassium Chloride Carbon Dioxide Anion Gap BUN Creatinine Estimated GFR POC Glucose 76 Random Glucose Calcium Total Bilirubin AST ALT Alkaline Phosphatase Total Protein Albumin Microbiology 05/15/18 22:10 Blood - Peripheral Aerobic Blood Culture - Preliminary No growth in 2 days 05/15/18 22:10 Blood - Peripheral Anaerobic Blood Culture - Preliminary No growth in 2 days 05/15/18 22:05 Blood - Peripheral Aerobic Blood Culture - Preliminary No growth in 2 days 05/15/18 22:05 Blood - Peripheral Anaerobic Blood Culture - Preliminary No growth in 2 days Assessment and Plan - Assessment (1) SIRS (systemic inflammatory response syndrome) Code(s): R65.10 - Systemic inflammatory response syndrome (SIRS) of non- infectious origin without acute organ dysfunction Status: Acute (2) Enteritis Code(s): K52.9 - Noninfective gastroenteritis and colitis, unspecified Status : Acute (3) Hyponatremia Code(s): E87.1 - Hypo-osmolality and hyponatremia Status: Acute (4) OTTO (acute kidney injury) Code(s): N17.9 - Acute kidney failure, unspecified Status: Acute (5) DM (diabetes mellitus) Code(s): E11.9 - Type 2 diabetes mellitus without complications Status: Chronic (6) GI bleed Code(s): K92.2 - Gastrointestinal hemorrhage, unspecified Status: Acute (7) A-fib Code(s): I48.91 - Unspecified atrial fibrillation Status: Chronic - Plan 63 YOWM with history of AFIB, PAD, HTM, DM, COPD, and bipolar disorder admitted 05/16 for sepsis secondary to enteritis. 1. Sepsis - Resolved - On admission, WBC 13, lactic acid 2.1, and patient hypotensive with GI source - WBC and lactic acid have since normalized - Blood cultures NGTD - Continue w/ IVF and abx as below 2. Enteritis - Pt with acute onset abdominal pain and diarrhea - Lipase unremarkable - U/A unremarkable - + Hemoccult in the ED - CT A/P showing fluid-filled nondistended loops of small bowel and colon and cholelithiasis - Continue Cipro and Flagyl - Check stool studies - GI consulted and pt underwent EGD/colonoscopy today - EGD showed mild gastropathy - Colonoscopy showed normal colonic mucosa, mild diverticulosis, and internal hemorrhoids. Recommend repeat in 1 year - H&H stable, continue to monitor - PPI 3. OTTO - Creatinine 2.68 on admission, previously 1.53 on 04/14 - Improving with IV fluids, down to 1.34 this AM - Avoid nephrotoxic agents - Renally dose meds - Continue to monitor 4. Atrial fibrillation - No further active bleeding and H&H stable, resume Xarelto - Continue home Cardizem 5. DM - Hold home Glipizide - SSI with Accuchecks per protocol 6. Substance abuse - UDS + for cocaine 7. HTN - Pt initially hypotensive on admission, likely secondary to GI loss through diarrhea - BP meds were hold but now starting to creep back up - Resume home amlodipine and Cardizem - Continue to hold Lisinopril in light of OTTO - Resume clonidine if pressures remain high despite above meds DVT prophylaxis: resume home Xarelto Discussed Condition With: The patient Discharge Planning: Anticipate D/C tomorrow (5) DM (diabetes mellitus) Qualifiers: Diabetes mellitus type: type 2 Diabetes mellitus intermission coordinator insulin use: without intermediate use
--- NOTE | 2018-05-17 14:07 | GIPROC ---
[facility] [address] [facility]. [facility], [address] COLONOSCOPY PROCEDURE REPORT EXAM DATE: 05/17/2018 PATIENT NAME: Karthik Gan MR #: [id number] BIRTHDATE: 1955 ENDOSCOPIST: Sanjiv Christian MD ORDER #: [id number] SITE AUDITOR: Swati White STATUS: inpatient INDICATIONS: The patient is a 63 yr old male here for a colonoscopy due to abdominal pain and unexplained diarrhea PROCEDURE PERFORMED: Colonoscopy with biopsy MEDICATIONS: None and Per Anesthesia. PREP QUALITY: poor ESTIMATED BLOOD LOSS: None CONSENT: The patient understands the risks and benefits of the procedure and understands that these risks include, but are not limited to: sedation, allergic reaction, infection, perforation and/or bleeding. Alternative means of evaluation and treatment include, among others: physical exam, x-rays, and/or surgical intervention. The patient elects to proceed with this endoscopic procedure. medical equipment was checked for proper function. Hand hygiene and appropriate measures for infection prevention was taken. After the risks, benefits and alternatives of the procedure were thoroughly explained, Informed consent was verified, confirmed and timeout was successfully executed by the treatment team. A digital exam was performed and revealed no abnormalities of the rectum The Pentax EC-[id number] endoscope was introduced through the anus and advanced to the terminal ileum which was intubated for a short distance. The instrument was then slowly withdrawn as the colon was fully examined. COLON FINDINGS: The colonic mucosa appeared normal in the terminal ileum and throughout the entire examined colon. Multiple biopsies were performed. Mild diverticulosis was noted. Retroflexed views revealed internal hemorrhoids and Retroflexed views revealed small internal hemorrhoids The scope was then completely withdrawn from the patient and the procedure terminated. PROCEDURE WITHDRAWAL TIME:8minutes ADVERSE EVENTS: There were no complications. IMPRESSIONS: 1. The colonic mucosa appeared normal in the terminal ileum and throughout the entire examined colon; multiple biopsies were performed 2. Mild diverticulosis was noted 3. Retroflexed views revealed internal hemorrhoids 4. Retroflexed views revealed small internal hemorrhoids 5. Was performed 6. Revealed no abnormalities of the rectum RECOMMENDATIONS: Await biopsy results. Biopsy results will not be ready for 7-10 days. If you don't hear from us in two weeks, call our office for results. RECALL: Return 1 year Colonoscopy Sanjiv Christian MD eSigned: Sanjiv Christian MD 05/17/2018 2:06 PM cc: PATIENT NAME: Karthik Gan MR#: [id number]
--- NOTE | 2018-05-17 14:11 | GIPROC ---
[facility] [address] [facility]. [facility], [address] EGD PROCEDURE REPORT EXAM DATE: 05/17/2018 PATIENT NAME: Karthik Gan MR #: [id number] BIRTHDATE: 1955 ATTENDING: Sanjiv Christian MD ORDER #: [id number] AQUAT[employer] LIFEGUARD: Swati White STATUS: inpatient INDICATIONS: The patient is a 63 yr old male here for an EGD due to epigastric abdominal pain PROCEDURE PERFORMED: EGD w/ biopsy MEDICATIONS: None and Per Anesthesia. TOPICAL ANESTHETIC: none CONSENT: The patient understands the risks and benefits of the procedure and understands that these risks include, but are not limited to: sedation, allergic reaction, infection, perforation and/or bleeding. Alternative means of evaluation and treatment include, among others: physical exam, x-rays, and/or surgical intervention. The patient elects to proceed with this endoscopic procedure. medical equipment was checked for proper function. Hand hygiene and appropriate measures for infection prevention was taken. After the risks, benefits and alternatives of the procedure were thoroughly explained, Informed consent was verified, confirmed and timeout was successfully executed by the treatment team. The patient was anesthetized with topical anesthesia and the EC-[id number] (Pedi C) endoscope was introduced through the mouth and advanced to the second portion of the duodenum. Retroflexed views revealed no abnormalities The gastroscope was then slowly withdrawn and removed. ESOPHAGUS: The z-line was located 40cm from the incisors. The z-line appeared irregular. STOMACH: There was mild antral gastropathy noted. Cold forcep biopsies were taken at the antrum and angularis. DUODENUM: The duodenal mucosa appeared normal in the entire duodenum. ADVERSE EVENTS: There were no complications. IMPRESSIONS: 1. The z-line was located 40cm from the incisors 2. There was mild antral gastropathy noted [T2] 3. Normal duodenal mucosa in the entire duodenum 4. Retroflexed views revealed no abnormalities RECOMMENDATIONS: Await biopsy results. Biopsy results will not be ready for 7-10 days. If you don't hear from us in two weeks, call our office for biopsy results. PATIENT CONDITION: fair DISPOSITION: Inpatient REPEAT EXAM: Return as needed for EGD Sanjiv Christian MD eSigned: Sanjiv Christian MD 05/17/2018 2:11 PM cc: PATIENT NAME: Karthik Gan MR#: [id number]
[2018-05-17] MEDS ORDERED: dilTIAZem CD 240 MG Capsule PO SCH (16:00)
[2018-05-17] MEDS: Topiramate 25 MG Tablet PO SCH (16:30)
[2018-05-17 18:09] VITALS: BP 168/79; PULSE 83; RESP 20; TEMP 97.7; O2SAT 100
[2018-05-18] MEDS ORDERED: amLODIPine 5 MG Tablet PO SCH (09:00)
[2018-05-18] MEDS ORDERED: Rivaroxaban 20 MG Tablet PO SCH (09:00)
== END 2018-05-17 19:30 | disposition left against medical advice (07) ==
LOC: NEPC 21:35 → NEDA 05-16 00:20 → NEPFCDU 05-16 02:05 → N04 05-16 20:05
PROVIDERS: ADMIT Family Medicine; ATTEND Family Medicine

== ENCOUNTER 2018-08-04 00:02 | Inpatient (IN) ==
--- NOTE | 2018-08-04 00:35 | ED ---
HPI General Chief complaint: Psychiatric Symptoms Stated complaint: psych eval/exparte/HHPD Time Seen by Provider: 08/04/18 00:32 History of Present Illness HPI narrative: This 63-year-old male with history of schizophrenia, atrial fibrillation, diabetes, DVT, presents under exparte initiated by a food and beverage lead. According to his paperwork the patient's sister claims that the patient has been making suicidal statements regarding using a razor blade to cut himself. The patient reports that he has felt depressed and suicidal for 15 years. He denies doing anything to hurt himself today. He denies any drug or alcohol use. Symptoms are moderate with no obvious aggravating or relieving factors. He has no other complaints at this time. Related Data Home Medications Medication Instructions Recorded Confirmed clonazepam 0.5 mg PO BID 05/15/18 08/04/18 hydrocodone-acetaminophen 2 tab PO Q6H PRN 05/15/18 08/04/18 sumatriptan succinate 100 mg PO Q2-4H PRN 05/15/18 08/04/18 topiramate [Topamax] 50 mg PO DAILY 05/15/18 08/04/18 Allergies Allergy/AdvReac Type Severity Reaction Status Date / Time acetaminophen Allergy Severe RASH Verified 05/15/18 23:06 aspirin Allergy Severe Anemia Verified 05/15/18 23:06 codeine Allergy Severe RASH Verified 05/15/18 23:06 ibuprofen Allergy Severe RASH Verified 05/15/18 23:06 penicillin G Allergy Severe RASH Verified 05/15/18 23:06 propoxyphene Allergy Severe RASH Verified 05/15/18 23:06 Review of Systems ROS: all other systems reviewed are negative [facility] Social History Social History Substance History: Active Abuse Second Hand Smoke Exposure: Yes Smoking Status: Current every day smoker Tobacco Type: Cigarettes How Often Do You Have a Drink Containing Alcohol: Monthly or less Recent Travel in [facility] within the Last 8 Weeks: No Recent Out of Country Travel within the Last 8 Weeks: No Exam Narrative Exam Narrative: GENERAL: Well-developed well-nourished male in no acute distress SKIN: Warm and dry. HEAD: Atraumatic. Normocephalic. EYES: Pupils equal and round. No scleral icterus. No injection or drainage. ENT: No nasal bleeding or discharge. Mucous membranes pink and moist. NECK: Trachea midline. No JVD. CARDIOVASCULAR: Regular rate and rhythm. No murmur appreciated. RESPIRATORY: No accessory muscle use. Clear to auscultation. Breath sounds equal bilaterally. GASTROINTESTINAL: Abdomen soft, non-tender, nondistended. Hepatic and splenic margins not palpable. MUSCULOSKELETAL: No obvious deformities. No clubbing. No cyanosis. No edema. NEUROLOGICAL: Awake and alert. No obvious cranial nerve deficits. Motor grossly within normal limits. Normal speech. PSYCHIATRIC: Depressed mood. Insight and judgment normal. Course Initial Documented Vital Signs Temperature 98.3 F 08/04/18 00:28 Pulse Rate 90 08/04/18 00:28 Respiratory Rate 16 08/04/18 00:28 Blood Pressure 184/79 H 08/04/18 00:28 Pulse Oximetry 97 08/04/18 00:28 Last Documented Vital Signs Temperature 97.4 F L 08/04/18 15:27 Pulse Rate 81 08/04/18 15:27 Respiratory Rate 18 08/04/18 15:27 Blood Pressure 158/91 H 08/04/18 15:27 Pulse Oximetry 95 08/04/18 15:27 Medical Decision Making MDM Narrative Medical decision making narrative: Mental health screening discussed with the patient. Psychiatric screen ordered. Lab work has been reviewed. The patient is medically cleared for psychiatric disposition. Medical Screen Exam Complete: Yes Emergency Medical Condition: Yes Differential Diagnosis Differential Diagnosis: Schizophrenia, adjustment reaction, acute psychosis, major depressive disorder, substance-induced mood disorder Lab Data Result diagrams: 08/04/18 00:45 08/04/18 00:45 Lab Results 08/04/18 08/04/18 08/04/18 Range/Units 00:45 00:45 00:45 WBC 7.1 (4.0-11.0) th/mm3 RBC 4.59 (4.50-5.90) mil/mm3 Hgb 13.2 (13.0-17.0) gm/dL Hct 40.2 (39.0-51.0) % MCV 87.7 (80.0-100.0) fL MCH 28.7 (27.0-34.0) pg MCHC 32.7 (32.0-36.0) % RDW 15.8 (11.6-17.2) % Plt Count 205 (150-450) th/mm3 MPV 9.9 (7.0-11.0) fL Neut % (Auto) 51.0 (16.0-70.0) % Lymph % (Auto) 32.0 (9.0-44.0) % Ramsey % (Auto) 11.9 H (0.0-8.0) % Eos % (Auto) 4.0 (0.0-4.0) % Baso % (Auto) 1.1 (0.0-2.0) % Neut # (Auto) 3.6 (1.8-7.7) th/mm3 Lymph # (Auto) 2.3 (1.0-4.8) th/mm3 Ramsey # (Auto) 0.8 (0.0-0.9) th/mm3 Eos # (Auto) 0.3 (0.0-0.4) th/mm3 Baso # (Auto) 0.1 (0.0-0.2) th/mm3 WBC Differential . Differential Comment Auto diff final Sodium 140 (136-145) meq/L Potassium 3.9 (3.5-5.1) meq/L Chloride 105 (98-107) meq/L Carbon Dioxide 26.6 (21.0-32.0) meq/L Anion Gap 8 (5-15) meq/L BUN 16 (7-18) mg/dL Creatinine 1.90 H (0.60-1.30) mg/dL Estimated GFR 36 L (>89) mL/min POC Glucose (68-110) mg/dl Random Glucose 163 H (74-106) mg/dL Calcium 8.6 (8.5-10.1) mg/dL Total Bilirubin 0.2 (0.2-1.0) mg/dL AST 13 L (15-37) U/L ALT 19 (12-78) U/L Alkaline Phosphatase 155 H (45-117) U/L Total Protein 8.2 (6.4-8.2) g/dL Albumin 3.6 (3.4-5.0) g/dL TSH 0.938 (0.358-3.740) uIU/mL Urine Opiates Screen Neg (Neg) Ur Barbiturates Screen Neg (Neg) Ur Amphetamines Screen Neg (Neg) U Benzodiazepines Scrn Neg (Neg) Urine Cocaine Screen Pos H (Neg) U Cannabinoids Screen Neg (Neg) Serum Alcohol Less than 3 (0-5) mg/dL 08/04/18 08/04/18 Range/Units 17:11 20:30 WBC (4.0-11.0) th/mm3 RBC (4.50-5.90) mil/mm3 Hgb (13.0-17.0) gm/dL Hct (39.0-51.0) % MCV (80.0-100.0) fL MCH (27.0-34.0) pg MCHC (32.0-36.0) % RDW (11.6-17.2) % Plt Count (150-450) th/mm3 MPV (7.0-11.0) fL Neut % (Auto) (16.0-70.0) % Lymph % (Auto) (9.0-44.0) % Ramsey % (Auto) (0.0-8.0) % Eos % (Auto) (0.0-4.0) % Baso % (Auto) (0.0-2.0) % Neut # (Auto) (1.8-7.7) th/mm3 Lymph # (Auto) (1.0-4.8) th/mm3 Ramsey # (Auto) (0.0-0.9) th/mm3 Eos # (Auto) (0.0-0.4) th/mm3 Baso # (Auto) (0.0-0.2) th/mm3 WBC Differential Differential Comment Sodium (136-145) meq/L Potassium (3.5-5.1) meq/L Chloride (98-107) meq/L Carbon Dioxide (21.0-32.0) meq/L Anion Gap (5-15) meq/L BUN (7-18) mg/dL Creatinine (0.60-1.30) mg/dL Estimated GFR (>89) mL/min POC Glucose 142 H 153 H (68-110) mg/dl Random Glucose (74-106) mg/dL Calcium (8.5-10.1) mg/dL Total Bilirubin (0.2-1.0) mg/dL AST (15-37) U/L ALT (12-78) U/L Alkaline Phosphatase (45-117) U/L Total Protein (6.4-8.2) g/dL Albumin (3.4-5.0) g/dL TSH (0.358-3.740) uIU/mL Urine Opiates Screen (Neg) Ur Barbiturates Screen (Neg) Ur Amphetamines Screen (Neg) U Benzodiazepines Scrn (Neg) Urine Cocaine Screen (Neg) U Cannabinoids Screen (Neg) Serum Alcohol (0-5) mg/dL Discharge Plan Discharge Disposition Patient Disposition: 30 Still Patient Discharge Condition Condition: Stable Discharge Details Diagnosis: Encounter for medical clearance for patient hold Physicians Team ED Provider: Holly Renner ED Midlevel Provider: Carson Meng Primary Care Provider: Primary Care Janice Jimenez Attending Provider: Clinton Garcia Other Providers: Aung Steward Status ED Status: Left Department Discharge Information Discharge Date/Time: 08/04/18 15:22
[2018-08-04 01:57] LABS: Baso # (Auto) 0.1 th/mm3 (0.0-0.2); Baso % (Auto) 1.1 % (0.0-2.0); Eos # (Auto) 0.3 th/mm3 (0.0-0.4); Hematocrit 40.2 % (39.0-51.0); Hemoglobin 13.2 gm/dL (13.0-17.0); Lymph # (Auto) 2.3 th/mm3 (1.0-4.8); Mean Corpuscular HGB Conc 32.7 % (32.0-36.0); Mean Corpuscular Hemoglobin 28.7 pg (27.0-34.0); Mean Corpuscular Volume 87.7 fL (80.0-100.0); Mean Platelet Volume 9.9 fL (7.0-11.0); Mono # (Auto) 0.8 th/mm3 (0.0-0.9); Mono % (Auto) 11.9 % (0.0-8.0); Neut # (Auto) 3.6 th/mm3 (1.8-7.7); Platelet Count 205 th/mm3 (150-450); Red Blood Count 4.59 mil/mm3 (4.50-5.90); Red Cell Distribution Width 15.8 % (11.6-17.2); White Blood Count 7.1 th/mm3 (4.0-11.0)
[2018-08-04 02:19] LABS: Alanine Aminotransferase 19 U/L (12-78); Albumin 3.6 g/dL (3.4-5.0); Anion Gap 8 meq/L (5-15); Aspartate Aminotransferase 13 U/L (15-37); Blood Urea Nitrogen 16 mg/dL (7-18); Calcium 8.6 mg/dL (8.5-10.1); Carbon Dioxide 26.6 meq/L (21.0-32.0); Chloride 105 meq/L (98-107); Glomerular Filtration Rate 36 mL/min (>89); Glucose,Random 163 mg/dL (74-106); Potassium 3.9 meq/L (3.5-5.1); Sodium 140 meq/L (136-145)
[2018-08-04 02:29] LABS: Alkaline Phosphatase 155 U/L (45-117); Thyroid Stimulating Hormone 0.938 uIU/mL (0.358-3.740); Total Protein 8.2 g/dL (6.4-8.2)
[2018-08-04 05:35] LABS: Amphetamine Screen,Urine Neg (Neg); Barbiturate Screen,Urine Neg (Neg); Cannabinoid Screen,Urine Neg (Neg); Cocaine Screen,Urine Pos (Neg)
[2018-08-04 05:42] LABS: Opiate Screen,Urine Neg (Neg)
--- NOTE | 2018-08-04 15:01 | P.PNPSY ---
History of Present Illness Patient is seen at 14:30. EMR reviewed. Nurses report reviewed. HPI narrative: This 63-year-old, male with history of schizophrenia, borderline intellectual functioning, Tourette Syndrome, atrial fibrillation, diabetes, DVT,on disability, lives with his sister and her daughter, presents under Ex- Parte initiated by a employment supervisor. The paperwork alleges that the patient informed his sister that he had purchase a sharp blade and was going to kill himself, that he is ready to and go to [facility] to be with his mom, that he appears depressed, and that he has been having some rotation. It also alleges that the patient was taken to [facility] yesterday and were told to bring him to [facility] for further evaluation. The patient is alert, oriented, cooperative. Speech is clear and logical. Mood is irritable. He appears depressed. He is disheveled in appearance and has not been caring for himself. He states "I am suicidal but I am not going to kill myself. I am under a lot of stress and I am not sleeping well due to the stress." He reports that he is having difficulty where he is living as well as having difficulty coping with his multiple medical problems including diabetes and complications from that. Patient also admits that he has not been taking his psychiatric medication as prescribed. He does not appear internally stimulated at this time. Social history. , on disability, living with his niece and his sister for the past 5 months. Past psychiatric history. The patient has an extensive psychiatric history dating back to at least 1988. He has been receiving outpatient care at [facility] since 2002 and has a mine deputy by the name of Isabella. His last psychiatric hospitalization was in 2013 in [place] Legal history. Patient has history of prior incarceration. At the time of this evaluation the patient meets criteria for inpatient psychiatric hospitalization due to depressed mood, poor medication adherence, irritability with episodes of verbally aggressive behavior, passive suicidal ideation, not caring for self.
[2018-08-04] MEDS ORDERED: LORazepam 0.5 MG Tablet PO PRN (15:02)
[2018-08-04] MEDS ORDERED: Aluminum/Magnesium/Simethacone Susp 30 ML UDC PO PRN (15:02)
[2018-08-04] MEDS ORDERED: Dextrose 50% in Water 50 ML Vial IV.PUSH PRN (15:48)
[2018-08-04] MEDS: Insulin NovoLOG Aspart Correctional Sugar Inj SQ SCH ×2 (17:14→21:42)
[2018-08-05 05:38] VITALS: O2SAT 93
[2018-08-05 08:10] LABS: Alanine Aminotransferase 18 U/L (12-78); Albumin 3.3 g/dL (3.4-5.0); Anion Gap 5 meq/L (5-15); Aspartate Aminotransferase 9 U/L (15-37); Blood Urea Nitrogen 21 mg/dL (7-18); Calcium 8.8 mg/dL (8.5-10.1); Carbon Dioxide 27.1 meq/L (21.0-32.0); Chloride 107 meq/L (98-107); Cholesterol 190 mg/dL (120-200); Glomerular Filtration Rate 46 mL/min (>89); Glucose,Random 140 mg/dL (74-106); Potassium 3.7 meq/L (3.5-5.1); Sodium 139 meq/L (136-145); Triglycerides 157 mg/dL (42-150)
[2018-08-05] MEDS: Insulin NovoLOG Aspart Correctional Sugar Inj SQ SCH ×4 (08:29→21:30)
[2018-08-05 08:36] LABS: Alkaline Phosphatase 133 U/L (45-117); HDL Cholesterol 25.3 mg/dL (40.0-60.0); LDL Cholesterol,Calculated 133 mg/dL (0-99); Total Protein 7.8 g/dL (6.4-8.2); Vitamin B12 518 pg/mL (193-986)
[2018-08-05 10:39] LABS: Baso # (Auto) 0.1 th/mm3 (0.0-0.2); Baso % (Auto) 1.2 % (0.0-2.0); Eos # (Auto) 0.2 th/mm3 (0.0-0.4); Eos % (Auto) 3.5 % (0.0-4.0); Hematocrit 38.7 % (39.0-51.0); Hemoglobin 12.9 gm/dL (13.0-17.0); Lymph # (Auto) 1.3 th/mm3 (1.0-4.8); Lymph % (Auto) 25.1 % (9.0-44.0); Mean Corpuscular HGB Conc 33.3 % (32.0-36.0); Mean Corpuscular Hemoglobin 28.8 pg (27.0-34.0); Mean Corpuscular Volume 86.5 fL (80.0-100.0); Mean Platelet Volume 9.1 fL (7.0-11.0); Mono # (Auto) 0.4 th/mm3 (0.0-0.9); Mono % (Auto) 7.5 % (0.0-8.0); Neut # (Auto) 3.4 th/mm3 (1.8-7.7); Neut % (Auto) 62.7 % (16.0-70.0); Platelet Count 187 th/mm3 (150-450); Red Blood Count 4.48 mil/mm3 (4.50-5.90); Red Cell Distribution Width 15.9 % (11.6-17.2); White Blood Count 5.4 th/mm3 (4.0-11.0)
[2018-08-05] MEDS ORDERED: Aluminum/Magnesium/Simethacone Susp 30 ML UDC PO PRN (11:49)
[2018-08-05] MEDS: Topiramate 25 MG Tablet PO SCH (12:12)
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
--- NOTE | 2018-08-05 13:39 | ECG ---
Date Performed: 08/05/2018 Time Performed: 10:47:54 PTAGE: 63 years EKG: Sinus rhythm WITH OCCASIONAL SUPRAVENTRICULAR PREMATURE COMPLEXES Since the PREVIOUS TRACING , no significant change noted PREVIOUS TRACIN05/15/2018 23.42 DOCTOR: Shirley Del Toro M.D. Interpretating Date/Time 08/05/2018 13:37:58
--- NOTE | 2018-08-05 15:47 | P.CON ---
History of Present Illness Service: [facility] Consult date: 08/05/18 Requesting Physician: Meño Rankin Reason for Consult: Med management Primary Care Provider: No Primary Care Physician Chief Complaint: SOB History of Present Illness: Mr. Gan is a 63-year-old white male with history of AFIB, PAD, HTM, DM, COPD, schizophrenia and bipolar disorder, sepsis secondary to enteritis, CHF, DVT, GI bleed. admitted 05/16 for sepsis secondary to enteritis, substance abuse (crack cocaine), tobacco abuse. Patient presented to the emergency room under a Teran act. Apparently the patient made suicidal statement regarding using razor blades to cut himself. His sister brought him to the hospital. Patient denies any suicidal ideation at this time, indicates that his sister overreacted. Hospitalist services are requested for medical management. There is a question whether patient has been compliant with medications. He states he takes Xarelto daily for history of DVT, unsure of dosage. He is also on blood pressure medications and takes oral hypoglycemics and insulin for diabetes. Medication list obtained in the ED is not completed. Patient indicates he is compliant with medications. Indicates that he continues to smoke 1 pack a day, he is not on any oxygen but uses inhalers occasionally. Admits to smoking crack. Patient has a chronic cough, occasional shortness of breath, no chest pain. Denies any leg swelling. No changes in bowel movement, no diarrhea. No recent fever, no chills. He is cooperative during interview and hopes to be discharged tomorrow. Review of Systems All other systems reviewed negative except as stated in HPI PMFSH - History History Provided By: Patient - Medical History Medical History: Medical History (Last Updated 08/05/18 @ 15:47 by YANIQUE Smith) Amputated great toe (Acute) Bipolar 1 disorder (Acute) Schizo-affective schizophrenia (Acute) Emphysema, unspecified (Acute) COPD (chronic obstructive pulmonary disease) (Acute) DVT (deep venous thrombosis) History of GI bleed Substance abuse Tobacco abuse - Surgical History Surgical History: Surgical History (Last Reviewed 08/05/18 @ 15:45 by YANIQUE Smith) Hx of abdominal surgery - Family History Family History: Family History (Last Updated 08/05/18 @ 15:45 by YANIQUE Smith) Other Family history non-contributory - Tobacco History Second Hand Smoke Exposure: Yes Tobacco Use In Past 30 Days: Yes Smoking Status: Current every day smoker (1 ppd x 30 years) Tobacco Type: Cigarettes - Alcohol History How Often Do You Have a Drink Containing Alcohol: Monthly or less - Substance Use History Substance History: Active Abuse - Substance Use Type Crack/Cocaine Status: Active Frequency: "whenever I can" Reason for Use: Get High - Travel History Recent Travel in the [place] Within the Last 8 Weeks: No Recent Travel Out of the Country Within the Last 8 Weeks: No - Immunization History Tetanus Immunization: Unsure Medications and Allergies Active Medications: Active Medications Al Hydrox/Mg Hydrox/Simethicone (Mag-Al Plus Susp Liq) 30 ml PO Q6H PRN PRN Reason: DYSPEPSIA Al Hydroxide/Mg Hydroxide (Milk Of Magnesia Liq) 30 ml PO Q12H PRN PRN Reason: Mild Constipation Dextrose (D50w Vial) 50 ml IV.PUSH UNSCH PRN PRN Reason: PER HYPOGLYCEMIA PROTOCOL Diphenhydramine HCl (Benadryl) 50 mg PO HS PRN PRN Reason: INSOMNIA Glucagon (Glucagon Inj) 1 mg OTHER PRN PRN PRN Reason: for Hypoglycemia Protocol Hydroxyzine HCl (Atarax) 50 mg PO Q6H PRN PRN Reason: ANXIETY Insulin Aspart (Novolog Insulin Correctional Sugar Inj) 0 unit SQ ACHS [facility]; Protocol Last Admin: 08/05/18 12:05 Dose: Not Given Sennosides (Senokot) 17.2 mg PO Q12H PRN PRN Reason: Moderate Constipation Topiramate (Topamax) 50 mg PO DAILY [facility] Last Admin: 08/05/18 12:12 Dose: 50 mg Allergies Allergy/AdvReac Type Severity Reaction Status Date / Time acetaminophen Allergy Severe RASH Verified 05/15/18 23:06 aspirin Allergy Severe Anemia Verified 05/15/18 23:06 codeine Allergy Severe RASH Verified 05/15/18 23:06 ibuprofen Allergy Severe RASH Verified 05/15/18 23:06 penicillin G Allergy Severe RASH Verified 05/15/18 23:06 propoxyphene Allergy Severe RASH Verified 05/15/18 23:06 Home Medications Medication Instructions Recorded Confirmed Type clonazepam 0.5 mg PO BID 05/15/18 08/04/18 History hydrocodone-acetaminophen 2 tab PO Q6H PRN 05/15/18 08/04/18 History sumatriptan succinate 100 mg PO Q2-4H PRN 05/15/18 08/04/18 History topiramate [Topamax] 50 mg PO DAILY 05/15/18 08/04/18 History Physical Exam Vital signs: Vital Signs 08/05/18 05:37 Temperature 97.7 F Pulse Rate 52 L Respiratory Rate 16 Blood Pressure 128/63 Pulse Oximetry 93 L Intake & Output 08/04/18 08/05/18 08/05/18 18:59 06:59 18:59 Intake Total 1200 / 1200 Balance 1200 / 1200 Weight 72.1 kg Intake: Oral 1200 / 1200 Other: Weight On Admission 72.1 kg Narrative: GENERAL: Well-nourished, well-developed patient in no apparent distress. SKIN: Warm and dry. HEAD: Atraumatic. Normocephalic. EYES: Pupils equal and round. No scleral icterus. No injection or drainage. ENT: No nasal bleeding or discharge. Mucous membranes pink and moist. NECK: Trachea midline. No JVD. CARDIOVASCULAR: Regular rate and rhythm. RESPIRATORY: Coarse rhonchi throughout, occasional expiratory wheeze. Nonproductive cough. GASTROINTESTINAL: Abdomen soft, non-tender, nondistended. MUSCULOSKELETAL: Extremities without clubbing, cyanosis, or edema. No obvious deformities. Pedal pulses 2+. NEUROLOGICAL: Awake and alert and oriented x 3. No obvious cranial nerve deficits. Motor grossly within normal limits. Five out of 5 muscle strength in the arms and legs. Normal speech. PSYCHIATRIC: Appropriate mood and affect; insight and judgment normal. Assessment and Plan - Plan 63 YOWM with history of AFIB, PAD, HTM, DM, COPD, bipolar disorder, sepsis secondary to enteritis, CHF, DVT. Admitted for suicidal ideation, history of bipolar disease and schizophrenia. [facility] consulted for medical management. Bipolar disease and schizophrenia Suicidal ideation -Per psychiatric management Substance abuse UDS positive for cocaine -Patient has been counseled History of atrial fibrillation EKG completed in the ER, reviewed by me, sinus rhythm. Patient is on Cardizem at home, does not know dosage RN to contact patient's pharmacy to obtain dosage Will resume Xarelto 10 mg p.o. daily DM II -Continue with SSI with Accuchecks per protocol -change to diabetic diet HTN, initially elevated in ED 180, now 140s Per review of April admission, pt. on Cardizem, Lisinopril, and Amlodipine -RN to obtain med list. Will start on Amlodipine 5 mg po daily for now. Hx of PAD Hx of DVT -continue Xarelto Hx of CHF, stable, no s/s of fluid overload -continue to monitor COPD/Emphysema Tobacco abuse -Counseling done -Ventolin INH 2 puffs q 6 PRN Chronic renal insufficiency, recent hx of sepsis, went into OTTO. Creat improved -Avoid nephrotoxic agents, no NSAIDs, no BHAVIN inhibitor -Encourage p.o. fluids DVT prophylaxis: resume home Xarelto Plan of care discussed with pt and RN. Thanks for this consultation, will follow tomorrow. Code Status: Full code Discussed Condition With: RN, pt. Discharge Planning: Per psych team
[2018-08-05 17:04] LABS: Hemoglobin A1c 7.2 % (4.3-6.0)
[2018-08-05 17:43] VITALS: BP 145/66
[2018-08-06 06:42] VITALS: PULSE 60; RESP 16; TEMP 97.9
[2018-08-06] MEDS: Topiramate 25 MG Tablet PO SCH (08:45)
[2018-08-06] MEDS: Insulin NovoLOG Aspart Correctional Sugar Inj SQ SCH (08:46)
[2018-08-06] MEDS ORDERED: amLODIPine 5 MG Tablet PO SCH (09:00)
[2018-08-06] MEDS ORDERED: Rivaroxaban 10 MG Tablet PO SCH (09:00)
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
== END 2018-08-06 12:30 | disposition home or self-care (01) ==
LOC: NEPC 00:02 → NEDA 15:08 → H250 15:23
PROVIDERS: ADMIT Psychiatry & Neurology Psychiatry; ATTEND Psychiatry & Neurology Psychiatry

== ENCOUNTER 2018-08-17 19:21 | Observation (INO) ==
[2018-08-17] MEDS ORDERED: Sod Chloride 0.9% Inj 1,000 ML IV.SIG ONE (20:38)
--- NOTE | 2018-08-17 21:09 | XR ---
EXAM DATE: 08/17/2018 9:04 PM EDT AGE/SEX: 63 years / Male INDICATIONS: Right ankle pain, post fall. CLINICAL DATA: This is the patient's initial encounter. Patient reports that signs and symptoms have been present for 1 day and indicates a pain score of 10/10. MEDICAL/SURGICAL HISTORY: None. None. COMPARISON: No prior exams available for comparison. FINDINGS: Bony structures are intact and in normal alignment. Joints are intact without dislocation or signifi cant arthropathy. Osseous density is normal. Soft tissues are unremarkable. No radiopaque foreign bodies seen. CONCLUSION: No evidence of recent bony injury. Electronically signed by: Kristopher Castillo MD 08/17/2018 9:08 PM EDT
--- NOTE | 2018-08-17 21:11 | XR ---
EXAM DATE: 08/17/2018 9:04 PM EDT AGE/SEX: 63 years / Male INDICATIONS: Right lower leg pain, post fall. CLINICAL DATA: This is the patient's initial encounter. Patient reports that signs and symptoms have been present for 1 day and indicates a pain score of 10/10. MEDICAL/SURGICAL HISTORY: None. None. COMPARISON: No prior exams available for comparison. FINDINGS: Bony structures are intact and in normal alignment. Osseous density is normal. Soft tissues are unre markable. No radiopaque foreign bodies seen. CONCLUSION: Negative examination Electronically signed by: Kristopher Castillo MD 08/17/2018 9:09 PM EDT
[2018-08-17 21:20] LABS: Baso % (Auto) 0.5 % (0.0-2.0); Eos # (Auto) 0.1 th/mm3 (0.0-0.4); Eos % (Auto) 1.2 % (0.0-4.0); Hematocrit 35.1 % (39.0-51.0); Lymph # (Auto) 1.4 th/mm3 (1.0-4.8); Lymph % (Auto) 13.5 % (9.0-44.0); Mean Corpuscular HGB Conc 34.3 % (32.0-36.0); Mean Corpuscular Hemoglobin 29.2 pg (27.0-34.0); Mean Corpuscular Volume 85.1 fL (80.0-100.0); Mean Platelet Volume 8.7 fL (7.0-11.0); Mono # (Auto) 0.6 th/mm3 (0.0-0.9); Mono % (Auto) 6.3 % (0.0-8.0); Neut # (Auto) 7.9 th/mm3 (1.8-7.7); Neut % (Auto) 78.5 % (16.0-70.0); Platelet Count 181 th/mm3 (150-450); Red Blood Count 4.12 mil/mm3 (4.50-5.90); Red Cell Distribution Width 15.2 % (11.6-17.2); White Blood Count 10.1 th/mm3 (4.0-11.0)
[2018-08-17 21:30] LABS: Activated Partial Thrombo Time 34.1 sec (24.3-30.1); INR 1.3 Ratio; Prothrombin Time 13.3 sec (9.8-11.6)
--- NOTE | 2018-08-17 21:40 | ED ---
HPI General Chief complaint: Medical Clearance Stated complaint: ABD pain/SOB Time Seen by Provider: 08/17/18 20:23 Source: patient Mode of arrival: EMS Limitations: no limitations History of Present Illness HPI Narrative: 63-year-old male with a history of schizophrenia, atrial fibrillation, diabetes mellitus presents to the emergency department via [facility] for multiple medical complaints. He states about 3 PM today he began having abdominal pain located in the right lower quadrant described as sharp, non radiating, and worse with eating. Denied fevers but admits to chills. Denies nausea or vomiting. Has had a couple of S episodes of nonbloody diarrhea today. Denies hematochezia, melena. Also complains of RLE pain after someone fell on his lower leg. Patient points to the lower forrester. Says his "toes are numb" but it been so for a while. He says that he was previously diagnosed with blood clots in his right lower extremities and was following Dr. Jerez. He says that he is currently taking Xarelto for this. He says that he is wheelchair- bound and has been so for 7 years. His primary care physician is Dr. Merchant. Home Medications Medication Instructions Recorded Confirmed clonazepam 1 mg PO TID 05/15/18 08/17/18 sumatriptan succinate 100 mg PO Q2-4H PRN 05/15/18 08/17/18 aripiprazole 10 mg PO HS 08/17/18 08/17/18 atorvastatin 80 mg PO DAILY 08/17/18 08/17/18 budesonide-formoterol [Symbicort] 2 puff INHALATION BID 08/17/18 08/17/18 diltiazem HCl 240 mg PO DAILY 08/17/18 08/17/18 glipizide 10 mg PO BID 08/17/18 08/17/18 hydroxyzine HCl 25 mg PO BID 08/17/18 08/17/18 insulin glargine [Lantus U-100 DAILY 08/17/18 Insulin] lisinopril 40 mg PO DAILY 08/17/18 08/17/18 pantoprazole 40 mg PO BIDAC 08/17/18 08/17/18 rivaroxaban [Xarelto] 20 mg PO DAILY 08/17/18 08/17/18 sertraline 50 mg PO DAILY 08/17/18 08/17/18 sitagliptin [Januvia] 50 mg PO DAILY 08/17/18 08/17/18 tizanidine 4 mg PO DAILY 08/17/18 08/17/18 varenicline [Chantix] 1 mg PO BID 08/17/18 08/17/18 topiramate [Topamax] 50 mg PO PRN 08/18/18 08/18/18 Previous Rx's Medication Instructions Recorded albuterol sulfate [Ventolin HFA] 2 puff INH Q6H PRN g 08/06/18 amlodipine [Norvasc] 5 mg PO DAILY tab 08/06/18 insulin aspart U-100 [Novolog 0 unit SUBCUT ACHS ml 08/06/18 U-100 Insulin aspart] Allergies Allergy/AdvReac Type Severity Reaction Status Date / Time acetaminophen Allergy Severe RASH Verified 08/17/18 19:41 aspirin Allergy Severe Anemia Verified 08/17/18 19:41 codeine Allergy Severe RASH Verified 08/17/18 19:41 ibuprofen Allergy Severe RASH Verified 08/17/18 19:41 penicillin G Allergy Severe RASH Verified 08/17/18 19:41 propoxyphene Allergy Severe RASH Verified 08/17/18 19:41 Review of Systems ROS: all other systems reviewed are negative FOR[facility]LY [facility], [facility] Medical History Medical History Amputated great toe (Acute) Bipolar 1 disorder (Acute) Schizo-affective schizophrenia (Acute) Emphysema, unspecified (Acute) COPD (chronic obstructive pulmonary disease) (Acute) DVT (deep venous thrombosis) (Acute) History of GI bleed (Acute) Substance abuse (Acute) Tobacco abuse (Acute) Family History Family History Other Family history non-contributory Social History Social History Substance History: Active Abuse Second Hand Smoke Exposure: No Smoking Status: Current every day smoker Tobacco Type: Cigarettes How Often Do You Have a Drink Containing Alcohol: Never Recent Travel in [place] within the Last 8 Weeks: No Recent Out of Country Travel within the Last 8 Weeks: No Substance Abuse Detail Crack/Cocaine: Substance Use Type Other:: "smoke crack" Substance Use Status: Active Route Used Substance Abuse: Inhalation Reason for Use: Get High Immunization History Tetanus Immunization: <5 Years Exam Narrative Exam Narrative: GENERAL: WD, WN in NAD SKIN: Focused skin assessment warm/dry. HEAD: Atraumatic. Normocephalic. EYES: Pupils equal and round. No scleral icterus. No injection or drainage. ENT: No nasal bleeding or discharge. Mucous membranes pink and moist. NECK: Trachea midline. No JVD. CARDIOVASCULAR: Regular rate and rhythm. No murmur appreciated. RESPIRATORY: No accessory muscle use. Clear to auscultation. Breath sounds equal bilaterally. GASTROINTESTINAL: Abdomen soft, diffusely tender, focused on the right lower quadrant, nondistended. No obvious organomegaly. MUSCULOSKELETAL: No obvious deformities. No clubbing. No cyanosis. No edema. RLE: TTP to anterior skin without deformities, erythema or edema. No tenderness palpation of the calves. Dorsalis pedis pulses present bilaterally. NEUROLOGICAL: Awake and alert. No obvious cranial nerve deficits. Motor grossly within normal limits. Normal speech. PSYCHIATRIC: Appropriate mood and affect; insight and judgment normal. Course Initial Documented Vital Signs Temperature 97.7 F 08/17/18 19:42 Pulse Rate 59 L 08/17/18 19:42 Respiratory Rate 18 08/17/18 19:42 Blood Pressure 126/58 L 08/17/18 19:42 Pulse Oximetry 97 08/17/18 19:42 Last Documented Vital Signs Temperature 98.6 F 08/19/18 15:33 Pulse Rate 63 08/19/18 15:33 Respiratory Rate 20 08/19/18 15:33 Blood Pressure 152/63 H 08/19/18 15:33 Pulse Oximetry 100 08/19/18 15:33 Medical Decision Making [facility] Narrative Medical decision making narrative: 63y male presents to the ED for evaluation of abdominal pain that started at 3p today. Also c/o RLE pain after someone fell on his leg 1 week ago. Says he is wheelchair bound and has been for 7 years. Vital signs are stable. Labs are notable for WBC 10.1, H/H 12.0/35.1, sodium 133, BUN/creatinine 14/1.81 , lipase 438, urinalysis noncontributory Tib-fib and ankle x-ray without acute process or fractures. Patient has contusions of the right lower extremity. CT abdomen pelvis demonstrates 1 mild diffuse ileus. No bowel obstruction, free air, or free fluid. Patient has a history of diabetes mellitus, now has ileus. Will admit patient for observation. Currently denies Nausea or vomiting. Medical Screen Exam Complete: Yes Emergency Medical Condition: Yes Differential Diagnosis Differential Diagnosis: RLE forrester fracture, contusion, ileus, bowel obstruction Lab Data Result diagrams: 08/18/18 08:41 08/19/18 06:41 Lab Results 08/17/18 08/17/18 08/17/18 Range/Units 21:05 21:05 21:05 WBC 10.1 (4.0-11.0) th/mm3 RBC 4.12 L (4.50-5.90) mil/mm3 Hgb 12.0 L (13.0-17.0) gm/dL Hct 35.1 L (39.0-51.0) % MCV 85.1 (80.0-100.0) fL MCH 29.2 (27.0-34.0) pg MCHC 34.3 (32.0-36.0) % RDW 15.2 (11.6-17.2) % Plt Count 181 (150-450) th/mm3 MPV 8.7 (7.0-11.0) fL Neut % (Auto) 78.5 H (16.0-70.0) % Lymph % (Auto) 13.5 (9.0-44.0) % [place] % (Auto) 6.3 (0.0-8.0) % Eos % (Auto) 1.2 (0.0-4.0) % Baso % (Auto) 0.5 (0.0-2.0) % Neut # (Auto) 7.9 H (1.8-7.7) th/mm3 Lymph # (Auto) 1.4 (1.0-4.8) th/mm3 [place] # (Auto) 0.6 (0.0-0.9) th/mm3 Eos # (Auto) 0.1 (0.0-0.4) th/mm3 Baso # (Auto) 0.0 (0.0-0.2) th/mm3 WBC Differential . Differential Comment Auto diff final PT 13.3 H (9.8-11.6) sec INR 1.3 Ratio APTT 34.1 H (24.3-30.1) sec Sodium 133 L (136-145) meq/L Potassium 3.9 (3.5-5.1) meq/L Chloride 99 (98-107) meq/L Carbon Dioxide 27.1 (21.0-32.0) meq/L Anion Gap 7 (5-15) meq/L BUN 14 (7-18) mg/dL Creatinine 1.81 H (0.60-1.30) mg/dL Estimated GFR 38 L (>89) mL/min POC Glucose (68-110) mg/dl Random Glucose 217 H (74-106) mg/dL Calcium 8.3 L (8.5-10.1) mg/dL Magnesium 1.8 (1.5-2.5) mg/dL Total Bilirubin 0.4 (0.2-1.0) mg/dL AST 9 L (15-37) U/L ALT 18 (12-78) U/L Alkaline Phosphatase 140 H (45-117) U/L Total Creatine Kinase (39-308) U/L Total Protein 7.0 (6.4-8.2) g/dL Albumin 3.2 L (3.4-5.0) g/dL Lipase 438 H (73-393) U/L Urine Color (Yellw/Straw) Urine Clarity (Clear) Urine pH (5.0-8.5) Ur Specific [place] (1.002-1.035) Urine Protein (Neg-Trace) mg/dL Urine Glucose (UA) (Negative) mg/dL Urine Ketones (Negative) mg/dL Urine Occult Blood (Negative) Urine Nitrate (Negative) Urine Bilirubin (Negative) Urine Urobilinogen (Less than 2) mg/dL Ur Leukocyte Esterase (Negative) Urine RBC (0-3) /hpf Urine WBC (0-5) /hpf Ur Squamous Epith Cells (0-5) /hpf Hyaline Casts (0-3) /lpf Urine Mucus (Occasional) /lpf Micro UA Comment Ur Microscopic Review Urine Culture Comments Urine Opiates Screen (Neg) Ur Barbiturates Screen (Neg) Ur Amphetamines Screen (Neg) U Benzodiazepines Scrn (Neg) Urine Cocaine Screen (Neg) U Cannabinoids Screen (Neg) 08/17/18 08/18/18 08/18/18 Range/Units 21:05 03:40 08:41 WBC 5.5 (4.0-11.0) th/mm3 RBC 4.26 L (4.50-5.90) mil/mm3 Hgb 12.3 L (13.0-17.0) gm/dL Hct 37.2 L (39.0-51.0) % MCV 87.4 (80.0-100.0) fL MCH 28.8 (27.0-34.0) pg MCHC 32.9 (32.0-36.0) % RDW 15.0 (11.6-17.2) % Plt Count 147 L (150-450) th/mm3 MPV 9.7 (7.0-11.0) fL Neut % (Auto) 63.1 (16.0-70.0) % Lymph % (Auto) 24.5 (9.0-44.0) % [place] % (Auto) 8.0 (0.0-8.0) % Eos % (Auto) 3.6 (0.0-4.0) % Baso % (Auto) 0.8 (0.0-2.0) % Neut # (Auto) 3.4 (1.8-7.7) th/mm3 Lymph # (Auto) 1.3 (1.0-4.8) th/mm3 [place] # (Auto) 0.4 (0.0-0.9) th/mm3 Eos # (Auto) 0.2 (0.0-0.4) th/mm3 Baso # (Auto) 0.0 (0.0-0.2) th/mm3 WBC Differential . Differential Comment Auto diff final PT (9.8-11.6) sec INR Ratio APTT (24.3-30.1) sec Sodium (136-145) meq/L Potassium (3.5-5.1) meq/L Chloride (98-107) meq/L Carbon Dioxide (21.0-32.0) meq/L Anion Gap (5-15) meq/L BUN (7-18) mg/dL Creatinine (0.60-1.30) mg/dL Estimated GFR (>89) mL/min POC Glucose (68-110) mg/dl Random Glucose (74-106) mg/dL Calcium (8.5-10.1) mg/dL Magnesium (1.5-2.5) mg/dL Total Bilirubin (0.2-1.0) mg/dL AST (15-37) U/L ALT (12-78) U/L Alkaline Phosphatase (45-117) U/L Total Creatine Kinase (39-308) U/L Total Protein (6.4-8.2) g/dL Albumin (3.4-5.0) g/dL Lipase (73-393) U/L Urine Color Yellow (Yellw/Straw) Urine Clarity Cloudy H (Clear) Urine pH 5.0 (5.0-8.5) Ur Specific [place] 1.015 (1.002-1.035) Urine Protein Negative (Neg-Trace) mg/dL Urine Glucose (UA) 500 or greater (Negative) mg/dL Urine Ketones Negative (Negative) mg/dL Urine Occult Blood Negative (Negative) Urine Nitrate Negative (Negative) Urine Bilirubin Negative (Negative) Urine Urobilinogen 2.0 H (Less than 2) mg/dL Ur Leukocyte Esterase Negative (Negative) Urine RBC 2 (0-3) /hpf Urine WBC 3 (0-5) /hpf Ur Squamous Epith Cells 4 (0-5) /hpf Hyaline Casts 31 (0-3) /lpf Urine Mucus Few H (Occasional) /lpf Micro UA Comment Culture not ind Ur Microscopic Review Not Reportable Urine Culture Comments Culture not ind Urine Opiates Screen Neg (Neg) Ur Barbiturates Screen Neg (Neg) Ur Amphetamines Screen Neg (Neg) U Benzodiazepines Scrn Neg (Neg) Urine Cocaine Screen Pos H (Neg) U Cannabinoids Screen Neg (Neg) 08/18/18 08/18/18 08/18/18 Range/Units 08:41 08:41 08:43 WBC (4.0-11.0) th/mm3 RBC (4.50-5.90) mil/mm3 Hgb (13.0-17.0) gm/dL Hct (39.0-51.0) % MCV (80.0-100.0) fL MCH (27.0-34.0) pg MCHC (32.0-36.0) % RDW (11.6-17.2) % Plt Count (150-450) th/mm3 MPV (7.0-11.0) fL Neut % (Auto) (16.0-70.0) % Lymph % (Auto) (9.0-44.0) % [place] % (Auto) (0.0-8.0) % Eos % (Auto) (0.0-4.0) % Baso % (Auto) (0.0-2.0) % Neut # (Auto) (1.8-7.7) th/mm3 Lymph # (Auto) (1.0-4.8) th/mm3 [place] # (Auto) (0.0-0.9) th/mm3 Eos # (Auto) (0.0-0.4) th/mm3 Baso # (Auto) (0.0-0.2) th/mm3 WBC Differential Differential Comment PT (9.8-11.6) sec INR Ratio APTT (24.3-30.1) sec Sodium 141 (136-145) meq/L Potassium 4.1 (3.5-5.1) meq/L Chloride 111 H D (98-107) meq/L Carbon Dioxide 24.2 (21.0-32.0) meq/L Anion Gap 6 (5-15) meq/L BUN 10 (7-18) mg/dL Creatinine 1.44 H (0.60-1.30) mg/dL Estimated GFR 50 L (>89) mL/min POC Glucose 145 H (68-110) mg/dl Random Glucose 116 H D (74-106) mg/dL Calcium 8.4 L (8.5-10.1) mg/dL Magnesium (1.5-2.5) mg/dL Total Bilirubin 0.4 (0.2-1.0) mg/dL AST 17 (15-37) U/L ALT 26 (12-78) U/L Alkaline Phosphatase 156 H (45-117) U/L Total Creatine Kinase 65 (39-308) U/L Total Protein 6.6 (6.4-8.2) g/dL Albumin 3.0 L (3.4-5.0) g/dL Lipase (73-393) U/L Urine Color (Yellw/Straw) Urine Clarity (Clear) Urine pH (5.0-8.5) Ur Specific [place] (1.002-1.035) Urine Protein (Neg-Trace) mg/dL Urine Glucose (UA) (Negative) mg/dL Urine Ketones (Negative) mg/dL Urine Occult Blood (Negative) Urine Nitrate (Negative) Urine Bilirubin (Negative) Urine Urobilinogen (Less than 2) mg/dL Ur Leukocyte Esterase (Negative) Urine RBC (0-3) /hpf Urine WBC (0-5) /hpf Ur Squamous Epith Cells (0-5) /hpf Hyaline Casts (0-3) /lpf Urine Mucus (Occasional) /lpf Micro UA Comment Ur Microscopic Review Urine Culture Comments Urine Opiates Screen (Neg) Ur Barbiturates Screen (Neg) Ur Amphetamines Screen (Neg) U Benzodiazepines Scrn (Neg) Urine Cocaine Screen (Neg) U Cannabinoids Screen (Neg) 08/18/18 08/18/18 08/18/18 Range/Units 12:27 17:00 20:39 WBC (4.0-11.0) th/mm3 RBC (4.50-5.90) mil/mm3 Hgb (13.0-17.0) gm/dL Hct (39.0-51.0) % MCV (80.0-100.0) fL MCH (27.0-34.0) pg MCHC (32.0-36.0) % RDW (11.6-17.2) % Plt Count (150-450) th/mm3 MPV (7.0-11.0) fL Neut % (Auto) (16.0-70.0) % Lymph % (Auto) (9.0-44.0) % [place] % (Auto) (0.0-8.0) % Eos % (Auto) (0.0-4.0) % Baso % (Auto) (0.0-2.0) % Neut # (Auto) (1.8-7.7) th/mm3 Lymph # (Auto) (1.0-4.8) th/mm3 [place] # (Auto) (0.0-0.9) th/mm3 Eos # (Auto) (0.0-0.4) th/mm3 Baso # (Auto) (0.0-0.2) th/mm3 WBC Differential Differential Comment PT (9.8-11.6) sec INR Ratio APTT (24.3-30.1) sec Sodium (136-145) meq/L Potassium (3.5-5.1) meq/L Chloride (98-107) meq/L Carbon Dioxide (21.0-32.0) meq/L Anion Gap (5-15) meq/L BUN (7-18) mg/dL Creatinine (0.60-1.30) mg/dL Estimated GFR (>89) mL/min POC Glucose 167 H 244 H 98 (68-110) mg/dl Random Glucose (74-106) mg/dL Calcium (8.5-10.1) mg/dL Magnesium (1.5-2.5) mg/dL Total Bilirubin (0.2-1.0) mg/dL AST (15-37) U/L ALT (12-78) U/L Alkaline Phosphatase (45-117) U/L Total Creatine Kinase (39-308) U/L Total Protein (6.4-8.2) g/dL Albumin (3.4-5.0) g/dL Lipase (73-393) U/L Urine Color (Yellw/Straw) Urine Clarity (Clear) Urine pH (5.0-8.5) Ur Specific [place] (1.002-1.035) Urine Protein (Neg-Trace) mg/dL Urine Glucose (UA) (Negative) mg/dL Urine Ketones (Negative) mg/dL Urine Occult Blood (Negative) Urine Nitrate (Negative) Urine Bilirubin (Negative) Urine Urobilinogen (Less than 2) mg/dL Ur Leukocyte Esterase (Negative) Urine RBC (0-3) /hpf Urine WBC (0-5) /hpf Ur Squamous Epith Cells (0-5) /hpf Hyaline Casts (0-3) /lpf Urine Mucus (Occasional) /lpf Micro UA Comment Ur Microscopic Review Urine Culture Comments Urine Opiates Screen (Neg) Ur Barbiturates Screen (Neg) Ur Amphetamines Screen (Neg) U Benzodiazepines Scrn (Neg) Urine Cocaine Screen (Neg) U Cannabinoids Screen (Neg) 08/19/18 08/19/18 08/19/18 Range/Units 06:41 08:00 12:00 WBC (4.0-11.0) th/mm3 RBC (4.50-5.90) mil/mm3 Hgb (13.0-17.0) gm/dL Hct (39.0-51.0) % MCV (80.0-100.0) fL MCH (27.0-34.0) pg MCHC (32.0-36.0) % RDW (11.6-17.2) % Plt Count (150-450) th/mm3 MPV (7.0-11.0) fL Neut % (Auto) (16.0-70.0) % Lymph % (Auto) (9.0-44.0) % [place] % (Auto) (0.0-8.0) % Eos % (Auto) (0.0-4.0) % Baso % (Auto) (0.0-2.0) % Neut # (Auto) (1.8-7.7) th/mm3 Lymph # (Auto) (1.0-4.8) th/mm3 [place] # (Auto) (0.0-0.9) th/mm3 Eos # (Auto) (0.0-0.4) th/mm3 Baso # (Auto) (0.0-0.2) th/mm3 WBC Differential Differential Comment PT (9.8-11.6) sec INR Ratio APTT (24.3-30.1) sec Sodium 144 (136-145) meq/L Potassium 4.2 (3.5-5.1) meq/L Chloride 110 H (98-107) meq/L Carbon Dioxide 27.0 (21.0-32.0) meq/L Anion Gap 7 (5-15) meq/L BUN 7 (7-18) mg/dL Creatinine 1.32 H (0.60-1.30) mg/dL Estimated GFR 55 L (>89) mL/min POC Glucose 131 H 260 H (68-110) mg/dl Random Glucose 95 (74-106) mg/dL Calcium 8.4 L (8.5-10.1) mg/dL Magnesium (1.5-2.5) mg/dL Total Bilirubin 0.3 (0.2-1.0) mg/dL AST 11 L (15-37) U/L ALT 20 (12-78) U/L Alkaline Phosphatase 143 H (45-117) U/L Total Creatine Kinase (39-308) U/L Total Protein 6.5 (6.4-8.2) g/dL Albumin 2.8 L (3.4-5.0) g/dL Lipase 83 (73-393) U/L Urine Color (Yellw/Straw) Urine Clarity (Clear) Urine pH (5.0-8.5) Ur Specific [place] (1.002-1.035) Urine Protein (Neg-Trace) mg/dL Urine Glucose (UA) (Negative) mg/dL Urine Ketones (Negative) mg/dL Urine Occult Blood (Negative) Urine Nitrate (Negative) Urine Bilirubin (Negative) Urine Urobilinogen (Less than 2) mg/dL Ur Leukocyte Esterase (Negative) Urine RBC (0-3) /hpf Urine WBC (0-5) /hpf Ur Squamous Epith Cells (0-5) /hpf Hyaline Casts (0-3) /lpf Urine Mucus (Occasional) /lpf Micro UA Comment Ur Microscopic Review Urine Culture Comments Urine Opiates Screen (Neg) Ur Barbiturates Screen (Neg) Ur Amphetamines Screen (Neg) U Benzodiazepines Scrn (Neg) Urine Cocaine Screen (Neg) U Cannabinoids Screen (Neg) Imaging Data Radiologist's impression: Abdomen/Pelvis CT 08/17/18 20:38 CONCLUSION: 1. Mild diffuse ileus. No bowel obstruction, free air or free fluid. 2. Postoperative aorta femoral and femoral-femoral bypass grafts with stable appearance since CTA runoff from March 2018. Grafts are patent. Ankle X-Ray 08/17/18 20:38 CONCLUSION: No evidence of recent bony injury. Tibia/Fibula X-Ray 08/17/18 20:38 CONCLUSION: Negative examination Abdomen X-Ray 08/18/18 00:00 CONCLUSION: Gaseous distention of bowel most characteristic of ileus. Discharge Plan Discharge Disposition Patient Disposition: 30 Still Patient Discharge Condition Condition: Stable Discharge Order Discharge Orders: AMA Discharge (Routine); Ordered 08/19/18 Ordered By: Daysi Dennison Discharge Details Diagnosis: Ileus, Contusion of leg Physicians Team ED Provider: Marlo Kwon ED Midlevel Provider: Kala Torres Primary Care Provider: Primary Care Janice Jimenez Attending Provider: Kylie Bower Status ED Status: Left Department Discharge Information Discharge Date/Time: 08/18/18 00:04
[2018-08-17 21:44] LABS: Albumin 3.2 g/dL (3.4-5.0); Anion Gap 7 meq/L (5-15); Aspartate Aminotransferase 9 U/L (15-37); Blood Urea Nitrogen 14 mg/dL (7-18); Calcium 8.3 mg/dL (8.5-10.1); Carbon Dioxide 27.1 meq/L (21.0-32.0); Chloride 99 meq/L (98-107); Glomerular Filtration Rate 38 mL/min (>89); Glucose,Random 217 mg/dL (74-106); Lipase 438 U/L (73-393); Magnesium 1.8 mg/dL (1.5-2.5); Potassium 3.9 meq/L (3.5-5.1); Sodium 133 meq/L (136-145)
[2018-08-17 21:46] LABS: Alanine Aminotransferase 18 U/L (12-78)
[2018-08-17 21:48] LABS: Bilirubin,Urine Negative (Negative); Clarity,Urine Cloudy (Clear); Color,Urine Yellow (Yellw/Straw); Glucose,Urine (UA) 500 or Greater mg/dL (Negative); Hyaline Casts,Urine 31 /lpf (0-3); Leukocyte Esterase,Urine Negative (Negative); Mucus,Urine Few /lpf (Occasional); Nitrite,Urine Negative (Negative); Specific Gravity,Urine 1.015 (1.002-1.035); Squamous Epithelial Cell,Urine 4 /hpf (0-5)
[2018-08-17 21:50] LABS: Alkaline Phosphatase 140 U/L (45-117)
--- NOTE | 2018-08-17 22:27 | CT ---
EXAM DATE: 08/17/2018 10:17 PM EDT AGE/SEX: 63 years / Male INDICATIONS: Abdominal pain. CLINICAL DATA: This is the patient's initial encounter. Patient reports that signs and symptoms have been present for 1 day and indicates a pain score of 10/10. MEDICAL/SURGICAL HISTORY: Chronic obstructive pulmonary disease. Deep venous thrombosis. Diab etes. None. ORAL CONTRAST: No oral contrast ingested. RADIATION DOSE: 8.26 CTDI (mGy) COMPARISON: [facility] [place] CONTRAST, 05/15/2018. . TECHNIQUE: Multiple contiguous axial images were obtained through the abdomen and pelvis following b olus infusion of 50 ml Visipaque 320 (iodixanol) nonionic water-soluble contrast as a single exam d ose. No oral contrast ingested. Using automated exposure control and adjustment of the mA and/or kV according to patient size, radiation dose was kept as low as reasonably achievable to obtain optimal diagnostic quality images. DICOM format image data is available electronically for review and compar antoine. FINDINGS: There are postoperative changes of a right-sided aortofemoral bypass and a right to left femoral-femo ral bypass with patent grafts. Lung bases are clear. No acute findings in the liver, spleen, adrenals, kidneys or pancreas. [place] e present in the gallbladder. No acute bony abnormalities. No obstruction or free air. Diffuse ileus without evidence for obstructi on. CONCLUSION: 1. Mild diffuse ileus. No bowel obstruction, free air or free fluid. 2. Postoperative aorta femoral and femoral-femoral bypass grafts with stable appearance since CTA [facility] from March 2018. Grafts are patent. Electronically signed by: Kristopher Castillo MD 08/17/2018 10:25 PM EDT
[2018-08-17] MEDS ORDERED: Bisacodyl 10 MG Supp RECTAL PRN (23:22)
[2018-08-17] MEDS: Sod Chloride 0.9% Inj 1,000 ML IV.CONT SCH (23:46)
[2018-08-18] MEDS ORDERED: Dextrose 50% in Water 50 ML Vial IV.PUSH PRN (03:24)
[2018-08-18 04:12] LABS: Amphetamine Screen,Urine Neg (Neg); Barbiturate Screen,Urine Neg (Neg); Cannabinoid Screen,Urine Neg (Neg); Cocaine Screen,Urine Pos (Neg)
[2018-08-18 04:15] LABS: Opiate Screen,Urine Neg (Neg)
--- NOTE | 2018-08-18 05:37 | P.HPIM ---
History of Present Illness Service: [facility] Primary Care Physician: No Primary Care Physician Chief Complaint: abdominal pain History of Present Illness: 63 y/o male with a history of schizophrenia, bipolar, afib on xarelto, dm, copd , emphysema, dvt and substance abuse (crack) and tobacco abuse presented to the ED with complaints of abdominal pain. He states he was having intermittent, RLQ abdominal pain for the past 2 day, sharp, cramping in nature with no radiation, complains of associated diarrhea. He denies any hematochezia. He states he was taking Imodium for the diarrhea because he was trying to stop it. Denies any chest pain. States he does have sob but that is not new. Denies any fever or chills. FORMERLY [facility] - History History Provided By: Patient - Medical History Medical History: Medical History (Last Reviewed 08/17/18 @ 22:30 by JIAN Stevens) Amputated great toe (Acute) Bipolar 1 disorder (Acute) Schizo-affective schizophrenia (Acute) Emphysema, unspecified (Acute) COPD (chronic obstructive pulmonary disease) (Acute) DVT (deep venous thrombosis) History of GI bleed Substance abuse Tobacco abuse - Surgical History Surgical History: Surgical History (Last Reviewed 08/17/18 @ 19:46 by Ester Garcia) Hx of abdominal surgery - Family History Family History: Family History (Last Updated 08/05/18 @ 15:45 by YANIQUE Smith) Other Family history non-contributory - Tobacco History Second Hand Smoke Exposure: No Tobacco Use In Past 30 Days: Yes Smoking Status: Current every day smoker Tobacco Type: Cigarettes - Alcohol History How Often Do You Have a Drink Containing Alcohol: Never - Substance Use History Substance History: Active Abuse - Substance Use Type Crack/Cocaine Type: Crack Cocaine Status: Active Route Used: Inhalation Frequency: Once a week Reason for Use: Feels Good Comment: "I don't smoke it to get high, I like the taste." - Travel History Recent Travel in the [place] Within the Last 8 Weeks: No Recent Travel Out of the Country Within the Last 8 Weeks: No - Immunization History Tetanus Immunization: <5 Years Medications and Allergies Active Medications: Active Medications Aripiprazole (Abilify) 10 mg PO HS LISA Bisacodyl (Dulcolax Supp) 10 mg RECTAL DAILY PRN PRN Reason: SEVERE CONSITIPATION Budesonide/Formoterol Fumarate (Symbicort 160/4.5 Mcg Inh) 2 puff INH BID LISA Dextrose (D50w Vial) 50 ml IV.PUSH UNSCH PRN PRN Reason: PER HYPOGLYCEMIA PROTOCOL Diltiazem HCl (Cardizem Cd 24hr) 240 mg PO DAILY LISA Glucagon (Glucagon Inj) 1 mg OTHER PRN PRN PRN Reason: for Hypoglycemia Protocol Sodium Chloride (Ns Inj) 1,000 mls @ 100 mls/hr IV.CONT .Q10H LISA Last Admin: 08/17/18 23:46 Dose: 100 mls/hr Insulin Aspart (Novolog Insulin Correctional Sugar Inj) 0 unit SQ ACHS LISA; Protocol Lisinopril (Prinivil) 40 mg PO DAILY LISA Pantoprazole Sodium (Protonix) 40 mg PO BIDAC LISA Rivaroxaban (Xarelto) 20 mg PO DAILY LISA Sertraline HCl (Zoloft) 50 mg PO DAILY LISA Sitagliptin Phosphate (Januvia) 50 mg PO DAILY LISA Sodium Chloride (Ns Flush) 2 ml IV.FLUSH PRN PRN PRN Reason: FLUSH AFTER USING IV ACCESS Allergies Allergy/AdvReac Type Severity Reaction Status Date / Time acetaminophen Allergy Severe RASH Verified 08/17/18 19:41 aspirin Allergy Severe Anemia Verified 08/17/18 19:41 codeine Allergy Severe RASH Verified 08/17/18 19:41 ibuprofen Allergy Severe RASH Verified 08/17/18 19:41 penicillin G Allergy Severe RASH Verified 08/17/18 19:41 propoxyphene Allergy Severe RASH Verified 08/17/18 19:41 Home Medications Medication Instructions Recorded Confirmed Type clonazepam 1 mg PO TID 05/15/18 08/17/18 History sumatriptan succinate 100 mg PO Q2-4H PRN 05/15/18 08/17/18 History aripiprazole 10 mg PO HS 08/17/18 08/17/18 History atorvastatin 80 mg PO DAILY 08/17/18 08/17/18 History budesonide-formoterol [Symbicort] 2 puff INHALATION BID 08/17/18 08/17/18 History diltiazem HCl 240 mg PO DAILY 08/17/18 08/17/18 History glipizide 10 mg PO BID 08/17/18 08/17/18 History hydroxyzine HCl 25 mg PO BID 08/17/18 08/17/18 History insulin glargine [Lantus U-100 DAILY 08/17/18 History Insulin] lisinopril 40 mg PO DAILY 08/17/18 08/17/18 History pantoprazole 40 mg PO BIDAC 08/17/18 08/17/18 History rivaroxaban [Xarelto] 20 mg PO DAILY 08/17/18 08/17/18 History sertraline 50 mg PO DAILY 08/17/18 08/17/18 History sitagliptin [Januvia] 50 mg PO DAILY 08/17/18 08/17/18 History tizanidine 4 mg PO DAILY 08/17/18 08/17/18 History varenicline [Chantix] 1 mg PO BID 08/17/18 08/17/18 History Exam Vital signs: Vital Signs 08/17/18 19:42 08/17/18 23:22 08/18/18 00:00 Temperature 97.7 F 97.9 F Pulse Rate 59 L 66 60 Respiratory Rate 18 18 19 Blood Pressure 126/58 L 130/60 115/57 L Pulse Oximetry 97 98 100 08/18/18 00:03 08/18/18 00:30 Temperature Pulse Rate Respiratory Rate 16 16 Blood Pressure Pulse Oximetry Intake & Output 08/17/18 08/17/18 08/18/18 06:59 18:59 06:59 Intake Total 1000 / 1000 Output Total 600 / 600 Balance 400 / 400 Weight 79.379 kg Intake: IV 1000 / 1000 NS Inj 1,000 ML @ Wide Open IV. 1000 / 1000 SIG BOLUS ONE Rx#:[id number] Output: Urine 600 / 600 Other: Date of Last Bowel Movement 08/17/18 Weight On Admission 79.379 kg Narrative: GENERAL: This is a well-nourished, well-developed patient, laying in bed, in no apparent distress. CARDIOVASCULAR: Regular rate and rhythm without murmurs, gallops, or rubs. RESPIRATORY: Rhonchi lung sounds throughout GASTROINTESTINAL: Abdomen soft, RLQ tenderness to palpation, nondistended, no rebound or guarding. Normal active bowel sounds MUSCULOSKELETAL: Extremities without clubbing, cyanosis, or edema. NEURO: Alert & Oriented x4 to person, place, time, situation. Moves all ext x4 Results - Labs CBC & Chem 7: 08/17/18 21:05 08/17/18 21:05 Labs: Short CBC 08/17/18 Range/Units 21:05 WBC 10.1 (4.0-11.0) th/mm3 Hgb 12.0 L (13.0-17.0) gm/dL Hct 35.1 L (39.0-51.0) % Plt Count 181 (150-450) th/mm3 BMP 08/17/18 21:05 Sodium 133 L Potassium 3.9 Chloride 99 Carbon Dioxide 27.1 BUN 14 Creatinine 1.81 H Calcium 8.3 L Liver Function 08/17/18 Range/Units 21:05 Total Bilirubin 0.4 (0.2-1.0) mg/dL AST 9 L (15-37) U/L ALT 18 (12-78) U/L Alkaline Phosphatase 140 H (45-117) U/L Albumin 3.2 L (3.4-5.0) g/dL Urine 08/17/18 Range/Units 21:05 Urine Color Yellow (Yellw/Straw) Urine Clarity Cloudy H (Clear) Urine pH 5.0 (5.0-8.5) Ur Specific [place] 1.015 (1.002-1.035) Urine Protein Negative (Neg-Trace) mg/dL Urine Glucose (UA) 500 or greater (Negative) mg/dL - Imaging Impressions Abdomen/Pelvis CT 08/17/18 20:38 CONCLUSION: 1. Mild diffuse ileus. No bowel obstruction, free air or free fluid. 2. Postoperative aorta femoral and femoral-femoral bypass grafts with stable appearance since CTA runoff from March 2018. Grafts are patent. Ankle X-Ray 08/17/18 20:38 CONCLUSION: No evidence of recent bony injury. Tibia/Fibula X-Ray 08/17/18 20:38 CONCLUSION: Negative examination Caprini VTE Risk Assessment Caprini VTE Risk Assessment: Moderate/High Risk (score >= 2) Caprini Risk Assessment Model: Point Value = 1 Point Value = 2 Point Value = 3 Point Value = 5 Age 41-60 Minor surgery BMI > 25 kg/m2 Swollen legs Varicose veins or History of unexplained or recurrent spontaneous Oral contraceptives or hormone replacement Sepsis (< 1 month) Serious lung disease, including pneumonia (< 1 month) Abnormal pulmonary function Acute myocardial infarction Congestive heart failure (< 1 month) History of inflammatory bowel disease Medical patient at bed rest Age 61-74 Arthroscopic surgery Major open surgery (> 45 min) Laparoscopic surgery (> 45 min) Malignancy Confined to bed (> 72 hours) Immobilizing plaster cast Central venous access Age >= 75 History of VTE Family history of VTE Factor V Leiden Prothrombin [id number] Lupus anticoagulant Anticardiolipin antibodies Elevated serum homocysteine Heparin-induced thrombocytopenia Other congenital or acquired thrombophilia Stroke (< 1 month) Elective arthroplasty Hip, pelvis, or leg fracture Acute spinal cord injury (< 1 month) Prophylaxis Regimen: Total Risk Factor Score Risk Level Prophylaxis Regimen 0-1 Low Early ambulation 2 Moderate Order ONE of the following: *Sequential Compression Device (SCD) *Heparin 5000 units SQ BID 3-4 Higher Order ONE of the following medications: *Heparin 5000 units SQ TID *Enoxaparin/Lovenox 40 mg SQ daily (WT < 150 kg, CrCl > 30 mL/min) *Enoxaparin/Lovenox 30 mg SQ daily (WT < 150 kg, CrCl > 10-29 mL/min) *Enoxaparin/Lovenox 30 mg SQ BID (WT < 150 kg, CrCl > 30 mL/min) AND/OR *Sequential Compression Device (SCD) 5 or more Highest Order ONE of the following medications: *Heparin 5000 units SQ TID (Preferred with Epidurals) *Enoxaparin/Lovenox 40 mg SQ daily (WT < 150 kg, CrCl > 30 mL/min) *Enoxaparin/Lovenox 30 mg SQ daily (WT < 150 kg, CrCl > 10-29 mL/min) *Enoxaparin/Lovenox 30 mg SQ BID (WT < 150 kg, CrCl > 30 mL/min) AND *Sequential Compression Device (SCD) Assessment and Plan - Plan 63 y/o male with a history of schizophrenia, bipolar, afib on xarelto, dm, copd , emphysema, dvt and substance abuse (crack) and tobacco abuse presented to the ED with complaints of abdominal pain. Ileus, acute Abdominal CT reviewed and shows a mild ileus -NPO -IVF -Avoid pain medications and Imodium Bipolar, chronic -Resume home medications Afib, chronic -Monitor telemetry -Resume xarelto and Cardizem COPD not in exacerbation -Resume home inhaler -Duoneb ordered -Patient is requesting an RX for a nebulizer, will need to be given at discharge Substance/Tobacco abuse -Encouraged to quit -explained the risks DVT prophylaxis: Xarelto Discussed Condition With: Patient and RN H&P: Quality - VTE Deep Vein Thrombosis/Pulmonary Embolism Present on Admission: No
[2018-08-18] MEDS: Lisinopril 20 MG Tablet PO SCH ×2 (08:46→12:28)
[2018-08-18] MEDS: Sertraline 50 MG Tablet PO SCH (08:48)
[2018-08-18] MEDS: Rivaroxaban 20 MG Tablet PO SCH (08:49)
[2018-08-18] MEDS ORDERED: Rivaroxaban 10 MG Tablet PO SCH (09:00)
[2018-08-18 09:46] LABS: Baso % (Auto) 0.8 % (0.0-2.0); Eos # (Auto) 0.2 th/mm3 (0.0-0.4); Eos % (Auto) 3.6 % (0.0-4.0); Hematocrit 37.2 % (39.0-51.0); Hemoglobin 12.3 gm/dL (13.0-17.0); Lymph # (Auto) 1.3 th/mm3 (1.0-4.8); Lymph % (Auto) 24.5 % (9.0-44.0); Mean Corpuscular HGB Conc 32.9 % (32.0-36.0); Mean Corpuscular Hemoglobin 28.8 pg (27.0-34.0); Mean Corpuscular Volume 87.4 fL (80.0-100.0); Mean Platelet Volume 9.7 fL (7.0-11.0); Mono # (Auto) 0.4 th/mm3 (0.0-0.9); Neut # (Auto) 3.4 th/mm3 (1.8-7.7); Neut % (Auto) 63.1 % (16.0-70.0); Platelet Count 147 th/mm3 (150-450); Red Blood Count 4.26 mil/mm3 (4.50-5.90); White Blood Count 5.5 th/mm3 (4.0-11.0)
[2018-08-18 09:50] LABS: Anion Gap 6 meq/L (5-15); Aspartate Aminotransferase 17 U/L (15-37); Blood Urea Nitrogen 10 mg/dL (7-18); Calcium 8.4 mg/dL (8.5-10.1); Carbon Dioxide 24.2 meq/L (21.0-32.0); Chloride 111 meq/L (98-107); Glomerular Filtration Rate 50 mL/min (>89); Glucose,Random 116 mg/dL (74-106); Potassium 4.1 meq/L (3.5-5.1); Sodium 141 meq/L (136-145)
[2018-08-18 09:53] LABS: Alanine Aminotransferase 26 U/L (12-78); Alkaline Phosphatase 156 U/L (45-117); Total Protein 6.6 g/dL (6.4-8.2)
[2018-08-18] MEDS: dilTIAZem CD 240 MG Capsule PO SCH (10:23)
[2018-08-18] MEDS: Insulin NovoLOG Aspart Correctional Sugar Inj SQ SCH ×4 (10:24→20:43)
[2018-08-18] MEDS: Sod Chloride 0.9% Inj 1,000 ML IV.CONT SCH ×2 (10:25→20:42)
--- NOTE | 2018-08-18 11:34 | P.PN ---
Subjective Interval history: Follow-up for abdominal pain. The patient reports feeling better today. He states yesterday he had some epigastric and periumbilical abdominal pain that has now improved. He denies any further nausea or vomiting. He states he had 3 bowel movements yesterday prior to arrival, then he took Imodium because he was worried his stools becoming loose. He has not had a bowel movement since his arrival. Denies fevers or chills. He would like to try some oral intake. He denies any alcohol use. Denies any history of pancreatitis. Denies any other medical complaints at this time. Physical Exam Vital signs: Vital Signs 08/17/18 19:42 08/17/18 23:22 08/18/18 00:00 Temperature 97.7 F 97.9 F Pulse Rate 59 L 66 60 Respiratory Rate 18 18 19 Blood Pressure 126/58 L 130/60 115/57 L Pulse Oximetry 97 98 100 08/18/18 00:03 08/18/18 00:30 08/18/18 08:09 Temperature 98.4 F Pulse Rate 66 Respiratory Rate 16 16 18 Blood Pressure 120/56 L Pulse Oximetry 97 08/18/18 11:30 Temperature 98.8 F Pulse Rate 62 Respiratory Rate 20 Blood Pressure 137/63 Pulse Oximetry 97 Intake & Output 08/17/18 08/18/18 08/18/18 18:59 06:59 18:59 Intake Total 1000 / 1000 1000 / 1000 Output Total 600 / 600 1000 / 1000 Balance 400 / 400 0 / 0 Weight 79.379 kg Intake: IV 1000 / 1000 1000 / 1000 NS Inj 1,000 ML @ 100 mls/hr IV 1000 / 1000 .CONT .Q10H LISA Rx#:[id number] NS Inj 1,000 ML @ Wide Open IV. 1000 / 1000 SIG BOLUS ONE Rx#:[id number] Output: Urine 600 / 600 1000 / 1000 Other: Date of Last Bowel Movement 08/17/18 Weight On Admission 79.379 kg Narrative: GENERAL: Well-nourished, well-developed patient in [place]. SKIN: Warm and dry. No rash. HEENT: Normocephalic. Atraumatic. Pupils equal and round. Mucous membranes pink and moist. CARDIOVASCULAR: Regular rate and rhythm. No murmur appreciated. RESPIRATORY: No accessory muscle use. Clear to auscultation. Breath sounds equal bilaterally. GASTROINTESTINAL: Abdomen soft, non-tender, nondistended. Normoactive bowel sounds x4. MUSCULOSKELETAL: No obvious deformities. Extremities without clubbing, cyanosis , or edema. NEUROLOGICAL: Awake and alert. No obvious cranial nerve deficits. Motor grossly within normal limits. Moving all extremities spontaneously. Normal speech. PSYCHIATRIC: Appropriate mood and affect; insight and judgment normal. Results - Labs CBC & Chem 7: 08/18/18 08:41 08/18/18 08:41 Laboratory Results - last 24 hr 08/17/18 08/17/18 08/17/18 21:05 21:05 21:05 WBC 10.1 RBC 4.12 L Hgb 12.0 L Hct 35.1 L MCV 85.1 MCH 29.2 MCHC 34.3 RDW 15.2 Plt Count 181 MPV 8.7 Neut % (Auto) 78.5 H Lymph % (Auto) 13.5 Heard % (Auto) 6.3 Eos % (Auto) 1.2 Baso % (Auto) 0.5 Neut # (Auto) 7.9 H Lymph # (Auto) 1.4 Heard # (Auto) 0.6 Eos # (Auto) 0.1 Baso # (Auto) 0.0 WBC Differential . Differential Comment Auto diff final PT 13.3 H INR 1.3 APTT 34.1 H Sodium 133 L Potassium 3.9 Chloride 99 Carbon Dioxide 27.1 Anion Gap 7 BUN 14 Creatinine 1.81 H Estimated GFR 38 L POC Glucose Random Glucose 217 H Calcium 8.3 L Magnesium 1.8 Total Bilirubin 0.4 AST 9 L ALT 18 Alkaline Phosphatase 140 H Total Protein 7.0 Albumin 3.2 L Lipase 438 H Urine Color Urine Clarity Urine pH Ur Specific [place] Urine Protein Urine Glucose (UA) Urine Ketones Urine Occult Blood Urine Nitrate Urine Bilirubin Urine Urobilinogen Ur Leukocyte Esterase Urine RBC Urine WBC Ur Squamous Epith Cells Hyaline Casts Urine Mucus Micro UA Comment Ur Microscopic Review Urine Culture Comments Urine Opiates Screen Ur Barbiturates Screen Ur Amphetamines Screen U Benzodiazepines Scrn Urine Cocaine Screen U Cannabinoids Screen 08/17/18 08/18/18 08/18/18 21:05 03:40 08:41 WBC 5.5 RBC 4.26 L Hgb 12.3 L Hct 37.2 L MCV 87.4 MCH 28.8 MCHC 32.9 RDW 15.0 Plt Count 147 L MPV 9.7 Neut % (Auto) 63.1 Lymph % (Auto) 24.5 Heard % (Auto) 8.0 Eos % (Auto) 3.6 Baso % (Auto) 0.8 Neut # (Auto) 3.4 Lymph # (Auto) 1.3 Heard # (Auto) 0.4 Eos # (Auto) 0.2 Baso # (Auto) 0.0 WBC Differential . Differential Comment Auto diff final PT INR APTT Sodium Potassium Chloride Carbon Dioxide Anion Gap BUN Creatinine Estimated GFR POC Glucose Random Glucose Calcium Magnesium Total Bilirubin AST ALT Alkaline Phosphatase Total Protein Albumin Lipase Urine Color Yellow Urine Clarity Cloudy H Urine pH 5.0 Ur Specific [place] 1.015 Urine Protein Negative Urine Glucose (UA) 500 or greater Urine Ketones Negative Urine Occult Blood Negative Urine Nitrate Negative Urine Bilirubin Negative Urine Urobilinogen 2.0 H Ur Leukocyte Esterase Negative Urine RBC 2 Urine WBC 3 Ur Squamous Epith Cells 4 Hyaline Casts 31 Urine Mucus Few H Micro UA Comment Culture not ind Ur Microscopic Review Not Reportable Urine Culture Comments Culture not ind Urine Opiates Screen Neg Ur Barbiturates Screen Neg Ur Amphetamines Screen Neg U Benzodiazepines Scrn Neg Urine Cocaine Screen Pos H U Cannabinoids Screen Neg 08/18/18 08/18/18 08:41 08:43 WBC RBC Hgb Hct MCV MCH MCHC RDW Plt Count MPV Neut % (Auto) Lymph % (Auto) Heard % (Auto) Eos % (Auto) Baso % (Auto) Neut # (Auto) Lymph # (Auto) Heard # (Auto) Eos # (Auto) Baso # (Auto) WBC Differential Differential Comment PT INR APTT Sodium 141 Potassium 4.1 Chloride 111 H D Carbon Dioxide 24.2 Anion Gap 6 BUN 10 Creatinine 1.44 H Estimated GFR 50 L POC Glucose 145 H Random Glucose 116 H D Calcium 8.4 L Magnesium Total Bilirubin 0.4 AST 17 ALT 26 Alkaline Phosphatase 156 H Total Protein 6.6 Albumin 3.0 L Lipase Urine Color Urine Clarity Urine pH Ur Specific [place] Urine Protein Urine Glucose (UA) Urine Ketones Urine Occult Blood Urine Nitrate Urine Bilirubin Urine Urobilinogen Ur Leukocyte Esterase Urine RBC Urine WBC Ur Squamous Epith Cells Hyaline Casts Urine Mucus Micro UA Comment Ur Microscopic Review Urine Culture Comments Urine Opiates Screen Ur Barbiturates Screen Ur Amphetamines Screen U Benzodiazepines Scrn Urine Cocaine Screen U Cannabinoids Screen - Imaging Impressions Abdomen/Pelvis CT 08/17/18 20:38 CONCLUSION: 1. Mild diffuse ileus. No bowel obstruction, free air or free fluid. 2. Postoperative aorta femoral and femoral-femoral bypass grafts with stable appearance since CTA runoff from March 2018. Grafts are patent. Ankle X-Ray 08/17/18 20:38 CONCLUSION: No evidence of recent bony injury. Tibia/Fibula X-Ray 08/17/18 20:38 CONCLUSION: Negative examination Assessment and Plan - Plan 63 y/o male with a history of schizophrenia, bipolar, afib on xarelto, dm, copd , emphysema, dvt and substance abuse (crack cocaine) and tobacco abuse presented to the ED with complaints of abdominal pain. Acute Pancreatitis and Mild Ileus: acute. -Abdominal CT reviewed and shows mild diffuse ileus -Lipase elevated at 438 -Supportive treatment with IVF and antiemetics prn -Avoid pain medication and Imodium -Initially kept NPO, symptoms improving, advanced to clear liquids Bipolar: chronic, stable -Resume home medications Afib: chronic, stable -Monitor on telemetry -Resume home xarelto and Cardizem COPD: chronic, does not appear to be in exacerbation -Resume home inhaler -Duoneb ordered -Patient is requesting an RX for a nebulizer, will need to be given at discharge Substance/Tobacco abuse -Encouraged to quit -explained the risks -check CPK DVT prophylaxis: on Xarelto Discharge Planning: Possible discharge 08/19 if symptoms improve and tolerating oral intake.
[2018-08-18] MEDS ORDERED: clonazePAM 0.5 MG Tablet PO PRN (12:06)
[2018-08-18] MEDS: Budesonide-Formoterol 160/4.5 MCG 6 GM Inhaler INH SCH ×2 (12:29→20:42)
[2018-08-18] MEDS ORDERED: Topiramate 25 MG Tablet PO SCH (16:30)
[2018-08-18] MEDS ORDERED: Topiramate 25 MG Tablet PO ONE (17:45)
--- NOTE | 2018-08-18 18:57 | XR ---
EXAM DATE: 08/18/2018 6:38 PM EDT AGE/SEX: 63 years / Male INDICATIONS: Abdominal pain, obstruction. CLINICAL DATA: This is the patient's initial encounter. Patient reports that signs and symptoms have been present for 3 days and indicates a pain score of 10/10. MEDICAL/SURGICAL HISTORY: Chronic obstructive pulmonary disease. None. COMPARISON: C, ABDOMEN FLAT & UPRIGHT, 03/23/2017. . FINDINGS: Vascular stents are present in the iliacs bilaterally. There is gaseous distention of bowel with sma ll and large bowel gas most characteristic of ileus. No free air. Moderate degenerative change in the spine. CONCLUSION: Gaseous distention of bowel most characteristic of ileus. Electronically signed by: Kristopher Castillo MD 08/18/2018 6:56 PM EDT
[2018-08-18] MEDS ORDERED: ARIPiprazole 10 MG Tablet PO SCH (21:00)
[2018-08-19] MEDS: Sod Chloride 0.9% Inj 1,000 ML IV.CONT SCH (08:01)
[2018-08-19] MEDS: Sertraline 50 MG Tablet PO SCH (08:03)
[2018-08-19 08:04] LABS: Albumin 2.8 g/dL (3.4-5.0); Anion Gap 7 meq/L (5-15); Aspartate Aminotransferase 11 U/L (15-37); Blood Urea Nitrogen 7 mg/dL (7-18); Calcium 8.4 mg/dL (8.5-10.1); Chloride 110 meq/L (98-107); Glomerular Filtration Rate 55 mL/min (>89); Glucose,Random 95 mg/dL (74-106); Lipase 83 U/L (73-393); Potassium 4.2 meq/L (3.5-5.1); Sodium 144 meq/L (136-145)
[2018-08-19] MEDS: dilTIAZem CD 240 MG Capsule PO SCH (08:04)
[2018-08-19] MEDS: Rivaroxaban 20 MG Tablet PO SCH (08:04)
[2018-08-19] MEDS: Lisinopril 20 MG Tablet PO SCH (08:05)
[2018-08-19] MEDS: Insulin NovoLOG Aspart Correctional Sugar Inj SQ SCH ×2 (08:06→13:05)
[2018-08-19] MEDS: Budesonide-Formoterol 160/4.5 MCG 6 GM Inhaler INH SCH (08:07)
[2018-08-19 08:08] LABS: Alanine Aminotransferase 20 U/L (12-78); Alkaline Phosphatase 143 U/L (45-117); Total Protein 6.5 g/dL (6.4-8.2)
--- NOTE | 2018-08-19 08:40 | P.PN ---
Subjective Interval history: Follow-up for abdominal pain, ileus, pancreatitis. Patient reports feeling better again today. He denies any significant abdominal pain. Denies any nausea or vomiting. He is passing a lot of flatus, however no bowel movement yet. He is tolerating clear liquid oral intake. He states he does take Ward at home, likely contributing to constipation. He denies any other medical complaints at this time. Encouraged ambulation today. Physical Exam Vital signs: Vital Signs 08/18/18 11:30 08/18/18 16:35 08/18/18 20:00 Temperature 98.8 F 97.6 F 97.5 F L Pulse Rate 62 65 54 L Respiratory Rate 20 20 18 Blood Pressure 137/63 159/70 H 132/63 Pulse Oximetry 97 96 97 08/18/18 23:35 08/19/18 07:48 Temperature 98.3 F 98.7 F Pulse Rate 53 L 69 Respiratory Rate 18 20 Blood Pressure 147/67 H 176/64 H Pulse Oximetry 95 96 Intake & Output 08/18/18 08/19/18 08/19/18 18:59 06:59 18:59 Intake Total 1000 / 1000 4140 / 4140 Output Total 1000 / 1000 840 / 840 Balance 0 / 0 3300 / 3300 Intake: IV 1000 / 1000 1999 NS Inj 1,000 ML @ 100 mls/hr IV 1000 / 1000 1999 .CONT .Q10H [facility] Rx#:[id number] Oral 640 / 640 Other 1500 / 1500 Output: Urine 1000 / 1000 840 / 840 Other: Other Intake Source Saline Solution # Voids 3 Date of Last Bowel Movement 08/17/18 Narrative: GENERAL: Well-nourished, well-developed middle-aged male patient in [facility]. SKIN: Warm and dry. No rash. HEENT: Normocephalic. Atraumatic. Pupils equal and round. Mucous membranes pink and moist. CARDIOVASCULAR: Regular rate and rhythm. No murmur appreciated. RESPIRATORY: No accessory muscle use. Clear to auscultation. Breath sounds equal bilaterally. GASTROINTESTINAL: Abdomen soft, non-tender, nondistended. Normoactive bowel sounds x4. MUSCULOSKELETAL: No obvious deformities. Extremities without clubbing, cyanosis , or edema. NEUROLOGICAL: Awake and alert. No obvious cranial nerve deficits. Motor grossly within normal limits. Moving all extremities spontaneously. Normal speech. PSYCHIATRIC: Appropriate mood and affect; insight and judgment normal. Results - Labs CBC & Chem 7: 08/18/18 08:41 08/19/18 06:41 Laboratory Results - last 24 hr 08/18/18 08/18/18 08/18/18 08:41 08:41 08:41 WBC 5.5 RBC 4.26 L Hgb 12.3 L Hct 37.2 L MCV 87.4 MCH 28.8 MCHC 32.9 RDW 15.0 Plt Count 147 L MPV 9.7 Neut % (Auto) 63.1 Lymph % (Auto) 24.5 [place] % (Auto) 8.0 Eos % (Auto) 3.6 Baso % (Auto) 0.8 Neut # (Auto) 3.4 Lymph # (Auto) 1.3 [place] # (Auto) 0.4 Eos # (Auto) 0.2 Baso # (Auto) 0.0 WBC Differential . Differential Comment Auto diff final Sodium 141 Potassium 4.1 Chloride 111 H D Carbon Dioxide 24.2 Anion Gap 6 BUN 10 Creatinine 1.44 H Estimated GFR 50 L POC Glucose Random Glucose 116 H D Calcium 8.4 L Total Bilirubin 0.4 AST 17 ALT 26 Alkaline Phosphatase 156 H Total Creatine Kinase 65 Total Protein 6.6 Albumin 3.0 L Lipase 08/18/18 08/18/18 08/18/18 08:43 12:27 17:00 WBC RBC Hgb Hct MCV MCH MCHC RDW Plt Count MPV Neut % (Auto) Lymph % (Auto) [place] % (Auto) Eos % (Auto) Baso % (Auto) Neut # (Auto) Lymph # (Auto) [place] # (Auto) Eos # (Auto) Baso # (Auto) WBC Differential Differential Comment Sodium Potassium Chloride Carbon Dioxide Anion Gap BUN Creatinine Estimated GFR POC Glucose 145 H 167 H 244 H Random Glucose Calcium Total Bilirubin AST ALT Alkaline Phosphatase Total Creatine Kinase Total Protein Albumin Lipase 08/18/18 08/19/18 08/19/18 20:39 06:41 08:00 WBC RBC Hgb Hct MCV MCH MCHC RDW Plt Count MPV Neut % (Auto) Lymph % (Auto) [place] % (Auto) Eos % (Auto) Baso % (Auto) Neut # (Auto) Lymph # (Auto) [place] # (Auto) Eos # (Auto) Baso # (Auto) WBC Differential Differential Comment Sodium 144 Potassium 4.2 Chloride 110 H Carbon Dioxide 27.0 Anion Gap 7 BUN 7 Creatinine 1.32 H Estimated GFR 55 L POC Glucose 98 131 H Random Glucose 95 Calcium 8.4 L Total Bilirubin 0.3 AST 11 L ALT 20 Alkaline Phosphatase 143 H Total Creatine Kinase Total Protein 6.5 Albumin 2.8 L Lipase 83 - Imaging Abdomen/Pelvis CT 08/17/18 20:38 CONCLUSION: 1. Mild diffuse ileus. No bowel obstruction, free air or free fluid. 2. Postoperative aorta femoral and femoral-femoral bypass grafts with stable appearance since CTA runoff from March 2018. Grafts are patent. Ankle X-Ray 08/17/18 20:38 CONCLUSION: No evidence of recent bony injury. Tibia/Fibula X-Ray 08/17/18 20:38 CONCLUSION: Negative examination Abdomen X-Ray 08/18/18 00:00 CONCLUSION: Gaseous distention of bowel most characteristic of ileus. Assessment and Plan - Plan 63 y/o male with a history of schizophrenia, bipolar, afib on xarelto, dm, copd , emphysema, dvt and substance abuse (crack cocaine) and tobacco abuse presented to the ED with complaints of abdominal pain. Acute Pancreatitis and Mild Ileus: acute. -Abdominal CT reviewed and shows mild diffuse ileus -Lipase elevated at 438, now improved 83 -Supportive treatment with IVF and antiemetics prn -Avoid pain medication and Imodium (patient is on Ward at home and also took Imodium prior to arrival) -Initially kept NPO, symptoms improving, passing flatus, advanced to clear liquids for now until BM Bipolar: chronic, stable -Resume home medications Afib: chronic, stable -Monitor on telemetry -Resume home xarelto and Cardizem COPD: chronic, does not appear to be in exacerbation -Resume home inhaler -Duoneb ordered -Patient is requesting an RX for a nebulizer, will need to be given at discharge Substance/Tobacco abuse -Encouraged to quit -explained the risks -check CPK DVT prophylaxis: on Xarelto Discharge Planning: Possible discharge later today or tomorrow if patient has a BM and tolerating oral intake. 1630hours: Destiny RN informs me patient leaving AMA. He states he feels better and wants to go home, despite not yet having any bowel movement. RN discussed risks , however patient did not want to stay any longer for treatment. This patient has the capacity to refuse care and understands the risks of leaving, including permanent disability and/or , and has had an opportunity to ask questions about his/her condition. The patient has been informed that he may return for care at any time, and follow up has been arranged/advised.
[2018-08-19] MEDS ORDERED: amLODIPine 5 MG Tablet PO SCH (09:00)
[2018-08-19] MEDS ORDERED: Topiramate 25 MG Tablet PO SCH (09:00)
== END 2018-08-19 16:57 | disposition left against medical advice (07) ==
LOC: NEDA 19:21 → NEPC 19:21 → NEDA 08-18 00:04 → NEPGCP 08-18 00:35
PROVIDERS: ADMIT Hospitalist; ATTEND Hospitalist

== ENCOUNTER 2018-10-27 15:03 | Inpatient (IN) ==
[2018-10-27] MEDS ORDERED: Vancomycin Inj 1,000 MG in Sodium Chlor 0.9% Inj 250 ML IV.SIG ONE (15:41)
[2018-10-27] MEDS ORDERED: Sod Chloride 0.9% Inj 1,000 ML IV.SIG SCH (15:45)
--- NOTE | 2018-10-27 15:52 | ED ---
HPI General Chief complaint: Extremity Problem,Nontraumatic Stated complaint: Right foot complaint Time Seen by Provider: 10/27/18 15:11 History of Present Illness HPI narrative: 63-year-old male with history of atrial fibrillation on xarelto, bipolar disorder, diabetes, hypertension, peripheral vascular disease, tobacco use, hyperlipidemia, presents for evaluation of right second toe discoloration and pain. He reports that he stubbed his toe 1 month ago. Since then he has developed gradually worsening black toe discoloration as well as redness on the foot, pain. Pain is worse when walking. Denies any fevers or chills. He reports that he is compliant with his medications. History of right aortofemoral bypass. No other complaints. Related Data Home Medications Medication Instructions Recorded Confirmed clonazepam 1 mg PO BID PRN 05/15/18 10/27/18 sumatriptan succinate 100 mg PO Q2-4H PRN 05/15/18 10/27/18 aripiprazole 10 mg PO HS 08/17/18 08/17/18 atorvastatin 80 mg PO DAILY 08/17/18 10/27/18 budesonide-formoterol [Symbicort] 2 puff INHALATION BID 08/17/18 10/27/18 diltiazem HCl 240 mg PO DAILY 08/17/18 10/27/18 glipizide 10 mg PO BID 08/17/18 10/27/18 hydroxyzine HCl 25 mg PO BID 08/17/18 10/27/18 insulin glargine [Lantus U-100 25 units SUBCUT HS 08/17/18 10/27/18 Insulin] lisinopril 40 mg PO DAILY 08/17/18 10/27/18 pantoprazole 40 mg PO DAILY 08/17/18 10/27/18 rivaroxaban [Xarelto] 20 mg PO DAILY 08/17/18 10/27/18 sitagliptin [Januvia] 50 mg PO DAILY 08/17/18 10/27/18 tizanidine 4 mg PO DAILY 08/17/18 08/17/18 varenicline [Chantix] 1 mg PO BID 08/17/18 08/17/18 topiramate [Topamax] 50 mg PO PRN 08/18/18 10/27/18 albuterol sulfate [ProAir HFA] 1 puff INHALATION Q4-6H PRN 10/27/18 10/27/18 clonidine HCl 0.1 mg PO TID 10/27/18 10/27/18 Previous Rx's Medication Instructions Recorded albuterol sulfate [Ventolin HFA] 2 puff INH Q6H PRN g 08/06/18 amlodipine [Norvasc] 5 mg PO DAILY tab 08/06/18 Allergies Allergy/AdvReac Type Severity Reaction Status Date / Time acetaminophen Allergy Severe RASH Verified 10/27/18 15:10 aspirin Allergy Severe Anemia Verified 10/27/18 15:10 codeine Allergy Severe RASH Verified 10/27/18 15:10 ibuprofen Allergy Severe RASH Verified 10/27/18 15:10 penicillin G Allergy Severe RASH Verified 10/27/18 15:10 propoxyphene Allergy Severe RASH Verified 10/27/18 15:10 Review of Systems ROS: all other systems reviewed are negative [facility] Family History Family History Other Family history non-contributory Social History Social History Substance History: Active Abuse Second Hand Smoke Exposure: No Smoking Status: Current every day smoker Tobacco Type: Cigarettes How Often Do You Have a Drink Containing Alcohol: Never Recent Travel in [place] within the Last 8 Weeks: No Recent Out of Country Travel within the Last 8 Weeks: No Substance Abuse Detail Marijuana: Substance Use Status: Active Route Used Substance Abuse: Inhalation Immunization History Tetanus Immunization: >5 Years Tetanus Immunization Year if Known: 2011 Exam Narrative Exam Narrative: GENERAL: This is a disheveled chronically ill-appearing male who is in no acute distress. SKIN: Warm and dry. Examination of the right foot reveals a necrotic appearing second toe. There is some ulceration on the lateral aspect some bloody drainage. No purulent drainage. Foul-smelling. Erythema on the dorsum of the right foot. HEAD: Atraumatic. Normocephalic. EYES: Pupils equal and round. No scleral icterus. No injection or drainage. ENT: No nasal bleeding or discharge. Mucous membranes pink and moist. NECK: Trachea midline. No JVD. CARDIOVASCULAR: Regular rate and rhythm. No murmur appreciated. RESPIRATORY: No accessory muscle use. Clear to auscultation. Breath sounds equal bilaterally. GASTROINTESTINAL: Abdomen soft, non-tender, nondistended. Hepatic and splenic margins not palpable. MUSCULOSKELETAL: Skin as noted above. Previous toe amputations noted on left foot. Unable to palpate or Doppler the dorsalis pedis or posterior tibial pulses. NEUROLOGICAL: Awake and alert. No obvious cranial nerve deficits. Motor grossly within normal limits. Normal speech. Course Initial Documented Vital Signs Temperature 96.6 F L 10/27/18 15:06 Respiratory Rate 16 10/27/18 15:06 Last Documented Vital Signs Temperature 96.6 F L 10/27/18 15:06 Pulse Rate 96 H 10/27/18 17:42 Respiratory Rate 18 10/27/18 17:42 Blood Pressure 174/70 H 10/27/18 17:42 Pulse Oximetry 100 10/27/18 17:42 Medical Decision Making JUANA Attestation JUANA supervised visit: Yes Attestation: I, Dr. Iraheta, have reviewed the advance practice practitioner's documentation and am in agreement, met with the patient face to face, made the diagnosis, and the medical decision making was done by me. *My assessment and Findings: Patient seen and evaluated with PA, please see his notes for further details. Patient is coming in with toe pain, and a bluish appearing right second toe, CTA was ordered for further evaluation of vasculature and shows occlusion below the previous right leg graft, and case had been discussed with Dr. Jerez who would like the patient to be medically admitted, will see him in consult tomorrow. MDM Narrative Medical decision making narrative: The patient appears to have necrosis of the right second toe with associated cellulitis. Severe peripheral vascular disease , I am unable to palpate or Doppler his dorsalis pedis or posterior tibial pulses. This appears is likely chronic. He is currently anticoagulated on Xarelto, he claims compliance. a CTA with runoff has been ordered. Lab work, blood cultures, foot x-ray has been ordered. The patient will be given IV vancomycin, cefepime and normal saline bolus. Lab work notable for WBC count of 11.9, ESR 46, GFR 42, lactic acid 2, crp 8.31. Foot x-ray reveals no acute abnormalities. Discussed with suede brusher Dr. Arias who would be happy to consult, recommends admission to medicine. He also recommends vascular surgery consultation. The patient has had vascular procedures performed in the past by Dr. Jerez. Dr. Jerez will consult and see the patient in the morning. I discussed with Dr. Abbott who is agreeable with admission. Medical Screen Exam Complete: Yes Emergency Medical Condition: Yes Differential Diagnosis Differential Diagnosis: Gangrene, osteomyelitis, peripheral vascular disease Lab Data Result diagrams: 10/27/18 15:40 10/27/18 15:40 Lab Results 10/27/18 10/27/18 10/27/18 Range/Units 15:40 15:40 15:40 WBC 11.9 H (4.0-11.0) th/mm3 RBC 4.56 (4.50-5.90) mil/mm3 Hgb 13.6 (13.0-17.0) gm/dL Hct 39.1 (39.0-51.0) % MCV 85.7 (80.0-100.0) fL MCH 29.9 (27.0-34.0) pg MCHC 34.9 (32.0-36.0) % RDW 15.4 (11.6-17.2) % Plt Count 167 (150-450) th/mm3 MPV 8.9 (7.0-11.0) fL Neut % (Auto) 80.2 H (16.0-70.0) % Lymph % (Auto) 9.2 (9.0-44.0) % [place] % (Auto) 9.2 H (0.0-8.0) % Eos % (Auto) 0.8 (0.0-4.0) % Baso % (Auto) 0.6 (0.0-2.0) % Neut # (Auto) 9.5 H (1.8-7.7) th/mm3 Lymph # (Auto) 1.1 (1.0-4.8) th/mm3 [place] # (Auto) 1.1 H (0.0-0.9) th/mm3 Eos # (Auto) 0.1 (0.0-0.4) th/mm3 Baso # (Auto) 0.1 (0.0-0.2) th/mm3 WBC Differential . Differential Comment Auto diff final ESR (0-20) mm/hr PT 11.7 H (9.8-11.6) sec INR 1.2 Ratio APTT 40.4 H (23.4-31.7) sec Sodium 131 L (136-145) meq/L Potassium 3.6 (3.5-5.1) meq/L Chloride 97 L (98-107) meq/L Carbon Dioxide 29.0 (21.0-32.0) meq/L Anion Gap 5 (5-15) meq/L BUN 14 (7-18) mg/dL Creatinine 1.67 H (0.60-1.30) mg/dL Estimated GFR 42 L (>89) mL/min Random Glucose 173 H (74-106) mg/dL Lactic Acid (0.4-2.0) mmol/L Calcium 8.9 (8.5-10.1) mg/dL Magnesium 1.7 (1.5-2.5) mg/dL Total Bilirubin 0.5 (0.2-1.0) mg/dL AST 10 L (15-37) U/L ALT 17 (12-78) U/L Alkaline Phosphatase 128 H (45-117) U/L C-Reactive Protein 8.31 H (0.00-0.30) mg/dL Total Protein 8.5 H (6.4-8.2) g/dL Albumin 3.7 (3.4-5.0) g/dL 10/27/18 10/27/18 Range/Units 15:40 Unknown WBC (4.0-11.0) th/mm3 RBC (4.50-5.90) mil/mm3 Hgb (13.0-17.0) gm/dL Hct (39.0-51.0) % MCV (80.0-100.0) fL MCH (27.0-34.0) pg MCHC (32.0-36.0) % RDW (11.6-17.2) % Plt Count (150-450) th/mm3 MPV (7.0-11.0) fL Neut % (Auto) (16.0-70.0) % Lymph % (Auto) (9.0-44.0) % [place] % (Auto) (0.0-8.0) % Eos % (Auto) (0.0-4.0) % Baso % (Auto) (0.0-2.0) % Neut # (Auto) (1.8-7.7) th/mm3 Lymph # (Auto) (1.0-4.8) th/mm3 [place] # (Auto) (0.0-0.9) th/mm3 Eos # (Auto) (0.0-0.4) th/mm3 Baso # (Auto) (0.0-0.2) th/mm3 WBC Differential Differential Comment ESR 46 H (0-20) mm/hr PT (9.8-11.6) sec INR Ratio APTT (23.4-31.7) sec Sodium (136-145) meq/L Potassium (3.5-5.1) meq/L Chloride (98-107) meq/L Carbon Dioxide (21.0-32.0) meq/L Anion Gap (5-15) meq/L BUN (7-18) mg/dL Creatinine (0.60-1.30) mg/dL Estimated GFR (>89) mL/min Random Glucose (74-106) mg/dL Lactic Acid 2.0 (0.4-2.0) mmol/L Calcium (8.5-10.1) mg/dL Magnesium (1.5-2.5) mg/dL Total Bilirubin (0.2-1.0) mg/dL AST (15-37) U/L ALT (12-78) U/L Alkaline Phosphatase (45-117) U/L C-Reactive Protein (0.00-0.30) mg/dL Total Protein (6.4-8.2) g/dL Albumin (3.4-5.0) g/dL Imaging Data Radiologist's impression: Aorta w/Runoff CTA 10/27/18 15:38 CONCLUSION: 1. Patent right ilio bifemoral bypass graft with stenosis at the origin of the right profunda that is compromising collateral flow to the right foot. Flow in the popliteal and tibial vessels is adequate. 2. Femorofemoral bypass graft is patent with patent graft to the left tibial peroneal trunk. There is stenosis of the anterior tibial and TP trunk below the left knee poorly evaluated because of the surgical clips.. Foot X-Ray 10/27/18 15:39 CONCLUSION: Negative examination Discharge Plan Discharge Disposition Patient Disposition: ED Admit(ED Internal Use Only) Discharge Condition Condition: Stable Discharge Order Discharge Orders: ED Use Only Admit Order (Routine); Ordered 10/27/18 Ordered By: Carson Meng Discharge Details Anticipated Discharge Date: 10/27/18 Diagnosis: Diabetic infection of right foot, Necrosis of toe, Peripheral vascular disease Physicians Team ED Provider: Saadia Iraheta ED Midlevel Provider: Carson Meng Primary Care Provider: Cecy Merchant Attending Provider: Radames Abbott Status ED Status: Admitted Patient
[2018-10-27 15:55] LABS: Baso # (Auto) 0.1 th/mm3 (0.0-0.2); Baso % (Auto) 0.6 % (0.0-2.0); Eos # (Auto) 0.1 th/mm3 (0.0-0.4); Eos % (Auto) 0.8 % (0.0-4.0); Hematocrit 39.1 % (39.0-51.0); Hemoglobin 13.6 gm/dL (13.0-17.0); Lymph # (Auto) 1.1 th/mm3 (1.0-4.8); Lymph % (Auto) 9.2 % (9.0-44.0); Mean Corpuscular HGB Conc 34.9 % (32.0-36.0); Mean Corpuscular Hemoglobin 29.9 pg (27.0-34.0); Mean Corpuscular Volume 85.7 fL (80.0-100.0); Mean Platelet Volume 8.9 fL (7.0-11.0); Mono # (Auto) 1.1 th/mm3 (0.0-0.9); Mono % (Auto) 9.2 % (0.0-8.0); Neut # (Auto) 9.5 th/mm3 (1.8-7.7); Neut % (Auto) 80.2 % (16.0-70.0); Platelet Count 167 th/mm3 (150-450); Red Blood Count 4.56 mil/mm3 (4.50-5.90); Red Cell Distribution Width 15.4 % (11.6-17.2); White Blood Count 11.9 th/mm3 (4.0-11.0)
--- NOTE | 2018-10-27 16:06 | XR ---
EXAM DATE: 10/27/2018 4:01 PM EST AGE/SEX: 63 years / Male INDICATIONS: Pain and swelling. CLINICAL DATA: This is the patient's initial encounter. Patient reports that signs and symptoms have been present for 2 months and indicates a pain score of 8/10. MEDICAL/SURGICAL HISTORY: Chronic obstructive pulmonary disease. None. COMPARISON: [facility], TIBIA FIBULA RIGHT 2V, 08/17/2018. . FINDINGS: Bony structures are intact and in normal alignment. Osseous density is normal. Soft tissues are unre markable. No radiopaque foreign bodies seen. CONCLUSION: Negative examination Electronically signed by: Rickie Henson MD Board Certified Radiologist 10/27/2018 4:04 PM EST
[2018-10-27 16:12] LABS: Activated Partial Thrombo Time 40.4 sec (23.4-31.7); INR 1.2 Ratio; Prothrombin Time 11.7 sec (9.8-11.6)
[2018-10-27 16:24] LABS: Alanine Aminotransferase 17 U/L (12-78); Albumin 3.7 g/dL (3.4-5.0); Anion Gap 5 meq/L (5-15); Aspartate Aminotransferase 10 U/L (15-37); Blood Urea Nitrogen 14 mg/dL (7-18); C-Reactive Protein 8.31 mg/dL (0.00-0.30); Calcium 8.9 mg/dL (8.5-10.1); Chloride 97 meq/L (98-107); Glomerular Filtration Rate 42 mL/min (>89); Glucose,Random 173 mg/dL (74-106); Magnesium 1.7 mg/dL (1.5-2.5); Potassium 3.6 meq/L (3.5-5.1); Sodium 131 meq/L (136-145)
[2018-10-27 16:26] LABS: Alkaline Phosphatase 128 U/L (45-117); Total Protein 8.5 g/dL (6.4-8.2)
--- NOTE | 2018-10-27 18:38 | CT ---
EXAM DATE: 10/27/2018 5:54 PM EST AGE/SEX: 63 years / Male INDICATIONS: Peripheral vascular disease. Right foot turning black and blue. CLINICAL DATA: This is the patient's initial encounter. Patient reports that signs and symptoms have been present for 1 day and indicates a pain score of 10/10. MEDICAL/SURGICAL HISTORY: Chronic obstructive pulmonary disease. Deep venous thrombosis. Emphysem a. . Aortofemoral bypass. Amputated great toe. RADIATION DOSE: 2.04 CTDI (mGy) COMPARISON: No prior exams available for comparison. TECHNIQUE: Volumetric scanning was performed using a multi-row detector CT scanner during bolus infu priyanka of 80 ml Visipaque 320 (iodixanol) nonionic water-soluble contrast as a single exam dose. The data was post processed with a variety of visualization algorithms including full volume maximum int ensity projection, multi-planar sliding thin slab reformation, curved planar reformation, and surface rendering techniques. Using automated exposure control and adjustment of the mA and/or kV according to patient size, radiation dose was kept as low as reasonably achievable to obtain optimal diagnosti c quality images. DICOM format image data is available electronically for review and comparison. FINDINGS: Abdominal aorta: Moderate atherosclerotic disease is present in the aorta with occlusion of the left common iliac with placement of a distal aorto right iliac bypass.. Single nonstenotic right renal art kristen is identified. A single nonstenotic left renal artery is identified. The celiac and superior mese nteric artery are widely patent. Right lower extremity: The right common iliac bypass bypass graft is patent with a patent femorofemor al graft to the left. Small pseudoaneurysm is present at the femorofemoral anastomosis. There is sten osis at the origin of the profunda. Small superficial femoral artery disappears into collaterals in t he mid thigh. A combination of the profunda collaterals and SFA collaterals reconstitutes a small pop liteal artery. There is a three-vessel trifurcation identified with at least posterior tibial artery runoff to the foot. Left lower extremity: The femorofemoral bypass is patent with a small pseudoaneurysm at the origin. M ultiple occluded stents are seen in the SFA with a bypass from the pseudoaneurysm to the popliteal ar rosetta with moderate tibial peroneal disease present. Moderate trifurcation breakup is evident as well. The posterior tibial artery does provide straight lateral runoff to the foot. Source data: The liver, spleen, pancreas adrenals and kidneys are unremarkable. There is no ascites. There is no retroperitoneal adenopathy. Moderate degenerative changes are seen in the lumbar spine. CONCLUSION: 1. Patent right ilio bifemoral bypass graft with stenosis at the origin of the right profunda that i s compromising collateral flow to the right foot. Flow in the popliteal and tibial vessels is adequat e. 2. Femorofemoral bypass graft is patent with patent graft to the left tibial peroneal trunk. There i s stenosis of the anterior tibial and TP trunk below the left knee poorly evaluated because of the luis rgical clips.. Electronically signed by: Ezra Guardado MD Board Certified Radiologist 10/27/2018 6:37 PM EST
[2018-10-27] MEDS ORDERED: Dextrose 50% in Water 50 ML Vial IV.PUSH PRN (18:44)
[2018-10-27] MEDS ORDERED: Vancomycin Consult Pharmacy OTHER PRN (18:47)
--- NOTE | 2018-10-27 20:27 | P.HP ---
History of Present Illness Service: [facility] Primary Care Physician: Cecy Merchant History of Present Illness: 63-year-old male with a past medical history significant for atrial fibrillation anticoagulated on Xarelto, bipolar disorder, schizophrenia, COPD, diabetes mellitus, hypertension, hyperlipidemia and peripheral vascular disease presents to the emergency department for the evaluation of a black, painful right second toe. The patient reports that approximately 4 weeks ago he stubbed his toe and developed a subsequent wound. He reports he has been soaking in Epsom salts and applying Neosporin. Despite this however his toe has become more painful and turned black. He was seen at [facility] on and discharged on oral antibiotics (the patient does not know what type of antibiotics he was prescribed). He reports he took a full 6 days of antibiotics as prescribed to him but his toe did not improve. He reports that he has been unable to ambulate times 3 weeks secondary to pain and swelling. He denies any fever but endorses chills. No chest pain or shortness of breath. No abdominal pain. No nausea/vomiting/diarrhea. No focal neurologic deficits. The patient reports he is unable to bend his foot at the ankle or wiggle his toes. Inpatient Certification: I certify that the inpatient services were ordered in accordance with Medicare regulations governing the order. This includes certification that hospital inpatient services are reasonable and necessary and in the case of services not specified as inpatient-only under 42 CFR 419.22(n), that they are appropriately provided as inpatient services in accordance to with the 2-midnight benchmark under 43 CFR 412.3(e) Estimated Total Length of Stay (Days): 3 Plans for Post Hospital Care: Not yet determined Review of Systems All other systems reviewed negative except as stated in HPI [facility] - History History Provided By: Patient - Medical History Medical History: Medical History (Last Updated 10/27/18 @ 20:23 by Mya Sloan MD) Amputated great toe (Acute) Bipolar 1 disorder (Acute) Schizo-affective schizophrenia (Acute) Emphysema, unspecified (Acute) COPD (chronic obstructive pulmonary disease) (Acute) Atrial fibrillation Diabetes mellitus Hyperlipidemia Hypertension Peripheral vascular disease DVT (deep venous thrombosis) History of GI bleed Substance abuse Tobacco abuse - Surgical History Surgical History: Surgical History (Last Updated 10/27/18 @ 20:18 by Mya Sloan MD) Status post amputation of left great toe Status post bypass graft of extremity Status post wrist surgery Hx of abdominal surgery - Family History Family History: Family History (Last Updated 10/27/18 @ 20:19 by Mya Sloan MD) Other Diabetes mellitus - Social History I have reviewed the patient's Social History: Yes - Tobacco History Second Hand Smoke Exposure: No Tobacco Use In Past 30 Days: Yes Smoking Status: Current every day smoker Tobacco Type: Cigarettes - Alcohol History How Often Do You Have a Drink Containing Alcohol: Never - Substance Use History Substance History: Active Abuse - Substance Use Type Marijuana Status: Active Route Used: Inhalation - Travel History Recent Travel in the [place] Within the Last 8 Weeks: No Recent Travel Out of the Country Within the Last 8 Weeks: No - Immunization History Tetanus Immunization: >5 Years Tetanus Immunization Year if Known: 2011 Medications and Allergies Active Medications: Active Medications Amlodipine Besylate (Norvasc) 5 mg PO DAILY LISA Aripiprazole (Abilify) 10 mg PO HS LISA Budesonide/Formoterol Fumarate (Symbicort 160/4.5 Mcg Inh) 2 puff INH BID LISA Clonazepam (Klonopin) 1 mg PO BID PRN PRN Reason: Anxiety Clonidine HCl (Catapres) 0.1 mg PO Q8HR LISA Clonidine HCl (Clonidine (Nicu) 20 Mcg/Ml Liq) 100 mcg PO TID LISA Dextrose (D50w Vial) 50 ml IV.PUSH UNSCH PRN PRN Reason: PER HYPOGLYCEMIA PROTOCOL Glucagon (Glucagon Inj) 1 mg OTHER PRN PRN PRN Reason: for Hypoglycemia Protocol Hydroxyzine HCl (Atarax) 25 mg PO BID LISA Cefepime HCl 2,000 mg/ Sodium (Chloride) 100 mls @ 200 mls/hr IV.SIG Q8H LISA Insulin Aspart (Novolog Insulin Correctional Sugar Inj) 0 unit SQ Q6HR LISA; Protocol Non-Formulary Medication (Atorvastatin) 80 mg PO DAILY LISA Non-Formulary Medication (Diltiazem Hcl [Diltiazem Hcl]) 240 mg PO DAILY LISA Non-Formulary Medication (Insulin Glargine) 25 units SQ HS LISA Pantoprazole Sodium (Protonix) 40 mg PO DAILY [facility] Pharmacy Profile Note (Vancomycin Consult Pharmacy) 1 each OTHER UNSCH PRN PRN Reason: Pharmacy to dose Sodium Chloride (Ns Flush) 2 ml IV.FLUSH BID LISA Sodium Chloride (Ns Flush) 2 ml IV.FLUSH PRN PRN PRN Reason: FLUSH AFTER USING IV ACCESS Allergies Allergy/AdvReac Type Severity Reaction Status Date / Time acetaminophen Allergy Severe RASH Verified 10/27/18 15:10 aspirin Allergy Severe Anemia Verified 10/27/18 15:10 codeine Allergy Severe RASH Verified 10/27/18 15:10 ibuprofen Allergy Severe RASH Verified 10/27/18 15:10 penicillin G Allergy Severe RASH Verified 10/27/18 15:10 propoxyphene Allergy Severe RASH Verified 10/27/18 15:10 Home Medications Medication Instructions Recorded Confirmed Type clonazepam 1 mg PO BID PRN 05/15/18 10/27/18 History sumatriptan succinate 100 mg PO Q2-4H PRN 05/15/18 10/27/18 History aripiprazole 10 mg PO HS 08/17/18 08/17/18 History atorvastatin 80 mg PO DAILY 08/17/18 10/27/18 History budesonide-formoterol [Symbicort] 2 puff INHALATION BID 08/17/18 10/27/18 History diltiazem HCl 240 mg PO DAILY 08/17/18 10/27/18 History glipizide 10 mg PO BID 08/17/18 10/27/18 History hydroxyzine HCl 25 mg PO BID 08/17/18 10/27/18 History insulin glargine [Lantus U-100 25 units SUBCUT HS 08/17/18 10/27/18 History Insulin] lisinopril 40 mg PO DAILY 08/17/18 10/27/18 History pantoprazole 40 mg PO DAILY 08/17/18 10/27/18 History rivaroxaban [Xarelto] 20 mg PO DAILY 08/17/18 10/27/18 History sitagliptin [Januvia] 50 mg PO DAILY 08/17/18 10/27/18 History tizanidine 4 mg PO DAILY 08/17/18 08/17/18 History varenicline [Chantix] 1 mg PO BID 08/17/18 08/17/18 History topiramate [Topamax] 50 mg PO PRN 08/18/18 10/27/18 History albuterol sulfate [ProAir HFA] 1 puff INHALATION Q4-6H PRN 10/27/18 10/27/18 History clonidine HCl 0.1 mg PO TID 10/27/18 10/27/18 History Exam Vital signs: Vital Signs 10/27/18 15:06 10/27/18 15:21 10/27/18 15:30 Temperature 96.6 F L Pulse Rate 93 H Respiratory Rate 16 24 Blood Pressure 156/74 H Pulse Oximetry 100 100 10/27/18 16:05 10/27/18 17:42 10/27/18 19:36 Temperature Pulse Rate 95 H 96 H Respiratory Rate 16 18 Blood Pressure 166/89 H 174/70 H 140/64 Pulse Oximetry 94 L 100 Intake & Output 10/27/18 10/27/18 10/28/18 06:59 18:59 06:59 Intake Total 1350 / 1350 Balance 1350 / 1350 Weight 77.111 kg Intake: IV 1350 / 1350 Maxipime Inj 2,000 MG In NS Inj 100 / 100 100 ML @ 200 mls/hr IV.SIG ONCE ONE Rx#:[id number] NS Inj 1,000 ML @ 1000 mls/hr 1000 / 1000 IV.SIG BOLUS LISA Rx#:[id number] Vancomycin Inj 1,000 MG In NS 250 / 250 Inj 250 ML @ 250 mls/hr IV.SIG ONCE ONE Rx#:[id number] Narrative: Gen.: No acute distress Head: Normocephalic. Atraumatic. EENT: Pupils equal round and reactive to light. Nose without drainage. Airway intact. Throat without injection. Cardiovascular: Regular rate and rhythm. No murmurs, rubs or gallops. Respiratory: Lungs clear to auscultation bilaterally. No wheezes or rhonchi. Abdomen: Soft, nontender, nondistended. No peritoneal signs. Musculoskeletal: Right foot and ankle erythematous and edematous. Second right toe black without obvious drainage. Unable to flex ankle or wiggle toes. Skin: No obvious rashes or erythema. Neuro: Sensory and motor grossly intact. Cranial nerves II through XII grossly intact. Results - Labs CBC & Chem 7: 10/27/18 15:40 10/27/18 15:40 Labs: Laboratory Results - last 24 hr 10/27/18 10/27/18 10/27/18 15:40 15:40 15:40 WBC 11.9 H RBC 4.56 Hgb 13.6 Hct 39.1 MCV 85.7 MCH 29.9 MCHC 34.9 RDW 15.4 Plt Count 167 MPV 8.9 Neut % (Auto) 80.2 H Lymph % (Auto) 9.2 [place] % (Auto) 9.2 H Eos % (Auto) 0.8 Baso % (Auto) 0.6 Neut # (Auto) 9.5 H Lymph # (Auto) 1.1 [place] # (Auto) 1.1 H Eos # (Auto) 0.1 Baso # (Auto) 0.1 WBC Differential . Differential Comment Auto diff final ESR PT 11.7 H INR 1.2 APTT 40.4 H Sodium 131 L Potassium 3.6 Chloride 97 L Carbon Dioxide 29.0 Anion Gap 5 BUN 14 Creatinine 1.67 H Estimated GFR 42 L Random Glucose 173 H Lactic Acid Calcium 8.9 Magnesium 1.7 Total Bilirubin 0.5 AST 10 L ALT 17 Alkaline Phosphatase 128 H C-Reactive Protein 8.31 H Total Protein 8.5 H Albumin 3.7 10/27/18 10/27/18 15:40 Unknown WBC RBC Hgb Hct MCV MCH MCHC RDW Plt Count MPV Neut % (Auto) Lymph % (Auto) [place] % (Auto) Eos % (Auto) Baso % (Auto) Neut # (Auto) Lymph # (Auto) [place] # (Auto) Eos # (Auto) Baso # (Auto) WBC Differential Differential Comment ESR 46 H PT INR APTT Sodium Potassium Chloride Carbon Dioxide Anion Gap BUN Creatinine Estimated GFR Random Glucose Lactic Acid 2.0 Calcium Magnesium Total Bilirubin AST ALT Alkaline Phosphatase C-Reactive Protein Total Protein Albumin - Imaging Impressions Aorta w/Runoff CTA 10/27/18 15:38 CONCLUSION: 1. Patent right ilio bifemoral bypass graft with stenosis at the origin of the right profunda that is compromising collateral flow to the right foot. Flow in the popliteal and tibial vessels is adequate. 2. Femorofemoral bypass graft is patent with patent graft to the left tibial peroneal trunk. There is stenosis of the anterior tibial and TP trunk below the left knee poorly evaluated because of the surgical clips.. Foot X-Ray 10/27/18 15:39 CONCLUSION: Negative examination Caprini VTE Risk Assessment Caprini VTE Risk Assessment: Moderate/High Risk (score >= 2) Caprini Risk Assessment Model: Point Value = 1 Point Value = 2 Point Value = 3 Point Value = 5 Age 41-60 Minor surgery BMI > 25 kg/m2 Swollen legs Varicose veins or History of unexplained or recurrent spontaneous Oral contraceptives or hormone replacement Sepsis (< 1 month) Serious lung disease, including pneumonia (< 1 month) Abnormal pulmonary function Acute myocardial infarction Congestive heart failure (< 1 month) History of inflammatory bowel disease Medical patient at bed rest Age 61-74 Arthroscopic surgery Major open surgery (> 45 min) Laparoscopic surgery (> 45 min) Malignancy Confined to bed (> 72 hours) Immobilizing plaster cast Central venous access Age >= 75 History of VTE Family history of VTE Factor V Leiden Prothrombin [id number] Lupus anticoagulant Anticardiolipin antibodies Elevated serum homocysteine Heparin-induced thrombocytopenia Other congenital or acquired thrombophilia Stroke (< 1 month) Elective arthroplasty Hip, pelvis, or leg fracture Acute spinal cord injury (< 1 month) Prophylaxis Regimen: Total Risk Factor Score Risk Level Prophylaxis Regimen 0-1 Low Early ambulation 2 Moderate Order ONE of the following: *Sequential Compression Device (SCD) *Heparin 5000 units SQ BID 3-4 Higher Order ONE of the following medications: *Heparin 5000 units SQ TID *Enoxaparin/Lovenox 40 mg SQ daily (WT < 150 kg, CrCl > 30 mL/min) *Enoxaparin/Lovenox 30 mg SQ daily (WT < 150 kg, CrCl > 10-29 mL/min) *Enoxaparin/Lovenox 30 mg SQ BID (WT < 150 kg, CrCl > 30 mL/min) AND/OR *Sequential Compression Device (SCD) 5 or more Highest Order ONE of the following medications: *Heparin 5000 units SQ TID (Preferred with Epidurals) *Enoxaparin/Lovenox 40 mg SQ daily (WT < 150 kg, CrCl > 30 mL/min) *Enoxaparin/Lovenox 30 mg SQ daily (WT < 150 kg, CrCl > 10-29 mL/min) *Enoxaparin/Lovenox 30 mg SQ BID (WT < 150 kg, CrCl > 30 mL/min) AND *Sequential Compression Device (SCD) Assessment and Plan - Plan Assessment/plan: 1. Necrotic toe/cellulitis/peripheral vascular disease CTA right lower extremity showed patent right ileo-bifemoral bypass with stenosis at the origin of the right profundus that is compromising collateral flow to the right foot. Foot x-ray shows intact bony structures without evidence of osteomyelitis Vascular surgery, podiatry consulted, appreciate assistance Vancomycin and cefepime as patient allergic to penicillin Blood cultures pending 2. Atrial fibrillation Holding Xarelto for possible operative intervention Continue diltiazem 3. Diabetes mellitus Thing home glipizide and Januvia Sliding-scale insulin Monitor blood glucose 4. Hypertension/hyperlipidemia Continue home amlodipine and clonidine Continue statin 5. Schizophrenia/bipolar disorder Continue home Abilify 6. COPD Continue Symbicort 7. Chronic kidney disease Creatinine 1.67, baseline Monitor renal function FEN N.p.o. NS at 84 cc/hour Electrolytes: Urine replete as needed Holding pharmacologic anti-coagulation until cleared by surgery
--- NOTE | 2018-10-27 21:18 | ECG ---
Date Performed: 10/27/2018 Time Performed: 16:15:05 PTAGE: 63 years EKG: Sinus rhythm WITH FREQUENT SUPRAVENTRICULAR PREMATURE COMPLEXES NONSPECIFIC T-WAVE ABNORMALITY ABNORMAL RHYTHM EC G Since the PREVIOUS TRACING , no significant change noted DOCTOR: Marcos Sevilla Interpretating Date/Time 10/27/2018 21:18:24
[2018-10-27] MEDS: ARIPiprazole 10 MG Tablet PO SCH (21:53)
[2018-10-27] MEDS: Budesonide-Formoterol 160/4.5 MCG 6 GM Inhaler INH SCH (21:56)
[2018-10-27] MEDS: Sod Chloride 0.9% Inj 1,000 ML IV.CONT SCH (21:58)
[2018-10-27] MEDS: Insulin Detemir Inj 1,000 UNIT/10 ML Vial SQ SCH (22:00)
[2018-10-27] MEDS ORDERED: Vancomycin Inj 750 MG in Sodium Chlor 0.9% Inj 250 ML IV.SIG ONE (23:00)
[2018-10-28] MEDS: Insulin NovoLOG Aspart Correctional Sugar Inj SQ SCH ×4 (00:31→17:23)
[2018-10-28] MEDS: HYDROmorphone PF Inj 2 MG/ML Vial IV.PUSH PRN ×3 (05:57→23:02)
[2018-10-28 06:28] LABS: Alanine Aminotransferase 15 U/L (12-78); Albumin 2.7 g/dL (3.4-5.0); Alkaline Phosphatase 96 U/L (45-117); Anion Gap 5 meq/L (5-15); Aspartate Aminotransferase 15 U/L (15-37); Blood Urea Nitrogen 10 mg/dL (7-18); Calcium 8.2 mg/dL (8.5-10.1); Carbon Dioxide 25.4 meq/L (21.0-32.0); Chloride 109 meq/L (98-107); Glomerular Filtration Rate 59 mL/min (>89); Glucose,Random 84 mg/dL (74-106); Sodium 139 meq/L (136-145); Total Protein 6.9 g/dL (6.4-8.2)
[2018-10-28 06:30] LABS: Potassium 4.5 meq/L (3.5-5.1)
[2018-10-28] MEDS ORDERED: Rivaroxaban 10 MG Tablet PO SCH (09:00)
[2018-10-28] MEDS: dilTIAZem CD 240 MG Capsule PO SCH (09:55)
[2018-10-28] MEDS: Sod Chloride 0.9% Inj 1,000 ML IV.CONT SCH ×2 (09:57→23:05)
[2018-10-28] MEDS: Budesonide-Formoterol 160/4.5 MCG 6 GM Inhaler INH SCH ×2 (10:06→23:04)
[2018-10-28] MEDS: amLODIPine 5 MG Tablet PO SCH (10:06)
--- NOTE | 2018-10-28 10:07 | P.CONVS ---
History of Present Illness Service: Vascular Surgery Consult date: 10/28/18 Reason for Consult: Lower extremity chronic occlusion Primary Care Provider: Cecy Merchant Chief Complaint: R LE pain/necrotic 2nd digit toe History of Present Illness: 63/Male smoker (1/2 PPD) w/ a PMH of Bipolar Disorder, Schizophrenia, A Fib ( Xarelto), HTN, Hyperlipidemia, COPD, Diabetes Mellitus and PVD Pt underwent an aortobifemoral bypass [place] [address] Jerez due to progressive ischemic necrosis involving the L great toe. Subsequently the toe was amputated. 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 utilizing superficial femoral vein graft 10/2011- ([place]) Pt c/o R LE pain for several weeks and a necrotic R 2nd toe for 3 days Pt reported he stubbed his toe 4W ago Pt c/o R LE short distance claudication w/ rest pain Review of Systems Constitutional: Denies chills, Denies fever(s) Cardiovascular: Reports foot swelling (Right), Reports leg pain with activity ( R LE ) PMFSH - History History Provided By: Patient - Medical History Medical History: Medical History (Last Reviewed 10/28/18 @ 09:55 by Bisi Perez) Amputated great toe (Acute) Bipolar 1 disorder (Acute) Schizo-affective schizophrenia (Acute) Emphysema, unspecified (Acute) COPD (chronic obstructive pulmonary disease) (Acute) Atrial fibrillation Diabetes mellitus Hyperlipidemia Hypertension Peripheral vascular disease DVT (deep venous thrombosis) History of GI bleed Substance abuse Tobacco abuse - Surgical History Surgical History: Surgical History (Last Reviewed 10/28/18 @ 09:55 by Bisi Perez) Status post amputation of left great toe Status post bypass graft of extremity Status post wrist surgery Hx of abdominal surgery - Family History Family History: Family History (Last Reviewed 10/28/18 @ 09:55 by Bisi Perez) Other Diabetes mellitus - Social History I have reviewed the patient's Social History: Yes - Tobacco History Second Hand Smoke Exposure: No Tobacco Use In Past 30 Days: Yes Smoking Status: Current every day smoker Tobacco Type: Cigarettes - Alcohol History How Often Do You Have a Drink Containing Alcohol: Never - Substance Use History Substance History: Active Abuse - Substance Use Type Marijuana Status: Active Route Used: Inhalation Comment: once in awhile - Travel History Recent Travel in the [place] Within the Last 8 Weeks: No Recent Travel Out of the Country Within the Last 8 Weeks: No - Immunization History Tetanus Immunization: >5 Years Tetanus Immunization Year if Known: 2011 Medications and Allergies Allergies Allergy/AdvReac Type Severity Reaction Status Date / Time aspirin Allergy Severe Anemia Verified 10/27/18 15:10 codeine Allergy Severe RASH Verified 10/27/18 15:10 ibuprofen Allergy Severe RASH Verified 10/27/18 15:10 penicillin G Allergy Severe RASH Verified 10/27/18 15:10 propoxyphene Allergy Severe RASH Verified 10/27/18 15:10 Home Medications Medication Instructions Recorded Confirmed Type clonazepam 1 mg PO BID PRN 05/15/18 10/27/18 History sumatriptan succinate 100 mg PO Q2-4H PRN 05/15/18 10/27/18 History aripiprazole 10 mg PO HS 08/17/18 08/17/18 History atorvastatin 80 mg PO DAILY 08/17/18 10/27/18 History budesonide-formoterol [Symbicort] 2 puff INHALATION BID 08/17/18 10/27/18 History diltiazem HCl 240 mg PO DAILY 08/17/18 10/27/18 History glipizide 10 mg PO BID 08/17/18 10/27/18 History hydroxyzine HCl 25 mg PO BID 08/17/18 10/27/18 History insulin glargine [Lantus U-100 25 units SUBCUT HS 08/17/18 10/27/18 History Insulin] lisinopril 40 mg PO DAILY 08/17/18 10/27/18 History pantoprazole 40 mg PO DAILY 08/17/18 10/27/18 History rivaroxaban [Xarelto] 20 mg PO DAILY 08/17/18 10/27/18 History sitagliptin [Januvia] 50 mg PO DAILY 08/17/18 10/27/18 History tizanidine 4 mg PO DAILY 08/17/18 08/17/18 History varenicline [Chantix] 1 mg PO BID 08/17/18 08/17/18 History topiramate [Topamax] 50 mg PO PRN 08/18/18 10/27/18 History albuterol sulfate [ProAir HFA] 1 puff INHALATION Q4-6H PRN 10/27/18 10/27/18 History clonidine HCl 0.1 mg PO TID 10/27/18 10/27/18 History Active Medications: Active Medications Amlodipine Besylate (Norvasc) 5 mg PO DAILY [facility] Aripiprazole (Abilify) 10 mg PO [facility] Last Admin: 10/27/18 21:53 Dose: 10 mg Atorvastatin Calcium (Lipitor) 80 mg PO DAILY [facility] Budesonide/Formoterol Fumarate (Symbicort 160/4.5 Mcg Inh) 2 puff INH BID [facility] Last Admin: 10/27/18 21:56 Dose: 2 puff Clonazepam (Klonopin) 1 mg PO BID PRN PRN Reason: Anxiety Clonidine HCl (Catapres) 0.1 mg PO Q8HR [facility] Last Admin: 10/28/18 05:58 Dose: 0.1 mg Clonidine HCl (Catapres) 0.1 mg PO TID [facility] Dextrose (D50w Vial) 50 ml IV.PUSH UNSCH PRN PRN Reason: PER HYPOGLYCEMIA PROTOCOL Diltiazem HCl (Cardizem Cd 24hr) 240 mg PO DAILY [facility] Glucagon (Glucagon Inj) 1 mg OTHER PRN PRN PRN Reason: for Hypoglycemia Protocol Hydromorphone HCl (Dilaudid Pf Inj) 0.5 mg IV.PUSH Q4H PRN PRN Reason: PAIN SCALE 1 TO 10 Last Admin: 10/28/18 05:57 Dose: 0.5 mg Hydroxyzine HCl (Atarax) 25 mg PO BID [facility] Last Admin: 10/27/18 21:53 Dose: 25 mg Cefepime HCl 2,000 mg/ Sodium (Chloride) 100 mls @ 200 mls/hr IV.SIG Q8H [facility] Last Infusion: 10/28/18 01:00 Dose: Infused Sodium Chloride (Ns Inj) 1,000 mls @ 84 mls/hr IV.CONT .[id number] [facility] Last Admin: 10/27/18 21:58 Dose: 84 mls/hr Vancomycin HCl 1,250 mg/ (Sodium Chloride) 262.5 mls @ 250 mls/hr IV.SIG Q18H [facility] Insulin Aspart (Novolog Insulin Correctional Sugar Inj) 0 unit SQ Q6HR [facility]; Protocol Last Admin: 10/28/18 05:59 Dose: Not Given Insulin Detemir (Levemir Inj) 25 unit SQ [facility] Last Admin: 10/27/18 22:00 Dose: 25 unit Miscellaneous Information ([facility] [place] Lab Info) 0 each OTHER ONCE ONE Stop: 10/30/18 01:46 Pantoprazole Sodium (Protonix) 40 mg PO DAILY [facility] Pharmacy Profile Note (Vancomycin Consult Pharmacy) 1 each OTHER UNSCH PRN PRN Reason: Pharmacy to dose Sodium Chloride (Ns Flush) 2 ml IV.FLUSH BID [facility] Last Admin: 10/27/18 21:59 Dose: 2 ml Sodium Chloride (Ns Flush) 2 ml IV.FLUSH PRN PRN PRN Reason: FLUSH AFTER USING IV ACCESS Physical Exam Vital Signs / I&O: Vital Signs 10/27/18 15:06 10/27/18 15:21 10/27/18 15:30 Temperature 96.6 F L Pulse Rate 93 H Respiratory Rate 16 24 Blood Pressure 156/74 H Pulse Oximetry 100 100 10/27/18 16:05 10/27/18 17:42 10/27/18 19:36 Temperature Pulse Rate 95 H 96 H Respiratory Rate 16 18 Blood Pressure 166/89 H 174/70 H 140/64 Pulse Oximetry 94 L 100 10/27/18 20:00 10/27/18 23:53 10/28/18 00:29 Temperature 98.8 F 99.3 F Pulse Rate 86 82 70 Respiratory Rate 17 17 Blood Pressure 137/63 97/53 L 102/48 L Pulse Oximetry 99 93 L 10/28/18 04:00 10/28/18 07:59 Temperature 98.2 F 98.1 F Pulse Rate 65 61 Respiratory Rate 17 16 Blood Pressure 122/56 L 90/49 L Pulse Oximetry 95 95 Intake & Output 10/27/18 10/28/18 10/28/18 18:59 06:59 18:59 Intake Total 1350 / 1350 357.5 / 357.5 Balance 1350 / 1350 357.5 / 357.5 Weight 77.111 kg Intake: IV 1350 / 1350 357.5 / 357.5 Maxipime Inj 2,000 MG In NS Inj 100 / 100 100 / 100 100 ML @ 200 mls/hr IV.SIG Q8H LISA Rx#:[id number] NS Inj 1,000 ML @ 1000 mls/hr 1000 / 1000 IV.SIG BOLUS LISA Rx#:[id number] Vancomycin Inj 1,000 MG In NS 250 / 250 Inj 250 ML @ 250 mls/hr IV.SIG ONCE ONE Rx#:[id number] Vancomycin Inj 750 MG In NS Inj 257.5 / 257.5 250 ML @ 250 mls/hr IV.SIG ONCE@2300 ONE Rx#:[id number] Other: Date of Last Bowel Movement 10/27/18 Neuro: Speech Clear CN 2-12 intact Neck: No JVD distention Heart: RRR w/o M/R Lungs: Resp even and CTA Abdomen: S/NT Vascular: Palpable R Femoral pulse Palpable L Femoral pulse Palpable L posterior tibial 2+ Palpable L dorsalis Pedis 1+ NON Palpable R posterior tibial NON Palpable R dorsalis pedis Dependent rubor from RIGHt mid calf to foot B LE warm R LE warm w a decrease in motor function (foot) Necrotic R 2nd digit toe malodorous with bloody drainage between 2/3 digit Laboratory Results - last 24 hr 10/27/18 10/27/18 10/27/18 15:40 15:40 15:40 WBC 11.9 H RBC 4.56 Hgb 13.6 Hct 39.1 MCV 85.7 MCH 29.9 MCHC 34.9 RDW 15.4 Plt Count 167 MPV 8.9 Neut % (Auto) 80.2 H Lymph % (Auto) 9.2 [place] % (Auto) 9.2 H Eos % (Auto) 0.8 Baso % (Auto) 0.6 Neut # (Auto) 9.5 H Lymph # (Auto) 1.1 [place] # (Auto) 1.1 H Eos # (Auto) 0.1 Baso # (Auto) 0.1 WBC Differential . Differential Comment Auto diff final ESR PT 11.7 H INR 1.2 APTT 40.4 H Sodium 131 L Potassium 3.6 Chloride 97 L Carbon Dioxide 29.0 Anion Gap 5 BUN 14 Creatinine 1.67 H Estimated GFR 42 L POC Glucose Random Glucose 173 H Lactic Acid Calcium 8.9 Magnesium 1.7 Total Bilirubin 0.5 AST 10 L ALT 17 Alkaline Phosphatase 128 H C-Reactive Protein 8.31 H Total Protein 8.5 H Albumin 3.7 10/27/18 10/27/18 10/27/18 15:40 21:12 Unknown WBC RBC Hgb Hct MCV MCH MCHC RDW Plt Count MPV Neut % (Auto) Lymph % (Auto) [place] % (Auto) Eos % (Auto) Baso % (Auto) Neut # (Auto) Lymph # (Auto) [place] # (Auto) Eos # (Auto) Baso # (Auto) WBC Differential Differential Comment ESR 46 H PT INR APTT Sodium Potassium Chloride Carbon Dioxide Anion Gap BUN Creatinine Estimated GFR POC Glucose 123 H Random Glucose Lactic Acid 2.0 Calcium Magnesium Total Bilirubin AST ALT Alkaline Phosphatase C-Reactive Protein Total Protein Albumin 10/28/18 10/28/18 10/28/18 00:28 04:58 05:56 WBC RBC Hgb Hct MCV MCH MCHC RDW Plt Count MPV Neut % (Auto) Lymph % (Auto) [place] % (Auto) Eos % (Auto) Baso % (Auto) Neut # (Auto) Lymph # (Auto) [place] # (Auto) Eos # (Auto) Baso # (Auto) WBC Differential Differential Comment ESR PT INR APTT Sodium 139 Potassium 4.5 D Chloride 109 H D Carbon Dioxide 25.4 Anion Gap 5 BUN 10 Creatinine 1.24 Estimated GFR 59 L POC Glucose 126 H 86 Random Glucose 84 Lactic Acid Calcium 8.2 L Magnesium Total Bilirubin 0.4 AST 15 ALT 15 Alkaline Phosphatase 96 C-Reactive Protein Total Protein 6.9 D Albumin 2.7 L D Microbiology 10/27/18 16:21 Gram Stain - Final Abscess - Foot Impressions Aorta w/Runoff CTA 10/27/18 15:38 CONCLUSION: 1. Patent right ilio bifemoral bypass graft with stenosis at the origin of the right profunda that is compromising collateral flow to the right foot. Flow in the popliteal and tibial vessels is adequate. 2. Femorofemoral bypass graft is patent with patent graft to the left tibial peroneal trunk. There is stenosis of the anterior tibial and TP trunk below the left knee poorly evaluated because of the surgical clips.. Foot X-Ray 10/27/18 15:39 CONCLUSION: Negative examination Assessment and Plan - Plan 63/M with a PMH of PVD presenting with R LE critical limb ischemia with tissue loss Reviewed CTA- Stenosis at the origin of the R profunda/ Patent fem-fem bypass and R ilio bifemoral bypass graft Plan Pain control Hold anticoagulant- Xarelto Revascularization planning Bisi Perez NP [facility] [phone] - Attending Attestation I saw and examined the patient, agree with SYSTEM MANAGER A/P: date of service 10/28/18 RLE CLI with tissue loss Plan angiogram in am Thank you for allowing us to participate in the patient care. if you have any questions, don't hesitate to call my cell phone Radames Sherwood MD [facility], [facility] [phone]
[2018-10-28 10:19] LABS: Baso % (Auto) 0.8 % (0.0-2.0); Eos # (Auto) 0.1 th/mm3 (0.0-0.4); Eos % (Auto) 2.2 % (0.0-4.0); Hematocrit 35.2 % (39.0-51.0); Hemoglobin 12.1 gm/dL (13.0-17.0); Lymph # (Auto) 0.4 th/mm3 (1.0-4.8); Lymph % (Auto) 8.6 % (9.0-44.0); Mean Corpuscular HGB Conc 34.4 % (32.0-36.0); Mean Corpuscular Hemoglobin 29.5 pg (27.0-34.0); Mean Corpuscular Volume 85.8 fL (80.0-100.0); Mono # (Auto) 0.4 th/mm3 (0.0-0.9); Mono % (Auto) 9.7 % (0.0-8.0); Neut # (Auto) 3.5 th/mm3 (1.8-7.7); Neut % (Auto) 78.7 % (16.0-70.0); Platelet Count 145 th/mm3 (150-450); Red Blood Count 4.11 mil/mm3 (4.50-5.90); Red Cell Distribution Width 15.5 % (11.6-17.2); White Blood Count 4.5 th/mm3 (4.0-11.0)
--- NOTE | 2018-10-28 10:53 | P.PN ---
Subjective Interval history: awake and alert pain right foot- states discoloration and pain for 2 weeks Physical Exam Vital signs: Vital Signs 10/27/18 15:06 10/27/18 15:21 10/27/18 15:30 Temperature 96.6 F L Pulse Rate 93 H Respiratory Rate 16 24 Blood Pressure 156/74 H Pulse Oximetry 100 100 10/27/18 16:05 10/27/18 17:42 10/27/18 19:36 Temperature Pulse Rate 95 H 96 H Respiratory Rate 16 18 Blood Pressure 166/89 H 174/70 H 140/64 Pulse Oximetry 94 L 100 10/27/18 20:00 10/27/18 23:53 10/28/18 00:29 Temperature 98.8 F 99.3 F Pulse Rate 86 82 70 Respiratory Rate 17 17 Blood Pressure 137/63 97/53 L 102/48 L Pulse Oximetry 99 93 L 10/28/18 04:00 10/28/18 07:59 Temperature 98.2 F 98.1 F Pulse Rate 65 61 Respiratory Rate 17 16 Blood Pressure 122/56 L 90/49 L Pulse Oximetry 95 95 Intake & Output 10/27/18 10/28/18 10/28/18 18:59 06:59 18:59 Intake Total 1350 / 1350 357.5 / 357.5 1000 / 1000 Balance 1350 / 1350 357.5 / 357.5 1000 / 1000 Weight 77.111 kg Intake: IV 1350 / 1350 357.5 / 357.5 1000 / 1000 NS Inj 1,000 ML @ 84 mls/hr IV. 1000 / 1000 CONT .[id number] LISA Rx#:[id number] Maxipime Inj 2,000 MG In NS Inj 100 / 100 100 / 100 100 ML @ 200 mls/hr IV.SIG Q8H [facility]ISA Rx#:[id number] NS Inj 1,000 ML @ 1000 mls/hr 1000 / 1000 IV.SIG BOLUS LISA Rx#:[id number] Vancomycin Inj 1,000 MG In NS 250 / 250 Inj 250 ML @ 250 mls/hr IV.SIG ONCE ONE Rx#:[id number] Vancomycin Inj 750 MG In NS Inj 257.5 / 257.5 250 ML @ 250 mls/hr IV.SIG ONCE@2300 ONE Rx#:[id number] Other: Date of Last Bowel Movement 10/27/18 10/27/18 Narrative: Gen.: No acute distress Head: Normocephalic. Atraumatic. EENT: Pupils equal round and reactive to light. Nose without drainage. Airway intact. Throat without injection. Cardiovascular: Regular rate and rhythm. Respiratory: Lungs clear to auscultation bilaterally. No wheezes or rhonchi. Abdomen: Soft, nontender, nondistended. No peritoneal signs. Musculoskeletal: Right foot and ankle erythematous and edematous. Second right toe black and necrotic dry Unable to flex ankle or wiggle toes. right calf tender to touch Skin: No obvious rashes or erythema. Neuro: Sensory and motor grossly intact. Cranial nerves II through XII grossly intact. Results - Labs CBC & Chem 7: 10/28/18 09:31 10/28/18 04:58 Laboratory Results - last 24 hr 10/27/18 10/27/18 10/27/18 15:40 15:40 15:40 WBC 11.9 H RBC 4.56 Hgb 13.6 Hct 39.1 MCV 85.7 MCH 29.9 MCHC 34.9 RDW 15.4 Plt Count 167 MPV 8.9 Neut % (Auto) 80.2 H Lymph % (Auto) 9.2 [place] % (Auto) 9.2 H Eos % (Auto) 0.8 Baso % (Auto) 0.6 Neut # (Auto) 9.5 H Lymph # (Auto) 1.1 [place] # (Auto) 1.1 H Eos # (Auto) 0.1 Baso # (Auto) 0.1 WBC Differential . Differential Comment Auto diff final ESR PT 11.7 H INR 1.2 APTT 40.4 H Sodium 131 L Potassium 3.6 Chloride 97 L Carbon Dioxide 29.0 Anion Gap 5 BUN 14 Creatinine 1.67 H Estimated GFR 42 L POC Glucose Random Glucose 173 H Lactic Acid Calcium 8.9 Magnesium 1.7 Total Bilirubin 0.5 AST 10 L ALT 17 Alkaline Phosphatase 128 H C-Reactive Protein 8.31 H Total Protein 8.5 H Albumin 3.7 10/27/18 10/27/18 10/27/18 15:40 21:12 Unknown WBC RBC Hgb Hct MCV MCH MCHC RDW Plt Count MPV Neut % (Auto) Lymph % (Auto) [place] % (Auto) Eos % (Auto) Baso % (Auto) Neut # (Auto) Lymph # (Auto) [place] # (Auto) Eos # (Auto) Baso # (Auto) WBC Differential Differential Comment ESR 46 H PT INR APTT Sodium Potassium Chloride Carbon Dioxide Anion Gap BUN Creatinine Estimated GFR POC Glucose 123 H Random Glucose Lactic Acid 2.0 Calcium Magnesium Total Bilirubin AST ALT Alkaline Phosphatase C-Reactive Protein Total Protein Albumin 10/28/18 10/28/18 10/28/18 00:28 04:58 05:56 WBC RBC Hgb Hct MCV MCH MCHC RDW Plt Count MPV Neut % (Auto) Lymph % (Auto) [place] % (Auto) Eos % (Auto) Baso % (Auto) Neut # (Auto) Lymph # (Auto) [place] # (Auto) Eos # (Auto) Baso # (Auto) WBC Differential Differential Comment ESR PT INR APTT Sodium 139 Potassium 4.5 D Chloride 109 H D Carbon Dioxide 25.4 Anion Gap 5 BUN 10 Creatinine 1.24 Estimated GFR 59 L POC Glucose 126 H 86 Random Glucose 84 Lactic Acid Calcium 8.2 L Magnesium Total Bilirubin 0.4 AST 15 ALT 15 Alkaline Phosphatase 96 C-Reactive Protein Total Protein 6.9 D Albumin 2.7 L D 10/28/18 09:31 WBC 4.5 D RBC 4.11 L Hgb 12.1 L Hct 35.2 L MCV 85.8 MCH 29.5 MCHC 34.4 RDW 15.5 Plt Count 145 L MPV 9.0 Neut % (Auto) 78.7 H Lymph % (Auto) 8.6 L [place] % (Auto) 9.7 H Eos % (Auto) 2.2 Baso % (Auto) 0.8 Neut # (Auto) 3.5 Lymph # (Auto) 0.4 L [place] # (Auto) 0.4 Eos # (Auto) 0.1 Baso # (Auto) 0.0 WBC Differential . Differential Comment Auto diff final ESR PT INR APTT Sodium Potassium Chloride Carbon Dioxide Anion Gap BUN Creatinine Estimated GFR POC Glucose Random Glucose Lactic Acid Calcium Magnesium Total Bilirubin AST ALT Alkaline Phosphatase C-Reactive Protein Total Protein Albumin Microbiology 10/27/18 16:21 Abscess - Foot Gram Stain - Final - Imaging Impressions Aorta w/Runoff CTA 10/27/18 15:38 CONCLUSION: 1. Patent right ilio bifemoral bypass graft with stenosis at the origin of the right profunda that is compromising collateral flow to the right foot. Flow in the popliteal and tibial vessels is adequate. 2. Femorofemoral bypass graft is patent with patent graft to the left tibial peroneal trunk. There is stenosis of the anterior tibial and TP trunk below the left knee poorly evaluated because of the surgical clips.. Foot X-Ray 10/27/18 15:39 CONCLUSION: Negative examination Assessment and Plan - Plan 63 years old male- smoker 1. right second dry gangre /cellulitis/peripheral vascular disease CTA right lower extremity showed patent right ileo-bifemoral bypass with stenosis at the origin of the right profundus that is compromising collateral flow to the right foot. Foot x-ray shows intact bony structures without evidence of osteomyelitis Vascular surgery, podiatry consulted, appreciate assistance Vancomycin and cefepime as patient allergic to penicillin Blood cultures pending 2. Atrial fibrillation- currently in SR Holding Xarelto for possible operative intervention Continue diltiazem 3. Diabetes mellitus - on glipizide and Januvia Sliding-scale insulin Monitor blood glucose 4. Hypertension/hyperlipidemia Continue home amlodipine and clonidine Continue statin 5. Schizophrenia/bipolar disorder Continue home Abilify 6. COPD= rhonchis on exam- no acute distress Continue Symbicort duonebs q 6 scheduled 7. Chronic kidney disease Creatinine 1.67, baseline Monitor renal function FEN N.p.o. NS at 84 cc/hour Electrolytes: Urine replete as needed Holding pharmacologic anti-coagulation until cleared by surgery
--- NOTE | 2018-10-28 12:34 | US ---
EXAM DATE: 10/28/2018 12:27 PM EST AGE/SEX: 63 years / Male INDICATIONS: Right leg pain. CLINICAL DATA: This is the patient's initial encounter. Patient reports that signs and symptoms have been present for 4 - 6 days and indicates a pain score of 5/10. MEDICAL/SURGICAL HISTORY: Hypertension. Peripheral vascular disease. Emphysema. A-fib. Bipol ar 1. COPD. DM. Hx of GI bleed. Hyperlipidemia. Schizophrenia. . abdominal surgery. Amputation of le ft great toe. Bypass graft of extremity. Wrist surgery. COMPARISON: [facility] [place], LEG RIGHT VENOUS DOPPLER, 04/11/2018. . TECHNIQUE: Venous ultrasound of both lower extremities was performed from the inguinal ligament to t he proximal calf. Real-time, color Doppler and spectral tracing, compression and augmentation techni ques were used. FINDINGS: Normal compression of the deep venous system from the inguinal region to the proximal calf . No echogenic clot is seen. Normal response of the venous system to augmentation and respiration. Multiple right inguinal lymph nodes identified. Patent arterial graft CONCLUSION: 1. Negative for deep venous thrombosis. 2. Incomplete evaluation of the arterial flow in the leg. Electronically signed by: Ezra Guardado MD Board Certified Radiologist 10/28/2018 12:33 PM EST
[2018-10-28] MEDS: Vancomycin Inj 1,250 MG in Sodium Chlor 0.9% Inj 250 ML IV.SIG SCH (13:34)
--- NOTE | 2018-10-28 18:21 | MB ---
cc: Umang Jerez MD DATE: 10/28/2018 REASON FOR CONSULTATION: Ischemic gangrene, right second toe. HISTORY OF PRESENT ILLNESS: This 63-year-old hypertensive male smoker is well known to me. Over the past 8 years, I have done multiple open and endovascular revascularization procedures for limb salvage. On 08/06/2011, he required aortobifemoral bypass for limb threatening bilateral lower extremity ischemia secondary to distal aortic and bilateral iliac arterial occlusions. On 08/12/2011, he underwent debridement of demarcated ischemic gangrene distal aspect of the left great toe. In 10/2011 left superficial femoral endarterectomy with bovine patch angioplasty. In 03/2012, amputation of the left great toe. In 04/2012, he was hospitalized at [facility] and underwent left SFA stenting. SFA stenting failed and required femoral popliteal revascularization. 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 Throughout this time, he has continued to heavily smoke. He presents to the emergency room with progressive ischemic pain within the right foot and developing dry ischemic necrosis of the right second toe. PAST MEDICAL HISTORY: 1. Schizophrenia. 2. Type 2 diabetes mellitus. 3. Chronic obstructive pulmonary disease. 4. Hypertension. 5. Chronic drug abuse 6. Chronic pain syndrome on narcotics. 7. PAD with multiple open and endovascular revascularization procedures, digital amputations as detailed above. 8. Hypercholesterolemia. Medications and allergies are well detailed in the admission medication reconciliation form. PHYSICAL EXAMINATION: GENERAL: Well-developed, chronically debilitated appearing 63-year-old male, who appears 10 years older than his stated age. NECK: Supple. No masses or thyromegaly. Faint bilateral carotid bifurcation bruits are noted. No neck vein distention or HJR. LUNGS: Symmetrically expanded with diminished breath sounds throughout. CARDIAC: Rhythm is sinus. A 1/6 systolic murmur at left sternal border. ABDOMEN: Soft, nontender. No palpable aneurysm. EXTREMITIES: Diffuse muscular wasting. Multiple surgical scars are distributed throughout the lower abdomen, groins, and midline consistent with above detailed surgical procedures. Femoral pulses are 2+ bilaterally. Popliteal pulse nonpalpable right, 2+ left. Pedal pulses are nonpalpable bilaterally. Surgical absence of multiple digits of both toes noted, 1 through 3 left, 1 - great toe, right the right second toe exhibits global, dry ischemic gangrenous necrosis. The right forefoot is cool with diminished capillary refill. Doppler flow was monophasic within the right pedal positions. NEUROLOGIC: No focal deficit. I reviewed the admission labwork and CT angiogram. IMPRESSION: Limb threatening ischemic necrosis, right lower extremity. CT angiogram confirms wide patency of the right femoral limb of aortobifemoral bypass and the right to left femoral bypass, as well as the left femoral popliteal bypass. He has developed occlusive disease within the right SFA, which is flow-limiting and responsible for ongoing ischemic necrosis in the right foot. He will require right superficial femoral revascularization for limb salvage, hopefully can be accomplished endovascularly, and if not, will require open a femoral popliteal bypass. Umang Jerez MD JTS/ct , 05:22 PM , 05:34 PM
--- NOTE | 2018-10-28 22:45 | MB ---
cc: Carey Arias DPM DATE: 10/28/2018 TIME OF CONSULTATION: 12:30 HISTORY OF PRESENT ILLNESS: The patient is a 63-year-old male hypertensive smoker with a presentation of right second digit ischemic gangrenous digit. He relates that he hit his toe, and over the past 6 weeks it has worsened. PAST MEDICAL HISTORY: Schizophrenia, type 2 diabetes, COPD, hypertension, chronic drug abuse, pain syndrome, narcotic PAD, hypercholesterolemia. PHYSICAL EXAMINATION: Pedal pulses, nonpalpable, right DP and PT. Right second digit global dry stable gangrene. Tactile sensation grossly intact. ASSESSMENT AND PLAN: 1. Right second digit dry stable gangrene. 2. Peripheral vascular disease. The patient will require revascularization. Attending, Dr. Jerez, is currently evaluating the patient. Will plan for right second digit amputation versus second or partial second ray amputation after revascularization. Carey Arias DPM SR/vincent , 10:08 PM , 10:14 PM
[2018-10-28] MEDS: Insulin Detemir Inj 1,000 UNIT/10 ML Vial SQ SCH (23:16)
[2018-10-28] MEDS: ARIPiprazole 10 MG Tablet PO SCH (23:17)
[2018-10-29] MEDS: Insulin NovoLOG Aspart Correctional Sugar Inj SQ SCH ×5 (06:39→23:49)
[2018-10-29] MEDS: HYDROmorphone PF Inj 2 MG/ML Vial IV.PUSH PRN (06:46)
[2018-10-29] MEDS: amLODIPine 5 MG Tablet PO SCH (09:12)
[2018-10-29] MEDS: dilTIAZem CD 240 MG Capsule PO SCH (09:12)
[2018-10-29] MEDS: Vancomycin Inj 1,250 MG in Sodium Chlor 0.9% Inj 250 ML IV.SIG SCH (10:37)
--- NOTE | 2018-10-29 11:08 | P.PNVS ---
Subjective Subjective/Hospital Course: doing well this am denies pain Objective Vital Signs / I&O: Vital Signs 10/28/18 15:00 10/28/18 16:00 10/28/18 20:00 Temperature 98.5 F 99.4 F Pulse Rate 55 L 56 L 60 Respiratory Rate 14 16 19 Blood Pressure 105/46 L 93/49 L Pulse Oximetry 92 L 99 10/28/18 20:28 10/29/18 00:00 10/29/18 08:00 Temperature 98.2 F 98.4 F Pulse Rate 57 L 68 76 Respiratory Rate 16 19 18 Blood Pressure 120/57 L 137/63 Pulse Oximetry 90 L 90 L 94 L 10/29/18 08:11 Temperature Pulse Rate 70 Respiratory Rate 18 Blood Pressure Pulse Oximetry 96 Intake & Output 10/28/18 10/29/18 10/29/18 18:59 06:59 18:59 Intake Total 2662.5 / 2662.5 1800 / 1800 Output Total 1200 / 1200 1900 / 1900 500 / 500 Balance 1462.5 / 1462.5 -100 / -100 -500 / -500 Weight 77.11 kg Intake: IV 1462.5 / 1462.5 1100 / 1100 NS Inj 1,000 ML @ 84 mls/hr IV. 1000 / 1000 1000 / 1000 CONT .[id number] LISA Rx#:[id number] Maxipime Inj 2,000 MG In NS Inj 200 / 200 100 / 100 100 ML @ 200 mls/hr IV.SIG Q8H LISA Rx#:[id number] Vancomycin Inj 1,250 MG In NS 262.5 / 262.5 Inj 250 ML @ 250 mls/hr IV.SIG Q18H LISA Rx#:[id number] Oral 1200 / 1200 700 / 700 Output: Urine 1200 / 1200 1900 / 1900 500 / 500 Other: Date of Last Bowel Movement 10/27/18 10/27/18 # Bowel Movements 0 Physical Exam: right 2nd toe gangrene Laboratory Results - last 24 hr 10/28/18 10/28/18 10/28/18 11:06 12:48 17:23 POC Glucose 66 L 120 H 170 H 10/28/18 10/29/18 23:15 06:30 POC Glucose 228 H 150 H Microbiology 10/27/18 Unknown Aerobic Blood Culture - Preliminary Blood - Peripheral No growth in 2 days Anaerobic Blood Culture - Preliminary No growth in 2 days 10/27/18 Unknown Aerobic Blood Culture - Preliminary Blood - Peripheral No growth in 2 days Anaerobic Blood Culture - Preliminary No growth in 2 days 10/27/18 16:21 Gram Stain - Final Abscess - Foot Wound Culture - Preliminary Impressions Aorta w/Runoff CTA 10/27/18 15:38 CONCLUSION: 1. Patent right ilio bifemoral bypass graft with stenosis at the origin of the right profunda that is compromising collateral flow to the right foot. Flow in the popliteal and tibial vessels is adequate. 2. Femorofemoral bypass graft is patent with patent graft to the left tibial peroneal trunk. There is stenosis of the anterior tibial and TP trunk below the left knee poorly evaluated because of the surgical clips.. Foot X-Ray 10/27/18 15:39 CONCLUSION: Negative examination Venous Doppler Study 10/28/18 00:00 CONCLUSION: 1. Negative for deep venous thrombosis. 2. Incomplete evaluation of the arterial flow in the leg. Assessment and Plan - Plan RLE CLI with tissue loss Plan angiogram today DW family and patient, explained the planned angiogram and the possibility of needing open revascularization they understand and agree to the procedure
--- NOTE | 2018-10-29 12:03 | P.PN ---
Subjective Interval history: no pain complains wanting to sign out so he can go out and smoke afebrile Physical Exam Vital signs: Vital Signs 10/28/18 15:00 10/28/18 16:00 10/28/18 20:00 Temperature 98.5 F 99.4 F Pulse Rate 55 L 56 L 60 Respiratory Rate 14 16 19 Blood Pressure 105/46 L 93/49 L Pulse Oximetry 92 L 99 10/28/18 20:28 10/29/18 00:00 10/29/18 08:00 Temperature 98.2 F 98.4 F Pulse Rate 57 L 68 76 Respiratory Rate 16 19 18 Blood Pressure 120/57 L 137/63 Pulse Oximetry 90 L 90 L 94 L 10/29/18 08:11 Temperature Pulse Rate 70 Respiratory Rate 18 Blood Pressure Pulse Oximetry 96 Intake & Output 10/28/18 10/29/18 10/29/18 18:59 06:59 18:59 Intake Total 2662.5 / 2662.5 1800 / 1800 Output Total 1200 / 1200 1900 / 1900 500 / 500 Balance 1462.5 / 1462.5 -100 / -100 -500 / -500 Weight 77.11 kg Intake: IV 1462.5 / 1462.5 1100 / 1100 NS Inj 1,000 ML @ 84 mls/hr IV. 1000 / 1000 1000 / 1000 CONT .[id number] LISA Rx#:[id number] Maxipime Inj 2,000 MG In NS Inj 200 / 200 100 / 100 100 ML @ 200 mls/hr IV.SIG Q8H LISA Rx#:[id number] Vancomycin Inj 1,250 MG In NS 262.5 / 262.5 Inj 250 ML @ 250 mls/hr IV.SIG Q18H LISA Rx#:[id number] Oral 1200 / 1200 700 / 700 Output: Urine 1200 / 1200 1900 / 1900 500 / 500 Other: Date of Last Bowel Movement 10/27/18 10/27/18 # Bowel Movements 0 Narrative: Gen.: No acute distress Head: Normocephalic. Atraumatic. EENT: Pupils equal round and reactive to light. Nose without drainage. Airway intact. Throat without injection. Cardiovascular: Regular rate and rhythm. Respiratory: Lungs clear to auscultation bilaterally. No wheezes or rhonchi. Abdomen: Soft, nontender, nondistended. No peritoneal signs. Musculoskeletal: Right foot and ankle erythematous and edematous. Second right toe black and necrotic dry Unable to flex ankle or wiggle toes. Skin: No obvious rashes or erythema. Neuro: Sensory and motor grossly intact. Cranial nerves II through XII grossly intact. Results - Labs CBC & Chem 7: 10/28/18 09:31 10/30/18 06:48 Laboratory Results - last 24 hr 10/28/18 10/28/18 10/28/18 12:48 17:23 23:15 POC Glucose 120 H 170 H 228 H 10/29/18 10/29/18 06:30 11:24 POC Glucose 150 H 163 H Microbiology 10/27/18 Unknown Blood - Peripheral Aerobic Blood Culture - Preliminary No growth in 2 days 10/27/18 Unknown Blood - Peripheral Anaerobic Blood Culture - Preliminary No growth in 2 days 10/27/18 Unknown Blood - Peripheral Aerobic Blood Culture - Preliminary No growth in 2 days 10/27/18 Unknown Blood - Peripheral Anaerobic Blood Culture - Preliminary No growth in 2 days 10/27/18 16:21 Abscess - Foot Gram Stain - Final 10/27/18 16:21 Abscess - Foot Wound Culture - Preliminary - Imaging Impressions Venous Doppler Study 10/28/18 00:00 CONCLUSION: 1. Negative for deep venous thrombosis. 2. Incomplete evaluation of the arterial flow in the leg. Assessment and Plan - Plan 63 years old male- smoker 1. Right second Dry gangrene toe/cellulitis/peripheral vascular disease CTA right lower extremity showed patent right ileo-bifemoral bypass with stenosis at the origin of the right profundus that is compromising collateral flow to the right foot. Foot x-ray shows intact bony structures without evidence of osteomyelitis Vascular surgery- for arteriogram today podiatry ff Vancomycin and cefepime as patient allergic to penicillin Blood cultures neaice so far - plan for possible amputation after revascularization- per dr. merino 2. Atrial fibrillation- currently in SR Holding Xarelto for possible operative intervention Continue diltiazem 3. Diabetes mellitus -as OP on glipizide and Januvia Sliding-scale insulin continue Levemeri 25 units hs -restart his januvia 4. Hypertension/hyperlipidemia Continue home amlodipine and clonidine Continue statin 5. Schizophrenia/bipolar disorder Continue home Abilify 6. COPD= rhonchis on exam- no acute distress Continue Symbicort duonebs q 6 scheduled 7. Chronic kidney disease Creatinine 1.67, baseline Monitor renal function FEN N.p.o. NS at 84 cc/hour Electrolytes: Urine replete as needed Holding pharmacologic anti-coagulation until cleared by surgery
[2018-10-29] MEDS: clonazePAM 0.5 MG Tablet PO PRN (12:47)
[2018-10-29] MEDS: Budesonide-Formoterol 160/4.5 MCG 6 GM Inhaler INH SCH ×2 (12:48→21:53)
[2018-10-29] MEDS ORDERED: Heparin/NS PF Inj 1,000 ML ONE (13:35)
[2018-10-29] MEDS ORDERED: fentaNYL Citrate Inj 100 MCG/2 ML Ampul ONE ×2 (13:36→15:41)
[2018-10-29] MEDS ORDERED: Heparin 10,000 UNITS/10 ML Vial (for IV use) ONE (14:12)
[2018-10-29] MEDS ORDERED: Heparin/NS PF Inj 500 ML ONE (15:30)
--- NOTE | 2018-10-29 16:13 | CATHPROC ---
[email or web address] HIS Report Study Information Study Number Admission Scheduled Start Study Start [id number] Oct 27 2018 6:39PM 10/29/2018 Oct 29 2018 1:30PM [place] Service Cardiac Catheterization Admit Source Facility Department Emergency department [facility] - Pulp Bleacher Physician and Clinical Staff Initial Radames [place] Clinical Rehabilitation Coordinator Nirali Christianson BSN Recorder Kari Connelly,BINDING DYER TECH2 Scrub Hosterman, William,RT(R) Procedures Performed Procedure Location (Site) Vessel Name Angiogram (manual) Fem Sup. (right) Femoral Art Angiogram (manual) Iliac R. Com. (R4) [place] Art. Angiogram (manual) Popliteal R (R10) Popliteal Angiogram (manual) Tib, Ant. (right) Popliteal Angiogram (manual) Tib, Post (right) Popliteal NOVELTY MAKER Fem Sup. (right) Femoral Art NOVELTY MAKER Profunda (right) Profunda NOVELTY MAKER Tib, Ant. (right) Popliteal Wire insertion Fem Art (left) Femoral Art Wire insertion Fem Art (right) Femoral Art Equipment Time Flight Information Expediter Description Size Mfg Part Number Used/Scraped PERCLOSE, PRO GLIDE CLOSER 15:37 MAS CRITICAL CARE FR 6 [id number] *[id number] Used DEVICE WIRE, HI TORQUE COMMAND [id number] 14:56 MAS CRITICAL CARE 300CM Used 300CM 950 [id number] 15:12 MAS [employer]ITICAL [employer] WIRE, SPARTACORE 5*300CM 300CM Used *[id number] 15:27 MAS [employer]ITICAL [employer] WIRE, SPARTACORE 5*300CM 300CM Used *[id number] 14:36 MAS [employer] WIRE, SUPERCORE 300CM 300CM Used *[id number] 14:03 MAS [employer]IT[employer] WIRE, SUPRACORE 190CM 190cm Used *[id number] 14:03 ANGIO-DYNAMICS OMNI FLUSH 65CM CATHETER FR 4 Used *19426 DBP- CARDIOVASCULAR CATHETER, STEALTH SOLID 14:24 [id number] Used SYSTEMS INC. 1.5MM 30 GRIT *[id number] CARDIOVASCULAR LUBRICANT, VIPERSLIDE VPR-SLD2 14:23 Used SYSTEMS INC. ATHERCTOMY *[id number] CARDIOVASCULAR VPR-GW-14 14:21 WIRE, FIRM (VIPER) 335 Used SYSTEMS INC. *[id number] CARDIOVASCULAR VPR-GW-14 14:22 WIRE, FIRM (VIPER) 335 Used [employer]atch [employer]. *[id number] INTRODUCER SET, 14:03 COOK INC. FR 5 [id number] *[id number] Used MICROPUNCTURE STIFF CATHETER, CXI SUPPORT 2.3FR 14:55 COOK/MATT .014 [id number] Used 150 ANGLED CATHETER, CXI SUPPORT 2.3FR 15:06 COOK/MATT .014 [id number] Used 150 ANGLED ENDOVASCULAR BALLOON, NANOCROSS 3.0 X 15:13 3.0 X 40 [id number] Used COMPANY 40MM 150CM ENDOVASCULAR BALLOON, NANOCROSS 4.0 X [id number] 15:29 4.0 X 40 Used COMPANY 40MM 150CM *[id number] ENDOVASCULAR BALLOON, NANOCROSS 4.0 X [id number] 15:30 4.0 X 60 Used COMPANY 60MM 150CM *[id number] BALLOON, EVERCROSS 5 X 150 [id number] 14:32 [employer] 5 X 150 Used 135CM *[id number] CATHETER, FR5 TRAILBLAZER [id number] 14:14 [employer] 135CM Used .035 *[id number] WIRE, CHOICE PT 300CM [place] EX. 48360-64 14:52 Meditech 300CM Used SUPP *[id number] WIRE, CHOICE PT 300CM PT EX. 35028-62 15:05 Meditech 300CM Used SUPP *[id number] WIRE, CHOICE PT 300CM PT EX. 39329-71 15:02 Meditech 300CM Used SUPP *[id number] 14:03 [employer] PACK, CCL CUSTOM * Used *[id number] [id number] 15:02 [employer] 30 JAVIER INDEFLATOR Used *0507969 LI3514 15:29 [employer] MEDICAL 30 JAVIER INDEFLATOR Used *[id number] PROBE COVER, STERILE [id number] 14:03 [employer] MEDICAL * Used ULTRASOUND W/ GEL *[id number] 14:03 NYCOMED OMNIPAQUE, 300 MG, 150ML 150ML [id number] Used 14:58 NYCOMED OMNIPAQUE, 300 MG, 150ML 150ML [id number] Used 14:45 NYCOMED OMNIPAQUE, 300 MG, 50ML 50ML [id number] Used 14:03 NYCOMED OMNIPAQUE, 300 MG, 50ML 50ML [id number] Used 14:16 NYCOMED OMNIPAQUE, 300 MG, 50ML 50ML [id number] Used [id number] 14:03 TERUMO MEDICAL SHEATH, FR5 TERUMO (10CM) FR 5 Used *0504940 [id number] 14:14 TERUMO MEDICAL SHEATH, FR6 TERUMO (10CM) FR 6 Used *[id number] TERUMO MEDICAL CATHETER, GUIDE ANG. TAPER 15:27 FR4 [id number] Used COMPANY FR4 WIRE, ANGLED GLIDE .035 [id number] 14:03 TERUMO MEDICAL/MATT 260CM Used 260CM *0695624 WIRE, STRIGHT GLIDE STIFF [id number] 14:15 [employer]UM[employer] MEDICAL/MATT 260CM Used .035 260CM *[id number] Equipment Model, Serial, Lot Number and Expiration Data Description Model Number Serial Number Lot Number Expiration Date BALLOON, EVERCROSS 5 X 150 [id number] 09-05-2021 135CM BALLOON, NANOCROSS 3.0 X [id number] 08-07-2021 40MM 150CM BALLOON, NANOCROSS 4.0 X [id number] 02-09-2021 40MM 150CM BALLOON, NANOCROSS 4.0 X [id number] 05-26-2021 60MM 150CM CATHETER, FR5 TRAILBLAZER .035 [id number] 06-30-2021 WIRE, CHOICE PT 300CM PT EX. [id number] 11-12-2019 SUPP WIRE, CHOICE PT 300CM PT EX. [id number] 11-12-2019 SUPP History: Allergies Allergy Reaction *MDRO Multi-Drug Resistant Organism aspirin Anemia codeine RASH Darvocet-N 100 RASH ibuprofen RASH Penicillin RASH propoxyphene RASH acetaminophen RASH penicillin G RASH History: Risk Factors Family History of Hypertension Dyslipidemia Previous AR Previous Heart Failure Premature CAD Yes Yes No No No Prior Valve Prior PCI Prior CABG Surgery No No No Cerebrovascular Peripheral Artery Chronic Lung On Dialysis Diabetes Diabetes Therapy Disease Disease Disease No Yes Yes Yes Yes Insulin History: Arrhythmias Selection Items Atrial fibrillation History: Other Current Smoker Method Packs a Day Years Used Pack Years Yes Cigarettes 1 47 47 Labs Hgb (g/dl) Hct (%) WBC (l/cumm) Platelets (thousands) 11.60-17.00 35.00-51.00 4.00-11.00 150.00-450.00 12.1 35.2 4.5 145 Glucose (mg/dl) BUN (mg/dl) Creatinine (mg/dl) BUN:Creatinine (1:x) 74.00-106.00 7.00-18.00 0.50-1.30 10.00-20.00 84 10 1.2 8.3 Na (meq/l) K (meq/l) 136.00-145.00 3.50-5.10 139 4.5 INR (PTT:PT) 0.90-1.10 1.2 Medication Medication Total Dose (Bolus/Oral) Medication Total Dosage/Unit 1% XYLOCAINE 20 mL FENTANYL 150 mcg HEPARIN 5000 units VERSED 2 mg Medications (Bolus/Oral) Medication Time Given Dosage/Unit Administered By Reason 1% XYLOCAINE 10/29/2018 2:00:57 PM 20 mL Radames Sherwood 20 mL 1% XYLOCAINE given in lab by Radames Sherwood in Left Groin via Subcutaneous. Ordered by Radames Sherwood. VERSED 10/29/2018 2:01:41 PM 2 mg Royceuszwilmerak, Nirali 2 mg VERSED given in lab by Nirali Christianson BSN in Left Forearm via Peripheral IV. Ordered by Radames Hemphill. FENTANYL 10/29/2018 2:02:57 PM 50 mcg Matusezraak, Nirali 50 mcg FENTANYL given in lab by Nirali Christianson BSN in Left Forearm via Peripheral IV. Ordered Radames Cheng. HEPARIN 10/29/2018 2:13:04 PM 3000 units Nirali Christianson 3000 units HEPARIN given in lab by Nirali Christianson BSN in Left Forearm via Peripheral IV. Ordere d by Radames Sherwood. FENTANYL 10/29/2018 2:35:26 PM 50 mcg Matuszczak, Nirali 50 mcg FENTANYL given in lab by Nirali Christianson BSN in Left Forearm via Peripheral IV. Ordered Radames Cheng. HEPARIN 10/29/2018 2:54:29 PM 2000 units Meghan Nirali 2000 units HEPARIN given in lab by Nirali Christianson BSN in Left Forearm via Peripheral IV. Ordere d by Radames Sherwood. FENTANYL 10/29/2018 3:41:52 PM 50 mcg Matuszwilmerak, Nirali 50 mcg FENTANYL given in lab by Nirali Christianson BSN in Left Forearm via Peripheral IV. Ordered b y Radames Sherwood. Medication (Drip) Medication Time Given Dosage/Unit Concentration/Unit Diluent (ml) Solution IV Solutions 10/29/2018 1:46:00 PM 0 mL (IV) 1000 NaCl .9 Patient arrived on IV Solutions in Left Forearm via Peripheral IV. Pump/Drip Flow = 20 ml/hr using Na Cl .9. VANCOMYCIN DRIP 10/29/2018 1:28:29 PM 1250 mg/hr 1250 mg 250 D5W Patient arrived on 1250 mg/hr VANCOMYCIN DRIP in Left Forearm via Peripheral IV. Pump/Drip Flow = 250 ml/hr using D5W with a concentration of 1250 mg in 250 ml. Initial Case Assessment Cardiovascular HR Rhythm NIBP Chest Pain 82 sr 152/66 0 Circulatory - Right Pulses Dorsalis Pedis Femoral 1 3 Scale (0,1,2,3,4,d) Circulatory - Left Pulses Dorsalis Pedis Femoral 1 3 Scale (0,1,2,3,4,d) Neurological State Oriented to time-place- Alert Moves all extremities person Respiration - General Respiration Rate SpO2 (%) (B/min) 24 100 Final Case Assessment Cardiovascular HR Rhythm NIBP Chest Pain 84 sr 167/76 0 Circulatory - Right Pulses Dorsalis Pedis Femoral d 3 Scale (0,1,2,3,4,d) Circulatory - Left Pulses Dorsalis Pedis Femoral d 3 Scale (0,1,2,3,4,d) Neurological State Oriented to time-place- Alert Moves all extremities person Respiration - General Respiration Rate SpO2 (%) (B/min) 20 99 Chronological Log Time Study Chronological Log 13:27:16 Patient arrived via Bed. 13:27:17 Patient Name, D.O.B, / Armband Verified By R.N. Patient arrived on 1250 mg/hr VANCOMYCIN DRIP in Left Forearm via Peripheral IV. Pump/Drip Flow = 250 ml/hr using 13:28:29 D5W with a concentration of 1250 mg in 250 ml. 13:30:26 Pre-op and post- op instructions given; patient acknowledges understanding of instructions. 13:30:27 Pre-op and post- op instructions given; patient acknowledges understanding of instructions. 13:30:28 Verbal Stimulation=2 Physical Stimulation=2 Airway=2 Respiration=2 TOTAL=8. (0=absent, 1=li mited, 2=present) 13:30:30 Presedation assessment performed by Pulp Bleacher RN. Vitals capture started with the following parameters, Patient=Adult, Interval=5 min, Initial Pr binqvo=031 mmHg, 13:38:08 Deflation Rate=5 mmHg, Cuff placed on Right Arm 13:38:12 Reference ECG taken 13:38:50 HR=74 bpm, QWYF=328/61 mmhg, SpO2=94.0 %, Resp=31 B/min 13:43:49 HR=98 bpm, QAVL=113/65 mmhg, SpO2=97.0 %, Resp=24 B/min, Pain=0, Jerrell=10, Flood=2 13:45:57 Patient has been NPO for More than 6Hrs. 13:45:58 Skin Breakdown-right toe wound 13:45:59 Chad Prominences Protected 13:46:00 A # 20 IV was noted in the Forearm (left). Grade = 0 13:46:00 Patient arrived on IV Solutions in Left Forearm via Peripheral IV. Pump/Drip Flow = 20 ml/h r using NaCl .9. 13:46:01 History and physical on the chart or being dictated. Assessment: Initial Case, HR=82 BPM, Rhythm=sr, RQVT=755/66 mmhg, Chest Pain=0 Right Pulses: Flaquito Ped=1, Femoral=3 13:46:03 Left Pulses: Flaquito Ped=1, Femoral=3 Neurological: State=Alert, Ox3, MERCER Respiration: Resp=24 B/min, AkH3=559 % 13:46:08 MD arrived. 13:46:40 Bilateral groins prepped with 2% chlorhexidine, and draped after a 3 minute waiting time. 13:47:25 Consent signed by the physician and the patient and verified by the Pulp Bleacher staff. 13:48:50 HR=82 bpm, NOXL=699/72 mmhg, SpO2=96.0 %, Resp=27 B/min 13:53:53 HR=81 bpm, QKXI=963/66 mmhg, SpO2=97.0 %, Resp=28 B/min 13:58:52 HR=78 bpm, PDDY=073/71 mmhg, SpO2=97.0 %, Resp=20 B/min Time Out. Correct patient, correct procedure, correct physician, labs, allergies, and equipment verified with labview programmer 14:00:49 team present. Fire risk assesment completed (see hard stop sheet for coding). Time Out Conc urred by and individual staff in procedure. Time Out #2 - Consents verified, patient in correct position, all results are labled and displa yed, safety precautions 14:00:51 taken, antibiotics administered. Time out concurred by MD, individual staff and SENIOR CIVIL ENGINEER. 14:00:57 20 mL 1% XYLOCAINE given in lab by Radames Sherwood in Left Groin via Subcutaneous. Ordered by Radames Sherwood. 14:01:33 Case Start 2 mg VERSED given in lab by Nirali Christianson BSN in Left Forearm via Peripheral IV. Ordered by Kaela, 14:01:41 Radames. 14:02:32 Access site was Left Femoral Artery. A INTRODUCER SET, MICROPUNCTURE STIFF FR 5 was advanced into the Fem Art (right) using the Perc utaneous 14:02:34 technique. 50 mcg FENTANYL given in lab by Nirali Christianson BSN in Left Forearm via Peripheral IV. Ord ered by Kaela 14:02:57 Radames. 14:03:11 A WIRE, SUPRACORE 190CM 190cm was inserted via Fem Art (right). A SHEATH, FR5 TERUMO (10CM) FR 5 was exchanged in the Fem Art (left). This was necessary in ord er to 14:03:24 accomodate a larger catheter. 14:03:46 Wire removed 14:03:53 HR=83 bpm, HXYI=343/66 mmhg, SpO2=96.0 %, Resp=27 B/min 14:04:14 A WIRE, ANGLED GLIDE .035 260CM 260CM was inserted via Fem Art (left). 14:05:20 Iliac R. Com. (R4) angiogram, manually injected. 14:07:54 Fem Sup. (right) angiogram, manually injected. 14:08:04 Popliteal R (R10) angiogram, manually injected. 14:08:56 HR=78 bpm, HZDV=465/59 mmhg, SpO2=95.0 %, Resp=27 B/min 14:09:01 Tib, Post (right) angiogram, manually injected. A OMNI FLUSH 65CM CATHETER FR 4 was advanced over a wire. OMNIPAQUE, 300 MG, 150ML 150ML was us ed for 14:10:09 injections. 14:11:10 A WIRE, ANGLED GLIDE .035 260CM 260CM was inserted via Fem Art (left). 14:12:35 Catheter was removed w/o difficulty 3000 units HEPARIN given in lab by Nirali Christianson BSN in Left Forearm via Peripheral IV. Ordered by Kaela 14:13:04 Radames. A CATHETER, FR5 TRAILBLAZER .035 135CM was advanced over a wire. OMNIPAQUE, 300 MG, 50ML 50ML w as used 14:13:34 for injections. 14:13:55 HR=78 bpm, NRMN=911/65 mmhg, SpO2=92.0 %, Resp=30 B/min 14:16:51 Catheter was removed w/o difficulty A SHEATH, FR6 TERUMO (10CM) FR 6 was exchanged in the Fem Art (left). This was necessary in ord er to 14:17:06 accomodate a larger catheter. A CATHETER, FR5 TRAILBLAZER .035 135CM was advanced over a wire. OMNIPAQUE, 300 MG, 50ML 50ML w as used 14:17:44 for injections. 14:18:54 HR=81 bpm, COSM=743/69 mmhg, SpO2=92.0 %, Resp=32 B/min 14:19:52 The previous wire was exchanged for a WIRE, FIRM (VIPER) 335. 14:23:55 HR=84 bpm, ZCGX=846/67 mmhg, SpO2=95.0 %, Resp=13 B/min 14:27:39 Catheter was removed w/o difficulty 14:27:44 An CATHETER, STEALTH SOLID 1.5MM 30 GRIT catheter was inserted into the Fem Art (left). 14:28:26 Passes made with the 1.5 Stealth atherectomy in the RSFA. 14:28:58 HR=82 bpm, JOWZ=748/66 mmhg, SpO2=94.0 %, Resp=20 B/min 14:30:49 Atherectomy Catheter was removed w/o difficulty 14:31:39 A BALLOON, EVERCROSS 5 X 150 135CM 5 X 150 was inserted over WIRE, FIRM (VIPER) 335 via the Fem Sup. (right). 14:32:53 The previous wire was exchanged for a WIRE, SUPERCORE 300CM 300CM. 14:34:01 In the Fem Sup. (right) a BALLOON, EVERCROSS 5 X 150 135CM 5 X 150 was inflated to 6 atms f or 30 seconds. 14:34:21 In the Fem Sup. (right) a BALLOON, EVERCROSS 5 X 150 135CM 5 X 150 was inflated to 6 atms f or 30 seconds. 14:34:36 HR=84 bpm, NZDZ=293/76 mmhg, SpO2=94.0 %, Resp=9 B/min 14:35:01 In the Fem Sup. (right) a BALLOON, EVERCROSS 5 X 150 135CM 5 X 150 was inflated to 6 atms f or 30 seconds. 50 mcg FENTANYL given in lab by Nirali Christianson BSN in Left Forearm via Peripheral IV. Ord ered by Kaela, 14:35:26 Radames. 14:35:55 In the Fem Sup. (right) a BALLOON, EVERCROSS 5 X 150 135CM 5 X 150 was inflated to 6 atms f or 30 seconds. 14:37:49 In the Fem Sup. (right) a BALLOON, EVERCROSS 5 X 150 135CM 5 X 150 was inflated to 6 atms f or 60 seconds. 14:39:01 HR=84 bpm, YBVD=759/76 mmhg, SpO2=92.0 %, Resp=32 B/min 14:40:44 In the Fem Sup. (right) a BALLOON, EVERCROSS 5 X 150 135CM 5 X 150 was inflated to 14 atms for 120 seconds. 14:44:04 HR=84 bpm, ZKZE=331/74 mmhg, SpO2=93.0 %, Resp=18 B/min 14:47:31 Balloon Removed. 14:48:47 Fem Sup. (right) angiogram, manually injected. 14:48:58 Popliteal R (R10) angiogram, manually injected. 14:49:03 HR=83 bpm, HEEP=372/72 mmhg, SpO2=93.0 %, Resp=19 B/min 14:49:04 Tib, Post (right) angiogram, manually injected. A CATHETER, FR5 TRAILBLAZER .035 135CM was advanced over a wire. OMNIPAQUE, 300 MG, 50ML 50ML w as used 14:52:19 for injections. 14:52:42 The previous wire was exchanged for a WIRE, CHOICE PT 300CM PT EX. SUPP 300CM. After removing the current catheter a CATHETER, CXI SUPPORT 2.3FR 150 ANGLED .014 was advanced over a WIRE, 14:53:17 CHOICE PT 300CM PT EX. SUPP 300CM. 14:54:02 HR=88 bpm, SVPL=944/67 mmhg, Resp=28 B/min 2000 units HEPARIN given in lab by Nirali Christianson BSN in Left Forearm via Peripheral IV. Ordered by Kaela, 14:54:29 Radames. 14:55:58 The previous wire was exchanged for a WIRE, HI TORQUE COMMAND 300CM 300CM. 14:59:01 HR=81 bpm, SDYP=986/66 mmhg, Resp=27 B/min 15:00:47 The previous wire was exchanged for a WIRE, CHOICE PT 300CM PT EX. SUPP 300CM. 15:04:02 HR=81 bpm, GKVU=912/68 mmhg, SpO2=95 %, Resp=28 B/min After removing the current catheter a CATHETER, CXI SUPPORT 2.3FR 150 ANGLED .014 was advanced over a WIRE, 15:05:02 CHOICE PT 300CM PT EX. SUPP 300CM. 15:07:26 Wire removed 15:07:35 A WIRE, CHOICE PT 300CM PT EX. SUPP 300CM was inserted via Fem Art (left). 15:09:50 HR=79 bpm, QKNX=221/67 mmhg, SpO2=95.0 %, Resp=28 B/min 15:10:58 Wire removed 15:11:34 A WIRE, SPARTACORE 5*300CM 300CM was inserted via Fem Art (left). 15:12:28 Catheter was removed w/o difficulty A BALLOON, NANOCROSS 3.0 X 40MM 150CM 3.0 X 40 was inserted over WIRE, SPARTACORE 5*300CM 300CM via 15:12:32 the Fem Art (left). 15:13:54 In the Tib, Ant. (right) a BALLOON, NANOCROSS 3.0 X 40MM 150CM 3.0 X 40 was inflated to 6 a tms for 30 seconds. 15:14:02 HR=82 bpm, YXBT=416/72 mmhg, SpO2=96.0 %, Resp=26 B/min 15:14:17 In the Tib, Ant. (right) a BALLOON, NANOCROSS 3.0 X 40MM 150CM 3.0 X 40 was inflated to 6 a tms for 30 seconds. 15:15:04 Balloon Removed. 15:16:55 A WIRE, CHOICE PT 300CM PT EX. SUPP 300CM was inserted via Fem Art (left). 15:19:05 HR=81 bpm, XJCD=491/69 mmhg, SpO2=95.0 %, Resp=29 B/min 15:20:44 Choice PT extra support Wire removed 15:20:46 A WIRE, ANGLED GLIDE .035 260CM 260CM was inserted via Fem Art (left). 15:24:02 HR=81 bpm, PWYX=541/73 mmhg, SpO2=95.0 %, Resp=30 B/min A CATHETER, GUIDE ANG. TAPER FR4 FR4 was advanced over a wire. OMNIPAQUE, 300 MG, 150ML 150ML w as used 15:26:07 for injections. 15:27:48 The previous wire was exchanged for a WIRE, SPARTACORE 5*300CM 300CM. 15:29:07 HR=78 bpm, UWUN=738/63 mmhg, SpO2=97.0 %, Resp=8 B/min A BALLOON, NANOCROSS 4.0 X 40MM 150CM 4.0 X 40 was inserted over WIRE, SPARTACORE 5*300CM 300CM via 15:29:53 the Profunda (right). A BALLOON, NANOCROSS 4.0 X 60MM 150CM 4.0 X 60 was inserted over WIRE, SPARTACORE 5*300CM 300CM via 15:31:40 the Fem Sup. (right). 15:34:04 HR=81 bpm, VESP=256/71 mmhg, SpO2=97.0 %, Resp=12 B/min 15:35:24 In the Profunda (right) a BALLOON, NANOCROSS 4.0 X 60MM 150CM 4.0 X 60 was inflated to 10 a tms for 20 seconds. 15:35:25 In the Fem Sup. (right) a BALLOON, NANOCROSS 4.0 X 60MM 150CM 4.0 X 60 was inflated to 10 atms for 20 seconds. 15:36:44 Balloons Removed. 15:36:50 Tib, Ant. (right) angiogram, manually injected. 15:38:01 Wires removed 15:39:01 HR=78 bpm, GUFI=477/74 mmhg, SpO2=99.0 %, Resp=15 B/min 15:40:03 PERCLOSE, PRO GLIDE CLOSER DEVICE FR 6 placement in the Fem Art (left) 15:41:13 Patient has to void, urinal placed. 50 mcg FENTANYL given in lab by Nirali Christianson BSN in Left Forearm via Peripheral IV. Or dered by Kaela, 15:41:52 Radames. 15:42:18 Case End (Physician broke scrub) 15:44:37 HR=83 bpm, PKTB=201/83 mmhg, SpO2=95.0 %, Resp=15 B/min 15:49:07 HR=86 bpm, TABJ=387/76 mmhg, Resp=20 B/min 15:50:10 Sterile dressing applied to site 15:51:16 No case complications noted. 15:51:17 Cine recording checked. 15:51:19 Bedside Report will be given. Assessment: Final Case, HR=84 BPM, Rhythm=sr, YTNC=325/76 mmhg, Chest Pain=0 Right Pulses: Flaquito Ped=d, Femoral=3 15:51:25 Left Pulses: Flaquito Ped=d, Post Tib=1, Femoral=3 Neurological: State=Alert, Ox3, MERCER Respiration: Resp=20 B/min, SpO2=99 % 15:53:40 Vitals capture stopped. 16:08:46 Patient moved to bed 16:10:59 Patient transported to DOCU End Study - Contrast Media Used In Study Contrast Total Opened (mL) Total Used (mL) Total Wasted (mL) Omnipaque 300 150 150 0 End Study - Maximum Contrast Load Max Contrast Load (mL) 321.2 End Study - Radiation Exposure Fluoro Time Fluoro Dose (mGy) Cine Dose (uGym2) (minutes) 15.8 114 1877 End Study - Sheaths Sheaths Pulled By Sheath Hold Time (min) Radames Sherwood 5 End Study - Patient Disposition Complications Transferred To Interventional Outcome No Pulp Bleacher Holding successful
--- NOTE | 2018-10-29 16:25 | P.OP ---
Preoperative Diagnosis: Critical limb ischemia with tissue loss Postoperative Diagnosis: Critical limb ischemia with tissue loss Date of procedure: 10/29/18 Procedure: 1. Ultrasound-guided access of the femorofemoral bypass. 2. Right lower extremity third order angiogram. 3. Atherectomy of the right superficial femoral artery. 4. Balloon angioplasty of the right superficial femoral artery. 5. Balloon angioplasty of the right anterior tibial artery. 6. Balloon angioplasty of the right profunda femoral artery 7. Radiological supervision interpretation 8. Conscious sedation 9. Perclose of the access arteriotomy Anesthesia: other (Local with moderate sedation) Surgeon: Radames Sherwood MD Estimated blood loss (mL): 5 Operation and Findings: Finding 1. Patent left to right femorofemoral bypass with no evidence of significant stenosis. 2. 90% stenosis of the proximal right profunda femoral artery and superficial femoral artery that was treated using balloon angioplasty in a kissing fashion using 4 mm balloons. 3. Occlusion of the distal superficial femoral artery for length that measured approximately 15 cm. That was treated using atherectomy followed by balloon angioplasty via a 5 x 150 mm balloon. 4. 90% stenosis of the proximal right anterior tibial artery that was treated using balloon angioplasty via a 3 mm balloon. 5. Completion angiogram shows no residual stenosis or flow-limiting dissection in all these vessels. There was two-vessel runoff to the foot via the anterior tibial artery and the posterior tibial artery. Description of the operation Patient was taken to the operating room, laid supine on the OR table. After adequate sedation, the patient was prepped and draped in the standard sterile fashion. Timeout was called with all members and you are in agreement. 1% lidocaine was injected over the proximal portion of the femorofemoral bypass. Using ultrasound guidance, we accessed bypass and we placed a 5 Bangladeshi sheath. An angiogram of the bypass was performed. A catheter was placed in the popliteal artery after crossing the SFA occlusion and a right lower extremity third order angiogram was performed. 6 Bangl[place]hi destination sheath was placed into the femorofemoral bypass. Atherectomy of the superficial femoral artery followed by balloon angioplasty via a 5 x 150 mm balloon was performed. Completion angiogram was performed. 014 wire was placed across the right anterior tibial artery stenosis. Balloon angioplasty of the right antecubital artery was performed and completion angiogram was performed. At at this point, 2014 wires were placed, one in the profunda femoral artery and the other in the superficial femoral artery. 4 mm balloons were placed into the profunda femoral artery and the superficial femoral artery. Balloon angioplasty of the vessels of was performed in a kissing fashion. Completion angiogram was performed. At this point all wire catheter and sheath removed and we closed the arteriotomy using a Perclose device and manual compression. Patient tolerated the procedure well and was taken to recovery unit in stable condition. Conclusion This is a pleasant patient who presented with right lower extremity critical limb ischemia with tissue loss. There is noted to have SFA occlusion, anterior tibial artery stenosis, and profunda femoral artery stenosis. These vessels were treated successfully and he has two-vessel runoff to the right foot via the anterior tibial artery and posterior tibial artery. The patient is cleared from vascular surgery standpoint for his toe amputation.
[2018-10-29] MEDS ORDERED: Iohexol 350 MG/ML 50 ML Vial (for Cath Lab) IVCONTRAST ONE (17:00)
[2018-10-29] MEDS ORDERED: Iohexol 350 MG/ML 100 ML Vial (for Cath Lab) IVCONTRAST ONE (17:00)
[2018-10-29] MEDS: Sod Chloride 0.9% Inj 1,000 ML IV.CONT SCH ×2 (18:44→21:49)
[2018-10-29] MEDS: ARIPiprazole 10 MG Tablet PO SCH (21:50)
[2018-10-29] MEDS: Insulin Detemir Inj 1,000 UNIT/10 ML Vial SQ SCH (21:52)
[2018-10-30] MEDS ORDERED: Pharmacy Ordered Lab Info OTHER ONE ×2 (01:45→19:45)
[2018-10-30] MEDS: Vancomycin Inj 1,250 MG in Sodium Chlor 0.9% Inj 250 ML IV.SIG SCH ×2 (02:53→20:36)
[2018-10-30] MEDS: Insulin NovoLOG Aspart Correctional Sugar Inj SQ SCH ×3 (05:31→17:21)
--- NOTE | 2018-10-30 09:13 | P.PNVS ---
Subjective Post Op Day #: 1 Subjective/Hospital Course: doing well this am denies pain Objective Vital Signs / I&O: Vital Signs 10/29/18 12:00 10/29/18 16:18 10/29/18 20:00 Temperature 98.7 F 98.5 F Pulse Rate 75 69 Respiratory Rate 18 16 Blood Pressure 135/64 120/55 L Pulse Oximetry 94 L 95 95 10/29/18 20:25 10/30/18 00:00 10/30/18 03:40 Temperature 98.4 F Pulse Rate 76 84 82 Respiratory Rate 18 16 16 Blood Pressure 120/59 L Pulse Oximetry 99 92 L 10/30/18 04:00 10/30/18 08:00 Temperature 98.6 F 98.6 F Pulse Rate 86 84 Respiratory Rate 16 18 Blood Pressure 123/58 L 130/59 L Pulse Oximetry 95 95 Intake & Output 10/29/18 10/30/18 10/30/18 18:59 06:59 18:59 Intake Total 1362.5 / 1362.5 462.5 / 462.5 Output Total 2300 / 2300 Balance -937.5 / -937.5 462.5 / 462.5 Weight 78.3 kg Intake: IV 1362.5 / 1362.5 462.5 / 462.5 NS Inj 1,000 ML @ 84 mls/hr IV. 1000 / 1000 CONT .[id number] [facility] Rx#:[id number] Maxipime Inj 2,000 MG In NS Inj 100 / 100 200 / 200 100 ML @ 200 mls/hr IV.SIG Q8H [facility] Rx#:[id number] Vancomycin Inj 1,250 MG In NS 262.5 / 262.5 262.5 / 262.5 Inj 250 ML @ 250 mls/hr IV.SIG Q18H [facility] Rx#:[id number] Oral Supplement 0 / 0 Output: Urine 2300 / 2300 Other: # Voids 2 Exam: Palpable right PT pulse. Puncture site clean dry intact with no hematoma Right second toe gangrene stable Laboratory Results - last 24 hr 10/29/18 10/29/18 10/29/18 11:24 18:30 23:38 Creatinine Estimated GFR POC Glucose 163 H 263 H 226 H 10/30/18 10/30/18 05:23 06:48 Creatinine 1.17 Estimated GFR 63 L POC Glucose 190 H Microbiology 10/27/18 16:21 Gram Stain - Final Abscess - Foot Wound Culture - Final 10/27/18 Unknown Aerobic Blood Culture - Preliminary Blood - Peripheral No growth in 2 days Anaerobic Blood Culture - Preliminary No growth in 2 days 10/27/18 Unknown Aerobic Blood Culture - Preliminary Blood - Peripheral No growth in 2 days Anaerobic Blood Culture - Preliminary No growth in 2 days Assessment and Plan - Plan RLE CLI with tissue loss Status post right lower extremity endovascular revascularization postop day #1 Patient with adequate blood supply to the right foot. He is cleared from vascular standpoint for toe amputation. Our service will sign off and our office will make outpatient follow-up in 2 weeks with [facility]. If you have any questions please do not hesitate to call my cell phone. Radames Sherwood MD [phone]
[2018-10-30] MEDS: dilTIAZem CD 240 MG Capsule PO SCH (09:20)
[2018-10-30] MEDS: amLODIPine 5 MG Tablet PO SCH (09:20)
[2018-10-30] MEDS: Budesonide-Formoterol 160/4.5 MCG 6 GM Inhaler INH SCH ×2 (09:24→21:26)
--- NOTE | 2018-10-30 09:31 | P.PN ---
Subjective Interval history: no complains afebrile pain controlled Physical Exam Vital signs: Vital Signs 10/29/18 12:00 10/29/18 16:18 10/29/18 20:00 Temperature 98.7 F 98.5 F Pulse Rate 75 69 Respiratory Rate 18 16 Blood Pressure 135/64 120/55 L Pulse Oximetry 94 L 95 95 10/29/18 20:25 10/30/18 00:00 10/30/18 03:40 Temperature 98.4 F Pulse Rate 76 84 82 Respiratory Rate 18 16 16 Blood Pressure 120/59 L Pulse Oximetry 99 92 L 10/30/18 04:00 10/30/18 08:00 Temperature 98.6 F 98.6 F Pulse Rate 86 84 Respiratory Rate 16 18 Blood Pressure 123/58 L 130/59 L Pulse Oximetry 95 95 Intake & Output 10/29/18 10/30/18 10/30/18 18:59 06:59 18:59 Intake Total 1362.5 / 1362.5 462.5 / 462.5 Output Total 2300 / 2300 900 / 900 Balance -937.5 / -937.5 462.5 / 462.5 -900 / -900 Weight 78.3 kg Intake: IV 1362.5 / 1362.5 462.5 / 462.5 NS Inj 1,000 ML @ 84 mls/hr IV. 1000 / 1000 CONT .[id number] [facility] Rx#:[id number] Maxipime Inj 2,000 MG In NS Inj 100 / 100 200 / 200 100 ML @ 200 mls/hr IV.SIG Q8H [facility] Rx#:[id number] Vancomycin Inj 1,250 MG In NS 262.5 / 262.5 262.5 / 262.5 Inj 250 ML @ 250 mls/hr IV.SIG Q18H [facility] Rx#:[id number] Oral Supplement 0 / 0 Output: Urine 2300 / 2300 900 / 900 Other: # Voids 2 Narrative: Gen.: No acute distress Head: Normocephalic. Atraumatic. EENT: Pupils equal round and reactive to light. Nose without drainage. Airway intact. Throat without injection. Cardiovascular: Regular rate and rhythm. Respiratory: no wheezes, no rhonchis Abdomen: Soft, nontender, nondistended. No peritoneal signs. Musculoskeletal: Right foot and ankle mile erythema. Second right toe black and necrotic dry Unable to flex ankle or wiggle toes. Skin: No obvious rashes or erythema. Neuro: Sensory and motor grossly intact. Cranial nerves II through XII grossly intact. Results - Labs CBC & Chem 7: 10/28/18 09:31 10/30/18 06:48 Laboratory Results - last 24 hr 10/29/18 10/29/18 10/29/18 11:24 18:30 23:38 Creatinine Estimated GFR POC Glucose 163 H 263 H 226 H 10/30/18 10/30/18 05:23 06:48 Creatinine 1.17 Estimated GFR 63 L POC Glucose 190 H Microbiology 10/27/18 16:21 Abscess - Foot Gram Stain - Final 10/27/18 16:21 Abscess - Foot Wound Culture - Final 10/27/18 Unknown Blood - Peripheral Aerobic Blood Culture - Preliminary No growth in 2 days 10/27/18 Unknown Blood - Peripheral Anaerobic Blood Culture - Preliminary No growth in 2 days 10/27/18 Unknown Blood - Peripheral Aerobic Blood Culture - Preliminary No growth in 2 days 10/27/18 Unknown Blood - Peripheral Anaerobic Blood Culture - Preliminary No growth in 2 days Assessment and Plan - Plan 63 years old male- smoker Right second Dry gangrene toe/cellulitis Peripheral vascular disease Status post right lower extremity endovascular revascularization 10/29 Vancomycin and cefepime as patient allergic to penicillin Blood cultures negatice so far - plan for possible amputation after revascularization- per dr. Juarez d/w Dr. King- covering MD- will be seeing aptient today - okay to restart Xarelto 2. Atrial fibrillation- currently in SR Continue diltiazem Xarelton 10 mg daily 3. Diabetes mellitus - started on HS Insulin 25 HS - restart her Januvia 50 ,g daily Sliding-scale insulin Monitor blood glucose and adjust meds 4. Hypertension/hyperlipidemia Continue home amlodipine and clonidine Continue statin 5. Schizophrenia/bipolar disorder Continue home Abilify 6. 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 Chronic kidney disease Creatinine 1.67, baseline Monitor renal function
[2018-10-30] MEDS: Sod Chloride 0.9% Inj 1,000 ML IV.CONT SCH ×2 (12:48→22:53)
[2018-10-30] MEDS: HYDROmorphone PF Inj 2 MG/ML Vial IV.PUSH PRN ×2 (14:51→21:25)
--- NOTE | 2018-10-30 18:42 | P.PNPOD ---
Subjective Interval history: Patient seen bedside. Resting comfortably with no complaints. Physical Exam Vital signs: Vital Signs 10/29/18 20:00 10/29/18 20:25 10/30/18 00:00 Temperature 98.5 F 98.4 F Pulse Rate 69 76 84 Respiratory Rate 16 18 16 Blood Pressure 120/55 L 120/59 L Pulse Oximetry 95 99 92 L 10/30/18 03:40 10/30/18 04:00 10/30/18 08:00 Temperature 98.6 F 98.6 F Pulse Rate 82 86 84 Respiratory Rate 16 16 18 Blood Pressure 123/58 L 130/59 L Pulse Oximetry 95 95 10/30/18 11:27 10/30/18 12:00 10/30/18 15:31 Temperature 98.3 F 98.2 F Pulse Rate 77 83 73 Respiratory Rate 16 18 16 Blood Pressure 132/61 139/63 Pulse Oximetry 97 95 96 10/30/18 16:28 Temperature Pulse Rate 70 Respiratory Rate 18 Blood Pressure Pulse Oximetry Intake & Output 10/29/18 10/30/18 10/30/18 18:59 06:59 18:59 Intake Total 1362.5 / 1362.5 462.5 / 462.5 2300 / 2300 Output Total 2300 / 2300 3400 / 3400 Balance -937.5 / -937.5 462.5 / 462.5 -1100 / -1100 Weight 78.3 kg Intake: IV 1362.5 / 1362.5 462.5 / 462.5 1100 / 1100 NS Inj 1,000 ML @ 84 mls/hr IV. 1000 / 1000 1000 / 1000 CONT .[id number] [facility] Rx#:[id number] Maxipime Inj 2,000 MG In NS Inj 100 / 100 200 / 200 100 / 100 100 ML @ 200 mls/hr IV.SIG Q8H [facility] Rx#:[id number] Vancomycin Inj 1,250 MG In NS 262.5 / 262.5 262.5 / 262.5 Inj 250 ML @ 250 mls/hr IV.SIG Q18H [facility] Rx#:[id number] Oral 1200 / 1200 Oral Supplement 0 / 0 Output: Urine 2300 / 2300 3400 / 3400 Other: # Voids 2 Narrative: Right second digit necrosis and ischemia. Right second digit dry gangrene. Capillary refill time to digits 1, 3, 4, 5 Right foot. No tenderness on palpation to right foot. No gross osseous deformity noted to right foot Medications and Allergies Active Medications: Active Medications Albuterol (Duoneb Neb (Myrna)) 1 ampul NEB Q6HR NEB [facility] Last Admin: 10/30/18 16:28 Dose: 1 ampul Amlodipine Besylate (Norvasc) 5 mg PO DAILY [facility] Last Admin: 10/30/18 09:20 Dose: 5 mg Aripiprazole (Abilify) 10 mg PO HS [facility] Last Admin: 10/29/18 21:50 Dose: 10 mg Atorvastatin Calcium (Lipitor) 80 mg PO DAILY [facility] Last Admin: 10/30/18 09:20 Dose: 80 mg Budesonide/Formoterol Fumarate (Symbicort 160/4.5 Mcg Inh) 2 puff INH BID [facility] Last Admin: 10/30/18 09:24 Dose: 2 puff Clonazepam (Klonopin) 1 mg PO BID PRN PRN Reason: Anxiety Last Admin: 10/29/18 12:47 Dose: 1 mg Clonidine HCl (Catapres) 0.1 mg PO Q8HR [facility] Last Admin: 10/30/18 14:51 Dose: 0.1 mg Clonidine HCl (Catapres) 0.1 mg PO TID [facility] Last Admin: 10/30/18 17:20 Dose: 0.1 mg Dextrose (D50w Vial) 50 ml IV.PUSH UNSCH PRN PRN Reason: PER HYPOGLYCEMIA PROTOCOL Last Admin: 10/28/18 11:59 Dose: 50 ml Diltiazem HCl (Cardizem Cd 24hr) 240 mg PO DAILY [facility] Last Admin: 10/30/18 09:20 Dose: 240 mg Glucagon (Glucagon Inj) 1 mg OTHER PRN PRN PRN Reason: for Hypoglycemia Protocol Hydromorphone HCl (Dilaudid Pf Inj) 0.5 mg IV.PUSH Q4H PRN PRN Reason: PAIN SCALE 1 TO 10 Last Admin: 10/30/18 14:51 Dose: 0.5 mg Hydroxyzine HCl (Atarax) 25 mg PO BID [facility] Last Admin: 10/30/18 09:20 Dose: 25 mg Cefepime HCl 2,000 mg/ Sodium (Chloride) 100 mls @ 200 mls/hr IV.SIG Q8H [facility] Last Admin: 10/30/18 17:20 Dose: 100 mls/hr Sodium Chloride (Ns Inj) 1,000 mls @ 84 mls/hr IV.CONT .[id number] [facility] Last Admin: 10/30/18 12:48 Dose: 84 mls/hr Vancomycin HCl 1,250 mg/ (Sodium Chloride) 262.5 mls @ 250 mls/hr IV.SIG Q18H [facility] Last Infusion: 10/30/18 04:02 Dose: Infused Insulin Aspart (Novolog Insulin Correctional Sugar Inj) 0 unit SQ Q6HR [facility]; Protocol Last Admin: 10/30/18 17:21 Dose: 3 unit Insulin Detemir (Levemir Inj) 25 unit SQ HS [facility] Last Admin: 10/29/18 21:52 Dose: 25 unit Miscellaneous Information ([facility] Ordered Lab Info) 0 each OTHER ONCE ONE Stop: 10/30/18 19:46 Nicotine (Habitrol 7 Mg Patch.24 Hr) 1 patch T-DERMAL DAILY [facility] Last Admin: 10/30/18 09:22 Dose: 1 patch Pantoprazole Sodium (Protonix) 40 mg PO DAILY [facility] Last Admin: 10/30/18 09:20 Dose: 40 mg Patch Removal (Remove Old Patch) 1 each T-DERMAL DAILY [facility] Last Admin: 10/30/18 09:24 Dose: Not Given Pharmacy Profile Note (Vancomycin Consult Pharmacy) 1 each OTHER UNSCH PRN PRN Reason: Pharmacy to dose Rivaroxaban (Xarelto) 20 mg PO DAILY [facility] Sitagliptin Phosphate (Januvia) 50 mg PO DAILY [facility] Last Admin: 10/30/18 12:47 Dose: 50 mg Sodium Chloride (Ns Flush) 2 ml IV.FLUSH BID [facility] Last Admin: 10/30/18 09:20 Dose: Not Given Sodium Chloride (Ns Flush) 2 ml IV.FLUSH PRN PRN PRN Reason: FLUSH AFTER USING IV ACCESS Allergies Allergy/AdvReac Type Severity Reaction Status Date / Time aspirin Allergy Severe Anemia Verified 10/27/18 15:10 codeine Allergy Severe RASH Verified 10/27/18 15:10 ibuprofen Allergy Severe RASH Verified 10/27/18 15:10 penicillin G Allergy Severe RASH Verified 10/27/18 15:10 propoxyphene Allergy Severe RASH Verified 10/27/18 15:10 Home Medications Medication Instructions Recorded Confirmed Type clonazepam 1 mg PO BID PRN 05/15/18 10/27/18 History sumatriptan succinate 100 mg PO Q2-4H PRN 05/15/18 10/27/18 History aripiprazole 10 mg PO HS 08/17/18 08/17/18 History atorvastatin 80 mg PO DAILY 08/17/18 10/27/18 History budesonide-formoterol [Symbicort] 2 puff INHALATION BID 08/17/18 10/27/18 History diltiazem HCl 240 mg PO DAILY 08/17/18 10/27/18 History glipizide 10 mg PO BID 08/17/18 10/27/18 History hydroxyzine HCl 25 mg PO BID 08/17/18 10/27/18 History insulin glargine [Lantus U-100 25 units SUBCUT HS 08/17/18 10/27/18 History Insulin] lisinopril 40 mg PO DAILY 08/17/18 10/27/18 History pantoprazole 40 mg PO DAILY 08/17/18 10/27/18 History rivaroxaban [Xarelto] 20 mg PO DAILY 08/17/18 10/27/18 History sitagliptin [Januvia] 50 mg PO DAILY 08/17/18 10/27/18 History tizanidine 4 mg PO DAILY 08/17/18 08/17/18 History varenicline [Chantix] 1 mg PO BID 08/17/18 08/17/18 History topiramate [Topamax] 50 mg PO PRN 08/18/18 10/27/18 History albuterol sulfate [ProAir HFA] 1 puff INHALATION Q4-6H PRN 10/27/18 10/27/18 History clonidine HCl 0.1 mg PO TID 10/27/18 10/27/18 History Results - Labs CBC & Chem 7: 10/28/18 09:31 10/30/18 06:48 Laboratory Results - last 24 hr 10/29/18 10/30/18 10/30/18 23:38 05:23 06:48 Creatinine 1.17 Estimated GFR 63 L POC Glucose 226 H 190 H 10/30/18 10/30/18 11:23 16:55 Creatinine Estimated GFR POC Glucose 210 H 231 H Microbiology 10/27/18 Unknown Blood - Peripheral Aerobic Blood Culture - Preliminary No growth in 3 days 10/27/18 Unknown Blood - Peripheral Anaerobic Blood Culture - Preliminary No growth in 3 days 10/27/18 Unknown Blood - Peripheral Aerobic Blood Culture - Preliminary No growth in 3 days 10/27/18 Unknown Blood - Peripheral Anaerobic Blood Culture - Preliminary No growth in 3 days Assessment and Plan - Plan 63-year-old male with right second digit gangrene status post re-vascular with vascular surgery Patient examined and evaluated with all questions answered To the OR tomorrow for right second digit amputation Please obtain consent, consent to read right second digit amputation at metatarsal phalangeal joint with possible second metatarsal head excision Discussed with patient that due to necrosis at metatarsophalangeal joint wound VAC may be used to aid in closure, discussed with patient may not be able to primarily close digital amputation Patient understands all benefits alternatives risks and complications associated with procedure, he is in agreement with procedure N.p.o. after midnight
[2018-10-30] MEDS ORDERED: Insulin Detemir Inj 1,000 UNIT/10 ML Vial SQ SCH (21:00)
[2018-10-30] MEDS: Insulin Detemir Inj 1,000 UNIT/10 ML Vial SQ SCH (21:24)
[2018-10-30] MEDS: ARIPiprazole 10 MG Tablet PO SCH (21:24)
[2018-10-30] MEDS: clonazePAM 0.5 MG Tablet PO PRN (22:53)
[2018-10-31] MEDS: HYDROmorphone PF Inj 2 MG/ML Vial IV.PUSH PRN ×5 (02:59→22:11)
[2018-10-31] MEDS: Sod Chloride 0.9% Inj 1,000 ML IV.CONT SCH ×3 (03:01→21:20)
[2018-10-31] MEDS: Insulin NovoLOG Aspart Correctional Sugar Inj SQ SCH ×5 (05:56→23:40)
[2018-10-31] MEDS: dilTIAZem CD 240 MG Capsule PO SCH (08:22)
[2018-10-31] MEDS: amLODIPine 5 MG Tablet PO SCH (08:23)
[2018-10-31] MEDS: Rivaroxaban 20 MG Tablet PO SCH (08:24)
[2018-10-31] MEDS: Budesonide-Formoterol 160/4.5 MCG 6 GM Inhaler INH SCH ×2 (08:24→21:22)
--- NOTE | 2018-10-31 11:18 | P.PN ---
Subjective Interval history: no complains afebrile Physical Exam Vital signs: Vital Signs 10/30/18 11:27 10/30/18 12:00 10/30/18 15:31 Temperature 98.3 F 98.2 F Pulse Rate 77 83 73 Respiratory Rate 16 18 16 Blood Pressure 132/61 139/63 Pulse Oximetry 97 95 96 10/30/18 16:28 10/30/18 20:00 10/31/18 00:00 Temperature 98.3 F 98.2 F Pulse Rate 70 63 75 Respiratory Rate 18 22 22 Blood Pressure 105/53 L 117/56 L Pulse Oximetry 97 94 L 10/31/18 03:36 10/31/18 04:00 10/31/18 04:15 Temperature 98.4 F Pulse Rate 78 56 L Respiratory Rate 16 20 Blood Pressure 87/46 L 92/48 L Pulse Oximetry 93 L 94 L 10/31/18 06:00 10/31/18 08:00 10/31/18 09:19 Temperature 98.3 F Pulse Rate 57 L 76 Respiratory Rate 16 14 Blood Pressure 98/52 L 88/44 L Pulse Oximetry 98 95 Intake & Output 10/30/18 10/31/18 10/31/18 18:59 06:59 18:59 Intake Total 2400 / 2400 1362.5 / 1362.5 100 / 100 Output Total 3400 / 3400 200 / 200 Balance -1000 / -1000 1162.5 / 1162.5 100 / 100 Weight 77 kg Intake: IV 1200 / 1200 1362.5 / 1362.5 100 / 100 NS Inj 1,000 ML @ 84 mls/hr IV. 1000 / 1000 1000 / 1000 CONT .[id number] [facility] Rx#:[id number] Maxipime Inj 2,000 MG In NS Inj 200 / 200 100 / 100 100 / 100 100 ML @ 200 mls/hr IV.SIG Q8H [facility] Rx#:[id number] Vancomycin Inj 1,250 MG In NS 262.5 / 262.5 Inj 250 ML @ 250 mls/hr IV.SIG Q18H [facility] Rx#:[id number] Oral 1200 / 1200 Output: Urine 3400 / 3400 200 / 200 Other: Date of Last Bowel Movement 10/27/18 Narrative: Gen.: No acute distress Head: Normocephalic. Atraumatic. EENT: Pupils equal round and reactive to light. throat no exudates Cardiovascular: Regular rate and rhythm. Respiratory: no wheezes, no rales Abdomen: Soft, nontender, nondistended. No peritoneal signs. groin- no hematoma Musculoskeletal: Right foot and ankle mile erythema. Second right toe black and necrotic dry Unable to flex ankle or wiggle toes. Skin: No obvious rashes or erythema. Neuro: Sensory and motor grossly intact. Cranial nerves II through XII grossly intact. Results - Labs CBC & Chem 7: 10/28/18 09:31 10/30/18 06:48 Laboratory Results - last 24 hr 10/30/18 10/30/18 10/30/18 11:23 16:55 20:32 POC Glucose 210 H 231 H Vancomycin Trough 16.4 H 10/30/18 10/31/18 23:20 05:56 POC Glucose 187 H 89 Vancomycin Trough Microbiology 10/27/18 Unknown Blood - Peripheral Aerobic Blood Culture - Preliminary No growth in 4 days 10/27/18 Unknown Blood - Peripheral Anaerobic Blood Culture - Preliminary No growth in 4 days 10/27/18 Unknown Blood - Peripheral Aerobic Blood Culture - Preliminary No growth in 4 days 10/27/18 Unknown Blood - Peripheral Anaerobic Blood Culture - Preliminary No growth in 4 days Assessment and Plan - Plan 63 years old male- smoker Right second Dry gangrene toe/cellulitis Peripheral vascular disease Status post right lower extremity endovascular revascularization 10/29 - on Vancomycin and cefepime as patient allergic to penicillin - Blood cultures negative so far - plan for possible amputation after revascularization- per dr. 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
[2018-10-31] MEDS: Vancomycin Inj 1,250 MG in Sodium Chlor 0.9% Inj 250 ML IV.SIG SCH (13:48)
[2018-10-31] MEDS ORDERED: Bupivacaine PF 0.5% Inj 30 ML Vial ONE (15:48)
--- NOTE | 2018-10-31 16:26 | P.PCN ---
Date of procedure: 10/31/18 Pre-op diagnosis: Right second digit gagrene Post-op diagnosis: same Procedure: Right second digit amputation with metatarsal head resection Anesthesia: CASSIDYA Surgeon: Deisy King Estimated blood loss (mL): 10 Pathology: other (Right second digit and metatarsal head to path; Right foot soft tissue to micro) Condition: stable Disposition: PACU
--- NOTE | 2018-10-31 16:29 | P.PNPOD ---
Subjective Interval history: Patient seen preoperatively bedside. Denies any nausea vomiting fevers or chills. Is ready for procedure. No concerns or complaints at this time. Physical Exam Vital signs: Vital Signs 10/30/18 16:28 10/30/18 20:00 10/31/18 00:00 Temperature 98.3 F 98.2 F Pulse Rate 70 63 75 Respiratory Rate 18 22 22 Blood Pressure 105/53 L 117/56 L Pulse Oximetry 97 94 L 10/31/18 03:36 10/31/18 04:00 10/31/18 04:15 Temperature 98.4 F Pulse Rate 78 56 L Respiratory Rate 16 20 Blood Pressure 87/46 L 92/48 L Pulse Oximetry 93 L 94 L 10/31/18 06:00 10/31/18 08:00 10/31/18 09:19 Temperature 98.3 F Pulse Rate 57 L 76 Respiratory Rate 16 14 Blood Pressure 98/52 L 88/44 L Pulse Oximetry 98 95 10/31/18 12:00 Temperature 98.1 F Pulse Rate 83 Respiratory Rate 16 Blood Pressure 98/47 L Pulse Oximetry 96 Intake & Output 10/30/18 10/31/18 10/31/18 18:59 06:59 18:59 Intake Total 2400 / 2400 1362.5 / 1362.5 100 / 100 Output Total 3400 / 3400 200 / 200 Balance -1000 / -1000 1162.5 / 1162.5 100 / 100 Weight 77 kg Intake: IV 1200 / 1200 1362.5 / 1362.5 100 / 100 NS Inj 1,000 ML @ 84 mls/hr IV. 1000 / 1000 1000 / 1000 CONT .[id number] [facility] Rx#:[id number] Maxipime Inj 2,000 MG In NS Inj 200 / 200 100 / 100 100 / 100 100 ML @ 200 mls/hr IV.SIG Q8H [facility] Rx#:[id number] Vancomycin Inj 1,250 MG In NS 262.5 / 262.5 Inj 250 ML @ 250 mls/hr IV.SIG Q18H [facility] Rx#:[id number] Oral 1200 / 1200 Output: Urine 3400 / 3400 200 / 200 Other: Date of Last Bowel Movement 10/27/18 Narrative: No changes to right second digit gangrene extending into metatarsal phalangeal joint. Medications and Allergies Active Medications: Active Medications Albuterol (Duoneb Neb ([facility])) 1 ampul NEB Q6HR NEB [facility] Last Admin: 10/31/18 15:40 Dose: Not Given Amlodipine Besylate (Norvasc) 5 mg PO DAILY [facility] Last Admin: 10/31/18 08:23 Dose: 5 mg Aripiprazole (Abilify) 10 mg PO HS [facility] Last Admin: 10/30/18 21:24 Dose: 10 mg Atorvastatin Calcium (Lipitor) 80 mg PO DAILY [facility] Last Admin: 10/31/18 08:23 Dose: 80 mg Budesonide/Formoterol Fumarate (Symbicort 160/4.5 Mcg Inh) 2 puff INH BID [facility] Last Admin: 10/31/18 08:24 Dose: 2 puff Clonazepam (Klonopin) 1 mg PO BID PRN PRN Reason: Anxiety Last Admin: 10/30/18 22:53 Dose: 1 mg Clonidine HCl (Catapres) 0.1 mg PO Q8HR [facility] Last Admin: 10/31/18 13:48 Dose: Not Given Dextrose (D50w Vial) 50 ml IV.PUSH UNSCH PRN PRN Reason: PER HYPOGLYCEMIA PROTOCOL Last Admin: 10/28/18 11:59 Dose: 50 ml Diltiazem HCl (Cardizem Cd 24hr) 240 mg PO DAILY [facility] Last Admin: 10/31/18 08:22 Dose: 240 mg Glucagon (Glucagon Inj) 1 mg OTHER PRN PRN PRN Reason: for Hypoglycemia Protocol Hydromorphone HCl (Dilaudid Pf Inj) 0.5 mg IV.PUSH Q4H PRN PRN Reason: PAIN SCALE 1 TO 10 Last Admin: 10/31/18 12:35 Dose: 0.5 mg Hydroxyzine HCl (Atarax) 25 mg PO BID [facility] Last Admin: 10/31/18 08:23 Dose: 25 mg Cefepime HCl 2,000 mg/ Sodium (Chloride) 100 mls @ 200 mls/hr IV.SIG Q8H [facility] Last Infusion: 10/31/18 10:40 Dose: Infused Sodium Chloride (Ns Inj) 1,000 mls @ 84 mls/hr IV.CONT .[id number] [facility] Last Admin: 10/31/18 03:01 Dose: 84 mls/hr Vancomycin HCl 1,250 mg/ (Sodium Chloride) 262.5 mls @ 250 mls/hr IV.SIG Q18H [facility] Last Admin: 10/31/18 13:48 Dose: 150 mls/hr Insulin Aspart (Novolog Insulin Correctional Sugar Inj) 0 unit SQ Q6HR [facility]; Protocol Last Admin: 10/31/18 12:18 Dose: Not Given Insulin Detemir (Levemir Inj) 25 unit SQ HS [facility] Last Admin: 10/30/18 21:24 Dose: 25 unit Nicotine (Habitrol 7 Mg Patch.24 Hr) 1 patch T-DERMAL DAILY [facility] Last Admin: 10/31/18 08:22 Dose: 1 patch Pantoprazole Sodium (Protonix) 40 mg PO DAILY [facility] Last Admin: 10/31/18 08:23 Dose: 40 mg Patch Removal (Remove Old Patch) 1 each T-DERMAL DAILY [facility] Last Admin: 10/31/18 08:23 Dose: 1 each Pharmacy Profile Note (Vancomycin Consult Pharmacy) 1 each OTHER UNSCH PRN PRN Reason: Pharmacy to dose Rivaroxaban (Xarelto) 20 mg PO DAILY [facility] Last Admin: 10/31/18 08:24 Dose: Not Given Sitagliptin Phosphate (Januvia) 50 mg PO DAILY [facility] Last Admin: 10/31/18 08:23 Dose: 50 mg Sodium Chloride (Ns Flush) 2 ml IV.FLUSH BID [facility] Last Admin: 10/31/18 08:23 Dose: 2 ml Sodium Chloride (Ns Flush) 2 ml IV.FLUSH PRN PRN PRN Reason: FLUSH AFTER USING IV ACCESS Allergies Allergy/AdvReac Type Severity Reaction Status Date / Time aspirin Allergy Severe Anemia Verified 10/27/18 15:10 codeine Allergy Severe RASH Verified 10/27/18 15:10 ibuprofen Allergy Severe RASH Verified 10/27/18 15:10 penicillin G Allergy Severe RASH Verified 10/27/18 15:10 propoxyphene Allergy Severe RASH Verified 10/27/18 15:10 Home Medications Medication Instructions Recorded Confirmed Type clonazepam 1 mg PO BID PRN 05/15/18 10/27/18 History sumatriptan succinate 100 mg PO Q2-4H PRN 05/15/18 10/27/18 History aripiprazole 10 mg PO HS 08/17/18 08/17/18 History atorvastatin 80 mg PO DAILY 08/17/18 10/27/18 History budesonide-formoterol [Symbicort] 2 puff INHALATION BID 08/17/18 10/27/18 History diltiazem HCl 240 mg PO DAILY 08/17/18 10/27/18 History glipizide 10 mg PO BID 08/17/18 10/27/18 History hydroxyzine HCl 25 mg PO BID 08/17/18 10/27/18 History insulin glargine [Lantus U-100 25 units SUBCUT HS 08/17/18 10/27/18 History Insulin] lisinopril 40 mg PO DAILY 08/17/18 10/27/18 History pantoprazole 40 mg PO DAILY 08/17/18 10/27/18 History rivaroxaban [Xarelto] 20 mg PO DAILY 08/17/18 10/27/18 History sitagliptin [Januvia] 50 mg PO DAILY 08/17/18 10/27/18 History tizanidine 4 mg PO DAILY 08/17/18 08/17/18 History varenicline [Chantix] 1 mg PO BID 08/17/18 08/17/18 History topiramate [Topamax] 50 mg PO PRN 08/18/18 10/27/18 History albuterol sulfate [ProAir HFA] 1 puff INHALATION Q4-6H PRN 10/27/18 10/27/18 History clonidine HCl 0.1 mg PO TID 10/27/18 10/27/18 History Results - Labs CBC & Chem 7: 10/28/18 09:31 10/30/18 06:48 Laboratory Results - last 24 hr 10/30/18 10/30/18 10/30/18 16:55 20:32 23:20 POC Glucose 231 H 187 H Vancomycin Trough 16.4 H 10/31/18 05:56 POC Glucose 89 Vancomycin Trough Microbiology 10/27/18 Unknown Blood - Peripheral Aerobic Blood Culture - Preliminary No growth in 4 days 10/27/18 Unknown Blood - Peripheral Anaerobic Blood Culture - Preliminary No growth in 4 days 10/27/18 Unknown Blood - Peripheral Aerobic Blood Culture - Preliminary No growth in 4 days 10/27/18 Unknown Blood - Peripheral Anaerobic Blood Culture - Preliminary No growth in 4 days Assessment and Plan - Plan 63-year-old male with right second digit gangrene status post re-vascular with vascular surgery Patient examined and evaluated with all questions answered To the OR today for right second digit amputation Please obtain consent, consent to read right second digit amputation at metatarsal phalangeal joint with possible second metatarsal head excision Discussed with patient that due to necrosis at metatarsophalangeal joint wound VAC may be used to aid in closure, discussed with patient may not be able to primarily close digital amputation Patient understands all benefits alternatives risks and complications associated with procedure, he is in agreement with procedure N.p.o. after midnight Consent signed Right lower extremity marked
[2018-10-31] MEDS ORDERED: fentaNYL Citrate Inj 100 MCG/2 ML Ampul ONE (16:42)
--- NOTE | 2018-10-31 16:43 | MP ---
cc: Deisy King DPM DATE OF OPERATION: 10/31/2018 SURGEON: Deisy King DPM PUBLIC HEALTH CLINICAL NURSE SPECIALIST: None. PREOPERATIVE DIAGNOSIS: Right second digit gangrene. POSTOPERATIVE DIAGNOSIS: Right second digit gangrene. PROCEDURE PERFORMED: Right second digit amputation with second metatarsal head resection secondary to unable to achieve closure due to degree of gangrene into metatarsophalangeal joint. ANESTHESIA: General. HEMOSTASIS: None. ESTIMATED BLOOD LOSS: 10 mL MATERIALS: 2-0 and 3-0 Prolene, 1/4-inch packing. INJECTABLES: 0.5% Marcaine plain, 10 mL total into the right foot. COMPLICATIONS: None. INDICATIONS FOR PROCEDURE: The patient is a 63-year-old male with gangrenous right toe recently revascularized by vascular. All alternatives, benefits and complications associated with the procedure were discussed and he elected to proceed with surgical intervention. DESCRIPTION OF PROCEDURE: The patient was brought to the operating room, placed on the operating table in the supine position. General anesthesia was then induced. Right foot was prepped and draped in the usual sterile fashion. Attention was then directed to the right second metatarsophalangeal joint. At this time, a racquet incision was made about the second metatarsal deepened through skin and subcutaneous tissue with care to retract all vital neurovascular structures. Once this was achieved, the toe was disarticulated at the metatarsophalangeal joint, medial and lateral collateral ligaments were severed. Toe was sent to pathology. Metatarsal head was removed with osteotome and sent to pathology as well. Following, the site was copiously irrigated and 2-0 and 3-0 Prolene was used to reapproximate skin and 1/4-inch packing was placed at the site. The patient tolerated the procedure and anesthesia well. He was transferred from the OR to PACU with vital signs stable and neurovascular status intact to the right foot. Adaptic, 4 x 4s, cast padding and Raheel were applied to the right foot. Deisy King DPM JIP/pippa , 04:18 PM , 04:24 PM
--- NOTE | 2018-10-31 17:40 | XR ---
EXAM DATE: 10/31/2018 5:30 PM EST AGE/SEX: 63 years / Male INDICATIONS: Post operative. CLINICAL DATA: This is the patient's subsequent encounter. Patient reports that signs and symptoms h ave been present for 3 days and indicates a pain score of 4/10. MEDICAL/SURGICAL HISTORY: . Hypertension. Peripheral vascular disease. Emphysema. A-fib. Bipola r 1. COPD. DM. Hx of GI bleed. Hyperlipidemia. Schizophrenia. . Abdominal surgery. Amputation of l eft great toe. Bypass graft of extremity. Wrist surgery. COMPARISON: [facility] [place], FOOT COMPLETE RIGHT 3V, 10/27/2018. . FINDINGS: Interval surgery with amputation of the second digit with osteotomy distal metaphysis of the metatars als. There is amorphous surgical packing at the surgical site. Remainder of the osseous structures of the forefoot are intact. No metallic radiopaque foreign bodies CONCLUSION: Expected post surgical findings from amputation second digit. Electronically signed by: Adonis Billy MD Board Certified Radiologist 10/31/2018 5:39 PM EST
[2018-10-31] MEDS: Insulin Detemir Inj 1,000 UNIT/10 ML Vial SQ SCH (21:21)
[2018-10-31] MEDS: ARIPiprazole 10 MG Tablet PO SCH (21:22)
[2018-11-01] MEDS: HYDROmorphone PF Inj 2 MG/ML Vial IV.PUSH PRN ×6 (02:14→22:06)
[2018-11-01] MEDS: Insulin NovoLOG Aspart Correctional Sugar Inj SQ SCH ×3 (05:49→17:25)
[2018-11-01] MEDS: Vancomycin Inj 1,250 MG in Sodium Chlor 0.9% Inj 250 ML IV.SIG SCH (08:41)
[2018-11-01] MEDS: clonazePAM 0.5 MG Tablet PO PRN (08:41)
[2018-11-01] MEDS: Rivaroxaban 20 MG Tablet PO SCH (08:41)
[2018-11-01] MEDS: amLODIPine 5 MG Tablet PO SCH (08:42)
[2018-11-01] MEDS: dilTIAZem CD 240 MG Capsule PO SCH (08:42)
[2018-11-01] MEDS: Budesonide-Formoterol 160/4.5 MCG 6 GM Inhaler INH SCH ×2 (09:58→20:27)
[2018-11-01] MEDS: Sod Chloride 0.9% Inj 1,000 ML IV.CONT SCH ×2 (12:04→22:08)
--- NOTE | 2018-11-01 12:25 | P.PN ---
Subjective Interval history: no complains good po Physical Exam Vital signs: Vital Signs 10/31/18 16:35 10/31/18 20:00 10/31/18 21:00 Temperature 97.8 F 97.8 F Pulse Rate 61 83 70 Respiratory Rate 16 18 17 Blood Pressure 107/54 L 140/65 Pulse Oximetry 92 L 94 L 11/01/18 00:00 11/01/18 03:54 11/01/18 08:00 Temperature 97.7 F 101.2 F H Pulse Rate 73 86 101 H Respiratory Rate 18 18 18 Blood Pressure 117/58 L 151/72 H Pulse Oximetry 94 L 95 11/01/18 08:40 Temperature Pulse Rate 76 Respiratory Rate 18 Blood Pressure Pulse Oximetry 95 Intake & Output 10/31/18 11/01/18 11/01/18 18:59 06:59 18:59 Intake Total 2102.5 / 2102.5 4100 / 4100 100 / 100 Output Total 710 / 710 450 / 450 Balance 1392.5 / 1392.5 3650 / 3650 100 / 100 Weight 79.4 kg Intake: IV 1362.5 / 1362.5 100 / 100 100 / 100 NS Inj 1,000 ML @ 84 mls/hr IV. 1000 / 1000 CONT .[id number] [facility] Rx#:[id number] Maxipime Inj 2,000 MG In NS Inj 100 / 100 100 / 100 100 / 100 100 ML @ 200 mls/hr IV.SIG Q8H [facility] Rx#:[id number] Vancomycin Inj 1,250 MG In NS 262.5 / 262.5 Inj 250 ML @ 250 mls/hr IV.SIG Q18H [facility] Rx#:[id number] Oral 240 / 240 4000 / 4000 Anesthesia Amount 500 / 500 Output: Urine 700 / 700 450 / 450 Estimated Blood Loss 10 / 10 Other: # Bowel Movements 0 Narrative: Gen.: No acute distress Head: Normocephalic. Atraumatic. EENT: Pupils equal round and reactive to light. throat no exudates Cardiovascular: Regular rate and rhythm. Respiratory: no wheezes, no rales Abdomen: Soft, nontender, nondistended. No peritoneal signs. groin- no hematoma Musculoskeletal: Right foot and ankle-, 2nd toe right foot- s/p amputation- dressing in place right leg.calf slight bigger than - this is chronic-from previous injuries- see scars present - doppler negative for DVT Skin: No obvious rashes or erythema. Neuro: Sensory and motor grossly intact. Cranial nerves II through XII grossly intact. - Constitutional obtunded Results - Labs CBC & Chem 7: 10/28/18 09:31 11/01/18 07:02 Laboratory Results - last 24 hr 10/31/18 10/31/18 11/01/18 16:38 23:38 05:47 Creatinine Estimated GFR POC Glucose 85 164 H 147 H 11/01/18 07:02 Creatinine 1.52 H Estimated GFR 47 L POC Glucose Microbiology 10/27/18 Unknown Blood - Peripheral Aerobic Blood Culture - Final No growth in 5 days 10/27/18 Unknown Blood - Peripheral Anaerobic Blood Culture - Final No growth in 5 days 10/27/18 Unknown Blood - Peripheral Aerobic Blood Culture - Final No growth in 5 days 10/27/18 Unknown Blood - Peripheral Anaerobic Blood Culture - Final No growth in 5 days 10/31/18 15:57 Tissue - Foot Gram Stain - Final - Imaging Impressions Foot X-Ray 10/31/18 00:00 CONCLUSION: Expected post surgical findings from amputation second digit. - Procedures 11/01 Right second digit amputation with metatarsal head resection Assessment and Plan - Plan 63 years old male- smoker Right second Dry gangrene toe/cellulitis S.P right second toe amputation 10/31 Peripheral vascular disease Status post right lower extremity endovascular revascularization 10/29 - on Vancomycin and cefepime as patient allergic to penicillin - Blood cultures negative so far - as OP was on Xarelto on d.w her 10/30 - cultures pending Atrial fibrillation- currently in SR Continue diltiazem Continue Xarelto Diabetes mellitus good readings - started on HS Insulin 25 HS - Januvia 50 ,g daily Sliding-scale insulin Monitor blood glucose and adjust meds Hypertension/hyperlipidemia Continue home amlodipine and clonidine Continue statin Schizophrenia/bipolar disorder Continue home Abilify COPD=lungs- clear Continue Symbicort duonebs q 6 scheduled Chronic kidney disease Creatinine 1.67, baseline Monitor renal function on Xarelto PT consult DC if cleared by Podiatry for DC on po antibuitoics
--- NOTE | 2018-11-01 13:02 | P.PNPOD ---
Subjective Interval history: Patient seen bedside post op day 1. No concerns at this time. Reports he had to walk on his foot to get the bathroom. There is bloody strikethrough to plantar aspect of dressing. Physical Exam Vital signs: Vital Signs 10/31/18 16:35 10/31/18 20:00 10/31/18 21:00 Temperature 97.8 F 97.8 F Pulse Rate 61 83 70 Respiratory Rate 16 18 17 Blood Pressure 107/54 L 140/65 Pulse Oximetry 92 L 94 L 11/01/18 00:00 11/01/18 03:54 11/01/18 08:00 Temperature 97.7 F 101.2 F H Pulse Rate 73 86 101 H Respiratory Rate 18 18 18 Blood Pressure 117/58 L 151/72 H Pulse Oximetry 94 L 95 11/01/18 08:40 Temperature Pulse Rate 76 Respiratory Rate 18 Blood Pressure Pulse Oximetry 95 Intake & Output 10/31/18 11/01/18 11/01/18 18:59 06:59 18:59 Intake Total 2102.5 / 2102.5 4100 / 4100 100 / 100 Output Total 710 / 710 450 / 450 Balance 1392.5 / 1392.5 3650 / 3650 100 / 100 Weight 79.4 kg Intake: IV 1362.5 / 1362.5 100 / 100 100 / 100 NS Inj 1,000 ML @ 84 mls/hr IV. 1000 / 1000 CONT .[id number] [facility] Rx#:[id number] Maxipime Inj 2,000 MG In NS Inj 100 / 100 100 / 100 100 / 100 100 ML @ 200 mls/hr IV.SIG Q8H [facility] Rx#:[id number] Vancomycin Inj 1,250 MG In NS 262.5 / 262.5 Inj 250 ML @ 250 mls/hr IV.SIG Q18H [facility] Rx#:[id number] Oral 240 / 240 4000 / 4000 Anesthesia Amount 500 / 500 Output: Urine 700 / 700 450 / 450 Estimated Blood Loss 10 / 10 Other: # Bowel Movements 0 Medications and Allergies Active Medications: Active Medications Amlodipine Besylate (Norvasc) 5 mg PO DAILY [facility] Last Admin: 11/01/18 08:42 Dose: 5 mg Aripiprazole (Abilify) 10 mg PO HS [facility] Last Admin: 10/31/18 21:22 Dose: 10 mg Atorvastatin Calcium (Lipitor) 80 mg PO DAILY [facility] Last Admin: 11/01/18 08:41 Dose: 80 mg Budesonide/Formoterol Fumarate (Symbicort 160/4.5 Mcg Inh) 2 puff INH BID [facility] Last Admin: 11/01/18 09:58 Dose: 2 puff Clonazepam (Klonopin) 1 mg PO BID PRN PRN Reason: Anxiety Last Admin: 11/01/18 08:41 Dose: 1 mg Clonidine HCl (Catapres) 0.1 mg PO Q8HR [facility] Last Admin: 11/01/18 05:48 Dose: 0.1 mg Dextrose (D50w Vial) 50 ml IV.PUSH UNSCH PRN PRN Reason: PER HYPOGLYCEMIA PROTOCOL Last Admin: 10/28/18 11:59 Dose: 50 ml Diltiazem HCl (Cardizem Cd 24hr) 240 mg PO DAILY [facility] Last Admin: 11/01/18 08:42 Dose: 240 mg Glucagon (Glucagon Inj) 1 mg OTHER PRN PRN PRN Reason: for Hypoglycemia Protocol Hydromorphone HCl (Dilaudid Pf Inj) 0.5 mg IV.PUSH Q4H PRN PRN Reason: PAIN SCALE 1 TO 10 Last Admin: 11/01/18 09:58 Dose: 0.5 mg Hydroxyzine HCl (Atarax) 25 mg PO BID [facility] Last Admin: 11/01/18 08:42 Dose: 25 mg Cefepime HCl 2,000 mg/ Sodium (Chloride) 100 mls @ 200 mls/hr IV.SIG Q8H [facility] Last Infusion: 11/01/18 08:42 Dose: Infused Sodium Chloride (Ns Inj) 1,000 mls @ 84 mls/hr IV.CONT .[id number] [facility] Last Admin: 11/01/18 12:04 Dose: 84 mls/hr Vancomycin HCl 1,250 mg/ (Sodium Chloride) 262.5 mls @ 250 mls/hr IV.SIG Q18H [facility] Last Admin: 11/01/18 08:41 Dose: 150 mls/hr Insulin Aspart (Novolog Insulin Correctional Sugar Inj) 0 unit SQ Q6HR [facility]; Protocol Last Admin: 11/01/18 12:04 Dose: 1 unit Insulin Detemir (Levemir Inj) 25 unit SQ HS [facility] Last Admin: 10/31/18 21:21 Dose: 25 unit Miscellaneous Information (Misc Nursing Information) 1 each OTHER UNSCH PRN PRN Reason: SEE LABEL COMMENTS Stop: 11/01/18 16:58 Nicotine (Habitrol 7 Mg Patch.24 Hr) 1 patch T-DERMAL DAILY [facility] Last Admin: 11/01/18 09:58 Dose: 1 patch Pantoprazole Sodium (Protonix) 40 mg PO DAILY [facility] Last Admin: 11/01/18 08:41 Dose: 40 mg Patch Removal (Remove Old Patch) 1 each T-DERMAL DAILY [facility] Last Admin: 11/01/18 09:58 Dose: 1 each Pharmacy Profile Note (Vancomycin Consult Pharmacy) 1 each OTHER UNSCH PRN PRN Reason: Pharmacy to dose Rivaroxaban (Xarelto) 20 mg PO DAILY [facility] Last Admin: 11/01/18 08:41 Dose: 20 mg Sitagliptin Phosphate (Januvia) 50 mg PO DAILY [facility] Last Admin: 11/01/18 08:41 Dose: 50 mg Sodium Chloride (Ns Flush) 2 ml IV.FLUSH BID [facility] Last Admin: 11/01/18 09:58 Dose: 2 ml Sodium Chloride (Ns Flush) 2 ml IV.FLUSH PRN PRN PRN Reason: FLUSH AFTER USING IV ACCESS Allergies Allergy/AdvReac Type Severity Reaction Status Date / Time aspirin Allergy Severe Anemia Verified 10/27/18 15:10 codeine Allergy Severe RASH Verified 10/27/18 15:10 ibuprofen Allergy Severe RASH Verified 10/27/18 15:10 penicillin G Allergy Severe RASH Verified 10/27/18 15:10 propoxyphene Allergy Severe RASH Verified 10/27/18 15:10 Home Medications Medication Instructions Recorded Confirmed Type clonazepam 1 mg PO BID PRN 05/15/18 10/27/18 History sumatriptan succinate 100 mg PO Q2-4H PRN 05/15/18 10/27/18 History aripiprazole 10 mg PO HS 08/17/18 08/17/18 History atorvastatin 80 mg PO DAILY 08/17/18 10/27/18 History budesonide-formoterol [Symbicort] 2 puff INHALATION BID 08/17/18 10/27/18 History diltiazem HCl 240 mg PO DAILY 08/17/18 10/27/18 History glipizide 10 mg PO BID 08/17/18 10/27/18 History hydroxyzine HCl 25 mg PO BID 08/17/18 10/27/18 History insulin glargine [Lantus U-100 25 units SUBCUT HS 08/17/18 10/27/18 History Insulin] lisinopril 40 mg PO DAILY 08/17/18 10/27/18 History pantoprazole 40 mg PO DAILY 08/17/18 10/27/18 History rivaroxaban [Xarelto] 20 mg PO DAILY 08/17/18 10/27/18 History sitagliptin [Januvia] 50 mg PO DAILY 08/17/18 10/27/18 History tizanidine 4 mg PO DAILY 08/17/18 08/17/18 History varenicline [Chantix] 1 mg PO BID 08/17/18 08/17/18 History topiramate [Topamax] 50 mg PO PRN 08/18/18 10/27/18 History albuterol sulfate [ProAir HFA] 1 puff INHALATION Q4-6H PRN 10/27/18 10/27/18 History clonidine HCl 0.1 mg PO TID 10/27/18 10/27/18 History Results - Labs CBC & Chem 7: 10/28/18 09:31 11/01/18 07:02 Laboratory Results - last 24 hr 10/31/18 10/31/18 11/01/18 16:38 23:38 05:47 Creatinine Estimated GFR POC Glucose 85 164 H 147 H 11/01/18 07:02 Creatinine 1.52 H Estimated GFR 47 L POC Glucose Microbiology 10/27/18 Unknown Blood - Peripheral Aerobic Blood Culture - Final No growth in 5 days 10/27/18 Unknown Blood - Peripheral Anaerobic Blood Culture - Final No growth in 5 days 10/27/18 Unknown Blood - Peripheral Aerobic Blood Culture - Final No growth in 5 days 10/27/18 Unknown Blood - Peripheral Anaerobic Blood Culture - Final No growth in 5 days 10/31/18 15:57 Tissue - Foot Gram Stain - Final - Imaging Impressions Foot X-Ray 10/31/18 00:00 CONCLUSION: Expected post surgical findings from amputation second digit. - Procedures 11/01 Right second digit amputation with metatarsal head resection Assessment and Plan - Plan 63-year-old male with right second digit gangrene status post re-vascular with vascular surgery Dressing to right LE changed with packing placed Continue with daily dressing changes with packing Patient would benefit from care home facility and or rehab. He is remain NWB to the right foot and would need daily dressing changes with packing as he continues to have open wound to surgical site. Case management consult will be placed to aid in placement for patient Ok to discharge from podiatry standpoint as long as patient has proper placement and when final OR cultures and path are obtained
[2018-11-01] MEDS: Insulin Detemir Inj 1,000 UNIT/10 ML Vial SQ SCH (20:25)
[2018-11-01] MEDS: ARIPiprazole 10 MG Tablet PO SCH (20:25)
[2018-11-02] MEDS: Insulin NovoLOG Aspart Correctional Sugar Inj SQ SCH ×5 (00:42→23:59)
[2018-11-02] MEDS: Sod Chloride 0.9% Inj 1,000 ML IV.CONT SCH (08:49)
[2018-11-02] MEDS: dilTIAZem CD 240 MG Capsule PO SCH (08:50)
[2018-11-02] MEDS: amLODIPine 5 MG Tablet PO SCH (08:50)
[2018-11-02] MEDS: Rivaroxaban 20 MG Tablet PO SCH (08:51)
[2018-11-02] MEDS: Budesonide-Formoterol 160/4.5 MCG 6 GM Inhaler INH SCH ×2 (08:53→20:44)
[2018-11-02] MEDS: Vancomycin Inj 1,250 MG in Sodium Chlor 0.9% Inj 250 ML IV.SIG SCH (10:15)
[2018-11-02] MEDS: HYDROmorphone PF Inj 2 MG/ML Vial IV.PUSH PRN ×4 (10:15→21:54)
--- NOTE | 2018-11-02 11:53 | P.PNIM ---
Subjective Interval history: Follow-up visit right second toe dry gangrene/cellulitis, s/p right second toe amputation Patient seen and examined. He denies any pain to his right foot at present time. No reported cough, fevers or chills. Tolerating diet. Physical Exam Vital signs: Vital Signs 11/01/18 12:00 11/01/18 16:00 11/01/18 20:00 Temperature 99.0 F 98.9 F 98.7 F Pulse Rate 94 H 89 69 Respiratory Rate 18 18 16 Blood Pressure 143/76 H 118/57 L 107/53 L Pulse Oximetry 97 95 97 11/02/18 00:00 11/02/18 08:00 Temperature 98.8 F 98.7 F Pulse Rate 71 72 Respiratory Rate 16 17 Blood Pressure 115/58 L 152/70 H Pulse Oximetry 95 93 L Intake & Output 11/01/18 11/02/18 11/02/18 18:59 06:59 18:59 Intake Total 200 / 200 1100 / 1100 100 / 100 Output Total 2000 / 1999 3000 / 3000 Balance -1800 / -1800 -1900 / -1900 100 / 100 Intake: IV 200 / 200 1100 / 1100 100 / 100 NS Inj 1,000 ML @ 84 mls/hr IV. 1000 / 1000 CONT .[id number] [facility] Rx#:[id number] Maxipime Inj 2,000 MG In NS Inj 200 / 200 100 / 100 100 / 100 100 ML @ 200 mls/hr IV.SIG Q8H [facility] Rx#:[id number] Output: Urine 1999 / 1999 3000 / 3000 Other: Date of Last Bowel Movement 10/27/18 11/02/18 # Bowel Movements 1 Narrative: GENERAL: well developed, well nourished, no acute distress SKIN: Warm and dry. HEAD: Normocephalic, atraumatic EYES: No scleral icterus. No injection or drainage. NECK: Supple, trachea midline. No JVD or lymphadenopathy. CARDIOVASCULAR: Regular rate and rhythm without murmurs, gallops, or rubs. RESPIRATORY: Breath sounds equal bilaterally. No accessory muscle use. GASTROINTESTINAL: Abdomen soft, non-tender, nondistended. MUSCULOSKELETAL: 2nd toe right foot s/p amputation with dressing clean, dry and intact. Results Labs CBC & Chem 7: 10/28/18 09:31 11/01/18 07:02 Labs: Microbiology 10/31/18 15:57 Tissue - Foot Gram Stain - Final 10/31/18 15:57 Tissue - Foot Wound Culture - Preliminary No growth in 48 hours 10/31/18 15:57 Tissue - Foot Fungal Smear - Final No fungal elements seen 10/27/18 Unknown Blood - Peripheral Aerobic Blood Culture - Final No growth in 5 days 10/27/18 Unknown Blood - Peripheral Anaerobic Blood Culture - Final No growth in 5 days 10/27/18 Unknown Blood - Peripheral Aerobic Blood Culture - Final No growth in 5 days 10/27/18 Unknown Blood - Peripheral Anaerobic Blood Culture - Final No growth in 5 days Procedures Procedures: 11/01 Right second digit amputation with metatarsal head resection Assessment and Plan Plan 63-year-old male with a past medical history significant for atrial fibrillation anticoagulated on Xarelto, bipolar disorder, schizophrenia, COPD, diabetes mellitus, hypertension, hyperlipidemia and peripheral vascular disease presents to the emergency department for the evaluation of a black, painful right second toe. Right second Dry gangrene toe/cellulitis S.P right second toe amputation 10/31 Peripheral vascular disease Status post right lower extremity endovascular revascularization 10/29 -on Vancomycin and cefepime as patient allergic to penicillin -Blood cultures negative so far -as OP was on Xarelto -cultures pending Atrial fibrillation- currently in SR -Continue diltiazem -Continue Xarelto Diabetes mellitus good readings -started on HS Insulin 25 HS -Januvia 50 ,g daily -accuchecks ac/hs with sliding-scale insulin Hypertension/hyperlipidemia -Continue home amlodipine and clonidine -Continue statin Schizophrenia/bipolar disorder -Continue home Abilify COPD=lungs- clear -Continue Symbicort -duonebs q 6 scheduled Chronic kidney disease -Creatinine 1.67, baseline -Monitor renal function MDM: self Code: Full GI ppx: not indicated DVT ppx: on Xarelto Dispo: DC if cleared by Podiatry on PO antibiotics Progress Note: Quality VTE Deep Vein Thrombosis/Pulmonary Embolism Present on Admission: No
[2018-11-02] MEDS: Insulin Detemir Inj 1,000 UNIT/10 ML Vial SQ SCH (20:44)
[2018-11-02] MEDS: ARIPiprazole 10 MG Tablet PO SCH (20:44)
[2018-11-03] MEDS: HYDROmorphone PF Inj 2 MG/ML Vial IV.PUSH PRN ×5 (01:49→20:23)
[2018-11-03] MEDS: Insulin NovoLOG Aspart Correctional Sugar Inj SQ SCH ×3 (05:53→18:18)
[2018-11-03] MEDS: dilTIAZem CD 240 MG Capsule PO SCH (08:32)
[2018-11-03] MEDS: amLODIPine 5 MG Tablet PO SCH (08:32)
[2018-11-03] MEDS: Rivaroxaban 20 MG Tablet PO SCH (08:32)
[2018-11-03] MEDS: Budesonide-Formoterol 160/4.5 MCG 6 GM Inhaler INH SCH ×2 (08:40→20:23)
[2018-11-03] MEDS: Vancomycin Inj 1,250 MG in Sodium Chlor 0.9% Inj 250 ML IV.SIG SCH (08:52)
--- NOTE | 2018-11-03 10:42 | P.PNIM ---
Subjective Interval history: Follow-up visit right second toe dry gangrene/cellulitis, s/p right second toe amputation Patient seen and examined while resting in bed. He states he is ready to go to rehab. Discussed with case management and they are working on placement. Patient tolerating p.o. intake. Denies any nausea, vomiting, or diarrhea. Physical Exam Vital signs: Vital Signs 11/02/18 12:00 11/02/18 16:00 11/02/18 19:00 Temperature 98.8 F 98.6 F Pulse Rate 72 80 Respiratory Rate 16 16 17 Blood Pressure 124/61 122/60 Pulse Oximetry 98 93 L 11/02/18 20:00 11/02/18 22:24 11/02/18 23:43 Temperature 98.4 F 98.5 F Pulse Rate 55 L 51 L Respiratory Rate 20 16 20 Blood Pressure 133/56 L 118/56 L Pulse Oximetry 96 95 11/03/18 02:19 11/03/18 04:00 11/03/18 08:27 Temperature 98.3 F Pulse Rate 77 Respiratory Rate 18 20 18 Blood Pressure 153/69 H Pulse Oximetry 95 Intake & Output 11/02/18 11/03/18 11/03/18 18:59 06:59 18:59 Intake Total 2662.5 / 2662.5 800 / 800 100 / 100 Output Total 1200 / 1200 600 / 600 Balance 1462.5 / 1462.5 200 / 200 100 / 100 Weight 79.4 kg Intake: IV 1462.5 / 1462.5 100 / 100 100 / 100 NS Inj 1,000 ML @ 84 mls/hr IV. 1000 / 1000 CONT .[id number] [facility] Rx#:[id number] Maxipime Inj 2,000 MG In NS Inj 200 / 200 100 / 100 100 / 100 100 ML @ 200 mls/hr IV.SIG Q8H [facility] Rx#:[id number] Vancomycin Inj 1,250 MG In NS 262.5 / 262.5 Inj 250 ML @ 262.5 mls/hr IV. SIG Q24H [facility] Rx#:[id number] Oral 1200 / 1200 700 / 700 Output: Urine 1200 / 1200 600 / 600 Other: # Voids 3 Date of Last Bowel Movement 11/02/18 11/02/18 # Bowel Movements 3 Narrative: GENERAL: well developed, well nourished, no acute distress SKIN: Warm and dry. HEAD: Normocephalic, atraumatic EYES: No scleral icterus. No injection or drainage. NECK: Supple, trachea midline. No JVD or lymphadenopathy. CARDIOVASCULAR: Regular rate and rhythm without murmurs, gallops, or rubs. RESPIRATORY: Breath sounds equal bilaterally. No accessory muscle use. GASTROINTESTINAL: Abdomen soft, non-tender, nondistended. MUSCULOSKELETAL: 2nd toe right foot s/p amputation with dressing clean, dry and intact. Results Labs CBC & Chem 7: 10/28/18 09:31 11/03/18 07:22 Labs: Microbiology 10/31/18 15:57 Tissue - Foot Gram Stain - Final 10/31/18 15:57 Tissue - Foot Wound Culture - Final No growth in 72 hours (aerobically and anaerobically ) 10/31/18 15:57 Tissue - Foot Acid Fast Bacilli Smear - Final No acid fast bacilli seen 10/31/18 15:57 Tissue - Foot Fungal Smear - Final No fungal elements seen Procedures Procedures: 11/01 Right second digit amputation with metatarsal head resection Assessment and Plan Plan 63-year-old male with a past medical history significant for atrial fibrillation anticoagulated on Xarelto, bipolar disorder, schizophrenia, COPD, diabetes mellitus, hypertension, hyperlipidemia and peripheral vascular disease presents to the emergency department for the evaluation of a black, painful right second toe. Right second toe dry gangrene/cellulitis s/p right second toe amputation 10/31 Peripheral vascular disease Status post right lower extremity endovascular revascularization 10/29 -on Vancomycin and cefepime as patient allergic to penicillin -Blood cultures negative so far -as OP was on Xarelto -cultures pending, surgical metatarsal biopsy result pending Atrial fibrillation- currently in SR -Continue diltiazem -Continue Xarelto Diabetes mellitus good readings -started on HS Insulin 25 HS -Januvia 50 mg daily -accuchecks ac/hs with sliding-scale insulin Hypertension/dyslipidemia -Continue home amlodipine and clonidine -Continue statin Schizophrenia/bipolar disorder -Continue home Abilify COPD, chronic - no acute exacerbation at present time -continue Symbicort -duonebs q 6 scheduled Chronic kidney disease -Creatinine 1.17 -Monitor renal function MDM: self Code: Full GI ppx: not indicated DVT ppx: on Xarelto Dispo: DC once pathology is resulted. CM working on SNF placement. Progress Note: Quality VTE Deep Vein Thrombosis/Pulmonary Embolism Present on Admission: No
[2018-11-03] MEDS: Insulin Detemir Inj 1,000 UNIT/10 ML Vial SQ SCH (20:21)
[2018-11-03] MEDS: ARIPiprazole 10 MG Tablet PO SCH (20:21)
[2018-11-03] MEDS: clonazePAM 0.5 MG Tablet PO PRN (22:22)
[2018-11-04] MEDS: Insulin NovoLOG Aspart Correctional Sugar Inj SQ SCH ×3 (00:36→14:23)
[2018-11-04] MEDS: HYDROmorphone PF Inj 2 MG/ML Vial IV.PUSH PRN ×3 (00:38→09:06)
[2018-11-04] MEDS ORDERED: Pharmacy Ordered Lab Info OTHER ONE (08:45)
[2018-11-04] MEDS: amLODIPine 5 MG Tablet PO SCH (09:24)
[2018-11-04] MEDS: dilTIAZem CD 240 MG Capsule PO SCH (09:24)
[2018-11-04] MEDS: Rivaroxaban 20 MG Tablet PO SCH (09:24)
[2018-11-04] MEDS: Budesonide-Formoterol 160/4.5 MCG 6 GM Inhaler INH SCH (09:25)
[2018-11-04] MEDS: Vancomycin Inj 1,250 MG in Sodium Chlor 0.9% Inj 250 ML IV.SIG SCH (12:21)
[2018-11-04] MEDS ORDERED: HYDROmorphone PF Inj 2 MG/ML Vial IV.PUSH PRN (12:40)
[2018-11-04 12:42] VITALS: BP 141/66; PULSE 73; RESP 17; TEMP 97.7; O2SAT 97
[2018-11-04] MEDS ORDERED: Topiramate 25 MG Tablet PO SCH (13:30)
--- NOTE | 2018-11-04 15:00 | P.PNIM ---
Subjective Interval history: Follow-up visit right second toe dry gangrene/cellulitis, s/p right second toe amputation Patient resting in bed. Denies pain to right foot at rest. Discussed plan of care and patient in agreement with SNF placement after pathology report is reviewed by Podiatry and he is cleared for discharge. No further needs voiced at time of evaluation. Physical Exam Vital signs: Vital Signs 11/03/18 16:00 11/03/18 18:15 11/03/18 20:00 Temperature 97.8 F 98.8 F Pulse Rate 81 87 Respiratory Rate 17 18 17 Blood Pressure 117/82 161/72 H Pulse Oximetry 95 98 11/03/18 20:53 11/04/18 00:00 11/04/18 01:08 Temperature 98.6 F Pulse Rate 52 L Respiratory Rate 17 18 17 Blood Pressure 108/55 L Pulse Oximetry 95 11/04/18 04:00 11/04/18 04:56 11/04/18 12:00 Temperature 98.0 F 97.7 F Pulse Rate 62 73 Respiratory Rate 17 18 17 Blood Pressure 116/57 L 141/66 H Pulse Oximetry 94 L 97 Intake & Output 11/03/18 11/04/18 11/04/18 18:59 06:59 18:59 Intake Total 1187.5 / 1187.5 100 / 100 100 / 100 Output Total 950 / 950 Balance 1187.5 / 1187.5 -850 / -850 100 / 100 Weight 78.8 kg Intake: IV 462.5 / 462.5 100 / 100 100 / 100 Maxipime Inj 2,000 MG In NS Inj 200 / 200 100 / 100 100 / 100 100 ML @ 200 mls/hr IV.SIG Q8H [facility] Rx#:[id number] Vancomycin Inj 1,250 MG In NS 262.5 / 262.5 Inj 250 ML @ 262.5 mls/hr IV. SIG Q24H [facility] Rx#:[id number] Oral 725 / 725 Output: Urine 950 / 950 Other: # Voids 10 Date of Last Bowel Movement 11/02/18 11/02/18 # Bowel Movements 1 Narrative: GENERAL: well developed, well nourished, no acute distress SKIN: Warm and dry. HEAD: Normocephalic, atraumatic EYES: No scleral icterus. No injection or drainage. NECK: Supple, trachea midline. No JVD or lymphadenopathy. CARDIOVASCULAR: Regular rate and rhythm without murmurs, gallops, or rubs. RESPIRATORY: Breath sounds equal bilaterally. No accessory muscle use. GASTROINTESTINAL: Abdomen soft, non-tender, nondistended. MUSCULOSKELETAL: 2nd toe right foot s/p amputation with dressing clean, dry and intact. Results Labs CBC & Chem 7: 10/28/18 09:31 11/03/18 07:22 Labs: Microbiology 10/31/18 15:57 Tissue - Foot Gram Stain - Final 10/31/18 15:57 Tissue - Foot Wound Culture - Final No growth in 72 hours (aerobically and anaerobically ) Procedures Procedures: 11/01 Right second digit amputation with metatarsal head resection Assessment and Plan Plan 63-year-old male with a past medical history significant for atrial fibrillation anticoagulated on Xarelto, bipolar disorder, schizophrenia, COPD, diabetes mellitus, hypertension, hyperlipidemia and peripheral vascular disease presents to the emergency department for the evaluation of a black, painful right second toe. Right second toe dry gangrene/cellulitis s/p right second toe amputation 10/31 Peripheral vascular disease Status post right lower extremity endovascular revascularization 10/29 -on Vancomycin and cefepime as patient allergic to penicillin -Blood cultures negative so far -as OP was on Xarelto -cultures pending, surgical metatarsal biopsy result pending Atrial fibrillation- currently in SR -Continue Diltiazem -Continue Xarelto Diabetes mellitus good readings -started on HS Insulin 25 HS -Januvia 50 mg daily -accuchecks ac/hs with sliding-scale insulin Hypertension/dyslipidemia -Continue home amlodipine and clonidine -Continue statin Schizophrenia/bipolar disorder -Continue home Abilify COPD, chronic - no acute exacerbation at present time -continue Symbicort -duonebs q 6 scheduled Chronic kidney disease -Creatinine 1.17 -Monitor renal function MDM: self Code: Full GI ppx: not indicated DVT ppx: on Xarelto Dispo: DC once pathology is resulted. CM working on SNF placement. Notified by RN that patient left AMA. According to RN patient stated a family member/friend had a in the family and he needed to leave. RN further states patient has an appointment with MD in the morning at 10 am and stated that he would follow up with his physician regarding need for antibiotics. Patient Karthik Gan has decided to leave the hospital against medical advice. This patient has the capacity to refuse care and understands the risks of leaving, including permanent disability and/or , and has had an opportunity to ask questions about his condition. The patient has been informed that he may return for care at any time, and follow up has been advised. Progress Note: Quality VTE Deep Vein Thrombosis/Pulmonary Embolism Present on Admission: No
[2018-11-05] MEDS ORDERED: Pharmacy Ordered Lab Info OTHER ONE (08:45)
== END 2018-11-04 15:46 | disposition left against medical advice (07) | DRG 271 ==
LOC: NEPE 15:03 → NEDA 18:39 → N07 19:56
PROVIDERS: ADMIT Internal Medicine; ATTEND Internal Medicine
CPT/HCPCS: 37225; 37228; 37232; 73630; 75635; 75710; 76937; 80053; 80202; 82565; 82948; 82962; 83605; 83735; 85025; 85610; 85651; 85652; 85730; 86140; 87015; 87040; 87070; 87102; 87116; 87176; 87205; 87206; 88304; 88305; 88311; 90765; 90775; 93005; 93971; 94150; 94640; 94664; 94665; 96365; 96375; 97110; 97116; 97162; 99152; 99153; 99285; C1714; C1725; C1751; C1760; C1769; C1887; C1893; G0269; J0692; J1170; J1644; J1815; J2250; J3010; J3370; J7030; J7050; L3250; Q9967